=== PATIENT | female | born 1950 | race Caucasian/White ===

== ENCOUNTER 2020-12-11 17:40 | Observation (INO) ==
--- NOTE | 2020-12-11 20:48 | CT ---
HISTORYPT STATED THE LEFT SIDE OF HER FACE BECAME NUMB AROUND LUNCH TODAY THEN A FEW HOURS AFTER HER LEGS GAVE OUT UNDERNEATH HER AND HER LEFT HAND WAS NUMB AND RIGHT HAND TINGLING.STUDYBRAIN W/O CONCOMPARISONNone available.TECHNIQUEAxial non-contrast images of the head were obtained with coronal and sagittal reformats provided.Radiation dose: 1329.50 mGy-cm total DLPFINDINGSTiny round focus of decreased attenuation in the right basal ganglia may represent an age-indeterminate lacunar infarct or perivascular space.No abnormal areas of acute attenuation in the brain parenchyma.Shah-white differentiation remains intact.No intracranial, extra-axial, fluid collection.No hemorrhage.Periventricular chronic microvascular disease.No mass, mass effect or midline shift.Age related brain parenchymal global atrophy.No ventriculomegaly.No acute fracture.Sinuses are well aerated.Mastoid air cells are well aerated.Globes and intra-orbital contents are unremarkable.IMPRESSIONNo acute intracranial abnormality identified.Electronically signed by: Vladimir Padilla (Dec 11, 2020 20:46:32)
[2020-12-11 20:54] LABS: BILIRUBIN,URINE NEGATIVE (NEGATIVE); BLOOD/HEMOGLOBIN,URINE 1+ (NEGATIVE); GLUCOSE, URINE 4+ (NEGATIVE); KETONES,URINE NEGATIVE (NEGATIVE); LEUKOCYTE ESTERASE ,URINE 2+ (NEGATIVE); NITRITES,URINE NEGATIVE (NEGATIVE); PROTEIN,URINE NEGATIVE (NEGATIVE); UROBILINOGEN,URINE NORMAL (NORMAL)
[2020-12-11 21:03] LABS: APPEARANCE,URINE HAZY (CLEAR); COLOR,URINE YELLOW (YELLOW)
[2020-12-11 21:04] LABS: BACTERIA,URINE TRACE /HPF (NEGATIVE); SQUAMOUS EPITHELIAL CELL,UR MODERATE /HPF (NEGATIVE); YEAST,URINE FEW /HPF (NEGATIVE)
--- NOTE | 2020-12-11 21:08 | DR.GENAD ---
HPI Time Seen Time Seen by Provider: 12/11/20 19:06 PCP Primary Care Physician: MARISSA HPI Comment HPI Comment: Patient states taht she had sudden onset of numbness and weakness of the left arm and numbness of the left face. no prior history of CAD or CVA, but does have h/o HTN, DM and high cholesterol. Complaint/Symptoms Chief Complaint:: PT STATED THE LEFT SIDE OF HER FACE BECAME NUMB AROUND LUNCH TODAY THEN A FEW HOURS AFTER HER LEGS GAVE OUT UNDERNEATH HER AND HER LEFT HAND WAS NUMB AND RIGHT HAND TINGLING. Source History Provided: Patient Mode of Arrival Mode of Arrival: Wheelchair Timing Onset of Chief Complaint: 12/11/20 PMH PMH Past Medical History: Yes Past Medical History: Asthma, Diabetes and Hypertension Past Surgical History: Yes Surgical History: Appendectomy, Hysterectomy and Thyroidectomy Past Surgical History Comment: LOBITO BREAST REMOVAL WITH LYMPH NODES REMOVED--BREAST CA Family History History of Family Medical Conditions: Yes Family Medical History: Diabetes Mellitus, Cancer, [place] and Hypertension Social History Does patient currently use any type of tobacco product: No Have you used tobacco products in the last 12 months: No Type of Tobacco Use: None Does any household member use tobacco: No Alcohol Use: None Do you use any recreational Drugs:: No Lives With: Alone Lives Where: Home Infectious screening In the last 2 months have you had wt loss of >10#?: NO Have you had fever, night sweats or hemotysis?: No Have you traveled outside the country in the last 6 months?: No Isolation: Standard ROS Review of Systems Constitutional: See HPI Neurological: See HPI All Other Systems: Reviewed and Negative PE Vital Signs Vitals: Pulse Rate 104 Respiratory Rate 24 Blood Pressure [Left Arm] 124/75 Blood Pressure 98/59 O2 Sat by Pulse Oximetry 96 General Limitations: No Limitations Head Head Exam: Normal Inspection, Atraumatic and Normocephalic Eyes Eye exam: Normal Appearance and EOMI ENT ENT Exam: Normal Exam Neck Neck Exam: Normal Inspection and Trachea Midline Chest Chest Inspection: Normal Inspection and Symmetric Chest Wall Rise Respiratory Respiratory Exam: Normal Lung Sounds Bilat Respiratory Exam: Bilateral: Clear to Auscultation Cardiovascular Cardiovascular Exam: Regular Rate, Normal Rhythm and Normal Heart Sounds Abdominal Exam Abdominal Exam: Normal Inspection Extremities Extremities Exam: Normal Inspection Neurologic Neurological Exam: Motor Sensory Deficit (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 +drift) Psychiatric Psychiatric Exam: Normal Affect and Normal Mood Skin Skin Exam: Warm, Dry and Intact COURSE Reevaluation 1st: Unchanged Consultation Consultation Comments: Spoke with Dr. Jean Baptiste who accepts patient for admission ROR Labs Reviewed Result Diagrams: 12/11/20 21:15 12/11/20 21:15 Laboratory: WBC 7.4 X10^3/uL (3.6-10.0) 12/11/20 21:15 RBC 5.51 X10^6/uL (3.5-5.4) H 12/11/20 21:15 Hgb 15.4 g/dL (12.0-16.0) 12/11/20 21:15 Hct 46.0 % (36.0-47.0) 12/11/20 21:15 MCV 83.4 fL (80.0-100.0) 12/11/20 21:15 MCH 28.0 pg (27.0-34.0) 12/11/20 21:15 MCHC 33.6 g/dL (33.0-35.0) 12/11/20 21:15 RDW 15.1 % (11.6-16.5) 12/11/20 21:15 Plt Count 165 X10^3/uL (150.0-450.0) 12/11/20 21:15 MPV 8.5 fL (7.4-11.0) 12/11/20 21:15 Neut % (Auto) 66.3 % (42.0-75.0) 12/11/20 21:15 Lymph % (Auto) 23.2 % (21.0-51.0) 12/11/20 21:15 [place] % (Auto) 7.5 % (0.0-13.0) 12/11/20 21:15 Eos % (Auto) 1.5 % (0.9-2.9) 12/11/20 21:15 Baso % (Auto) 1.5 % (0.2-1.0) H 12/11/20 21:15 Neut # (Auto) 4.9 x10^3/uL (2.2-4.8) H 12/11/20 21:15 Lymph # (Auto) 1.7 X10^3/uL (1.3-2.9) 12/11/20 21:15 [place] # (Auto) 0.6 x10^3/uL (0.3-0.8) 12/11/20 21:15 Eos # (Auto) 0.1 x10^3/uL (0.0-0.2) 12/11/20 21:15 Baso # (Auto) 0.1 X10^3/uL (0.0-0.1) 12/11/20 21:15 Absolute Nucleated RBC 0.1 /100WBC 12/11/20 21:15 PT 13.0 SECONDS (11.8-14.3) 12/11/20 21:15 INR Target Range - 12/11/20 21:15 INR 1.03 (0.8-1.3) 12/11/20 21:15 APTT 26.1 SECONDS (22.9-36.5) 12/11/20 21:15 PTT Comment - 12/11/20 21:15 Sodium 138 mmol/L (136-145) 12/11/20 21:15 Corrected Sodium 146 mmol/L (136-145) H 12/11/20 21:15 Potassium 3.5 mmol/L (3.5-5.1) 12/11/20 21:15 Chloride 97 mmol/L (98-107) L 12/11/20 21:15 Carbon Dioxide 30.3 mmol/L (21-32) 12/11/20 21:15 BUN 8 mg/dL (7-18) 12/11/20 21:15 Creatinine 1.06 mg/dL (0.55-1.02) H 12/11/20 21:15 Est GFR (MDRD) Af Amer > 60 (>60) 12/11/20 21:15 Est GFR (MDRD) Non-Af 54 (>60) L 12/11/20 21:15 Glucose 417 mg/dL (65-99) H 12/11/20 21:15 Calcium 9.0 mg/dL (8.5-10.1) 12/11/20 21:15 Corrected Calcium TNP 12/11/20 21:15 Magnesium 1.3 mg/dL (1.7-2.9) L 12/11/20 21:15 Total Bilirubin 0.70 mg/dL (0.2-1.0) 12/11/20 21:15 AST 19 Units/L (15-37) 12/11/20 21:15 ALT 29 Units/L (12-78) 12/11/20 21:15 Alkaline Phosphatase 100 Units/L (46-116) 12/11/20 21:15 Creatine Kinase 100 Units/L (26-192) 12/11/20 21:15 CK-MB (CK-2) 2.3 ng/mL (0-4.0) 12/11/20 21:15 CK/CKMB % Calc 2.3 % (<4) 12/11/20 21:15 Troponin I < 0.02 ng/mL (0-1.5) 12/11/20 21:15 Total Protein 7.9 g/dL (6.4-8.2) 12/11/20 21:15 Albumin 3.4 g/dL (3.4-5.0) 12/11/20 21:15 Globulin 4.5 g/dL (2.5-4.5) 12/11/20 21:15 Albumin/Globulin Ratio 0.8 Ratio (1.1-2.1) L 12/11/20 21:15 Specimen Type Clean catch urine 12/11/20 20:46 Urine Color Yellow (YELLOW) 12/11/20 20:46 Urine Appearance Hazy (CLEAR) 12/11/20 20:46 Urine pH 6.0 (5.0 - 8.0) 12/11/20 20:46 Ur Specific [place] 1.015 (1.000-1.030) 12/11/20 20:46 Urine Protein Negative (NEGATIVE) 12/11/20 20:46 Urine Glucose (UA) 4+ (NEGATIVE) 12/11/20 20:46 Urine Ketones Negative (NEGATIVE) 12/11/20 20:46 Urine Occult Blood 1+ (NEGATIVE) 12/11/20 20:46 Urine Nitrite Negative (NEGATIVE) 12/11/20 20:46 Urine Bilirubin Negative (NEGATIVE) 12/11/20 20:46 Urine Urobilinogen Normal (NORMAL) 12/11/20 20:46 Ur Leukocyte Esterase 2+ (NEGATIVE) 12/11/20 20:46 Urine RBC 3-5 /HPF (0-3) A 12/11/20 20:46 Urine WBC 5-10 /HPF (0-5) A 12/11/20 20:46 Ur Squamous Epith Cells Moderate /HPF (NEGATIVE) 12/11/20 20:46 Urine Bacteria Trace /HPF (NEGATIVE) 12/11/20 20:46 Urine Yeast Few /HPF (NEGATIVE) 12/11/20 20:46 Ur Culture Indicated? No/not indicated 12/11/20 20:46 XRAY X-ray Results: HISTORY PT STATED THE LEFT SIDE OF HER FACE BECAME NUMB AROUND LUNCH TODAY THEN A FEW HOURS AFTER HER LEGS GAVE OUT UNDERNEATH HER AND HER LEFT HAND WAS NUMB AND RI GHT HAND TINGLING. STUDY BRAIN W/O CON COMPARISON None available. TECHNIQUE Axial non-contrast images of the head were obtained with coronal and sagittal reformats provided. Radiation dose: 1329.50 mGy-cm total DLP FINDINGS Tiny round focus of decreased attenuation in the right basal ganglia may represent an age-indeterminate lacunar infarct or perivascular space. No abnormal areas of acute attenuation in the brain parenchyma. Shah-white differentiation remains intact. No intracranial, extra-axial, fluid collection. No hemorrhage. Periventricular chronic microvascular disease. No mass, mass effect or midline shift. Age related brain parenchymal global atrophy. No ventriculomegaly. No acute fracture. Sinuses are well aerated. Mastoid air cells are well aerated. Globes and intra-orbital contents are unremarkable. IMPRESSION No acute intracranial abnormality identified. Electronically signed by: Vladimir Padilla (Dec 11, 2020 20:46:32) Opioid Opioid Risk Tool Age (Vinicius box if 16-45): No History of Preadolescent Sexual Abuse: No Total: 0 Total Score Risk Category: Low Risk Copyright: Senthil OBRIEN predicting aberrant behaviors Diagnosis Discharge Problem: Brain TIA
[2020-12-11 21:32] LABS: BASOPHILS # (AUTO) 0.1 X10^3/uL (0.0-0.1); BASOPHILS % (AUTO) 1.5 % (0.2-1.0); EOSINOPHILS # (AUTO) 0.1 x10^3/uL (0.0-0.2); EOSINOPHILS % (AUTO) 1.5 % (0.9-2.9); HEMOGLOBIN 15.4 g/dL (12.0-16.0); LYMPHOCYTES # (AUTO) 1.7 X10^3/uL (1.3-2.9); LYMPHOCYTES % (AUTO) 23.2 % (21.0-51.0); MEAN CORPUSCULAR HGB CONC 33.6 g/dL (33.0-35.0); MEAN CORPUSCULAR VOLUME 83.4 fL (80.0-100.0); MEAN PLATELET VOLUME 8.5 fL (7.4-11.0); MONOCYTES # (AUTO) 0.6 x10^3/uL (0.3-0.8); MONOCYTES % (AUTO) 7.5 % (0.0-13.0); NEUTROPHILS # (AUTO) 4.9 x10^3/uL (2.2-4.8); NEUTROPHILS % (AUTO) 66.3 % (42.0-75.0); PLATELET COUNT 165 X10^3/uL (150.0-450.0); RED BLOOD COUNT 5.51 X10^6/uL (3.5-5.4); RED CELL DISTRIBUTION WIDTH 15.1 % (11.6-16.5); WHITE BLOOD COUNT 7.4 X10^3/uL (3.6-10.0)
[2020-12-11 22:03] LABS: BLOOD UREA NITROGEN 8 mg/dL (7-18); CARBON DIOXIDE 30.3 mmol/L (21-32); CHLORIDE 97 mmol/L (98-107); COR NA(FOR HYPERGLY) 146 mmol/L (136-145); CREATININE 1.06 mg/dL (0.55-1.02); SODIUM 138 mmol/L (136-145); TROPONIN I < 0.02 ng/mL (0-1.5); eGFR NON BLACK RACES 54 (>60)
[2020-12-11 22:07] LABS: ALANINE AMINOTRANSFERASE 29 Units/L (12-78); ALBUMIN 3.4 g/dL (3.4-5.0); ALKALINE PHOSPHATASE 100 Units/L (46-116); ASPARTATE AMINO TRANSFERASE 19 Units/L (15-37); CKMB % 2.3 % (<4); CREATINE KINASE 100 Units/L (26-192); CREATINE KINASE MB 2.3 ng/mL (0-4.0); MAGNESIUM 1.3 mg/dL (1.7-2.9); TOTAL PROTEIN 7.9 g/dL (6.4-8.2)
--- NOTE | 2020-12-11 22:53 | RAD ---
HISTORYPT STATED THE LEFT SIDE OF HER FACE BECAME NUMB AROUND LUNCH TODAY THEN A FEW HOURS AFTER HER LEGS GAVE OUT UNDERNEATH HER AND HER LEFT HAND WAS NUMB AND RIGHT HAND TINGLING.STUDYCHEST, 1 [id number]/28/2020FINDINGSThe trachea is midline. The cardiac silhouette is enlarged.. The lungs are clear without focal infiltrate or effusion. Pulmonary vasculature within normal limits. No pneumothorax. The bony thorax is unremarkable.IMPRESSIONCardiomegaly.No active cardiopulmonary diseaseElectronically signed by: Ritesh Byers (Dec 11, 2020 22:51:24)
[2020-12-12] MEDS ORDERED: KLOR-CON PO PRN (00:46)
[2020-12-12] MEDS ORDERED: K-RIDER 10 MEQ/NS 100 ML 10 MEQ/100 ML BAG IV PRN (00:46)
[2020-12-12] MEDS ORDERED: POTASSIUM CHLORIDE LIQ 20 MEQ UDC PO PRN (00:46)
[2020-12-12] MEDS ORDERED: POTASSIUM CHL 40 MEQ/NS 0.45% 500 ML IV PRN (00:46)
[2020-12-12] MEDS ORDERED: POTASSIUM CHL 60 MEQ/NS 0.45% 500 ML IV PRN (00:46)
[2020-12-12] MEDS ORDERED: K-DUR TAB 20 MEQ PO PRN (00:46)
[2020-12-12] MEDS ORDERED: MICRO K EXTEN CAP 10 MEQ PO PRN (00:46)
[2020-12-12] MEDS ORDERED: NS 100 ML IV 100 ML IV ONE ×2 (01:11→13:45)
[2020-12-12] MEDS: MAGNESIUM SULFATE 1 GRAM/100 mL PREMIX 1 GM/100 ML BAG IV PRN ×3 (01:28→03:39)
[2020-12-12 05:07] LABS: BASOPHILS # (AUTO) 0.1 X10^3/uL (0.0-0.1); BASOPHILS % (AUTO) 0.8 % (0.2-1.0); EOSINOPHILS # (AUTO) 0.1 x10^3/uL (0.0-0.2); EOSINOPHILS % (AUTO) 1.6 % (0.9-2.9); HEMOGLOBIN 14.8 g/dL (12.0-16.0); LYMPHOCYTES # (AUTO) 2.1 X10^3/uL (1.3-2.9); LYMPHOCYTES % (AUTO) 30.1 % (21.0-51.0); MEAN CORPUSCULAR HEMOGLOBIN 27.8 pg (27.0-34.0); MEAN CORPUSCULAR VOLUME 84.1 fL (80.0-100.0); MEAN PLATELET VOLUME 8.7 fL (7.4-11.0); MONOCYTES # (AUTO) 0.6 x10^3/uL (0.3-0.8); MONOCYTES % (AUTO) 8.2 % (0.0-13.0); NEUTROPHILS # (AUTO) 4.1 x10^3/uL (2.2-4.8); NEUTROPHILS % (AUTO) 59.3 % (42.0-75.0); PLATELET COUNT 155 X10^3/uL (150.0-450.0); RED BLOOD COUNT 5.35 X10^6/uL (3.5-5.4); RED CELL DISTRIBUTION WIDTH 15.1 % (11.6-16.5); WHITE BLOOD COUNT 6.9 X10^3/uL (3.6-10.0)
[2020-12-12 05:21] LABS: ALANINE AMINOTRANSFERASE 23 Units/L (12-78); ALBUMIN 3.1 g/dL (3.4-5.0); ALKALINE PHOSPHATASE 93 Units/L (46-116); ASPARTATE AMINO TRANSFERASE 16 Units/L (15-37); BLOOD UREA NITROGEN 8 mg/dL (7-18); CALCIUM 8.8 mg/dL (8.5-10.1); CARBON DIOXIDE 28.5 mmol/L (21-32); CHLORIDE 99 mmol/L (98-107); CHOL/HDL RATIO 6.5 (0.0-5.0); CHOLESTEROL 311 mg/dL (0-200); COR CA(FOR HYPOALB) 9.5 mg/dL (8.5-10.1); COR NA(FOR HYPERGLY) 143 mmol/L (136-145); CREATININE 0.99 mg/dL (0.55-1.02); HDL CHOLESTEROL 48 mg/dL (40-60); SODIUM 137 mmol/L (136-145); TOTAL PROTEIN 7.5 g/dL (6.4-8.2); TRIGLYCERIDES 234 mg/dL (0-150); eGFR NON BLACK RACES 59 (>60)
[2020-12-12] MEDS: HumuLIN R SC PRN ×4 (06:47→21:18)
[2020-12-12] MEDS: LIPITOR TAB 80 MG PO SCH (09:14)
[2020-12-12] MEDS: GLUCOTROL PO SCH (09:14)
--- NOTE | 2020-12-12 09:37 | DR.H&P ---
H&P History & Physical for Day of: H&P Date: 12/12/20 Chief Complaint Chief Complaint: Left sided weakness and numbness Allergies Allergies Allergy/AdvReac Type Severity Reaction Status Date / Time No Known Drug Allergies Allergy Verified 06/30/20 09:38 History of Present Illness History of Present Illness: Pt is a 70 year old female past medical history of Hypertension, DMT2, Hypothyroidism, History of breast cancer, presenting after having left sided facial, upper extremity, and lower extremity weakness and numbness. She reports that symptoms started around 4PM yesterday. She felt her left leg "give out" when she was walking to the bathroom. She took a nap afterward to see if the numbness in her face would improve and when it did not she went to ED. Labs/imaging: Wbc 6.9, Hgb 14.8, Plt 155, Na 137, K 3.4, Creatinine 0.99, Glucose 343, CXR: Cardiomegaly. No active cardiopulmonary disease. CT brain: No acute intracranial abnormality identified. On exam patient still having some Left upper extremity weakness. Will get MRI/MRA to further evaluate. Order Echo, Carotid U/S, and PT/OT. Optimize medications. Restart home medications. Will continue to monitor and follow up labs/imaging. Past Medical History Past Medical History: Asthma, Diabetes and Hypertension Past Surgical History Surgical History: Appendectomy, Hysterectomy, Mastectomy and Thyroidectomy Family History Family Medical History: Diabetes Mellitus, Cancer, [place] and Hypertension Social History Does patient currently use any type of tobacco product: No Have you used tobacco products in the last 12 months: No Type of Tobacco Use: None Does any household member use tobacco: No Alcohol Use: Rarely Drug Use: Marijuana Medications Home Medications: No Known Drug Allergies Allergy (Verified 06/30/20 09:38) CONTINUE taking the following medications albuterol sulfate 1 puff INHALATION 6XD 12/12/20 [History] meloxicam 15 mg PO ONCE 12/12/20 [History] Labs Result Diagrams: 12/12/20 04:10 12/12/20 05:58 Labs: Laboratory WBC 6.9 X10^3/uL (3.6-10.0) 12/12/20 04:10 RBC 5.35 X10^6/uL (3.5-5.4) 12/12/20 04:10 Hgb 14.8 g/dL (12.0-16.0) 12/12/20 04:10 Hct 45.0 % (36.0-47.0) 12/12/20 04:10 MCV 84.1 fL (80.0-100.0) 12/12/20 04:10 MCH 27.8 pg (27.0-34.0) 12/12/20 04:10 MCHC 33.0 g/dL (33.0-35.0) 12/12/20 04:10 RDW 15.1 % (11.6-16.5) 12/12/20 04:10 Plt Count 155 X10^3/uL (150.0-450.0) 12/12/20 04:10 MPV 8.7 fL (7.4-11.0) 12/12/20 04:10 Neut % (Auto) 59.3 % (42.0-75.0) 12/12/20 04:10 Lymph % (Auto) 30.1 % (21.0-51.0) 12/12/20 04:10 [place] % (Auto) 8.2 % (0.0-13.0) 12/12/20 04:10 Eos % (Auto) 1.6 % (0.9-2.9) 12/12/20 04:10 Baso % (Auto) 0.8 % (0.2-1.0) 12/12/20 04:10 Neut # (Auto) 4.1 x10^3/uL (2.2-4.8) 12/12/20 04:10 Lymph # (Auto) 2.1 X10^3/uL (1.3-2.9) 12/12/20 04:10 [place] # (Auto) 0.6 x10^3/uL (0.3-0.8) 12/12/20 04:10 Eos # (Auto) 0.1 x10^3/uL (0.0-0.2) 12/12/20 04:10 Baso # (Auto) 0.1 X10^3/uL (0.0-0.1) 12/12/20 04:10 Absolute Nucleated RBC 0.1 /100WBC 12/12/20 04:10 PT 13.1 SECONDS (11.8-14.3) 12/12/20 04:10 INR Target Range - 12/12/20 04:10 INR 1.04 (0.8-1.3) 12/12/20 04:10 APTT 27.0 SECONDS (22.9-36.5) 12/12/20 04:10 PTT Comment - 12/12/20 04:10 Fibrinogen 298 mg/dL (239-489) 12/12/20 04:10 Sodium 137 mmol/L (136-145) 12/12/20 04:10 Corrected Sodium 143 mmol/L (136-145) 12/12/20 04:10 Potassium 3.4 mmol/L (3.5-5.1) L 12/12/20 04:10 Chloride 99 mmol/L (98-107) 12/12/20 04:10 Carbon Dioxide 28.5 mmol/L (21-32) 12/12/20 04:10 BUN 8 mg/dL (7-18) 12/12/20 04:10 Creatinine 0.99 mg/dL (0.55-1.02) 12/12/20 04:10 Est GFR (MDRD) Af Amer > 60 (>60) 12/12/20 04:10 Est GFR (MDRD) Non-Af 59 (>60) 12/12/20 04:10 Glucose 459 mg/dL (65-99) H 12/12/20 05:58 POC Glucose (mg/dL) 402 mg/dL (65-99) H 12/12/20 05:24 Calcium 8.8 mg/dL (8.5-10.1) 12/12/20 04:10 Corrected Calcium 9.5 mg/dL (8.5-10.1) 12/12/20 04:10 Magnesium 2.0 mg/dL (1.7-2.9) 12/12/20 04:10 Magnesium Cancelled 12/12/20 04:10 Total Bilirubin 0.80 mg/dL (0.2-1.0) 12/12/20 04:10 AST 16 Units/L (15-37) 12/12/20 04:10 ALT 23 Units/L (12-78) 12/12/20 04:10 Alkaline Phosphatase 93 Units/L (46-116) 12/12/20 04:10 Creatine Kinase 100 Units/L (26-192) 12/11/20 21:15 CK-MB (CK-2) 2.3 ng/mL (0-4.0) 12/11/20 21:15 CK/CKMB % Calc 2.3 % (<4) 12/11/20 21:15 Troponin I < 0.02 ng/mL (0-1.5) 12/11/20 21:15 Total Protein 7.5 g/dL (6.4-8.2) 12/12/20 04:10 Albumin 3.1 g/dL (3.4-5.0) L 12/12/20 04:10 Globulin 4.4 g/dL (2.5-4.5) 12/12/20 04:10 Albumin/Globulin Ratio 0.7 Ratio (1.1-2.1) L 12/12/20 04:10 Triglycerides 234 mg/dL (0-150) H 12/12/20 04:10 Cholesterol 311 mg/dL (0-200) H 12/12/20 04:10 LDL Cholesterol, Calc 216 mg/dL (0-100) H 12/12/20 04:10 HDL Cholesterol 48 mg/dL (40-60) 12/12/20 04:10 Cholesterol/HDL Ratio 6.5 (0.0-5.0) H 12/12/20 04:10 Specimen Type Clean catch urine 12/11/20 20:46 Urine Color Yellow (YELLOW) 12/11/20 20:46 Urine Appearance Hazy (CLEAR) 12/11/20 20:46 Urine pH 6.0 (5.0 - 8.0) 12/11/20 20:46 Ur Specific [place] 1.015 (1.000-1.030) 12/11/20 20:46 Urine Protein Negative (NEGATIVE) 12/11/20 20:46 Urine Glucose (UA) 4+ (NEGATIVE) 12/11/20 20:46 Urine Ketones Negative (NEGATIVE) 12/11/20 20:46 Urine Occult Blood 1+ (NEGATIVE) 12/11/20 20:46 Urine Nitrite Negative (NEGATIVE) 12/11/20 20:46 Urine Bilirubin Negative (NEGATIVE) 12/11/20 20:46 Urine Urobilinogen Normal (NORMAL) 12/11/20 20:46 Ur Leukocyte Esterase 2+ (NEGATIVE) 12/11/20 20:46 Urine RBC 3-5 /HPF (0-3) A 12/11/20 20:46 Urine WBC 5-10 /HPF (0-5) A 12/11/20 20:46 Ur Squamous Epith Cells Moderate /HPF (NEGATIVE) 12/11/20 20:46 Urine Bacteria Trace /HPF (NEGATIVE) 12/11/20 20:46 Urine Yeast Few /HPF (NEGATIVE) 12/11/20 20:46 Ur Culture Indicated? No/not indicated 12/11/20 20:46 SARS CoV-2 RNA Rapid YAIMA Negative (NEGATIVE) 12/11/20 23:53 Review of Systems Constitutional: Weakness; denies Fever and Chills Eyes: No Symptoms Reported ENT: No Symptoms Reported Respiratory: No Symptoms Reported Cardiovascular: No Symptoms Reported Gastrointestinal: No Symptoms Reported Genitourinary: No Symptoms Reported Musculoskeletal: Back Pain and Other (Bilateral knee pain) Skin: No Symptoms Reported Neurological: Weakness (Left UE) and Numbness (left facial); denies Change in Speech Physical Exam Vital Signs: Temperature 99.1 F Pulse Rate [Left Radial] 98 Pulse Rate 90 Respiratory Rate 16 Blood Pressure [Left Arm] 187/98 Blood Pressure 170/82 O2 Sat by Pulse Oximetry 96 Oriented: Normal Eyes: Normal Ear: Normal Nose: Normal Throat: Normal Respiratory: Clear Throughout Cardiovascular: Normal : Normal Auscultation: Bowel Sounds: Normal Palpation: Normal Tenderness: Normal Skin: Normal Musculoskeletal: Normal Psychiatric: Normal Mood Description: Calm and Appropriate Affect: Normal Speech Pattern: Clear and Appropriate Assessment/Plan (1) Brain TIA: Status: Acute Plan: MRI/MRA, Echo, Carotid U/S, PT/OT evaluation Review H&P Reviewed: Yes Patient was examined?: Yes
[2020-12-12] MEDS ORDERED: GLUCOPHAGE ONE ×2 (10:34→21:07)
[2020-12-12] MEDS: ZESTRIL TAB 40 MG PO SCH (10:38)
[2020-12-12] MEDS: GLUCOPHAGE PO SCH ×2 (10:38→21:18)
[2020-12-12] MEDS: SYNTHROID 150 mcg TAB PO SCH (10:38)
[2020-12-12] MEDS: LOPRESSOR TAB 50 MG PO SCH ×2 (10:39→21:18)
--- NOTE | 2020-12-12 11:51 | MRI ---
HISTORYTIASTUDYMRA HEAD W/O [id number] through the havasupai of [place] was performed without contrastFINDINGSThere is a dominant right vertebral artery, the basilar artery is normal in size, there is bilateral normal flow attenuation of the posterior cerebral arteries. There is normal flow attenuation of the petrous, cavernous and supraclinoid ICA. There is normal flow attenuation of the anterior cerebral arteries and the right MCA. There is lack of flow attenuation in the distal left M1 segment in the [id number] images as well as in the source images, however there is motion artifact. No dominant saccular aneurysmsIMPRESSIONLack of flow attenuation in the distal left M1 segment it could be due to motion; however high-grade stenosis or thrombus are not excluded follow-up with CTA head with contrast is recommended.Electronically signed by: Juani Wells (Dec 12, 2020 11:49:04)
--- NOTE | 2020-12-12 13:14 | VAS ---
HISTORYTIASTUDYDuplex CAROTID USCOMPARISONNoneTECHNIQUEMultiple em scale and color flow Doppler images of the right and left carotid arterial system were obtained with waveform analysis using NASCET criteria. The vertebral arterial system was evaluated as well.FINDINGSTwo dimensional ultrasound reveals no significant plaque. The right and left vertebral arteries demonstrate antegrade flow.Right ICA peak systolic velocity is 56 cm/sec. Right systolic ratio is 1.2.Left ICA peak systolic velocity is 48 cm/sec. Left systolic ratio is 0.8.IMPRESSIONNo hemodynamically significant stenosis.Electronically signed by: Nilson Hooper (Dec 12, 2020 13:12:39)
[2020-12-12] MEDS: NEURONTIN CAP 300 MG PO SCH ×2 (13:50→21:18)
[2020-12-12 20:24] VITALS: BMI 41.2
[2020-12-12] MEDS: SNACK - Diabetic Appropriate PO SCH (21:17)
[2020-12-12] MEDS: SINEMET CR 50/200 MG PO SCH (21:18)
[2020-12-13 05:25] LABS: BASOPHILS # (AUTO) 0.1 X10^3/uL (0.0-0.1); BASOPHILS % (AUTO) 1.2 % (0.2-1.0); EOSINOPHILS # (AUTO) 0.1 x10^3/uL (0.0-0.2); EOSINOPHILS % (AUTO) 1.5 % (0.9-2.9); HEMATOCRIT 43.8 % (36.0-47.0); HEMOGLOBIN 14.5 g/dL (12.0-16.0); LYMPHOCYTES # (AUTO) 1.9 X10^3/uL (1.3-2.9); LYMPHOCYTES % (AUTO) 24.5 % (21.0-51.0); MEAN CORPUSCULAR HEMOGLOBIN 27.9 pg (27.0-34.0); MEAN CORPUSCULAR HGB CONC 33.1 g/dL (33.0-35.0); MEAN CORPUSCULAR VOLUME 84.3 fL (80.0-100.0); MEAN PLATELET VOLUME 8.4 fL (7.4-11.0); MONOCYTES # (AUTO) 0.8 x10^3/uL (0.3-0.8); MONOCYTES % (AUTO) 9.7 % (0.0-13.0); NEUTROPHILS # (AUTO) 4.9 x10^3/uL (2.2-4.8); NEUTROPHILS % (AUTO) 63.1 % (42.0-75.0); PLATELET COUNT 151 X10^3/uL (150.0-450.0); RED BLOOD COUNT 5.19 X10^6/uL (3.5-5.4); RED CELL DISTRIBUTION WIDTH 15.1 % (11.6-16.5); WHITE BLOOD COUNT 7.8 X10^3/uL (3.6-10.0)
[2020-12-13 05:36] LABS: ALANINE AMINOTRANSFERASE 9 Units/L (12-78); ALBUMIN 2.7 g/dL (3.4-5.0); ALKALINE PHOSPHATASE 86 Units/L (46-116); ASPARTATE AMINO TRANSFERASE 19 Units/L (15-37); BLOOD UREA NITROGEN 13 mg/dL (7-18); CALCIUM 8.3 mg/dL (8.5-10.1); CARBON DIOXIDE 28.7 mmol/L (21-32); CHLORIDE 104 mmol/L (98-107); COR CA(FOR HYPOALB) 9.3 mg/dL (8.5-10.1); COR NA(FOR HYPERGLY) 143 mmol/L (136-145); CREATININE 0.88 mg/dL (0.55-1.02); SODIUM 140 mmol/L (136-145); TOTAL PROTEIN 6.7 g/dL (6.4-8.2); eGFR NON BLACK RACES > 60 (>60)
[2020-12-13] MEDS: NEURONTIN CAP 300 MG PO SCH ×3 (05:38→21:32)
[2020-12-13] MEDS: HumuLIN R SC PRN ×3 (05:50→21:32)
[2020-12-13] MEDS ORDERED: GLUCOPHAGE ONE ×2 (07:56→20:20)
[2020-12-13] MEDS: LIPITOR TAB 80 MG PO SCH (09:49)
[2020-12-13] MEDS: GLUCOTROL PO SCH (09:49)
[2020-12-13] MEDS: ZESTRIL TAB 40 MG PO SCH (09:49)
[2020-12-13] MEDS: LOPRESSOR TAB 50 MG PO SCH ×2 (09:50→21:32)
[2020-12-13] MEDS: SYNTHROID 150 mcg TAB PO SCH (09:50)
[2020-12-13] MEDS: SINEMET CR 50/200 MG PO SCH ×2 (09:50→21:32)
[2020-12-13] MEDS: GLUCOPHAGE PO SCH ×2 (09:50→21:32)
[2020-12-13] MEDS: LOVENOX INJ 40 MG SYR SC SCH (10:00)
--- NOTE | 2020-12-13 12:45 | PCM.PROG ---
Progress Note Progress Note for Day of Date of Exam: 12/13/20 Subjective Subjective: Pt is a 70 year old female past medical history of Hypertension, DMT2, Hypothyroidism, History of breast cancer, admitted for TIA, left upper extremity weakness. This morning patient reports no acute concerns, still has some weakness in her left arm. Labs/imaging: Wbc 7.8, Hgb 14.5, Plt 151, Na 140, K 4.0, Creatinine 0.88, Glucose 224, Echo: EF 58%, Carotid U/S: No hemodynamically significant stenosis. MRI/MRA: Lack of flow attenuation in the distal left M1 segment it could be due to motion; however high-grade stenosis or thrombus are not excluded follow-up with CTA head with contrast is recommended. Pt declining CTA head because she has "bad feeling" about dye contrast. Explained risk of not having imaging performed. Pt verbalized understanding and still declined. Pt is agreeable to rehab for physical therapy. Case management working on placement. Continue PT, medications, monitor and follow up labs/imaging. Past Medical Family Social History Past Med/Fam/Surg Hx: No changes since H&P Allergies: Allergies No Known Drug Allergies Allergy (Verified 06/30/20 09:38) Review of Systems ROS: No change since H&P Vital Signs and I&O's Vital Signs: Temperature 97.8 F Pulse Rate [Left Radial] 72 Pulse Rate 90 Respiratory Rate 20 Blood Pressure [Left Arm] 112/59 Blood Pressure 170/82 O2 Sat by Pulse Oximetry 96 Intake and Output: Intake & Output 12/10/20 12/11/20 12/12/20 12/13/20 23:59 23:59 23:59 23:59 Intake Total 1272 / 1272 400 / 400 Balance 1272 / 1272 400 / 400 Physical Exam Oriented: Normal Eyes: Normal Ear: Normal Nose: Normal Throat: Normal Respiratory: Normal Cardiovascular: Normal : Normal Auscultation: Bowel Sounds: Normal Tenderness: Normal Skin: Normal Musculoskeletal: Normal Psychiatric: Normal Mood Description: Calm and Appropriate Affect: Normal Speech Pattern: Clear and Appropriate Laboratory and Diagnostics Result Diagrams: 12/13/20 05:12 12/13/20 05:12 Labs: Laboratory WBC 7.8 X10^3/uL (3.6-10.0) 12/13/20 05:12 RBC 5.19 X10^6/uL (3.5-5.4) 12/13/20 05:12 Hgb 14.5 g/dL (12.0-16.0) 12/13/20 05:12 Hct 43.8 % (36.0-47.0) 12/13/20 05:12 MCV 84.3 fL (80.0-100.0) 12/13/20 05:12 MCH 27.9 pg (27.0-34.0) 12/13/20 05:12 MCHC 33.1 g/dL (33.0-35.0) 12/13/20 05:12 RDW 15.1 % (11.6-16.5) 12/13/20 05:12 Plt Count 151 X10^3/uL (150.0-450.0) 12/13/20 05:12 MPV 8.4 fL (7.4-11.0) 12/13/20 05:12 Neut % (Auto) 63.1 % (42.0-75.0) 12/13/20 05:12 Lymph % (Auto) 24.5 % (21.0-51.0) 12/13/20 05:12 [place] % (Auto) 9.7 % (0.0-13.0) 12/13/20 05:12 Eos % (Auto) 1.5 % (0.9-2.9) 12/13/20 05:12 Baso % (Auto) 1.2 % (0.2-1.0) H 12/13/20 05:12 Neut # (Auto) 4.9 x10^3/uL (2.2-4.8) H 12/13/20 05:12 Lymph # (Auto) 1.9 X10^3/uL (1.3-2.9) 12/13/20 05:12 [place] # (Auto) 0.8 x10^3/uL (0.3-0.8) 12/13/20 05:12 Eos # (Auto) 0.1 x10^3/uL (0.0-0.2) 12/13/20 05:12 Baso # (Auto) 0.1 X10^3/uL (0.0-0.1) 12/13/20 05:12 Absolute Nucleated RBC 0.0 /100WBC 12/13/20 05:12 PT 13.1 SECONDS (11.8-14.3) 12/12/20 04:10 INR Target Range - 12/12/20 04:10 INR 1.04 (0.8-1.3) 12/12/20 04:10 APTT 27.0 SECONDS (22.9-36.5) 12/12/20 04:10 PTT Comment - 12/12/20 04:10 Fibrinogen 298 mg/dL (239-489) 12/12/20 04:10 Sodium 140 mmol/L (136-145) 12/13/20 05:12 Corrected Sodium 143 mmol/L (136-145) 12/13/20 05:12 Potassium 4.0 mmol/L (3.5-5.1) 12/13/20 05:12 Chloride 104 mmol/L (98-107) 12/13/20 05:12 Carbon Dioxide 28.7 mmol/L (21-32) 12/13/20 05:12 BUN 13 mg/dL (7-18) 12/13/20 05:12 Creatinine 0.88 mg/dL (0.55-1.02) 12/13/20 05:12 Est GFR (MDRD) Af Amer > 60 (>60) 12/13/20 05:12 Est GFR (MDRD) Non-Af > 60 (>60) 12/13/20 05:12 Glucose 224 mg/dL (65-99) H 12/13/20 05:12 POC Glucose (mg/dL) 232 mg/dL (65-99) H 12/13/20 11:40 Calcium 8.3 mg/dL (8.5-10.1) L 12/13/20 05:12 Corrected Calcium 9.3 mg/dL (8.5-10.1) 12/13/20 05:12 Magnesium 2.0 mg/dL (1.7-2.9) 12/12/20 04:10 Magnesium Cancelled 12/12/20 04:10 Total Bilirubin 0.60 mg/dL (0.2-1.0) 12/13/20 05:12 AST 19 Units/L (15-37) 12/13/20 05:12 ALT 9 Units/L (12-78) L 12/13/20 05:12 Alkaline Phosphatase 86 Units/L (46-116) 12/13/20 05:12 Creatine Kinase 100 Units/L (26-192) 12/11/20 21:15 CK-MB (CK-2) 2.3 ng/mL (0-4.0) 12/11/20 21:15 CK/CKMB % Calc 2.3 % (<4) 12/11/20 21:15 Troponin I < 0.02 ng/mL (0-1.5) 12/11/20 21:15 Total Protein 6.7 g/dL (6.4-8.2) 12/13/20 05:12 Albumin 2.7 g/dL (3.4-5.0) L 12/13/20 05:12 Globulin 4.0 g/dL (2.5-4.5) 12/13/20 05:12 Albumin/Globulin Ratio 0.7 Ratio (1.1-2.1) L 12/13/20 05:12 Triglycerides 234 mg/dL (0-150) H 12/12/20 04:10 Cholesterol 311 mg/dL (0-200) H 12/12/20 04:10 LDL Cholesterol, Calc 216 mg/dL (0-100) H 12/12/20 04:10 HDL Cholesterol 48 mg/dL (40-60) 12/12/20 04:10 Cholesterol/HDL Ratio 6.5 (0.0-5.0) H 12/12/20 04:10 Specimen Type Clean catch urine 12/11/20 20:46 Urine Color Yellow (YELLOW) 12/11/20 20:46 Urine Appearance Hazy (CLEAR) 12/11/20 20:46 Urine pH 6.0 (5.0 - 8.0) 12/11/20 20:46 Ur Specific [place] 1.015 (1.000-1.030) 12/11/20 20:46 Urine Protein Negative (NEGATIVE) 12/11/20 20:46 Urine Glucose (UA) 4+ (NEGATIVE) 12/11/20 20:46 Urine Ketones Negative (NEGATIVE) 12/11/20 20:46 Urine Occult Blood 1+ (NEGATIVE) 12/11/20 20:46 Urine Nitrite Negative (NEGATIVE) 12/11/20 20:46 Urine Bilirubin Negative (NEGATIVE) 12/11/20 20:46 Urine Urobilinogen Normal (NORMAL) 12/11/20 20:46 Ur Leukocyte Esterase 2+ (NEGATIVE) 12/11/20 20:46 Urine RBC 3-5 /HPF (0-3) A 12/11/20 20:46 Urine WBC 5-10 /HPF (0-5) A 12/11/20 20:46 Ur Squamous Epith Cells Moderate /HPF (NEGATIVE) 12/11/20 20:46 Urine Bacteria Trace /HPF (NEGATIVE) 12/11/20 20:46 Urine Yeast Few /HPF (NEGATIVE) 12/11/20 20:46 Ur Culture Indicated? No/not indicated 12/11/20 20:46 SARS CoV-2 RNA Rapid YAIMA Negative (NEGATIVE) 12/11/20 23:53 Plan (1) Brain TIA: Status: Acute Plan: Continue physical therapy
[2020-12-13] MEDS ORDERED: ATIVAN TAB 0.5 MG PO PRN (18:41)
[2020-12-13] MEDS: SNACK - Diabetic Appropriate PO SCH (21:31)
[2020-12-14 05:01] LABS: BASOPHILS # (AUTO) 0.1 X10^3/uL (0.0-0.1); BASOPHILS % (AUTO) 0.8 % (0.2-1.0); EOSINOPHILS # (AUTO) 0.1 x10^3/uL (0.0-0.2); EOSINOPHILS % (AUTO) 1.4 % (0.9-2.9); HEMOGLOBIN 14.5 g/dL (12.0-16.0); LYMPHOCYTES # (AUTO) 1.7 X10^3/uL (1.3-2.9); LYMPHOCYTES % (AUTO) 23.1 % (21.0-51.0); MEAN CORPUSCULAR HEMOGLOBIN 27.8 pg (27.0-34.0); MEAN CORPUSCULAR VOLUME 84.2 fL (80.0-100.0); MEAN PLATELET VOLUME 8.5 fL (7.4-11.0); MONOCYTES # (AUTO) 0.6 x10^3/uL (0.3-0.8); MONOCYTES % (AUTO) 8.7 % (0.0-13.0); NEUTROPHILS # (AUTO) 4.9 x10^3/uL (2.2-4.8); PLATELET COUNT 146 X10^3/uL (150.0-450.0); RED BLOOD COUNT 5.23 X10^6/uL (3.5-5.4); RED CELL DISTRIBUTION WIDTH 15.1 % (11.6-16.5); WHITE BLOOD COUNT 7.5 X10^3/uL (3.6-10.0)
[2020-12-14 05:25] LABS: ALANINE AMINOTRANSFERASE 9 Units/L (12-78); ALBUMIN 2.7 g/dL (3.4-5.0); ALKALINE PHOSPHATASE 89 Units/L (46-116); ASPARTATE AMINO TRANSFERASE 19 Units/L (15-37); BLOOD UREA NITROGEN 15 mg/dL (7-18); CALCIUM 8.7 mg/dL (8.5-10.1); CARBON DIOXIDE 27.2 mmol/L (21-32); CHLORIDE 104 mmol/L (98-107); COR CA(FOR HYPOALB) 9.7 mg/dL (8.5-10.1); COR NA(FOR HYPERGLY) 143 mmol/L (136-145); CREATININE 0.84 mg/dL (0.55-1.02); SODIUM 141 mmol/L (136-145); TOTAL PROTEIN 6.7 g/dL (6.4-8.2); eGFR NON BLACK RACES > 60 (>60)
[2020-12-14] MEDS: NEURONTIN CAP 300 MG PO SCH ×3 (05:46→21:07)
[2020-12-14] MEDS ORDERED: GLUCOPHAGE ONE (08:03)
[2020-12-14] MEDS ORDERED: VENTOLIN or PROAIR HFA ONE (08:20)
[2020-12-14] MEDS: VENTOLIN or PROAIR HFA IN PRN (08:45)
[2020-12-14] MEDS: SYNTHROID 150 mcg TAB PO SCH (08:54)
[2020-12-14] MEDS: ZESTRIL TAB 40 MG PO SCH (08:54)
[2020-12-14] MEDS: SINEMET CR 50/200 MG PO SCH ×2 (08:54→21:07)
[2020-12-14] MEDS: LIPITOR TAB 80 MG PO SCH (08:54)
[2020-12-14] MEDS: LOPRESSOR TAB 50 MG PO SCH ×2 (08:55→21:07)
[2020-12-14] MEDS: GLUCOTROL PO SCH (08:55)
[2020-12-14] MEDS: GLUCOPHAGE PO SCH ×2 (08:55→08:59)
[2020-12-14] MEDS: LOVENOX INJ 40 MG SYR SC SCH (08:55)
--- NOTE | 2020-12-14 12:26 | CT ---
HISTORYABNORMAL MRA, attenuation of left M1 segmentSTUDYBRAIN CTA without and with IV contrastCOMPARISONMRA 12/12/[address] brain 12/11/2020TECHNIQUECTA of the intracranial circulation was performed with 3D MIP reconstructions.Studies performed prior to and following administration of 75 cc Omnipaque 350 IV contrast.FINDINGSUnenhanced images reveal paranasal sinuses and mastoid air cells to be clear of fluid. Calcifications are seen in the distal vertebral arteries and distal ICAs. There is a right thalamic lacunar infarct that is more prominent than prior study. This likely represents a subacute lacunar infarct. Other mild chronic small vessel ischemic changes are suspected in the periventricular white matter. No acute intracranial hemorrhage is seen.Contrast enhanced images suggest the calcified plaque in the distal vertebral arteries causes greater than 50 percent stenosis bilaterally, left greater than right. Stenosis on the left may be as great as 80 percent. Stenosis on the right is likely in the 50-60 percent range.Calcified plaque in the cavernous and supraclinoid ICAs causes less than 50 percent stenosis on the right. There is probably 50 percent stenosis in the supraclinoid left ICA. Anterior communicating artery is seen but no posterior communicating arteries are seen. Normal variant asymmetric branching patterns are seen in the MCAs without evidence of MCA stenosis or occlusion. No aneurysm is seen. Normal enhancement is seen of the dural venous sinuses.IMPRESSIONNo significant left M1 stenosis or occlusion is seen.Likely 50 percent stenosis in the supraclinoid left ICA with less than 50 percent stenosis in the distal right ICA.Likely 50-60 percent stenosis in the distal right vertebral artery with approximately 80 percent stenosis in the distal left vertebral artery.Evolving subacute lacunar infarct is seen in the right thalamus.Electronically signed by: Nilson Hooper (Dec 14, 2020 12:24:40)
--- NOTE | 2020-12-14 13:30 | PCM.PROG ---
Progress Note Progress Note for Day of Date of Exam: 12/14/20 Subjective Subjective: Pt is a 70 year old female past medical history of Hypertension, DMT2, Hypothyroidism, History of breast cancer, admitted for TIA, left facial numbness and left upper extremity weakness. This morning patient reports some improvement in her left arm strength, still having some numbness on left side of her face. No other acute concerns. Labs/imaging: Wbc 7.5, Hgb 14.5, Plt 146, Na 141, K 4.0, Creatinine 0.84, Glucose 172, Echo: EF 58%, Carotid U/S: No hemodynamically significant stenosis. MRI/MRA: unable to exclude high-grade stenosis or thrombus recommended CTA head with contrast which patient was reluctant and declined initially. Pt states after talking to her daughter she would like to proceed with CTA, will order. Pt is agreeable to rehab for physical therapy. Case management will set up. Continue PT, medications, monitor and follow up labs/imaging. Past Medical Family Social History Past Med/Fam/Surg Hx: No changes since H&P Allergies: Allergies No Known Drug Allergies Allergy (Verified 06/30/20 09:38) Review of Systems ROS: No change since H&P Vital Signs and I&O's Vital Signs: Temperature 97.0 F Pulse Rate [Left Radial] 84 Pulse Rate 84 Respiratory Rate 20 Blood Pressure [Left Arm] 142/67 Blood Pressure 170/82 O2 Sat by Pulse Oximetry 98 Intake and Output: Intake & Output 12/11/20 12/12/20 12/13/20 12/14/20 23:59 23:59 23:59 23:59 Intake Total 1272 / 1272 1830 / 1830 120 / 120 Balance 1272 / 1272 1830 / 1830 120 / 120 Physical Exam Oriented: Normal Eyes: Normal Ear: Normal Nose: Normal Throat: Normal Respiratory: Normal Cardiovascular: Normal : Normal Auscultation: Bowel Sounds: Normal Tenderness: Normal Skin: Normal Musculoskeletal: Normal Psychiatric: Normal Mood Description: Calm and Appropriate Affect: Normal Speech Pattern: Clear and Appropriate Laboratory and Diagnostics Result Diagrams: 12/14/20 04:46 12/14/20 04:46 Labs: Laboratory WBC 7.5 X10^3/uL (3.6-10.0) 12/14/20 04:46 RBC 5.23 X10^6/uL (3.5-5.4) 12/14/20 04:46 Hgb 14.5 g/dL (12.0-16.0) 12/14/20 04:46 Hct 44.0 % (36.0-47.0) 12/14/20 04:46 MCV 84.2 fL (80.0-100.0) 12/14/20 04:46 MCH 27.8 pg (27.0-34.0) 12/14/20 04:46 MCHC 33.0 g/dL (33.0-35.0) 12/14/20 04:46 RDW 15.1 % (11.6-16.5) 12/14/20 04:46 Plt Count 146 X10^3/uL (150.0-450.0) L 12/14/20 04:46 MPV 8.5 fL (7.4-11.0) 12/14/20 04:46 Neut % (Auto) 66.0 % (42.0-75.0) 12/14/20 04:46 Lymph % (Auto) 23.1 % (21.0-51.0) 12/14/20 04:46 [place] % (Auto) 8.7 % (0.0-13.0) 12/14/20 04:46 Eos % (Auto) 1.4 % (0.9-2.9) 12/14/20 04:46 Baso % (Auto) 0.8 % (0.2-1.0) 12/14/20 04:46 Neut # (Auto) 4.9 x10^3/uL (2.2-4.8) H 12/14/20 04:46 Lymph # (Auto) 1.7 X10^3/uL (1.3-2.9) 12/14/20 04:46 [place] # (Auto) 0.6 x10^3/uL (0.3-0.8) 12/14/20 04:46 Eos # (Auto) 0.1 x10^3/uL (0.0-0.2) 12/14/20 04:46 Baso # (Auto) 0.1 X10^3/uL (0.0-0.1) 12/14/20 04:46 Absolute Nucleated RBC 0.0 /100WBC 12/14/20 04:46 PT 13.1 SECONDS (11.8-14.3) 12/12/20 04:10 INR Target Range - 12/12/20 04:10 INR 1.04 (0.8-1.3) 12/12/20 04:10 APTT 27.0 SECONDS (22.9-36.5) 12/12/20 04:10 PTT Comment - 12/12/20 04:10 Fibrinogen 298 mg/dL (239-489) 12/12/20 04:10 Sodium 141 mmol/L (136-145) 12/14/20 04:46 Corrected Sodium 143 mmol/L (136-145) 12/14/20 04:46 Potassium 4.0 mmol/L (3.5-5.1) 12/14/20 04:46 Chloride 104 mmol/L (98-107) 12/14/20 04:46 Carbon Dioxide 27.2 mmol/L (21-32) 12/14/20 04:46 BUN 15 mg/dL (7-18) 12/14/20 04:46 Creatinine 0.84 mg/dL (0.55-1.02) 12/14/20 04:46 Est GFR (MDRD) Af Amer > 60 (>60) 12/14/20 04:46 Est GFR (MDRD) Non-Af > 60 (>60) 12/14/20 04:46 Glucose 172 mg/dL (65-99) H 12/14/20 04:46 POC Glucose (mg/dL) 170 mg/dL (65-99) H 12/14/20 05:49 Calcium 8.7 mg/dL (8.5-10.1) 12/14/20 04:46 Corrected Calcium 9.7 mg/dL (8.5-10.1) 12/14/20 04:46 Magnesium 2.0 mg/dL (1.7-2.9) 12/12/20 04:10 Magnesium Cancelled 12/12/20 04:10 Total Bilirubin 0.60 mg/dL (0.2-1.0) 12/14/20 04:46 AST 19 Units/L (15-37) 12/14/20 04:46 ALT 9 Units/L (12-78) L 12/14/20 04:46 Alkaline Phosphatase 89 Units/L (46-116) 12/14/20 04:46 Creatine Kinase 100 Units/L (26-192) 12/11/20 21:15 CK-MB (CK-2) 2.3 ng/mL (0-4.0) 12/11/20 21:15 CK/CKMB % Calc 2.3 % (<4) 12/11/20 21:15 Troponin I < 0.02 ng/mL (0-1.5) 12/11/20 21:15 Total Protein 6.7 g/dL (6.4-8.2) 12/14/20 04:46 Albumin 2.7 g/dL (3.4-5.0) L 12/14/20 04:46 Globulin 4.0 g/dL (2.5-4.5) 12/14/20 04:46 Albumin/Globulin Ratio 0.7 Ratio (1.1-2.1) L 12/14/20 04:46 Triglycerides 234 mg/dL (0-150) H 12/12/20 04:10 Cholesterol 311 mg/dL (0-200) H 12/12/20 04:10 LDL Cholesterol, Calc 216 mg/dL (0-100) H 12/12/20 04:10 HDL Cholesterol 48 mg/dL (40-60) 12/12/20 04:10 Cholesterol/HDL Ratio 6.5 (0.0-5.0) H 12/12/20 04:10 Specimen Type Clean catch urine 12/11/20 20:46 Urine Color Yellow (YELLOW) 12/11/20 20:46 Urine Appearance Hazy (CLEAR) 12/11/20 20:46 Urine pH 6.0 (5.0 - 8.0) 12/11/20 20:46 Ur Specific [place] 1.015 (1.000-1.030) 12/11/20 20:46 Urine Protein Negative (NEGATIVE) 12/11/20 20:46 Urine Glucose (UA) 4+ (NEGATIVE) 12/11/20 20:46 Urine Ketones Negative (NEGATIVE) 12/11/20 20:46 Urine Occult Blood 1+ (NEGATIVE) 12/11/20 20:46 Urine Nitrite Negative (NEGATIVE) 12/11/20 20:46 Urine Bilirubin Negative (NEGATIVE) 12/11/20 20:46 Urine Urobilinogen Normal (NORMAL) 12/11/20 20:46 Ur Leukocyte Esterase 2+ (NEGATIVE) 12/11/20 20:46 Urine RBC 3-5 /HPF (0-3) A 12/11/20 20:46 Urine WBC 5-10 /HPF (0-5) A 12/11/20 20:46 Ur Squamous Epith Cells Moderate /HPF (NEGATIVE) 12/11/20 20:46 Urine Bacteria Trace /HPF (NEGATIVE) 12/11/20 20:46 Urine Yeast Few /HPF (NEGATIVE) 12/11/20 20:46 Ur Culture Indicated? No/not indicated 12/11/20 20:46 SARS CoV-2 RNA Rapid YAIMA Negative (NEGATIVE) 12/11/20 23:53 Plan (1) Brain TIA: Status: Acute Plan: Continue physical therapy Order CTA head
[2020-12-14] MEDS: HumuLIN R SC PRN ×2 (17:45→21:07)
[2020-12-14] MEDS: SNACK - Diabetic Appropriate PO SCH (20:37)
[2020-12-15 05:23] LABS: BASOPHILS # (AUTO) 0.1 X10^3/uL (0.0-0.1); BASOPHILS % (AUTO) 0.8 % (0.2-1.0); EOSINOPHILS # (AUTO) 0.1 x10^3/uL (0.0-0.2); EOSINOPHILS % (AUTO) 1.4 % (0.9-2.9); HEMATOCRIT 45.8 % (36.0-47.0); HEMOGLOBIN 15.1 g/dL (12.0-16.0); LYMPHOCYTES % (AUTO) 27.2 % (21.0-51.0); MEAN CORPUSCULAR HEMOGLOBIN 27.8 pg (27.0-34.0); MEAN CORPUSCULAR HGB CONC 32.9 g/dL (33.0-35.0); MEAN CORPUSCULAR VOLUME 84.6 fL (80.0-100.0); MEAN PLATELET VOLUME 8.8 fL (7.4-11.0); MONOCYTES # (AUTO) 0.8 x10^3/uL (0.3-0.8); MONOCYTES % (AUTO) 10.5 % (0.0-13.0); NEUTROPHILS # (AUTO) 4.4 x10^3/uL (2.2-4.8); NEUTROPHILS % (AUTO) 60.1 % (42.0-75.0); PLATELET COUNT 159 X10^3/uL (150.0-450.0); RED BLOOD COUNT 5.42 X10^6/uL (3.5-5.4); RED CELL DISTRIBUTION WIDTH 15.2 % (11.6-16.5); WHITE BLOOD COUNT 7.4 X10^3/uL (3.6-10.0)
[2020-12-15 05:30] LABS: ALANINE AMINOTRANSFERASE 8 Units/L (12-78); ALKALINE PHOSPHATASE 95 Units/L (46-116); ASPARTATE AMINO TRANSFERASE 23 Units/L (15-37); BLOOD UREA NITROGEN 14 mg/dL (7-18); CALCIUM 9.1 mg/dL (8.5-10.1); CARBON DIOXIDE 31.6 mmol/L (21-32); CHLORIDE 104 mmol/L (98-107); COR CA(FOR HYPOALB) 9.9 mg/dL (8.5-10.1); COR NA(FOR HYPERGLY) 144 mmol/L (136-145); SODIUM 142 mmol/L (136-145); TOTAL PROTEIN 7.4 g/dL (6.4-8.2); eGFR NON BLACK RACES > 60 (>60)
[2020-12-15] MEDS: NEURONTIN CAP 300 MG PO SCH ×3 (05:52→21:30)
[2020-12-15] MEDS: LIPITOR TAB 80 MG PO SCH (09:15)
[2020-12-15] MEDS: GLUCOTROL PO SCH (09:15)
[2020-12-15] MEDS: LOPRESSOR TAB 50 MG PO SCH ×2 (09:15→20:18)
[2020-12-15] MEDS: SINEMET CR 50/200 MG PO SCH ×2 (09:16→20:18)
[2020-12-15] MEDS: SYNTHROID 150 mcg TAB PO SCH (09:16)
[2020-12-15] MEDS: LOVENOX INJ 40 MG SYR SC SCH (09:16)
[2020-12-15] MEDS: ZESTRIL TAB 40 MG PO SCH (09:16)
[2020-12-15] MEDS: PLAVIX PO SCH (09:38)
[2020-12-15] MEDS: ECOTRIN TAB 325 MG PO SCH (09:38)
--- NOTE | 2020-12-15 10:56 | PCM.PROG ---
Progress Note - Progress Note for Day of Date of Exam: 12/15/20 - Subjective Subjective: IS A 70 YEAR OLD PATIENT OF WHO WAS ADMITTED FOR TREATMENT OF TIA. PATIENT INITIALLY REPORTED WITH COMPLAINTS OF LEFT FACIAL NUMBNESS AND LEFT UPPER EXTREMITY WEAKNESS. BRAIN MRI/MRA THAT WAS OBTAINED ON 12/12/20 REVEALED: Lack of flow attenuation in the distal left M1 segment it could be due to motion; however high-grade stenosis or thrombus are not excluded follow-up with CTA head with contrast is recommended. PATIENT INTIALLY REFUSED HEAD CTA, BUT FINALLY AGREED YESTERDAY. IT WAS OBTAINED AND REVEALED: No significant left M1 stenosis or occlusion is seen. Likely 50 percent stenosis in the supraclinoid left ICA with less than 50 percent stenosis in the distal right ICA. Likely 50-60 percent stenosis in the distal right vertebral artery with approximately 80 percent stenosis in the distal left vertebral artery. Evolving subacute lacunar infarct is seen in the right thalamus. ECHO REVEALED AN EJECTION FRACTION OF 58%. CAROTID ULTRASOUND REVEALED NO HEMODYNAMICALLY SIGNIFICANT STENOSIS. SHE REPORTS THAT SHE HAS MORE MOVEMENT AND STRENTH TO THE LEFT ARM TODAY AND LESS NUMBNESS TO THE FACE COMPARED TO YESTERDAY. HER VITALS THIS MORNING ARE: 97.6-73-20-95%-127/81. LABS WERE OBTAINED. ABNORMAL LAB VALUES INCLUDE THE FOLLOWING: RBC 5.42, GLUCOSE 198, ALT 8, ALBUMIN 3.0. SHE IS CURRENTLY RECEIVING LOVENOX 40MG SC DAILY, LIPITOR 80MG PO DAILY, HUMULIN R SLI DING SCALE, ZESTRIL 40MG PO DAILY, NEURONTIN 300MG PO TID, SINEMET 50/200MG PO BID, GLUCOTROL 5MG PO DAILY, ATIVAN 0.5MG PO BID PRN, LOPRESSOR 50MG PO BID, AND THE POTASSIUM AND MAGNESIUM PROTOCOLS. TODAY, WE WILL DISCONTINUE THE LOVENOX AND START ECOTRIN 325MG PO BID AND PLAVIX 75MG PO DAILY. PATIENT HAS AGREED TO GO TO [facility] FOR [facility] THERAPY AND REHABILITATION. OTHERWISE, WE PLAN TO FOLLOW UP WITH AM LABS AND CONTINUE TO MONITOR OVER THE WEEKEND. - Past Medical Family Social History Past Med/Fam/Surg Hx: No changes since H&P Allergies: Allergies No Known Drug Allergies Allergy (Verified 06/30/20 09:38) - Review of Systems ROS: No change since H&P - Vital Signs and I&O's Vital Signs: Temperature 97.6 F Pulse Rate [Left Radial] 73 Pulse Rate 84 Respiratory Rate 20 Blood Pressure [Left Arm] 127/81 Blood Pressure 170/82 O2 Sat by Pulse Oximetry 95 Intake and Output: Intake & Output 12/12/20 12/13/20 12/14/20 12/15/20 11:59 11:59 11:59 11:59 Intake Total 652 / 652 1020 / 1020 1550 / 1550 720 / 720 Balance 652 / 652 1020 / 1020 1550 / 1550 720 / 720 - Physical Exam Oriented: Normal Eyes: Normal Ear: Normal Nose: Normal Throat: Normal Respiratory: Normal Cardiovascular: Normal : Normal Auscultation: Bowel Sounds: Normal Palpation: Normal Tenderness: Normal Skin: Normal Musculoskeletal: Normal Psychiatric: Normal Mood Description: Calm, Appropriate Affect: Normal Speech Pattern: Clear, Appropriate - Laboratory and Diagnostics Result Diagrams: 12/15/20 04:15 12/15/20 04:15 Labs: Laboratory WBC 7.4 X10^3/uL (3.6-10.0) 12/15/20 04:15 RBC 5.42 X10^6/uL (3.5-5.4) H 12/15/20 04:15 Hgb 15.1 g/dL (12.0-16.0) 12/15/20 04:15 Hct 45.8 % (36.0-47.0) 12/15/20 04:15 MCV 84.6 fL (80.0-100.0) 12/15/20 04:15 MCH 27.8 pg (27.0-34.0) 12/15/20 04:15 MCHC 32.9 g/dL (33.0-35.0) L 12/15/20 04:15 RDW 15.2 % (11.6-16.5) 12/15/20 04:15 Plt Count 159 X10^3/uL (150.0-450.0) 12/15/20 04:15 MPV 8.8 fL (7.4-11.0) 12/15/20 04:15 Neut % (Auto) 60.1 % (42.0-75.0) 12/15/20 04:15 Lymph % (Auto) 27.2 % (21.0-51.0) 12/15/20 04:15 [place] % (Auto) 10.5 % (0.0-13.0) 12/15/20 04:15 Eos % (Auto) 1.4 % (0.9-2.9) 12/15/20 04:15 Baso % (Auto) 0.8 % (0.2-1.0) 12/15/20 04:15 Neut # (Auto) 4.4 x10^3/uL (2.2-4.8) 12/15/20 04:15 Lymph # (Auto) 2.0 X10^3/uL (1.3-2.9) 12/15/20 04:15 [place] # (Auto) 0.8 x10^3/uL (0.3-0.8) 12/15/20 04:15 Eos # (Auto) 0.1 x10^3/uL (0.0-0.2) 12/15/20 04:15 Baso # (Auto) 0.1 X10^3/uL (0.0-0.1) 12/15/20 04:15 Absolute Nucleated RBC 0.1 /100WBC 12/15/20 04:15 PT 13.1 SECONDS (11.8-14.3) 12/12/20 04:10 INR Target Range - 12/12/20 04:10 INR 1.04 (0.8-1.3) 12/12/20 04:10 APTT 27.0 SECONDS (22.9-36.5) 12/12/20 04:10 PTT Comment - 12/12/20 04:10 Fibrinogen 298 mg/dL (239-489) 12/12/20 04:10 Sodium 142 mmol/L (136-145) 12/15/20 04:15 Corrected Sodium 144 mmol/L (136-145) 12/15/20 04:15 Potassium 4.0 mmol/L (3.5-5.1) 12/15/20 04:15 Chloride 104 mmol/L (98-107) 12/15/20 04:15 Carbon Dioxide 31.6 mmol/L (21-32) 12/15/20 04:15 BUN 14 mg/dL (7-18) 12/15/20 04:15 Creatinine 0.80 mg/dL (0.55-1.02) 12/15/20 04:15 Est GFR (MDRD) Af Amer > 60 (>60) 12/15/20 04:15 Est GFR (MDRD) Non-Af > 60 (>60) 12/15/20 04:15 Glucose 198 mg/dL (65-99) H 12/15/20 04:15 POC Glucose (mg/dL) 204 mg/dL (65-99) H 12/15/20 05:16 Calcium 9.1 mg/dL (8.5-10.1) 12/15/20 04:15 Corrected Calcium 9.9 mg/dL (8.5-10.1) 12/15/20 04:15 Magnesium 2.0 mg/dL (1.7-2.9) 12/12/20 04:10 Magnesium Cancelled 12/12/20 04:10 Total Bilirubin 0.70 mg/dL (0.2-1.0) 12/15/20 04:15 AST 23 Units/L (15-37) 12/15/20 04:15 ALT 8 Units/L (12-78) L 12/15/20 04:15 Alkaline Phosphatase 95 Units/L (46-116) 12/15/20 04:15 Creatine Kinase 100 Units/L (26-192) 12/11/20 21:15 CK-MB (CK-2) 2.3 ng/mL (0-4.0) 12/11/20 21:15 CK/CKMB % Calc 2.3 % (<4) 12/11/20 21:15 Troponin I < 0.02 ng/mL (0-1.5) 12/11/20 21:15 Total Protein 7.4 g/dL (6.4-8.2) 12/15/20 04:15 Albumin 3.0 g/dL (3.4-5.0) L 12/15/20 04:15 Globulin 4.4 g/dL (2.5-4.5) 12/15/20 04:15 Albumin/Globulin Ratio 0.7 Ratio (1.1-2.1) L 12/15/20 04:15 Triglycerides 234 mg/dL (0-150) H 12/12/20 04:10 Cholesterol 311 mg/dL (0-200) H 12/12/20 04:10 LDL Cholesterol, Calc 216 mg/dL (0-100) H 12/12/20 04:10 HDL Cholesterol 48 mg/dL (40-60) 12/12/20 04:10 Cholesterol/HDL Ratio 6.5 (0.0-5.0) H 12/12/20 04:10 Specimen Type Clean catch urine 12/11/20 20:46 Urine Color Yellow (YELLOW) 12/11/20 20:46 Urine Appearance Hazy (CLEAR) 12/11/20 20:46 Urine pH 6.0 (5.0 - 8.0) 12/11/20 20:46 Ur Specific [place] 1.015 (1.000-1.030) 12/11/20 20:46 Urine Protein Negative (NEGATIVE) 12/11/20 20:46 Urine Glucose (UA) 4+ (NEGATIVE) 12/11/20 20:46 Urine Ketones Negative (NEGATIVE) 12/11/20 20:46 Urine Occult Blood 1+ (NEGATIVE) 12/11/20 20:46 Urine Nitrite Negative (NEGATIVE) 12/11/20 20:46 Urine Bilirubin Negative (NEGATIVE) 12/11/20 20:46 Urine Urobilinogen Normal (NORMAL) 12/11/20 20:46 Ur Leukocyte Esterase 2+ (NEGATIVE) 12/11/20 20:46 Urine RBC 3-5 /HPF (0-3) A 12/11/20 20:46 Urine WBC 5-10 /HPF (0-5) A 12/11/20 20:46 Ur Squamous Epith Cells Moderate /HPF (NEGATIVE) 12/11/20 20:46 Urine Bacteria Trace /HPF (NEGATIVE) 12/11/20 20:46 Urine Yeast Few /HPF (NEGATIVE) 12/11/20 20:46 Ur Culture Indicated? No/not indicated 12/11/20 20:46 SARS CoV-2 RNA Rapid YAIMA Negative (NEGATIVE) 12/11/20 23:53 - Plan (1) Acute CVA (cerebrovascular accident) Status: Acute Plan: ASPIRIN 325MG PO DAILY, LIPITOR 80MG PO DAILY, PLAVIX 75MG PO DAILY, PHYSICAL THERAPY
[2020-12-15] MEDS: HumuLIN R SC PRN ×3 (13:44→20:22)
[2020-12-15] MEDS: SNACK - Diabetic Appropriate PO SCH (20:30)
[2020-12-16 05:04] LABS: BASOPHILS # (AUTO) 0.1 X10^3/uL (0.0-0.1); BASOPHILS % (AUTO) 0.9 % (0.2-1.0); EOSINOPHILS # (AUTO) 0.1 x10^3/uL (0.0-0.2); EOSINOPHILS % (AUTO) 1.6 % (0.9-2.9); HEMATOCRIT 43.7 % (36.0-47.0); HEMOGLOBIN 14.5 g/dL (12.0-16.0); LYMPHOCYTES # (AUTO) 1.2 X10^3/uL (1.3-2.9); LYMPHOCYTES % (AUTO) 21.9 % (21.0-51.0); MEAN CORPUSCULAR HGB CONC 33.1 g/dL (33.0-35.0); MEAN CORPUSCULAR VOLUME 84.5 fL (80.0-100.0); MEAN PLATELET VOLUME 8.6 fL (7.4-11.0); MONOCYTES # (AUTO) 0.6 x10^3/uL (0.3-0.8); MONOCYTES % (AUTO) 11.1 % (0.0-13.0); NEUTROPHILS # (AUTO) 3.6 x10^3/uL (2.2-4.8); NEUTROPHILS % (AUTO) 64.5 % (42.0-75.0); PLATELET COUNT 135 X10^3/uL (150.0-450.0); RED BLOOD COUNT 5.17 X10^6/uL (3.5-5.4); RED CELL DISTRIBUTION WIDTH 15.2 % (11.6-16.5); WHITE BLOOD COUNT 5.7 X10^3/uL (3.6-10.0)
[2020-12-16 05:14] LABS: ALANINE AMINOTRANSFERASE 9 Units/L (12-78); ALBUMIN 2.7 g/dL (3.4-5.0); ALKALINE PHOSPHATASE 98 Units/L (46-116); ASPARTATE AMINO TRANSFERASE 30 Units/L (15-37); BLOOD UREA NITROGEN 16 mg/dL (7-18); CALCIUM 8.9 mg/dL (8.5-10.1); CARBON DIOXIDE 28.2 mmol/L (21-32); CHLORIDE 105 mmol/L (98-107); COR CA(FOR HYPOALB) 9.9 mg/dL (8.5-10.1); COR NA(FOR HYPERGLY) 146 mmol/L (136-145); CREATININE 0.84 mg/dL (0.55-1.02); SODIUM 142 mmol/L (136-145); TOTAL PROTEIN 6.7 g/dL (6.4-8.2); eGFR NON BLACK RACES > 60 (>60)
[2020-12-16] MEDS: NEURONTIN CAP 300 MG PO SCH ×3 (05:41→21:01)
[2020-12-16] MEDS: HumuLIN R SC PRN ×4 (05:45→20:17)
[2020-12-16] MEDS: VENTOLIN or PROAIR HFA IN PRN (08:41)
[2020-12-16] MEDS: ECOTRIN TAB 325 MG PO SCH (10:01)
[2020-12-16] MEDS: ZESTRIL TAB 40 MG PO SCH (10:01)
[2020-12-16] MEDS: SINEMET CR 50/200 MG PO SCH ×2 (10:02→20:17)
[2020-12-16] MEDS: LIPITOR TAB 80 MG PO SCH (10:02)
[2020-12-16] MEDS: SYNTHROID 150 mcg TAB PO SCH (10:02)
[2020-12-16] MEDS: LOPRESSOR TAB 50 MG PO SCH ×2 (10:02→20:16)
[2020-12-16] MEDS: GLUCOTROL PO SCH (10:02)
[2020-12-16] MEDS: PLAVIX PO SCH (10:03)
[2020-12-16] MEDS: GLUCOPHAGE PO SCH ×2 (12:13→20:16)
[2020-12-16] MEDS ORDERED: GLUCOPHAGE ONE (19:25)
[2020-12-16] MEDS: SNACK - Diabetic Appropriate PO SCH (20:16)
--- NOTE | 2020-12-16 20:55 | PCM.PROG ---
Progress Note - Progress Note for Day of Date of Exam: 12/16/20 - Subjective Subjective: IS A 70 YEAR OLD PATIENT OF WHO WAS ADMITTED FOR TREATMENT OF TIA. PATIENT INITIALLY REPORTED WITH COMPLAINTS OF LEFT FACIAL NUMBNESS AND LEFT UPPER EXTREMITY WEAKNESS. BRAIN MRI/MRA THAT WAS OBTAINED ON 12/12/20 REVEALED: Lack of flow attenuation in the distal left M1 segment it could be due to motion; however high-grade stenosis or thrombus are not excluded follow-up with CTA head with contrast is recommended. PATIENT INTIALLY REFUSED HEAD CTA, BUT FINALLY AGREED YESTERDAY. IT WAS OBTAINED AND REVEALED: No significant left M1 stenosis or occlusion is seen. Likely 50 percent stenosis in the supraclinoid left ICA with less than 50 percent stenosis in the distal right ICA. Likely 50-60 percent stenosis in the distal right vertebral artery with approximately 80 percent stenosis in the distal left vertebral artery. Evolving subacute lacunar infarct is seen in the right thalamus. ECHO REVEALED AN EJECTION FRACTION OF 58%. CAROTID ULTRASOUND REVEALED NO HEMODYNAMICALLY SIGNIFICANT STENOSIS. SHE CONTINUES TO HAVE MORE MOVEMENT AND STRENTH TO THE LEFT ARM TODAY AND LESS NUMBNESS TO THE FACE COMPARED TO YESTERDAY. HER VITALS THIS MORNING ARE: 97.9-71-20-93%-120/76. LABS WERE OBTAINED. ABNORMAL LAB VALUES INCLUDE THE FOLLOWING: PLT COUNT 135, GLUCOSE 274, ALT 9, ALBUMIN 2.7. SHE IS CURRENTLY RECEIVING PLAVIX 75MG PO DAILY, ECOTRIN 325MG PO DAILY, LIPITOR 80MG PO DAILY, HUMULIN R SLIDING SCALE, ZESTRIL 40MG PO DAILY, NEURONTIN 300MG PO TID, SINEMET 50/200MG PO BID, GLUCOTROL 5MG PO DAILY, ATIVAN 0.5MG PO BID PRN, LOPRESSOR 50MG PO BID, AND THE POTASSIUM AND MAGNESIUM PROTOCOLS. PATIENT HAS AGREED TO GO [facility] FOR [facility]ICAL THERAPY AND REHABILITATION. OTHERWISE, WE PLAN TO FOLLOW UP WITH AM LABS AND CONTINUE TO MONITOR OVER THE WEEKEND. - Past Medical Family Social History Past Med/Fam/Surg Hx: No changes since H&P Allergies: Allergies No Known Drug Allergies Allergy (Verified 06/30/20 09:38) - Review of Systems ROS: No change since H&P - Vital Signs and I&O's Vital Signs: Temperature 97.9 F Pulse Rate [Left Radial] 79 Pulse Rate 72 Respiratory Rate 20 Blood Pressure [Left Arm] 150/66 Blood Pressure 170/82 O2 Sat by Pulse Oximetry 97 Intake and Output: Intake & Output 12/14/20 12/15/20 12/16/20 12/17/20 11:59 11:59 11:59 11:59 Intake Total 1550 / 1550 720 / 720 1949 / 1950 240 / 240 Balance 1550 / 1550 720 / 720 1949 / 1949 240 / 240 - Physical Exam Oriented: Normal Eyes: Normal Ear: Normal Nose: Normal Throat: Normal Respiratory: Normal Cardiovascular: Normal : Normal Auscultation: Bowel Sounds: Normal Tenderness: Normal Skin: Normal Musculoskeletal: Normal Psychiatric: Normal Mood Description: Calm Affect: Normal Speech Pattern: Clear, Appropriate - Laboratory and Diagnostics Result Diagrams: 12/16/20 04:40 12/16/20 04:40 Labs: Laboratory WBC 5.7 X10^3/uL (3.6-10.0) 12/16/20 04:40 RBC 5.17 X10^6/uL (3.5-5.4) 12/16/20 04:40 Hgb 14.5 g/dL (12.0-16.0) 12/16/20 04:40 Hct 43.7 % (36.0-47.0) 12/16/20 04:40 MCV 84.5 fL (80.0-100.0) 12/16/20 04:40 MCH 28.0 pg (27.0-34.0) 12/16/20 04:40 MCHC 33.1 g/dL (33.0-35.0) 12/16/20 04:40 RDW 15.2 % (11.6-16.5) 12/16/20 04:40 Plt Count 135 X10^3/uL (150.0-450.0) L 12/16/20 04:40 MPV 8.6 fL (7.4-11.0) 12/16/20 04:40 Neut % (Auto) 64.5 % (42.0-75.0) 12/16/20 04:40 Lymph % (Auto) 21.9 % (21.0-51.0) 12/16/20 04:40 [place] % (Auto) 11.1 % (0.0-13.0) 12/16/20 04:40 Eos % (Auto) 1.6 % (0.9-2.9) 12/16/20 04:40 Baso % (Auto) 0.9 % (0.2-1.0) 12/16/20 04:40 Neut # (Auto) 3.6 x10^3/uL (2.2-4.8) 12/16/20 04:40 Lymph # (Auto) 1.2 X10^3/uL (1.3-2.9) L 12/16/20 04:40 [place] # (Auto) 0.6 x10^3/uL (0.3-0.8) 12/16/20 04:40 Eos # (Auto) 0.1 x10^3/uL (0.0-0.2) 12/16/20 04:40 Baso # (Auto) 0.1 X10^3/uL (0.0-0.1) 12/16/20 04:40 Absolute Nucleated RBC 0.1 /100WBC 12/16/20 04:40 PT 13.1 SECONDS (11.8-14.3) 12/12/20 04:10 INR Target Range - 12/12/20 04:10 INR 1.04 (0.8-1.3) 12/12/20 04:10 APTT 27.0 SECONDS (22.9-36.5) 12/12/20 04:10 PTT Comment - 12/12/20 04:10 Fibrinogen 298 mg/dL (239-489) 12/12/20 04:10 Sodium 142 mmol/L (136-145) 12/16/20 04:40 Corrected Sodium 146 mmol/L (136-145) H 12/16/20 04:40 Potassium 4.0 mmol/L (3.5-5.1) 12/16/20 04:40 Chloride 105 mmol/L (98-107) 12/16/20 04:40 Carbon Dioxide 28.2 mmol/L (21-32) 12/16/20 04:40 BUN 16 mg/dL (7-18) 12/16/20 04:40 Creatinine 0.84 mg/dL (0.55-1.02) 12/16/20 04:40 Est GFR (MDRD) Af Amer > 60 (>60) 12/16/20 04:40 Est GFR (MDRD) Non-Af > 60 (>60) 12/16/20 04:40 Glucose 274 mg/dL (65-99) H 12/16/20 04:40 POC Glucose (mg/dL) 295 mg/dL (65-99) H 12/16/20 19:08 Calcium 8.9 mg/dL (8.5-10.1) 12/16/20 04:40 Corrected Calcium 9.9 mg/dL (8.5-10.1) 12/16/20 04:40 Magnesium 2.0 mg/dL (1.7-2.9) 12/12/20 04:10 Magnesium Cancelled 12/12/20 04:10 Total Bilirubin 0.50 mg/dL (0.2-1.0) 12/16/20 04:40 AST 30 Units/L (15-37) 12/16/20 04:40 ALT 9 Units/L (12-78) L 12/16/20 04:40 Alkaline Phosphatase 98 Units/L (46-116) 12/16/20 04:40 Creatine Kinase 100 Units/L (26-192) 12/11/20 21:15 CK-MB (CK-2) 2.3 ng/mL (0-4.0) 12/11/20 21:15 CK/CKMB % Calc 2.3 % (<4) 12/11/20 21:15 Troponin I < 0.02 ng/mL (0-1.5) 12/11/20 21:15 Total Protein 6.7 g/dL (6.4-8.2) 12/16/20 04:40 Albumin 2.7 g/dL (3.4-5.0) L 12/16/20 04:40 Globulin 4.0 g/dL (2.5-4.5) 12/16/20 04:40 Albumin/Globulin Ratio 0.7 Ratio (1.1-2.1) L 12/16/20 04:40 Triglycerides 234 mg/dL (0-150) H 12/12/20 04:10 Cholesterol 311 mg/dL (0-200) H 12/12/20 04:10 LDL Cholesterol, Calc 216 mg/dL (0-100) H 12/12/20 04:10 HDL Cholesterol 48 mg/dL (40-60) 12/12/20 04:10 Cholesterol/HDL Ratio 6.5 (0.0-5.0) H 12/12/20 04:10 Specimen Type Clean catch urine 12/11/20 20:46 Urine Color Yellow (YELLOW) 12/11/20 20:46 Urine Appearance Hazy (CLEAR) 12/11/20 20:46 Urine pH 6.0 (5.0 - 8.0) 12/11/20 20:46 Ur Specific [place] 1.015 (1.000-1.030) 12/11/20 20:46 Urine Protein Negative (NEGATIVE) 12/11/20 20:46 Urine Glucose (UA) 4+ (NEGATIVE) 12/11/20 20:46 Urine Ketones Negative (NEGATIVE) 12/11/20 20:46 Urine Occult Blood 1+ (NEGATIVE) 12/11/20 20:46 Urine Nitrite Negative (NEGATIVE) 12/11/20 20:46 Urine Bilirubin Negative (NEGATIVE) 12/11/20 20:46 Urine Urobilinogen Normal (NORMAL) 12/11/20 20:46 Ur Leukocyte Esterase 2+ (NEGATIVE) 12/11/20 20:46 Urine RBC 3-5 /HPF (0-3) A 12/11/20 20:46 Urine WBC 5-10 /HPF (0-5) A 12/11/20 20:46 Ur Squamous Epith Cells Moderate /HPF (NEGATIVE) 12/11/20 20:46 Urine Bacteria Trace /HPF (NEGATIVE) 12/11/20 20:46 Urine Yeast Few /HPF (NEGATIVE) 12/11/20 20:46 Ur Culture Indicated? No/not indicated 12/11/20 20:46 SARS CoV-2 RNA Rapid YAIMA Negative (NEGATIVE) 12/11/20 23:53 - Plan (1) Acute CVA (cerebrovascular accident) Status: Acute Plan: ASPIRIN 325MG PO DAILY, LIPITOR 80MG PO DAILY, PLAVIX 75MG PO DAILY, PHYSICAL THERAPY
[2020-12-17] MEDS ORDERED: TYLENOL 325 MG TAB PO PRN (01:00)
[2020-12-17] MEDS ORDERED: TYLENOL 325 MG TAB PO ONE (01:05)
[2020-12-17 04:51] LABS: BASOPHILS # (AUTO) 0.1 X10^3/uL (0.0-0.1); BASOPHILS % (AUTO) 1.3 % (0.2-1.0); EOSINOPHILS # (AUTO) 0.1 x10^3/uL (0.0-0.2); EOSINOPHILS % (AUTO) 1.8 % (0.9-2.9); HEMATOCRIT 41.8 % (36.0-47.0); HEMOGLOBIN 13.9 g/dL (12.0-16.0); LYMPHOCYTES # (AUTO) 2.2 X10^3/uL (1.3-2.9); LYMPHOCYTES % (AUTO) 31.4 % (21.0-51.0); MEAN CORPUSCULAR HGB CONC 33.2 g/dL (33.0-35.0); MEAN CORPUSCULAR VOLUME 84.1 fL (80.0-100.0); MEAN PLATELET VOLUME 8.7 fL (7.4-11.0); MONOCYTES # (AUTO) 0.9 x10^3/uL (0.3-0.8); MONOCYTES % (AUTO) 12.7 % (0.0-13.0); NEUTROPHILS # (AUTO) 3.7 x10^3/uL (2.2-4.8); NEUTROPHILS % (AUTO) 52.8 % (42.0-75.0); PLATELET COUNT 148 X10^3/uL (150.0-450.0); RED BLOOD COUNT 4.97 X10^6/uL (3.5-5.4); RED CELL DISTRIBUTION WIDTH 15.5 % (11.6-16.5)
[2020-12-17 04:59] LABS: ALANINE AMINOTRANSFERASE 11 Units/L (12-78); ALBUMIN 2.7 g/dL (3.4-5.0); ALKALINE PHOSPHATASE 95 Units/L (46-116); ASPARTATE AMINO TRANSFERASE 28 Units/L (15-37); BLOOD UREA NITROGEN 17 mg/dL (7-18); CALCIUM 8.6 mg/dL (8.5-10.1); CARBON DIOXIDE 30.5 mmol/L (21-32); CHLORIDE 103 mmol/L (98-107); COR CA(FOR HYPOALB) 9.6 mg/dL (8.5-10.1); COR NA(FOR HYPERGLY) 144 mmol/L (136-145); CREATININE 0.86 mg/dL (0.55-1.02); SODIUM 140 mmol/L (136-145); TOTAL PROTEIN 6.7 g/dL (6.4-8.2); eGFR NON BLACK RACES > 60 (>60)
[2020-12-17] MEDS: NEURONTIN CAP 300 MG PO SCH (05:05)
[2020-12-17] MEDS: HumuLIN R SC PRN (05:31)
[2020-12-17] MEDS ORDERED: GLUCOPHAGE ONE (08:19)
[2020-12-17] MEDS: ECOTRIN TAB 325 MG PO SCH (08:30)
[2020-12-17] MEDS: LOPRESSOR TAB 50 MG PO SCH (08:31)
[2020-12-17] MEDS: SINEMET CR 50/200 MG PO SCH (08:31)
[2020-12-17] MEDS: SYNTHROID 150 mcg TAB PO SCH (08:31)
[2020-12-17] MEDS: LIPITOR TAB 80 MG PO SCH (08:31)
[2020-12-17] MEDS: GLUCOPHAGE PO SCH (08:31)
[2020-12-17] MEDS: ZESTRIL TAB 40 MG PO SCH (08:32)
[2020-12-17] MEDS: GLUCOTROL PO SCH (08:32)
[2020-12-17 08:39] VITALS: BP 132/77
--- NOTE | 2020-12-17 09:45 | W.DIS.FURT ---
Summary of Discharge Discharge Summary of Date Date of Exam: 12/17/20 Admission Date Date of Admission: 12/12/20 Admission Diagnosis Patient Problems (Updated 12/15/20 @ 10:56 by Wallace Suarez) Acute CVA (cerebrovascular accident) (Acute) I63.9 Brain TIA (Acute) G45.9 Hospital Course: Pt is 70 year old female admitted for TIA and discovered to have had CVA. She initially presented with complaints of left facial numbness and left upper extremity weakness. BRAIN MRI/MRA: Lack of flow attenuation in the distal left M1 segment it could be due to motion; however high-grade stenosis or thrombus are not excluded follow-up with CTA head with contrast is recommended. CTA revealed: No significant left M1 stenosis or occlusion is seen. Likely 50 percent stenosis in the supraclinoid left ICA with less than 50 percent stenosis in the distal right ICA. Likely 50-60 percent stenosis in the distal right vertebral artery with approximately 80 percent stenosis in the distal left vertebral artery. Evolving subacute lacunar infarct is seen in the right thalamus. ECHO:EF of 58%. Carotid U/S: No hemodynamically significant stenosis. Pt was placed on neurological protocols, medications were optimized. PT/OT working with patient. Pt's symptoms gradually improved with resolution of numbness however she continued to have residual weakness of left upper extremity. Pt agreed to rehabilitation and continue PT/OT. She was discharged in stable condition to nursing facility. Pt will need referral to neurology outpatient. Vital Signs: Vital Signs (72 hours) 12/14/20 10:00 12/14/20 12:00 12/14/20 16:00 Temperature 97.0 F L 97.8 F Pulse Rate Pulse Rate [Left Radial] 84 70 Respiratory Rate 20 20 Blood Pressure [Left Arm] 142/67 142/67 90/53 Blood Pressure [Left Calf] O2 Sat by Pulse Oximetry 98 98 12/14/20 20:00 12/15/20 00:00 12/15/20 04:00 Temperature 98.3 F 98.1 F 97.7 F Pulse Rate Pulse Rate [Left Radial] 73 71 72 Respiratory Rate 20 20 18 Blood Pressure [Left Arm] 145/70 149/80 166/77 Blood Pressure [Left Calf] O2 Sat by Pulse Oximetry 98 95 96 12/15/20 08:00 12/15/20 09:00 12/15/20 12:00 Temperature 97.6 F 98.9 F Pulse Rate 68 Pulse Rate [Left Radial] 73 63 Respiratory Rate 20 20 Blood Pressure [Left Arm] 127/81 111/62 Blood Pressure [Left Calf] O2 Sat by Pulse Oximetry 95 95 97 12/15/20 16:00 12/15/20 20:00 12/15/20 20:35 Temperature 98 F 98.2 F Pulse Rate 74 Pulse Rate [Left Radial] 78 80 Respiratory Rate 20 Blood Pressure [Left Arm] 138/63 160/73 Blood Pressure [Left Calf] O2 Sat by Pulse Oximetry 97 94 L 99 12/16/20 00:00 12/16/20 04:00 12/16/20 08:00 Temperature 98.6 F 98.1 F 97.9 F Pulse Rate Pulse Rate [Left Radial] 67 71 Respiratory Rate 20 20 20 Blood Pressure [Left Arm] 157/71 179/79 120/76 Blood Pressure [Left Calf] O2 Sat by Pulse Oximetry 94 L 96 93 L 12/16/20 08:41 12/16/20 12:00 12/16/20 16:00 Temperature 98.0 F 98.5 F Pulse Rate 72 Pulse Rate [Left Radial] 70 79 Respiratory Rate 18 20 Blood Pressure [Left Arm] 135/61 120/54 Blood Pressure [Left Calf] O2 Sat by Pulse Oximetry 94 L 93 L 97 12/16/20 19:57 12/16/20 21:10 12/17/20 01:11 Temperature 97.9 F Pulse Rate 74 Pulse Rate [Left Radial] 79 Respiratory Rate 20 18 Blood Pressure [Left Arm] 150/66 Blood Pressure [Left Calf] O2 Sat by Pulse Oximetry 97 96 12/17/20 02:11 12/17/20 03:43 12/17/20 08:00 Temperature 99.1 F 97.9 F Pulse Rate Pulse Rate [Left Radial] 60 75 Respiratory Rate 18 22 22 Blood Pressure [Left Arm] Blood Pressure [Left Calf] 133/62 191/89 O2 Sat by Pulse Oximetry 96 95 12/17/20 08:39 Temperature Pulse Rate Pulse Rate [Left Radial] Respiratory Rate Blood Pressure [Left Arm] Blood Pressure [Left Calf] 132/77 O2 Sat by Pulse Oximetry Labs: Laboratory Last Values WBC 7.0 X10^3/uL (3.6-10.0) 12/17/20 04:30 RBC 4.97 X10^6/uL (3.5-5.4) 12/17/20 04:30 Hgb 13.9 g/dL (12.0-16.0) 12/17/20 04:30 Hct 41.8 % (36.0-47.0) 12/17/20 04:30 MCV 84.1 fL (80.0-100.0) 12/17/20 04:30 MCH 28.0 pg (27.0-34.0) 12/17/20 04:30 MCHC 33.2 g/dL (33.0-35.0) 12/17/20 04:30 RDW 15.5 % (11.6-16.5) 12/17/20 04:30 Plt Count 148 X10^3/uL (150.0-450.0) L 12/17/20 04:30 MPV 8.7 fL (7.4-11.0) 12/17/20 04:30 Neut % (Auto) 52.8 % (42.0-75.0) 12/17/20 04:30 Lymph % (Auto) 31.4 % (21.0-51.0) 12/17/20 04:30 [place] % (Auto) 12.7 % (0.0-13.0) 12/17/20 04:30 Eos % (Auto) 1.8 % (0.9-2.9) 12/17/20 04:30 Baso % (Auto) 1.3 % (0.2-1.0) H 12/17/20 04:30 Neut # (Auto) 3.7 x10^3/uL (2.2-4.8) 12/17/20 04:30 Lymph # (Auto) 2.2 X10^3/uL (1.3-2.9) 12/17/20 04:30 [place] # (Auto) 0.9 x10^3/uL (0.3-0.8) H 12/17/20 04:30 Eos # (Auto) 0.1 x10^3/uL (0.0-0.2) 12/17/20 04:30 Baso # (Auto) 0.1 X10^3/uL (0.0-0.1) 12/17/20 04:30 Absolute Nucleated RBC 0.1 /100WBC 12/17/20 04:30 PT 13.1 SECONDS (11.8-14.3) 12/12/20 04:10 INR Target Range - 12/12/20 04:10 INR 1.04 (0.8-1.3) 12/12/20 04:10 APTT 27.0 SECONDS (22.9-36.5) 12/12/20 04:10 PTT Comment - 12/12/20 04:10 Fibrinogen 298 mg/dL (239-489) 12/12/20 04:10 Sodium 140 mmol/L (136-145) 12/17/20 04:30 Corrected Sodium 144 mmol/L (136-145) 12/17/20 04:30 Potassium 3.8 mmol/L (3.5-5.1) 12/17/20 04:30 Chloride 103 mmol/L (98-107) 12/17/20 04:30 Carbon Dioxide 30.5 mmol/L (21-32) 12/17/20 04:30 BUN 17 mg/dL (7-18) 12/17/20 04:30 Creatinine 0.86 mg/dL (0.55-1.02) 12/17/20 04:30 Est GFR (MDRD) Af Amer > 60 (>60) 12/17/20 04:30 Est GFR (MDRD) Non-Af > 60 (>60) 12/17/20 04:30 Glucose 253 mg/dL (65-99) H 12/17/20 04:30 POC Glucose (mg/dL) 241 mg/dL (65-99) H 12/17/20 05:06 Calcium 8.6 mg/dL (8.5-10.1) 12/17/20 04:30 Corrected Calcium 9.6 mg/dL (8.5-10.1) 12/17/20 04:30 Magnesium 2.0 mg/dL (1.7-2.9) 12/12/20 04:10 Magnesium Cancelled 12/12/20 04:10 Total Bilirubin 0.40 mg/dL (0.2-1.0) 12/17/20 04:30 AST 28 Units/L (15-37) 12/17/20 04:30 ALT 11 Units/L (12-78) L 12/17/20 04:30 Alkaline Phosphatase 95 Units/L (46-116) 12/17/20 04:30 Creatine Kinase 100 Units/L (26-192) 12/11/20 21:15 CK-MB (CK-2) 2.3 ng/mL (0-4.0) 12/11/20 21:15 CK/CKMB % Calc 2.3 % (<4) 12/11/20 21:15 Troponin I < 0.02 ng/mL (0-1.5) 12/11/20 21:15 Total Protein 6.7 g/dL (6.4-8.2) 12/17/20 04:30 Albumin 2.7 g/dL (3.4-5.0) L 12/17/20 04:30 Globulin 4.0 g/dL (2.5-4.5) 12/17/20 04:30 Albumin/Globulin Ratio 0.7 Ratio (1.1-2.1) L 12/17/20 04:30 Triglycerides 234 mg/dL (0-150) H 12/12/20 04:10 Cholesterol 311 mg/dL (0-200) H 12/12/20 04:10 LDL Cholesterol, Calc 216 mg/dL (0-100) H 12/12/20 04:10 HDL Cholesterol 48 mg/dL (40-60) 12/12/20 04:10 Cholesterol/HDL Ratio 6.5 (0.0-5.0) H 12/12/20 04:10 Specimen Type Clean catch urine 12/11/20 20:46 Urine Color Yellow (YELLOW) 12/11/20 20:46 Urine Appearance Hazy (CLEAR) 12/11/20 20:46 Urine pH 6.0 (5.0 - 8.0) 12/11/20 20:46 Ur Specific [place] 1.015 (1.000-1.030) 12/11/20 20:46 Urine Protein Negative (NEGATIVE) 12/11/20 20:46 Urine Glucose (UA) 4+ (NEGATIVE) 12/11/20 20:46 Urine Ketones Negative (NEGATIVE) 12/11/20 20:46 Urine Occult Blood 1+ (NEGATIVE) 12/11/20 20:46 Urine Nitrite Negative (NEGATIVE) 12/11/20 20:46 Urine Bilirubin Negative (NEGATIVE) 12/11/20 20:46 Urine Urobilinogen Normal (NORMAL) 12/11/20 20:46 Ur Leukocyte Esterase 2+ (NEGATIVE) 12/11/20 20:46 Urine RBC 3-5 /HPF (0-3) A 12/11/20 20:46 Urine WBC 5-10 /HPF (0-5) A 12/11/20 20:46 Ur Squamous Epith Cells Moderate /HPF (NEGATIVE) 12/11/20 20:46 Urine Bacteria Trace /HPF (NEGATIVE) 12/11/20 20:46 Urine Yeast Few /HPF (NEGATIVE) 12/11/20 20:46 Ur Culture Indicated? No/not indicated 12/11/20 20:46 SARS CoV-2 RNA Rapid YAIMA Negative (NEGATIVE) 12/11/20 23:53 Reason For Visit: TIA Discharge Date Discharge Date: 12/17/20 Discharge Diagnosis All Active Problems (Updated 12/15/20 @ 10:56 by Wallace Suarez) Acute CVA (cerebrovascular accident) (Acute) Dizziness (Acute) Leg pain, left (Acute) Right knee buckling (Acute) Acute dyspnea (Acute) Pulmonary vascular congestion (Acute) Hypothyroidism (Acute) Hyperglycemia due to type 2 diabetes mellitus (Acute) Sinus tachycardia (Acute) Cystitis (Acute) Back strain (Acute) Brain TIA (Acute) Plan of Treatment: Continue with present treatment and follow up plan. Pt is to keep follow up appointment as instructed and take medications as ordered. Discharge Medications Discharge Medications: No Known Drug Allergies Allergy (Verified 06/30/20 09:38) CONTINUE taking the following medications albuterol sulfate 1 puff INHALATION 6XD 12/12/20 [History] meloxicam 15 mg PO ONCE 12/12/20 [History] New Prescriptions albuterol sulfate [Ventolin HFA] 2 puff INHALATION Q4H PRN #8.5 g 12/14/20 [Rx] lorazepam 0.5 mg PO BID PRN 30 Days #60 tab MDD 2 tabs 12/14/20 [Rx] Discharge Disposition Discharge Disposition: Rehab at [facility] Discharge Condition: Stable Discharge Plan Discharge Plan Hospital Course: Pt is 70 year old female admitted for TIA and discovered to have had CVA. She initially presented with complaints of left facial numbness and left upper extremity weakness. BRAIN MRI/MRA: Lack of flow attenuation in the distal left M1 segment it could be due to motion; however high-grade stenosis or thrombus are not excluded follow-up with CTA head with contrast is recommended. CTA revealed: No significant left M1 stenosis or occlusion is seen. Likely 50 percent stenosis in the supraclinoid left ICA with less than 50 percent stenosis in the distal right ICA. Likely 50-60 percent stenosis in the distal right vertebral artery with approximately 80 percent stenosis in the distal left vertebral artery. Evolving subacute lacunar infarct is seen in the right thalamus. ECHO:EF of 58%. Carotid U/S: No hemodynamically significant stenosis. Pt was placed on neurological protocols, medications were optimized. PT/OT working with patient. Pt's symptoms gradually improved with resolution of numbness however she continued to have residual weakness of left upper extremity. Pt agreed to rehabilitation and continue PT/OT. She was discharged in stable condition to nursing facility. Pt will need referral to neurology outpatient. Patient Disposition: 01 HOME, SELF-CARE Condition: Stable Health Concerns: Post Hospitalization: new medications and changes needed to prevent readmission or further decline. Pt educated and given instructions on all concerns. Plan of Treatment: Continue with present treatment and follow up plan. Pt is to keep follow up appointment as instructed and take medications as ordered. Prescriptions: New lorazepam 0.5 mg Tablet 0.5 mg PO BID MDD 2 tabs PRN30 Days Qty: 60 RF: 0 albuterol sulfate [Ventolin HFA] 90 mcg/actuation Hfa Aerosol Inhaler 2 puff inhalation Q4H PRNQty: 8.5 RF: 0 aspirin [Lite Coat Aspirin] 325 mg Tablet 325 mg PO DAILY 30 Days RF: 0 clopidogrel [Plavix] 75 mg Tablet 75 mg PO ONCE 30 Days Qty: 30 RF: 0 Continued atorvastatin 80 mg tablet 80 mg PO HS RF: 0 carbidopa-levodopa 50-200 mg tablet extended release 1 tab PO BID RF: 0 metformin 1,000 mg tablet 1,000 mg PO BID RF: 0 levothyroxine 150 mcg tablet 150 mcg PO DAILY RF: 0 metoprolol tartrate 50 mg tablet 50 mg PO BID RF: 0 gabapentin 300 mg capsule 300 mg PO TID RF: 0 lisinopril 40 mg tablet 40 mg PO DAILY RF: 0 glipizide 5 mg tablet 5 mg PO BID RF: 0 Trulicity 0.75 mg/0.5 mL pen injector 0.75 mg SUBCUT WEEKLY RF: 0 albuterol sulfate 90 mcg/actuation Hfa Aerosol Inhaler 1 puff INHALATION 6XD RF: 0 meloxicam 15 mg Tablet 15 mg PO ONCE RF: 0 Orders to Discharge Patient Discharge Orders: Discharge (Routine); Ordered 12/17/20 Ordered By: Checo Patton Follow ups/Referrals Follow ups/Referrals: Checo Patton [Primary Care Provider] - 3 days Instructions Stand Alone Forms: Excuse From Work or School, Precautions for COVID19, Patient Portal, Social Distancing
[2020-12-17] MEDS ORDERED: LOVENOX INJ 40 MG SYR SC SCH (10:00)
== END 2020-12-17 11:15 | disposition home or self-care (01) ==
LOC: MED/SURG 17:46 → ER 17:46 → MED/SURG 12-12 00:54
PROVIDERS: ADMIT Internal Medicine; ATTEND Family Medicine
DX: R94.31 Abnormal electrocardiogram [ECG] [EKG]; Z20.822 Contact with and (suspected) exposure to COVID-19; I10 Essential (primary) hypertension; I63.9 Cerebral infarction, unspecified; R26.89 Other abnormalities of gait and mobility; E11.65 Type 2 diabetes mellitus with hyperglycemia; E78.2 Mixed hyperlipidemia; E03.8 Other specified hypothyroidism

== ENCOUNTER 2021-05-24 11:37 | Inpatient (IN) ==
--- NOTE | 2021-05-24 11:57 | DR.GENAD ---
HPI Time Seen Time Seen by Provider: 05/24/21 11:43 HPI Comment HPI Comment: PATIENT IS 71YR OLD FEMALE IN ER WITH GENERALIZED WEAKNESS, ATAXIA, DIARRHEA AND FATIGUE TIMES ONE WEEK. Complaint/Symptoms Chief Complaint Doctors Comments: WEAK, UNSTEADY, UNABLE TO STAND AND HAVING DIARRHEA TIMES ONE WEEK. COVID-19 Coronavirus risk:travel/contact w/high risk person: No Has patient experienced Coronavirus symptoms: Yes Nurses notes reviewed Nurses Notes Review: Yes Source History Provided: Patient Mode of Arrival Mode of Arrival: EMS Timing Came on: Suddenly Duration Duration: Constant Duration: Days Severity Severity: Moderate PMH PMH Past Medical History: Asthma, Diabetes and Hypertension Past Surgical History: Yes Surgical History: Appendectomy, Hysterectomy, Mastectomy and Thyroidectomy Family History Family Medical History: Diabetes Mellitus, Cancer, [place] and Hypertension Social History Do you use any recreational Drugs:: No ROS Review of Systems Constitutional: No Symptoms Reported and See HPI Eyes: No Symptoms Reported and See HPI ENTM: No Symptoms Reported and See HPI Respiratoy: No Symptoms Reported and See HPI Cardiovascular: No Symptoms Reported and See HPI Gastrointestinal/Abdominal: No Symptoms Reported and See HPI Genitourinary: No Symptoms Reported and See HPI Neurological: No Symptoms Reported and See HPI Musculoskeletal: No Symptoms Reported and See HPI Integumentary: No Symptoms Reported and See HPI Hematologic/Lymphatic: No Symptoms Reported Endocrine: No Symptoms Reported Psychiatric: No Symptoms Reported All Other Systems: Reviewed and Negative PE Vital Signs Vitals: Temperature 98.4 F Pulse Rate 95 Respiratory Rate 16 Blood Pressure [Left Calf] 132/77 Blood Pressure [Left Arm] 150/66 Blood Pressure 115/76 O2 Sat by Pulse Oximetry 97 General Limitations: No Limitations General Appearance: Alert and In No Apparent Distress Head Head Exam: Normal Inspection Eyes Eye exam: Normal Appearance ENT ENT Exam: Normal Exam External Ear Exam: Normal External Inspection TM/Canal Exam: Bilateral: Normal Nose Exam: Normal Nose Exam Mouth Exam: Normal Inspection Throat Exam: Normal Inspection Neck Neck Exam: Normal Inspection Chest Chest Inspection: Normal Inspection Respiratory Respiratory Exam: Normal Lung Sounds Bilat Respiratory Exam: Bilateral: Clear to Auscultation Cardiovascular Cardiovascular Exam: Regular Rate and Normal Rhythm Abdominal Exam Abdominal Exam: Normal Inspection, Normal Bowel Sounds and Soft Extremities Extremities Exam: Normal Inspection Back Back Exam: Normal Inspection Neurologic Neurological Exam: Alert and Oriented X3 Psychiatric Psychiatric Exam: Normal Affect and Normal Mood Skin Skin Exam: Warm, Dry, Intact and Normal Color ROR Labs Reviewed Result Diagrams: 05/26/21 04:10 05/26/21 04:10 Laboratory: WBC 7.7 X10^3/uL (3.6-10.0) 05/24/21 12:10 RBC 5.83 X10^6/uL (3.5-5.4) H 05/24/21 12:10 Hgb 16.7 g/dL (12.0-16.0) H 05/24/21 12:10 Hct 48.4 % (36.0-47.0) H 05/24/21 12:10 MCV 83.1 fL (80.0-100.0) 05/24/21 12:10 MCH 28.7 pg (27.0-34.0) 05/24/21 12:10 MCHC 34.6 g/dL (33.0-35.0) 05/24/21 12:10 RDW 14.8 % (11.6-16.5) 05/24/21 12:10 Plt Count 92 X10^3/uL (150.0-450.0) L 05/24/21 12:10 Plt Count Comment Decreased (ADEQUATE) A 05/24/21 12:10 MPV 9.5 fL (7.4-11.0) 05/24/21 12:10 Neut % (Auto) 69.0 % (42.0-75.0) 05/24/21 12:10 Lymph % (Auto) 15.9 % (21.0-51.0) L 05/24/21 12:10 [place] % (Auto) 14.2 % (0.0-13.0) H 05/24/21 12:10 Eos % (Auto) 0.1 % (0.9-2.9) L 05/24/21 12:10 Baso % (Auto) 0.8 % (0.2-1.0) 05/24/21 12:10 Neut # (Auto) 5.3 x10^3/uL (2.2-4.8) H 05/24/21 12:10 Lymph # (Auto) 1.2 X10^3/uL (1.3-2.9) L 05/24/21 12:10 [place] # (Auto) 1.1 x10^3/uL (0.3-0.8) H 05/24/21 12:10 Eos # (Auto) 0.0 x10^3/uL (0.0-0.2) 05/24/21 12:10 Baso # (Auto) 0.1 X10^3/uL (0.0-0.1) 05/24/21 12:10 Absolute Nucleated RBC 0.5 /100WBC 05/24/21 12:10 Plt Clumps, EDTA Few 05/24/21 12:10 Plt Morphology Comment Normal (NORMAL) 05/24/21 12:10 RBC Morphology Normal (NORMAL) 05/24/21 12:10 Sodium 132 mmol/L (136-145) L 05/24/21 12:10 Corrected Sodium 136 mmol/L (136-145) 05/24/21 12:10 Potassium 3.9 mmol/L (3.5-5.1) 05/24/21 12:10 Chloride 97 mmol/L (98-107) L 05/24/21 12:10 Carbon Dioxide 26.7 mmol/L (21-32) 05/24/21 12:10 BUN 17 mg/dL (7-18) 05/24/21 12:10 Creatinine 1.35 mg/dL (0.55-1.02) H 05/24/21 12:10 Est GFR (MDRD) Af Amer 50 (>60) L 05/24/21 12:10 Est GFR (MDRD) Non-Af 41 (>60) L 05/24/21 12:10 Glucose 257 mg/dL (65-99) H 05/24/21 12:10 Calcium 8.3 mg/dL (8.5-10.1) L 05/24/21 12:10 Corrected Calcium 9.2 mg/dL (8.5-10.1) 05/24/21 12:10 Total Bilirubin 0.70 mg/dL (0.2-1.0) 05/24/21 12:10 AST 50 Units/L (15-37) H 05/24/21 12:10 ALT 19 Units/L (12-78) 05/24/21 12:10 Alkaline Phosphatase 75 Units/L (46-116) 05/24/21 12:10 Total Protein 7.4 g/dL (6.4-8.2) 05/24/21 12:10 Albumin 2.9 g/dL (3.4-5.0) L 05/24/21 12:10 Globulin 4.5 g/dL (2.5-4.5) 05/24/21 12:10 Albumin/Globulin Ratio 0.6 Ratio (1.1-2.1) L 05/24/21 12:10 Amylase 21 Units/L (25-115) L 05/24/21 12:10 Lipase 110 Units/L (73-393) 05/24/21 12:10 SARS CoV-2 RNA Rapid YAIMA Positive (NEGATIVE) A 05/24/21 14:12 Opioid Opioid Risk Tool Age (Vinicius box if 16-45): No History of Preadolescent Sexual Abuse: No Total: 0 Total Score Risk Category: Low Risk Copyright: Senthil OBRIEN predicting aberrant behaviors
[2021-05-24] MEDS: NS 1000 ML 1,000 ML IV SCH ×3 (12:05→21:32)
[2021-05-24 12:38] LABS: ALBUMIN 2.9 g/dL (3.4-5.0); CALCIUM 8.3 mg/dL (8.5-10.1); CARBON DIOXIDE 26.7 mmol/L (21-32); COR CA(FOR HYPOALB) 9.2 mg/dL (8.5-10.1); CREATININE 1.35 mg/dL (0.55-1.02); TOTAL PROTEIN 7.4 g/dL (6.4-8.2)
[2021-05-24 12:39] LABS: BASOPHILS # (AUTO) 0.1 X10^3/uL (0.0-0.1); BASOPHILS % (AUTO) 0.8 % (0.2-1.0); EOSINOPHILS % (AUTO) 0.1 % (0.9-2.9); HEMATOCRIT 48.4 % (36.0-47.0); HEMOGLOBIN 16.7 g/dL (12.0-16.0); LYMPHOCYTES # (AUTO) 1.2 X10^3/uL (1.3-2.9); LYMPHOCYTES % (AUTO) 15.9 % (21.0-51.0); MEAN CORPUSCULAR HEMOGLOBIN 28.7 pg (27.0-34.0); MEAN CORPUSCULAR HGB CONC 34.6 g/dL (33.0-35.0); MEAN CORPUSCULAR VOLUME 83.1 fL (80.0-100.0); MEAN PLATELET VOLUME 9.5 fL (7.4-11.0); MONOCYTES # (AUTO) 1.1 x10^3/uL (0.3-0.8); MONOCYTES % (AUTO) 14.2 % (0.0-13.0); NEUTROPHILS # (AUTO) 5.3 x10^3/uL (2.2-4.8); PLATELET COUNT 92 X10^3/uL (150.0-450.0); RED BLOOD COUNT 5.83 X10^6/uL (3.5-5.4); RED CELL DISTRIBUTION WIDTH 14.8 % (11.6-16.5)
[2021-05-24 12:59] LABS: WHITE BLOOD COUNT 7.7 X10^3/uL (3.6-10.0)
[2021-05-24 13:00] LABS: PLATELET MORPHOLOGY COMMENT NORMAL (NORMAL)
--- NOTE | 2021-05-24 15:44 | CT ---
HISTORYATAXIA, INCREASING LEFT SIDED WEAKNESSSTUDYBRAIN W/O [id number] images through the head was performed without intravenous contrast. CT scan was performed following ALARA (As low as Reasonably Achievable).Coronal and Sagittal reformatted images were performed..FINDINGSThe ventricles are normal in size and symmetric. There is no evidence of acute hemorrhage. There is a focal hypoattenuation in the right basal ganglia and the anterior limb of the right internal capsule that could correspond with an early subacute in evolution infarct extending into the right caudate head nucleus. No hyperdense vessel. There is an old lacunar infarct in the right thalamus. There is no evidence of intra or extra-axial fluid collections.No evidence of sellar masses. The cervicocranial junction is unremarkable. No nasopharyngeal masses. The mastoid cells and included paranasal sinuses are clear. No acute fractures. No orbital masses.IMPRESSIONacute /early subacute less than 3 days infarct involving the right basal ganglia region and the anterior limb of the right internal capsule and the caudate head nucleus. No acute hemorrhage.Electronically signed by: Juani Wells (May 24, 2021 15:42:11)
--- NOTE | 2021-05-24 15:58 | CT ---
HISTORYDIARRHEA, PAIN history of asthma, diabetes, and hypertension.STUDYABDOMEN/PELVIS W/O CONCOMPARISONNoneTECHNIQUEMultiple CT axial images of the abdomen and pelvis were obtained without IV contrast. Coronal and sagittal images were reconstructed. Dose reduction techniques included Automated Exposure Control (AEC) and adjustment of mA and kV.FINDINGSThe bowel is not dilated. There is no wall thickening in the bowel or edema around the bowel. There are a few isolated diverticula in the colon. But there is no wall thickening or pericolonic edema to suggest acute diverticulitis.The kidneys have normal size and shape. No abnormal calcification is present. There is no hydronephrosis or significant perirenal edema. The ureters are not dilated. The bladder is normally distended. It has no wall thickening or perivesical edema.Cardiomegaly is present. Atherosclerotic calcifications are present in the coronary arteries. The lung bases have no significant abnormality. Liver, gallbladder, spleen, adrenal glands, and pancreas are unremarkable. Tiny upper abdominal midline hernia contains side wall of the colon. No inflammation at the site. Degenerative changes are present in the spine.IMPRESSION1. No acute finding2. Few colonic diverticula3. Cardiomegaly with CADElectronically signed by: Aniceto Gomes (May 24, 2021 15:56:15)
[2021-05-24] MEDS ORDERED: NS 1000 ML 1,000 ML ONE (18:16)
[2021-05-24 19:33] VITALS: BMI 38.7
[2021-05-24] MEDS: PULMICORT NEB TX 0.5 MG NEB SCH (21:20)
[2021-05-24] MEDS: BROVANA IN SCH (21:20)
[2021-05-24] MEDS: SINEMET CR 50/200 MG PO SCH (21:32)
[2021-05-25 00:14] LABS: CKMB % 0.8 % (<4); TROPONIN I 0.02 ng/mL (0-1.5)
[2021-05-25 06:06] LABS: BASOPHILS % (AUTO) 0.3 % (0.2-1.0); EOSINOPHILS % (AUTO) 0.2 % (0.9-2.9); HEMATOCRIT 44.5 % (36.0-47.0); HEMOGLOBIN 15.4 g/dL (12.0-16.0); LYMPHOCYTES # (AUTO) 0.9 X10^3/uL (1.3-2.9); LYMPHOCYTES % (AUTO) 19.3 % (21.0-51.0); MEAN CORPUSCULAR HEMOGLOBIN 28.3 pg (27.0-34.0); MEAN CORPUSCULAR HGB CONC 34.5 g/dL (33.0-35.0); MEAN CORPUSCULAR VOLUME 82.1 fL (80.0-100.0); MEAN PLATELET VOLUME 9.2 fL (7.4-11.0); MONOCYTES # (AUTO) 0.5 x10^3/uL (0.3-0.8); MONOCYTES % (AUTO) 10.4 % (0.0-13.0); NEUTROPHILS # (AUTO) 3.2 x10^3/uL (2.2-4.8); NEUTROPHILS % (AUTO) 69.8 % (42.0-75.0); PLATELET COUNT 106 X10^3/uL (150.0-450.0); RED BLOOD COUNT 5.42 X10^6/uL (3.5-5.4); RED CELL DISTRIBUTION WIDTH 14.5 % (11.6-16.5); WHITE BLOOD COUNT 4.5 X10^3/uL (3.6-10.0)
[2021-05-25 06:52] LABS: ALANINE AMINOTRANSFERASE 6 Units/L (12-78); ALBUMIN 2.8 g/dL (3.4-5.0); ALKALINE PHOSPHATASE 68 Units/L (46-116); ASPARTATE AMINO TRANSFERASE 47 Units/L (15-37); BLOOD UREA NITROGEN 12 mg/dL (7-18); CHLORIDE 98 mmol/L (98-107); CHOL/HDL RATIO 7.6 (0.0-5.0); CHOLESTEROL 259 mg/dL (0-200); CKMB % 0.6 % (<4); COR NA(FOR HYPERGLY) 135 mmol/L (136-145); CREATINE KINASE 806 Units/L (26-192); CREATININE 0.94 mg/dL (0.55-1.02); HDL CHOLESTEROL 34 mg/dL (40-60); MAGNESIUM 1.4 mg/dL (1.7-2.9); SODIUM 133 mmol/L (136-145); TOTAL PROTEIN 6.9 g/dL (6.4-8.2); TRIGLYCERIDES 149 mg/dL (0-150); TROPONIN I 0.02 ng/mL (0-1.5); eGFR NON BLACK RACES > 60 (>60)
[2021-05-25 06:54] LABS: CREATINE KINASE MB 5.1 ng/mL (0-4.0)
[2021-05-25] MEDS: PULMICORT NEB TX 0.5 MG NEB SCH ×2 (08:30→20:51)
[2021-05-25] MEDS: BROVANA IN SCH (08:30)
[2021-05-25] MEDS: ECOTRIN TAB 325 MG PO SCH (10:08)
[2021-05-25] MEDS: REMDESIVIR 200 MG in NS 100 ML IV 140 ML IV ONE (10:08)
[2021-05-25] MEDS: PLAVIX PO SCH (10:09)
[2021-05-25] MEDS: SOLU-Medrol 40 MG VIAL IVP SCH ×3 (10:09→21:00)
[2021-05-25] MEDS: SINEMET CR 50/200 MG PO SCH ×2 (10:13→20:15)
--- NOTE | 2021-05-25 10:19 | DR.H&P ---
H&P - History & Physical for Day of: H&P Date: 05/24/21 - Chief Complaint Chief Complaint: WEAKNESS, UNSTEADY GAIT, LOWER EXTREMITY WEAKNESS, NAUSEA, DIARRHEA, FATIGUE, SHORTNESS OF BREATH - History of Present Illness History of Present Illness: IS A 71 YEAR OLD PATIENT OF . SHE PRESENTED TO THE ER ON 05/24 WITH REPORTS OF GENERALIZED WEAKNESS, UNSTEADY GAIT, SEVERE LOWER EXTREMITY WEAKNESS, SHORTNESS OF BREATH, NAUSEA, DIARRHEA, AND FATIGUE X 1 WEEK. SHE ADMITS TO FALLING WHEN SHE TRIED TO GET OUT OF BED TO GO TO THE BATHROOM PRIOR TO ARRIVAL. PATIENT REPORTS HAVING A CVA ABOUT TWO WEEKS AGO. SHE COMPLAINS OF DULL LOWER BACK PAIN. SHE REPORTED PAIN TO BE AN 8/10. PRIOR TO THIS PAST WEEK, PATIENT REPORTS BEING INDEPENDENT AND REQUIRING MINIMAL ASSISTANCE. SINCE SYMPTOMS STARTED THIS WEEK, PATIENT REPORTS THAT SHE REQUIRES MAXIMUM ASSISTANCE WITH AMBULATION AND MODERATE ASSISTANCE WITH OTHER ADLs. HER PMH INCLUDES HTN, ASTHMA, ARTHRITIS, CHRONIC BACK PAIN, DIABETES MELLITUS TYPE II, HYPOTHYROIDISM, ANEMIA, PAST BREAST CANCER, APPENDECTOMY, HYSTERECTOMY, MASTECTOMY, AND THYROIDECTOMY. ON ARRIVAL, HER VITALS WERE 98.4-95-16-97%-115/76. LABS WERE OBTAINED. ABNORMAL LAB VALUES INCLUDE THE FOLLOWING: RBC 5.83, HGB 16.7, HCT 48.4, PLT COUNT 92, D-DIMER 1.01, SODIUM 132, CHLORIDE 97, CREATININE 1.35, GLUCOSE 257, CALCIUM 8.3, AST 50, ALBUMIN 2.9, AMYLASE 21. HER CREATINE KINASE WAS 744. COVID-19 POSITIVE. EKG REVEALED: SINUS RHYTHM WITH HR 84. AN ABDOMEN/PELVIS CT WAS OBTAINED DUE TO NAUSEA/VOMITING. IT REVEALED: 1. No acute finding 2. Few colonic diverticula 3. Cardiomegaly with CAD. A BRAIN CT WITHOUT CONTRAST WAS OBTAINED AND REVEALED: acute /early subacute less than 3 days infarct involving the right basal ganglia region and the anterior limb of the right internal capsule and the caudate head nucleus. No acute hemorrhage. PATIENT IS UNSURE OF THE MEDICATIONS THAT SHE IS TAKING AND DOES NOT KNOW IF SHE WAS STARTED ON ANY BLOOD THINNERS OR STATINS. THE ER PHYSICIAN ATTEMPTED TO TRANSFER PATIENT OT OUTSIDE FACILITY FOR TREATMENT OF NEW CVA. PATIENT REFUSED TRANSFER AND REQUESTED TO BE KEPT HER FOR PHYSICAL THERAPY AND REHAB. 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 SHE WAS STARTED ON NORMAL SALINE AT 75 ML/HR, ACCUNEBS TID, PULMICORT NEBS BID, ECOTRIN 325MG PO DAILY, PLAVIX 75MG PO DAILY, ROSUVASTATIN 20MG PO HS, HUMULIN R SLIDING SCALE, SOLU-MEDROL 80MG IV Q8H, AND REMDESIVIR 100MG IV DAILY. WE WILL REVIEW HER HOME MEDICATIONS AND RESUME APPROPRIATE. WE WILL OBTAIN AN ECHO AND CAROTID DOPPLER. OTHERWISE, WE PLAN TO FOLLOW UP WITH AM LABS AND CONTINUE TO MONITOR. TIME SPENT ON CLINICAL ASSESSMENT, REVIEWING LABS AND IMAGING, DECISION MAKING, AND DOCUMENTATION GREATER THAN 75 MINUTES. - Past Medical History Past Medical History: Anemia, Arthritis, Asthma, Diabetes, Hypertension, Hypothyroidism Additional Medical History: HX BREAST CANCER - Past Surgical History Surgical History: Appendectomy, Hysterectomy, Mastectomy, Thyroidectomy - Family History Family Medical History: Diabetes Mellitus, Cancer, [place], Hypertension - Social History Does patient currently use any type of tobacco product: No Type of Tobacco Use: None Does any household member use tobacco: Yes Alcohol Use: None Drug Use: None - Medications Home Medications: No Known Drug Allergies Allergy (Verified 12/27/20 14:34) CONTINUE taking the following medications gabapentin 300 mg PO TID 05/25/21 [History] - Review of Systems Constitutional: Weakness, Malaise Eyes: No Symptoms Reported ENT: No Symptoms Reported Respiratory: Shortness of Breath Cardiovascular: No Symptoms Reported Gastrointestinal: See HPI, Nausea, Vomiting, Diarrhea Genitourinary: No Symptoms Reported Musculoskeletal: Back Pain Skin: No Symptoms Reported Neurological: See HPI, Weakness - Physical Exam Vital Signs: Temperature 98.5 F Pulse Rate [Left Radial] 84 Pulse Rate 85 Respiratory Rate 22 Blood Pressure [Left Calf] 132/77 Blood Pressure [Left Arm] 121/64 Blood Pressure 115/79 O2 Sat by Pulse Oximetry 97 Oriented: Normal Eyes: Normal Ear: Normal Nose: Normal Throat: Normal Respiratory: Diminished Throughout Cardiovascular: Normal : Normal Auscultation: Bowel Sounds: Normal Palpation: Normal Tenderness: Diffuse, Mild Skin: Decreased Turgur Musculoskeletal: Motor Deficit, Instability Psychiatric: Normal Mood Description: Calm Affect: Normal Speech Pattern: Clear - Assessment/Plan (1) Acute CVA (cerebrovascular accident) Status: Acute Plan: ADMIT, NORMAL SALINE AT 75 ML/HR, ACCUNEBS TID, PULMICORT NEBS BID, ECOTRIN 325MG PO DAILY, PLAVIX 75MG PO DAILY, ROSUVASTATIN 20MG PO HS, HUMULIN R SLIDING SCALE, SOLU-MEDROL 80MG IV Q8H, AND REMDESIVIR 100MG IV DAILY. 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
[2021-05-25] MEDS: NS 1000 ML 1,000 ML IV SCH ×2 (10:31→15:00)
[2021-05-25] MEDS: HumuLIN R SC PRN ×3 (11:55→21:08)
[2021-05-25] MEDS: ACCUNEB 1.25 MG NEBULE NEB SCH ×4 (11:56→20:51)
[2021-05-25 15:03] LABS: APPEARANCE,URINE CLEAR (CLEAR); BILIRUBIN,URINE NEGATIVE (NEGATIVE); BLOOD/HEMOGLOBIN,URINE NEGATIVE (NEGATIVE); COLOR,URINE YELLOW (YELLOW); GLUCOSE, URINE 4+ (NEGATIVE); KETONES,URINE 3+ (NEGATIVE); LEUKOCYTE ESTERASE ,URINE NEGATIVE (NEGATIVE); NITRITES,URINE NEGATIVE (NEGATIVE); PROTEIN,URINE 1+ (NEGATIVE); UROBILINOGEN,URINE NORMAL (NORMAL)
[2021-05-25 15:11] LABS: BACTERIA,URINE TRACE /HPF (NEGATIVE); RBC,URINE 0-2 /HPF (0-3); SQUAMOUS EPITHELIAL CELL,UR RARE /HPF (NEGATIVE)
[2021-05-25] MEDS ORDERED: CRESTOR TAB 10 MG PO ONE (19:20)
[2021-05-25] MEDS: CRESTOR TAB 10 MG PO SCH (20:14)
[2021-05-26] MEDS: NS 1000 ML 1,000 ML IV SCH ×4 (00:23→17:37)
[2021-05-26 05:18] LABS: BASOPHILS % (AUTO) 0.1 % (0.2-1.0); HEMATOCRIT 44.1 % (36.0-47.0); HEMOGLOBIN 15.3 g/dL (12.0-16.0); LYMPHOCYTES # (AUTO) 0.4 X10^3/uL (1.3-2.9); LYMPHOCYTES % (AUTO) 8.8 % (21.0-51.0); MEAN CORPUSCULAR HEMOGLOBIN 28.3 pg (27.0-34.0); MEAN CORPUSCULAR HGB CONC 34.6 g/dL (33.0-35.0); MEAN CORPUSCULAR VOLUME 81.7 fL (80.0-100.0); MEAN PLATELET VOLUME 9.6 fL (7.4-11.0); MONOCYTES # (AUTO) 0.2 x10^3/uL (0.3-0.8); MONOCYTES % (AUTO) 3.7 % (0.0-13.0); NEUTROPHILS # (AUTO) 4.3 x10^3/uL (2.2-4.8); NEUTROPHILS % (AUTO) 87.4 % (42.0-75.0); PLATELET COUNT 120 X10^3/uL (150.0-450.0); RED CELL DISTRIBUTION WIDTH 14.4 % (11.6-16.5); WHITE BLOOD COUNT 4.9 X10^3/uL (3.6-10.0)
[2021-05-26 05:30] LABS: ALANINE AMINOTRANSFERASE 6 Units/L (12-78); ALBUMIN 2.6 g/dL (3.4-5.0); ALKALINE PHOSPHATASE 72 Units/L (46-116); ASPARTATE AMINO TRANSFERASE 45 Units/L (15-37); BLOOD UREA NITROGEN 14 mg/dL (7-18); CALCIUM 8.2 mg/dL (8.5-10.1); CARBON DIOXIDE 23.2 mmol/L (21-32); CHLORIDE 100 mmol/L (98-107); COR CA(FOR HYPOALB) 9.3 mg/dL (8.5-10.1); COR NA(FOR HYPERGLY) 139 mmol/L (136-145); CREATININE 0.98 mg/dL (0.55-1.02); SODIUM 135 mmol/L (136-145); TOTAL PROTEIN 7.1 g/dL (6.4-8.2); eGFR NON BLACK RACES 59 (>60)
[2021-05-26] MEDS: SOLU-Medrol 40 MG VIAL IVP SCH ×3 (05:30→21:20)
[2021-05-26] MEDS: HumuLIN R SC PRN ×4 (05:53→21:36)
--- NOTE | 2021-05-26 06:09 | RAD ---
HISTORYshortness of breathSTUDYCHEST, 1 [id number]/2021FINDINGSThere is abnormal opacity in the left mid chest. This could be a dilated pulmonary artery accentuated due to the patient rotation. It appears masslike. It measures about [address] for further evaluation.Otherwise lungs are clear. No pleural effusion or pneumothorax.Cardiomegaly is present, unchanged. Vascular calcifications are present compatible with atherosclerosis.Bones are unremarkable.Surgical clips are present in the right axilla.EKG leads are noted.IMPRESSION1. Possible left lung mass versus dilated pulmonary artery; recommend chest CT2. Stable cardiomegalyElectronically signed by: Aniceto Gomes (May 26, 2021 06:07:21)
--- NOTE | 2021-05-26 06:20 | RAD ---
HISTORYSOBSTUDYCHEST, 1 [id number]/2021FINDINGSPossible mass in the left chest again noted measuring roughly [address] for additional evaluation.No other focal abnormality in the lungs. No pleural effusion or pneumothorax.Cardiomegaly is unchanged.Bones are unremarkable.EKG leads are noted.IMPRESSION1. No short interval change2. Possible left lung mass; recommend chest CTElectronically signed by: Aniceto Gomes (May 26, 2021 06:17:32)
[2021-05-26] MEDS ORDERED: POTASSIUM CHL 60 MEQ/NS 0.45% 500 ML IV PRN (06:38)
[2021-05-26] MEDS ORDERED: KLOR-CON PO PRN (06:38)
[2021-05-26] MEDS ORDERED: POTASSIUM CHLORIDE LIQ 20 MEQ UDC PO PRN (06:38)
[2021-05-26] MEDS ORDERED: K-RIDER 10 MEQ/NS 100 ML 10 MEQ/100 ML BAG IV PRN (06:38)
[2021-05-26] MEDS ORDERED: POTASSIUM CHL 40 MEQ/NS 0.45% 500 ML IV PRN (06:38)
[2021-05-26] MEDS ORDERED: MICRO K EXTEN CAP 10 MEQ PO PRN (06:38)
[2021-05-26] MEDS ORDERED: K-DUR TAB 20 MEQ PO PRN (06:38)
[2021-05-26] MEDS: MAGNESIUM SULFATE 1 GRAM/100 mL PREMIX 1 GM/100 ML BAG IV PRN ×2 (06:55→08:43)
[2021-05-26] MEDS: ACCUNEB 1.25 MG NEBULE NEB SCH ×4 (07:06→20:20)
[2021-05-26] MEDS ORDERED: REMDESIVIR 100 MG in NS 100 ML IV + SPIKE MINIBAG* 120 ML IV SCH (09:00)
[2021-05-26] MEDS: PULMICORT NEB TX 0.5 MG NEB SCH ×2 (09:10→20:20)
[2021-05-26] MEDS ORDERED: NS 100 ML IV 100 ML ONE (10:06)
[2021-05-26] MEDS: PLAVIX PO SCH (10:12)
[2021-05-26] MEDS: ECOTRIN TAB 325 MG PO SCH (10:12)
[2021-05-26] MEDS: LOVENOX INJ 40 MG SYR SC SCH ×2 (10:13→21:22)
[2021-05-26] MEDS: REMDESIVIR 200 MG in NS 100 ML IV 140 ML IV ONE (10:15)
[2021-05-26] MEDS: SINEMET CR 50/200 MG PO SCH ×2 (10:15→21:20)
--- NOTE | 2021-05-26 19:14 | PCM.PROG ---
Progress Note - Progress Note for Day of Date of Exam: 05/26/21 - Subjective Subjective: WAS ADMITTED FOR TREATMENT OF ACUTE CVA AND COVID-19. SHE HAS A PMH OF HTN, HYPOTHYROIDISM, TYPE 2 DM. TODAY, SHE IS ALERT AND ORIENTED, LYING IN BED ON MORNING ROUNDS. SHE CONTINUES WITH COMPLAINTS OF GENERALIZED WEAKNESS AND SHORTNESS OF BREATH. SHE DOES REPORT SLIGHT IMPROVEMENT IN SYMPTOMS TODAY. ON EXAMINATION, HEART IS REGULAR IN RATE AND RHYTHM. BILATERAL LUNGS ARE NOTED TO HAVE DIMINISHED LUNG SOUNDS THROUGHOUT. ABDOMEN IS OBESE, SOFT, AND NON-TENDER WITH NORMAL BOWEL SOUNDS NOTED IN ALL QUADRANTS. JAMES CATHETER NOTED TO BEDSIDE DRAINAGE. TRACE EDEMA NOTED TO LOWER EXTREMITIES. SHE HAS 3/5 POWER TO LOWER EXTREMITIES TODAY. HER VITALS THIS MORNING ARE: 97.7-84-20-94%-161/74. LABS WERE OBTAINED. ABNORMAL LAB VALUES INCLUDE THE FOLLOWING: PLT COUNT 120, D- DIMER 1.35, SODIUM 135, GLUCOSE 287, CALCIUM 8.2, MAGNESIUM 1.5, AST 45, ALT 6, CRP 50.60, BNP 282, ALBUMIN 2.6. CHEST XRAY WAS OBTAINED THIS MORNING AND REVEALED: 1. No short interval change 2. Possible left lung mass; recommend chest. SHE IS CURRENTLY RECEIVING: NORMAL SALINE AT 75 ML/HR, ACCUNEBS TID, PULM ICORT NEBS BID, ECOTRIN 325MG PO DAILY, PLAVIX 75MG PO DAILY, ROSUVASTATIN 20MG PO HS, HUMULIN R SLIDING SCALE, SOLU-MEDROL 80MG IV Q8H, AND REMDESIVIR 100MG IV DAILY. TODAY WE WILL ADD LOVENOX 40MG SC Q12H. WE WILL ORDER A CHEST CT WITH CONTRAST DUE TO POSSIBLE LUNG MASS. OTHERWISE, WE PLAN TO FOLLOW UP WITH AM LABS AND CONTINUE TO MONITOR. TIME SPENT ON CLINICAL ASSESSMENT, REVIEWING LABS AND IMAGING, DECISION MAKING, AND DOCUMENTATION GREATER THAN 45 MINUTES. - Past Medical Family Social History Past Med/Fam/Surg Hx: No changes since H&P Allergies: Allergies No Known Drug Allergies Allergy (Verified 12/27/20 14:34) - Review of Systems ROS: No change since H&P - Vital Signs and I&O's Vital Signs: Temperature 97.7 F Pulse Rate [Left Radial] 89 Pulse Rate 90 Respiratory Rate 18 Blood Pressure [Left Calf] 132/77 Blood Pressure [Left Arm] 157/74 Blood Pressure 115/79 O2 Sat by Pulse Oximetry 98 Intake and Output: Intake & Output 05/24/21 05/25/21 05/26/21 05/27/21 11:59 11:59 11:59 11:59 Intake Total 1650 / 1650 2889 / 2889 1965 / 1965 Output Total 500 / 500 1700 / 1700 700 / 700 Balance 1150 / 1150 1189 / 1189 1266 / 1266 - Physical Exam Oriented: Normal Eyes: Normal Ear: Normal Nose: Normal Throat: Normal Respiratory: Generalized, Diminished Cardiovascular: Normal : Normal Auscultation: Bowel Sounds: Normal Palpation: Normal Tenderness: Diffuse, Mild Skin: Decreased Turgur Musculoskeletal: Motor Deficit, Instability Psychiatric: Normal Mood Description: Calm Affect: Normal Speech Pattern: Clear, Appropriate - Laboratory and Diagnostics Result Diagrams: 05/26/21 04:10 05/26/21 04:10 Labs: Laboratory WBC 4.9 X10^3/uL (3.6-10.0) 05/26/21 04:10 RBC 5.40 X10^6/uL (3.5-5.4) 05/26/21 04:10 Hgb 15.3 g/dL (12.0-16.0) 05/26/21 04:10 Hct 44.1 % (36.0-47.0) 05/26/21 04:10 MCV 81.7 fL (80.0-100.0) 05/26/21 04:10 MCH 28.3 pg (27.0-34.0) 05/26/21 04:10 MCHC 34.6 g/dL (33.0-35.0) 05/26/21 04:10 RDW 14.4 % (11.6-16.5) 05/26/21 04:10 Plt Count 120 X10^3/uL (150.0-450.0) L 05/26/21 04:10 Plt Count Comment Decreased (ADEQUATE) A 05/24/21 12:10 MPV 9.6 fL (7.4-11.0) 05/26/21 04:10 Neut % (Auto) 87.4 % (42.0-75.0) H 05/26/21 04:10 Lymph % (Auto) 8.8 % (21.0-51.0) L 05/26/21 04:10 Carbon % (Auto) 3.7 % (0.0-13.0) 05/26/21 04:10 Eos % (Auto) 0.0 % (0.9-2.9) L 05/26/21 04:10 Baso % (Auto) 0.1 % (0.2-1.0) L 05/26/21 04:10 Neut # (Auto) 4.3 x10^3/uL (2.2-4.8) 05/26/21 04:10 Lymph # (Auto) 0.4 X10^3/uL (1.3-2.9) L 05/26/21 04:10 Carbon # (Auto) 0.2 x10^3/uL (0.3-0.8) L 05/26/21 04:10 Eos # (Auto) 0.0 x10^3/uL (0.0-0.2) 05/26/21 04:10 Baso # (Auto) 0.0 X10^3/uL (0.0-0.1) 05/26/21 04:10 Absolute Nucleated RBC 0.1 /100WBC 05/26/21 04:10 Plt Clumps, EDTA Few 05/24/21 12:10 Plt Morphology Comment Normal (NORMAL) 05/24/21 12:10 RBC Morphology Normal (NORMAL) 05/24/21 12:10 PT 13.4 SECONDS (11.8-14.3) 05/25/21 04:40 INR Target Range - 05/25/21 04:40 INR 1.07 (0.8-1.3) 05/25/21 04:40 APTT 29.1 SECONDS (22.9-36.5) 05/25/21 04:40 PTT Comment - 05/25/21 04:40 D-Dimer 1.35 ug/ml (0.0-0.57) H* 05/26/21 04:10 Sodium 135 mmol/L (136-145) L 05/26/21 04:10 Corrected Sodium 139 mmol/L (136-145) 05/26/21 04:10 Potassium 3.6 mmol/L (3.5-5.1) 05/26/21 04:10 Chloride 100 mmol/L (98-107) 05/26/21 04:10 Carbon Dioxide 23.2 mmol/L (21-32) 05/26/21 04:10 BUN 14 mg/dL (7-18) 05/26/21 04:10 Creatinine 0.98 mg/dL (0.55-1.02) 05/26/21 04:10 Est GFR (MDRD) Af Amer > 60 (>60) 05/26/21 04:10 Est GFR (MDRD) Non-Af 59 (>60) 05/26/21 04:10 Glucose 287 mg/dL (65-99) H 05/26/21 04:10 POC Glucose (mg/dL) 302 mg/dL (65-99) H 05/26/21 17:00 Calcium 8.2 mg/dL (8.5-10.1) L 05/26/21 04:10 Corrected Calcium 9.3 mg/dL (8.5-10.1) 05/26/21 04:10 Magnesium 1.5 mg/dL (1.7-2.9) L 05/26/21 04:10 Total Bilirubin 0.50 mg/dL (0.2-1.0) 05/26/21 04:10 AST 45 Units/L (15-37) H 05/26/21 04:10 ALT 6 Units/L (12-78) L 05/26/21 04:10 Alkaline Phosphatase 72 Units/L (46-116) 05/26/21 04:10 Creatine Kinase 806 Units/L (26-192) H 05/25/21 04:40 CK-MB (CK-2) 5.1 ng/mL (0-4.0) H* 05/25/21 04:40 CK/CKMB % Calc 0.6 % (<4) 05/25/21 04:40 Troponin I 0.02 ng/mL (0-1.5) 05/25/21 04:40 C-Reactive Protein 50.60 mg/L (0-3.0) H 05/26/21 04:10 B-Natriuretic Peptide 282 pg/mL (0-79) H 05/26/21 04:10 Total Protein 7.1 g/dL (6.4-8.2) 05/26/21 04:10 Albumin 2.6 g/dL (3.4-5.0) L 05/26/21 04:10 Globulin 4.5 g/dL (2.5-4.5) 05/26/21 04:10 Albumin/Globulin Ratio 0.6 Ratio (1.1-2.1) L 05/26/21 04:10 Triglycerides 149 mg/dL (0-150) 05/25/21 04:40 Cholesterol 259 mg/dL (0-200) H 05/25/21 04:40 LDL Cholesterol, Calc 195 mg/dL (0-100) H 05/25/21 04:40 HDL Cholesterol 34 mg/dL (40-60) L 05/25/21 04:40 Cholesterol/HDL Ratio 7.6 (0.0-5.0) H 05/25/21 04:40 Amylase 21 Units/L (25-115) L 05/24/21 12:10 Lipase 110 Units/L (73-393) 05/24/21 12:10 Specimen Type Catherized urine 05/25/21 14:50 Urine Color Yellow (YELLOW) 05/25/21 14:50 Urine Appearance Clear (CLEAR) 05/25/21 14:50 Urine pH 5.0 (5.0 - 8.0) 05/25/21 14:50 Ur Specific [place] 1.020 (1.000-1.030) 05/25/21 14:50 Urine Protein 1+ (NEGATIVE) 05/25/21 14:50 Urine Glucose (UA) 4+ (NEGATIVE) 05/25/21 14:50 Urine Ketones 3+ (NEGATIVE) 05/25/21 14:50 Urine Occult Blood Negative (NEGATIVE) 05/25/21 14:50 Urine Nitrite Negative (NEGATIVE) 05/25/21 14:50 Urine Bilirubin Negative (NEGATIVE) 05/25/21 14:50 Urine Urobilinogen Normal (NORMAL) 05/25/21 14:50 Ur Leukocyte Esterase Negative (NEGATIVE) 05/25/21 14:50 Urine RBC 0-2 /HPF (0-3) 05/25/21 14:50 Urine WBC None seen /HPF (0-5) 05/25/21 14:50 Ur Squamous Epith Cells Rare /HPF (NEGATIVE) 05/25/21 14:50 Urine Bacteria Trace /HPF (NEGATIVE) 05/25/21 14:50 Ur Culture Indicated? No/not indicated 05/25/21 14:50 SARS CoV-2 RNA Rapid YAIMA Positive (NEGATIVE) A 05/24/21 14:12 - Plan (1) Acute CVA (cerebrovascular accident) Status: Acute Plan: NORMAL SALINE AT 75 ML/HR, ACCUNEBS TID, PULMICORT NEBS BID, ECOTRIN 325MG PO DAILY, PLAVIX 75MG PO DAILY, LOVENOX 40MG SC Q12H, ROSUVASTATIN 20MG PO HS, HUMULIN R SLIDING SCALE, SOLU-MEDROL 80MG IV Q8H, AND REMDESIVIR 100MG IV DAILY. 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
[2021-05-26] MEDS: CRESTOR TAB 10 MG PO SCH (21:20)
[2021-05-26] MEDS: NYSTATIN POWDER TOP SCH (21:21)
[2021-05-26] MEDS: NEURONTIN CAP 300 MG PO SCH (21:22)
[2021-05-26] MEDS: RESTORIL CAP 15 MG PO PRN ×2 (21:25→22:35)
[2021-05-27] MEDS: ACCUNEB 1.25 MG NEBULE NEB SCH ×3 (05:10→20:20)
[2021-05-27 05:18] LABS: BASOPHILS % (AUTO) 0.1 % (0.2-1.0); HEMATOCRIT 41.2 % (36.0-47.0); HEMOGLOBIN 14.2 g/dL (12.0-16.0); LYMPHOCYTES # (AUTO) 0.6 X10^3/uL (1.3-2.9); LYMPHOCYTES % (AUTO) 6.6 % (21.0-51.0); MEAN CORPUSCULAR HEMOGLOBIN 28.2 pg (27.0-34.0); MEAN CORPUSCULAR HGB CONC 34.5 g/dL (33.0-35.0); MEAN CORPUSCULAR VOLUME 81.7 fL (80.0-100.0); MEAN PLATELET VOLUME 9.5 fL (7.4-11.0); MONOCYTES # (AUTO) 0.4 x10^3/uL (0.3-0.8); MONOCYTES % (AUTO) 4.2 % (0.0-13.0); NEUTROPHILS # (AUTO) 8.3 x10^3/uL (2.2-4.8); NEUTROPHILS % (AUTO) 89.1 % (42.0-75.0); PLATELET COUNT 128 X10^3/uL (150.0-450.0); RED BLOOD COUNT 5.03 X10^6/uL (3.5-5.4); RED CELL DISTRIBUTION WIDTH 14.5 % (11.6-16.5); WHITE BLOOD COUNT 9.3 X10^3/uL (3.6-10.0)
[2021-05-27 05:25] LABS: ALANINE AMINOTRANSFERASE < 6 Units/L (12-78); ALBUMIN 2.4 g/dL (3.4-5.0); ALKALINE PHOSPHATASE 65 Units/L (46-116); ASPARTATE AMINO TRANSFERASE 30 Units/L (15-37); BLOOD UREA NITROGEN 18 mg/dL (7-18); CALCIUM 7.9 mg/dL (8.5-10.1); CARBON DIOXIDE 23.2 mmol/L (21-32); CHLORIDE 103 mmol/L (98-107); COR CA(FOR HYPOALB) 9.2 mg/dL (8.5-10.1); COR NA(FOR HYPERGLY) 142 mmol/L (136-145); CREATININE 0.87 mg/dL (0.55-1.02); SODIUM 137 mmol/L (136-145); TOTAL PROTEIN 6.5 g/dL (6.4-8.2); eGFR NON BLACK RACES > 60 (>60)
[2021-05-27] MEDS: SOLU-Medrol 40 MG VIAL IVP SCH ×2 (06:22→20:12)
[2021-05-27] MEDS: NS 1000 ML 1,000 ML IV SCH ×3 (06:22→21:20)
--- NOTE | 2021-05-27 07:23 | RAD ---
HISTORYSOBSTUDYCHEST, 1 [id number]/2021.TECHNIQUEAP view of the chestFINDINGSThe cardiac silhouette is stably enlarged. Mediastinal contours appear stable. Unchanged questionable perihilar mass in the left measuring up to 5.8 cm craniocaudal on this exam. Left costophrenic angle is excluded but no discernible pleural effusion or pneumothorax is identified.IMPRESSIONNo significant change. CT chest is again recommended.Electronically signed by: Kenn Queen (May 27, 2021 07:21:01)
[2021-05-27] MEDS: LOVENOX INJ 40 MG SYR SC SCH ×2 (08:51→20:11)
[2021-05-27] MEDS: PULMICORT NEB TX 0.5 MG NEB SCH ×2 (09:25→20:20)
--- NOTE | 2021-05-27 09:35 | PCM.PROG ---
Progress Note Progress Note for Day of Date of Exam: 05/27/21 Subjective Subjective: WAS ADMITTED FOR TREATMENT OF ACUTE CVA AND COVID-19. SHE HAS A PMH OF HTN, HYPOTHYROIDISM, TYPE 2 DM. THIS MORNING SHE IS ALERT AND IN BED. SHE REPORTS GENERALIZED WEAKNESS BUT SOME IMPROVEMENT IN HER BREATHING. SHE IS CURRENTLY UTILIZING 2L NASAL CANNULA SUPPLEMENTAL O2. LABS/IMAGING: WBC 9.3, HGB 14.2, PLT 128, NA 137, K 3.7, CREATININE 0.87, GLUCOSE 308, CRP 19.2, CHEST XRAY WAS OBTAINED THIS MORNING AND REVEALED: 1. No short interval change 2. Possible left lung mass; recommend CT chest. SHE IS CURRENTLY RECEIVING: IVF NORMAL SALINE AT 75 ML/HR, ACCUNEBS TID, PULMICORT NEBS BID, ECOTRIN 325MG PO DAILY(HOLDING), PLAVIX 75MG PO DAILY, ROSUVASTATIN 20MG PO HS, HUMULIN R SLIDING SCALE, SOLU-MEDROL 80MG IV Q8H, AND REMDESIVIR 100MG IV DAILY, LOVENOX 40MG SC Q12H. ORDERED CHEST CT WITH CONTRAST DUE TO POSSIBLE LUNG MASS. ECHO AND CAROTID U/S PENDING. DECREASE SOLUMEDROL TO 40MG Q12H. WILL CONTINUE TO MONITOR AND FOLLOW UP LABS AND IMAGING. TIME SPENT ON CLINICAL ASSESSMENT, REVIEWING LABS AND IMAGING, DECISION MAKING, AND DOCUMENTATION GREATER THAN 45 MINUTES. Past Medical Family Social History Past Med/Fam/Surg Hx: No changes since H&P Allergies: Allergies No Known Drug Allergies Allergy (Verified 12/27/20 14:34) Review of Systems ROS: No change since H&P Vital Signs and I&O's Vital Signs: Temperature 97.6 F Pulse Rate [Left Radial] 73 Pulse Rate 87 Respiratory Rate 13 Blood Pressure [Left Calf] 132/77 Blood Pressure [Left Arm] 110/62 Blood Pressure 115/79 O2 Sat by Pulse Oximetry 93 Intake and Output: Intake & Output 05/24/21 05/25/21 05/26/21 05/27/21 23:59 23:59 23:59 23:59 Intake Total 1150 / 1150 2783 / 2783 3652 / 3652 500 / 500 Output Total 1900 / 1900 1700 / 1700 400 / 400 Balance 1150 / 1150 883 / 883 1952 / 195 100 / 100 Physical Exam Oriented: Normal Eyes: Normal Ear: Normal Nose: Normal Throat: Normal Respiratory: Generalized and Diminished Cardiovascular: Normal : Normal Auscultation: Bowel Sounds: Normal Tenderness: Diffuse and Mild Skin: Decreased Turgur Musculoskeletal: Motor Deficit and Instability Psychiatric: Normal Mood Description: Calm Affect: Normal Speech Pattern: Clear and Appropriate Laboratory and Diagnostics Result Diagrams: 05/27/21 04:24 05/27/21 04:24 Labs: Laboratory WBC 9.3 X10^3/uL (3.6-10.0) 05/27/21 04:24 RBC 5.03 X10^6/uL (3.5-5.4) 05/27/21 04:24 Hgb 14.2 g/dL (12.0-16.0) 05/27/21 04:24 Hct 41.2 % (36.0-47.0) 05/27/21 04:24 MCV 81.7 fL (80.0-100.0) 05/27/21 04:24 MCH 28.2 pg (27.0-34.0) 05/27/21 04:24 MCHC 34.5 g/dL (33.0-35.0) 05/27/21 04:24 RDW 14.5 % (11.6-16.5) 05/27/21 04:24 Plt Count 128 X10^3/uL (150.0-450.0) L 05/27/21 04:24 Plt Count Comment Decreased (ADEQUATE) A 05/24/21 12:10 MPV 9.5 fL (7.4-11.0) 05/27/21 04:24 Neut % (Auto) 89.1 % (42.0-75.0) H 05/27/21 04:24 Lymph % (Auto) 6.6 % (21.0-51.0) L 05/27/21 04:24 [place] % (Auto) 4.2 % (0.0-13.0) 05/27/21 04:24 Eos % (Auto) 0.0 % (0.9-2.9) L 05/27/21 04:24 Baso % (Auto) 0.1 % (0.2-1.0) L 05/27/21 04:24 Neut # (Auto) 8.3 x10^3/uL (2.2-4.8) H 05/27/21 04:24 Lymph # (Auto) 0.6 X10^3/uL (1.3-2.9) L 05/27/21 04:24 [place] # (Auto) 0.4 x10^3/uL (0.3-0.8) 05/27/21 04:24 Eos # (Auto) 0.0 x10^3/uL (0.0-0.2) 05/27/21 04:24 Baso # (Auto) 0.0 X10^3/uL (0.0-0.1) 05/27/21 04:24 Absolute Nucleated RBC 0.1 /100WBC 05/27/21 04:24 Plt Clumps, EDTA Few 05/24/21 12:10 Plt Morphology Comment Normal (NORMAL) 05/24/21 12:10 RBC Morphology Normal (NORMAL) 05/24/21 12:10 PT 13.4 SECONDS (11.8-14.3) 05/25/21 04:40 INR Target Range - 05/25/21 04:40 INR 1.07 (0.8-1.3) 05/25/21 04:40 APTT 29.1 SECONDS (22.9-36.5) 05/25/21 04:40 PTT Comment - 05/25/21 04:40 D-Dimer 0.83 ug/ml (0.0-0.57) H* 05/27/21 04:24 Sodium 137 mmol/L (136-145) 05/27/21 04:24 Corrected Sodium 142 mmol/L (136-145) 05/27/21 04:24 Potassium 3.7 mmol/L (3.5-5.1) 05/27/21 04:24 Chloride 103 mmol/L (98-107) 05/27/21 04:24 Carbon Dioxide 23.2 mmol/L (21-32) 05/27/21 04:24 BUN 18 mg/dL (7-18) 05/27/21 04:24 Creatinine 0.87 mg/dL (0.55-1.02) 05/27/21 04:24 Est GFR (MDRD) Af Amer > 60 (>60) 05/27/21 04:24 Est GFR (MDRD) Non-Af > 60 (>60) 05/27/21 04:24 Glucose 308 mg/dL (65-99) H 05/27/21 04:24 POC Glucose (mg/dL) 298 mg/dL (65-99) H 05/27/21 06:14 Calcium 7.9 mg/dL (8.5-10.1) L 05/27/21 04:24 Corrected Calcium 9.2 mg/dL (8.5-10.1) 05/27/21 04:24 Magnesium 2.0 mg/dL (1.7-2.9) 05/27/21 04:24 Total Bilirubin 0.40 mg/dL (0.2-1.0) 05/27/21 04:24 AST 30 Units/L (15-37) 05/27/21 04:24 ALT < 6 Units/L (12-78) L 05/27/21 04:24 Alkaline Phosphatase 65 Units/L (46-116) 05/27/21 04:24 Creatine Kinase 806 Units/L (26-192) H 05/25/21 04:40 CK-MB (CK-2) 5.1 ng/mL (0-4.0) H* 05/25/21 04:40 CK/CKMB % Calc 0.6 % (<4) 05/25/21 04:40 Troponin I 0.02 ng/mL (0-1.5) 05/25/21 04:40 C-Reactive Protein 19.20 mg/L (0-3.0) H 05/27/21 04:24 B-Natriuretic Peptide 191 pg/mL (0-79) H 05/27/21 04:24 Total Protein 6.5 g/dL (6.4-8.2) 05/27/21 04:24 Albumin 2.4 g/dL (3.4-5.0) L 05/27/21 04:24 Globulin 4.1 g/dL (2.5-4.5) 05/27/21 04:24 Albumin/Globulin Ratio 0.6 Ratio (1.1-2.1) L 05/27/21 04:24 Triglycerides 149 mg/dL (0-150) 05/25/21 04:40 Cholesterol 259 mg/dL (0-200) H 05/25/21 04:40 LDL Cholesterol, Calc 195 mg/dL (0-100) H 05/25/21 04:40 HDL Cholesterol 34 mg/dL (40-60) L 05/25/21 04:40 Cholesterol/HDL Ratio 7.6 (0.0-5.0) H 05/25/21 04:40 Amylase 21 Units/L (25-115) L 05/24/21 12:10 Lipase 110 Units/L (73-393) 05/24/21 12:10 Specimen Type Catherized urine 05/25/21 14:50 Urine Color Yellow (YELLOW) 05/25/21 14:50 Urine Appearance Clear (CLEAR) 05/25/21 14:50 Urine pH 5.0 (5.0 - 8.0) 05/25/21 14:50 Ur Specific [place] 1.020 (1.000-1.030) 05/25/21 14:50 Urine Protein 1+ (NEGATIVE) 05/25/21 14:50 Urine Glucose (UA) 4+ (NEGATIVE) 05/25/21 14:50 Urine Ketones 3+ (NEGATIVE) 05/25/21 14:50 Urine Occult Blood Negative (NEGATIVE) 05/25/21 14:50 Urine Nitrite Negative (NEGATIVE) 05/25/21 14:50 Urine Bilirubin Negative (NEGATIVE) 05/25/21 14:50 Urine Urobilinogen Normal (NORMAL) 05/25/21 14:50 Ur Leukocyte Esterase Negative (NEGATIVE) 05/25/21 14:50 Urine RBC 0-2 /HPF (0-3) 05/25/21 14:50 Urine WBC None seen /HPF (0-5) 05/25/21 14:50 Ur Squamous Epith Cells Rare /HPF (NEGATIVE) 05/25/21 14:50 Urine Bacteria Trace /HPF (NEGATIVE) 05/25/21 14:50 Ur Culture Indicated? No/not indicated 05/25/21 14:50 SARS CoV-2 RNA Rapid YAIMA Positive (NEGATIVE) A 05/24/21 14:12 Plan (1) Acute CVA (cerebrovascular accident): Status: Acute Plan: NORMAL SALINE AT 75 ML/HR, ACCUNEBS TID, PULMICORT NEBS BID, ECOTRIN 325MG PO DAILY, PLAVIX 75MG PO DAILY, LOVENOX 40MG SC Q12H, ROSUVASTATIN 20MG PO HS, HUMULIN R SLIDING SCALE, SOLU-MEDROL 80MG IV Q8H, AND REMDESIVIR 100MG IV DAILY OBTAIN ECHO/CAROTID DOPPLER (2) COVID-19: Status: Acute (3) Hypertension: Status: Chronic Qualifiers: Hypertension type: primary hypertension Qualified Code(s): I10 - Essential (primary) hypertension (4) Hypothyroidism: Status: Chronic Qualifiers: Hypothyroidism type: acquired Qualified Code(s): E03.9 - Hypothyroidism, unspecified (5) Type 2 diabetes mellitus: Status: Chronic Qualifiers: Diabetes mellitus complication status: with hyperglycemia Diabetes mellitus rodent exterminator insulin use: with rodent exterminator use Qualified Code(s): E11.65 - Type 2 diabetes mellitus with hyperglycemia; Z79.4 - intermediate frame tender (current) use of insulin
[2021-05-27] MEDS: SINEMET CR 50/200 MG PO SCH ×2 (09:44→20:11)
[2021-05-27] MEDS: NYSTATIN POWDER TOP SCH ×2 (09:44→20:11)
[2021-05-27] MEDS: REMDESIVIR 100 MG in NS 100 ML IV 120 ML IV SCH (09:44)
[2021-05-27] MEDS: PLAVIX PO SCH (09:45)
--- NOTE | 2021-05-27 09:48 | VAS ---
HISTORYCVA, AMSSTUDYCAROTID [id number] em scale and color flow Doppler images of the right and left carotid arterial system were obtained. The vertebral arterial system was evaluated as well.FINDINGSNormal color flow Doppler is seen throughout the right and left carotid arterial system. Peak systolic velocity in the right ICA is 57 cm/second. Peak systolic velocity in the left ICA is 40 cm/second. No hemodynamically significant stenosis is seen based on velocity criteria. The right and left vertebral arteries demonstrate antegrade flow.IMPRESSIONNo hemodynamically significant stenosis. Bilateral ICA velocities indicate less than 50 percent stenosis.Electronically signed by: JOVANNI JUNIOR (May 27, 2021 09:47:28)
--- NOTE | 2021-05-27 09:56 | CT ---
HISTORYCOVID, SUSPECTED LUNG MASS, SOBSTUDYCHEST WITH CONCOMPARISONNoneTECHNIQUEMultiple axial images of the chest were obtained from the thoracic inlet to the upper abdomen after the administration of IV contrast. 3D reconstructions utilizing axial MIPS imaging was performed and reviewed. Dose reduction techniques including Automated Exposure Control (AEC) and adjustment of mA and kV were utilized.FINDINGSNo pneumothorax or effusion. Dependent atelectasis in the bilateral lungs. Scattered ground-glass opacities and left upper lobe/perihilar consolidation.The heart is normal in size. No evidence of pericardial disease. Coronary and aortic calcifications. No mediastinal adenopathy.No acute osseous abnormality. Multilevel degenerative changes throughout the visualized spine. Post mastectomy changes bilaterally. Surgical clips in the right axilla.Limited visualized portions of the upper abdomen demonstrate no acute process.IMPRESSIONScattered ground-glass opacities and consolidation in the bilateral lungs consistent with history of COVID-19. The radiographic findings concerning for left perihilar mass are most consistent with consolidation from acute infectious process. Recommend follow-up to resolution.Electronically signed by: JOVANNI JUNIOR (May 27, 2021 09:55:41)
[2021-05-27] MEDS: HumuLIN R SC PRN ×3 (12:29→20:12)
--- NOTE | 2021-05-27 13:04 | PCM.PROG ---
Progress Note - Progress Note for Day of Date of Exam: 05/25/21 - Subjective Subjective: WAS ADMITTED FOR TREATMENT OF ACUTE CVA AND COVID-19. SHE HAS A PMH OF HTN, HYPOTHYROIDISM, TYPE 2 DM. TODAY, SHE IS ALERT AND ORIENTED, LYING IN BED ON MORNING ROUNDS. SHE CONTINUES WITH COMPLAINTS OF GENERALIZED WEAKNESS AND SHORTNESS OF BREATH. SHE IS CURRENTLY UTILIZING OXYGEN VIA NASAL CANNULA AT 2 LITERS/MINUTE. ON EXAMINATION, HEART IS REGULAR IN RATE AND RHYTHM. BILATERAL LUNGS ARE NOTED TO HAVE DIMINISHED LUNG SOUNDS THROUGHOUT. ABDOMEN IS OBESE, SOFT, AND NON-TENDER WITH NORMAL BOWEL SOUNDS NOTED IN ALL QUADRANTS. JAMES CATHETER NOTED TO BEDSIDE DRAINAGE. TRACE EDEMA NOTED TO LOWER EXTREMITIES. SHE HAS 3/5 POWER TO LOWER EXTREMITIES TODAY. HER VITALS THIS MORNING ARE: 98.6-91-19-96%-122/69. LABS WERE OBTAINED. ABNORMAL LAB VALUES INCLUDE THE FOLLOWING: RBC 5.42, PLT COUNT 106, D-DIMER 1.01, SODIUM 133, GLUCOSE 175, CALCIUM 8.0, MAGNESIUM 1.4, AST 47, ALT 6, CREATINE KINASE 806, CRP 43.10, ALBUMIN 2.8, CHOLESTEROL 259, LDL 195, HDL 34. CHEST XRAY WAS OBTAINED THIS MORNING AND REVEALED: 1. Possible left lung mass versus dilated pulmonary artery; recommend chest CT 2. Stable cardiomegaly. SHE IS CURRENTLY RECEIVING: NORMAL SALINE AT 75 ML/HR, ACCUNEBS TID, PULMICORT NEBS BID, ECOTRIN 325MG PO DAILY, PLAVIX 75MG PO DAILY, ROSUVASTATIN 20MG PO HS, HUMULIN R SLIDING SCALE, SOLU-MEDROL 80MG IV Q8H, AND REMDESIVIR 100MG IV DAILY. OTHERWISE, WE PLAN TO FOLLOW UP WITH AM LABS AND CONTINUE TO MONITOR. TIME SPENT ON CLINICAL ASSESSMENT, REVIEWING LABS AND IMAGING, DECISION MAKING, AND DOCUMENTATION GREATER THAN 45 MINUTES. - Past Medical Family Social History Past Med/Fam/Surg Hx: No changes since H&P Allergies: Allergies No Known Drug Allergies Allergy (Verified 12/27/20 14:34) - Review of Systems ROS: No change since H&P - Vital Signs and I&O's Vital Signs: Temperature 98.0 F Pulse Rate [Left Radial] 74 Pulse Rate 87 Respiratory Rate 18 Blood Pressure [Left Calf] 132/77 Blood Pressure [Left Arm] 118/71 Blood Pressure 115/79 O2 Sat by Pulse Oximetry 96 Intake and Output: Intake & Output 05/25/21 05/26/21 05/27/21 05/28/21 11:59 11:59 11:59 11:59 Intake Total 1650 / 1650 2889 / 2889 3546 / 3546 Output Total 500 / 500 1700 / 1700 1800 / 1800 Balance 1150 / 1150 1189 / 1189 1746 / 1746 - Physical Exam Oriented: Normal Eyes: Normal Ear: Normal Nose: Normal Throat: Normal Respiratory: Generalized, Diminished Cardiovascular: Normal : Normal Auscultation: Bowel Sounds: Normal Tenderness: Diffuse, Mild Skin: Decreased [place] Musculoskeletal: Motor Deficit, Instability Psychiatric: Normal Mood Description: Calm Affect: Normal Speech Pattern: Clear, Appropriate - Laboratory and Diagnostics Result Diagrams: 05/27/21 04:24 05/27/21 04:24 Labs: Laboratory WBC 9.3 X10^3/uL (3.6-10.0) 05/27/21 04:24 RBC 5.03 X10^6/uL (3.5-5.4) 05/27/21 04:24 Hgb 14.2 g/dL (12.0-16.0) 05/27/21 04:24 Hct 41.2 % (36.0-47.0) 05/27/21 04:24 MCV 81.7 fL (80.0-100.0) 05/27/21 04:24 MCH 28.2 pg (27.0-34.0) 05/27/21 04:24 MCHC 34.5 g/dL (33.0-35.0) 05/27/21 04:24 RDW 14.5 % (11.6-16.5) 05/27/21 04:24 Plt Count 128 X10^3/uL (150.0-450.0) L 05/27/21 04:24 Plt Count Comment Decreased (ADEQUATE) A 05/24/21 12:10 MPV 9.5 fL (7.4-11.0) 05/27/21 04:24 Neut % (Auto) 89.1 % (42.0-75.0) H 05/27/21 04:24 Lymph % (Auto) 6.6 % (21.0-51.0) L 05/27/21 04:24 [place] % (Auto) 4.2 % (0.0-13.0) 05/27/21 04:24 Eos % (Auto) 0.0 % (0.9-2.9) L 05/27/21 04:24 Baso % (Auto) 0.1 % (0.2-1.0) L 05/27/21 04:24 Neut # (Auto) 8.3 x10^3/uL (2.2-4.8) H 05/27/21 04:24 Lymph # (Auto) 0.6 X10^3/uL (1.3-2.9) L 05/27/21 04:24 [place] # (Auto) 0.4 x10^3/uL (0.3-0.8) 05/27/21 04:24 Eos # (Auto) 0.0 x10^3/uL (0.0-0.2) 05/27/21 04:24 Baso # (Auto) 0.0 X10^3/uL (0.0-0.1) 05/27/21 04:24 Absolute Nucleated RBC 0.1 /100WBC 05/27/21 04:24 Plt Clumps, EDTA Few 05/24/21 12:10 Plt Morphology Comment Normal (NORMAL) 05/24/21 12:10 RBC Morphology Normal (NORMAL) 05/24/21 12:10 PT 13.4 SECONDS (11.8-14.3) 05/25/21 04:40 INR Target Range - 05/25/21 04:40 INR 1.07 (0.8-1.3) 05/25/21 04:40 APTT 29.1 SECONDS (22.9-36.5) 05/25/21 04:40 PTT Comment - 05/25/21 04:40 D-Dimer 0.83 ug/ml (0.0-0.57) H* 05/27/21 04:24 Sodium 137 mmol/L (136-145) 05/27/21 04:24 Corrected Sodium 142 mmol/L (136-145) 05/27/21 04:24 Potassium 3.7 mmol/L (3.5-5.1) 05/27/21 04:24 Chloride 103 mmol/L (98-107) 05/27/21 04:24 Carbon Dioxide 23.2 mmol/L (21-32) 05/27/21 04:24 BUN 18 mg/dL (7-18) 05/27/21 04:24 Creatinine 0.87 mg/dL (0.55-1.02) 05/27/21 04:24 Est GFR (MDRD) Af Amer > 60 (>60) 05/27/21 04:24 Est GFR (MDRD) Non-Af > 60 (>60) 05/27/21 04:24 Glucose 308 mg/dL (65-99) H 05/27/21 04:24 POC Glucose (mg/dL) 263 mg/dL (65-99) H 05/27/21 12:15 Calcium 7.9 mg/dL (8.5-10.1) L 05/27/21 04:24 Corrected Calcium 9.2 mg/dL (8.5-10.1) 05/27/21 04:24 Magnesium 2.0 mg/dL (1.7-2.9) 05/27/21 04:24 Total Bilirubin 0.40 mg/dL (0.2-1.0) 05/27/21 04:24 AST 30 Units/L (15-37) 05/27/21 04:24 ALT < 6 Units/L (12-78) L 05/27/21 04:24 Alkaline Phosphatase 65 Units/L (46-116) 05/27/21 04:24 Creatine Kinase 806 Units/L (26-192) H 05/25/21 04:40 CK-MB (CK-2) 5.1 ng/mL (0-4.0) H* 05/25/21 04:40 CK/CKMB % Calc 0.6 % (<4) 05/25/21 04:40 Troponin I 0.02 ng/mL (0-1.5) 05/25/21 04:40 C-Reactive Protein 19.20 mg/L (0-3.0) H 05/27/21 04:24 B-Natriuretic Peptide 191 pg/mL (0-79) H 05/27/21 04:24 Total Protein 6.5 g/dL (6.4-8.2) 05/27/21 04:24 Albumin 2.4 g/dL (3.4-5.0) L 05/27/21 04:24 Globulin 4.1 g/dL (2.5-4.5) 05/27/21 04:24 Albumin/Globulin Ratio 0.6 Ratio (1.1-2.1) L 05/27/21 04:24 Triglycerides 149 mg/dL (0-150) 05/25/21 04:40 Cholesterol 259 mg/dL (0-200) H 05/25/21 04:40 LDL Cholesterol, Calc 195 mg/dL (0-100) H 05/25/21 04:40 HDL Cholesterol 34 mg/dL (40-60) L 05/25/21 04:40 Cholesterol/HDL Ratio 7.6 (0.0-5.0) H 05/25/21 04:40 Amylase 21 Units/L (25-115) L 05/24/21 12:10 Lipase 110 Units/L (73-393) 05/24/21 12:10 Specimen Type Catherized urine 05/25/21 14:50 Urine Color Yellow (YELLOW) 05/25/21 14:50 Urine Appearance Clear (CLEAR) 05/25/21 14:50 Urine pH 5.0 (5.0 - 8.0) 05/25/21 14:50 Ur Specific [place] 1.020 (1.000-1.030) 05/25/21 14:50 Urine Protein 1+ (NEGATIVE) 05/25/21 14:50 Urine Glucose (UA) 4+ (NEGATIVE) 05/25/21 14:50 Urine Ketones 3+ (NEGATIVE) 05/25/21 14:50 Urine Occult Blood Negative (NEGATIVE) 05/25/21 14:50 Urine Nitrite Negative (NEGATIVE) 05/25/21 14:50 Urine Bilirubin Negative (NEGATIVE) 05/25/21 14:50 Urine Urobilinogen Normal (NORMAL) 05/25/21 14:50 Ur Leukocyte Esterase Negative (NEGATIVE) 05/25/21 14:50 Urine RBC 0-2 /HPF (0-3) 05/25/21 14:50 Urine WBC None seen /HPF (0-5) 05/25/21 14:50 Ur Squamous Epith Cells Rare /HPF (NEGATIVE) 05/25/21 14:50 Urine Bacteria Trace /HPF (NEGATIVE) 05/25/21 14:50 Ur Culture Indicated? No/not indicated 05/25/21 14:50 SARS CoV-2 RNA Rapid YAIMA Positive (NEGATIVE) A 05/24/21 14:12 - Plan (1) Acute CVA (cerebrovascular accident) Status: Acute Plan: NORMAL SALINE AT 75 ML/HR, ACCUNEBS TID, PULMICORT NEBS BID, ECOTRIN 325MG PO DAILY, PLAVIX 75MG PO DAILY, ROSUVASTATIN 20MG PO HS, HUMULIN R SLIDING SCALE, SOLU-MEDROL 80MG IV Q8H, AND REMDESIVIR 100MG IV DAILY. OBTAIN ECHO/CAROTID DOPPLER (2) COVID-19 Status: Acute (3) Hypertension Status: Chronic Qualifiers: Hypertension type: primary hypertension Qualified Code(s): I10 - Essential (primary) hypertension (4) Hypothyroidism Status: Chronic Qualifiers: Hypothyroidism type: acquired Qualified Code(s): E03.9 - Hypothyroidism, unspecified (5) Type 2 diabetes mellitus Status: Chronic Qualifiers: Diabetes mellitus snf insulin use: with termination clerk use Diabetes mellitus complication status: with hyperglycemia Qualified Code(s): E11.65 - Type 2 diabetes mellitus with hyperglycemia; Z79.4 - FPC (current) use of insulin
[2021-05-27] MEDS: NEURONTIN CAP 300 MG PO SCH (20:11)
[2021-05-27] MEDS: RESTORIL CAP 15 MG PO PRN (20:11)
[2021-05-27] MEDS: CRESTOR TAB 10 MG PO SCH (20:11)
[2021-05-28] MEDS: ACCUNEB 1.25 MG NEBULE NEB SCH ×2 (05:02→14:50)
[2021-05-28] MEDS: NS 1000 ML 1,000 ML IV SCH (05:31)
[2021-05-28 05:43] LABS: ALANINE AMINOTRANSFERASE < 6 Units/L (12-78); ALBUMIN 2.4 g/dL (3.4-5.0); ALKALINE PHOSPHATASE 64 Units/L (46-116); ASPARTATE AMINO TRANSFERASE 25 Units/L (15-37); BLOOD UREA NITROGEN 15 mg/dL (7-18); CALCIUM 7.8 mg/dL (8.5-10.1); CARBON DIOXIDE 25.5 mmol/L (21-32); CHLORIDE 104 mmol/L (98-107); COR CA(FOR HYPOALB) 9.1 mg/dL (8.5-10.1); COR NA(FOR HYPERGLY) 142 mmol/L (136-145); CREATININE 0.82 mg/dL (0.55-1.02); SODIUM 138 mmol/L (136-145); TOTAL PROTEIN 6.2 g/dL (6.4-8.2); eGFR NON BLACK RACES > 60 (>60)
[2021-05-28 05:45] LABS: BASOPHILS % (AUTO) 0.1 % (0.2-1.0); HEMATOCRIT 40.5 % (36.0-47.0); LYMPHOCYTES # (AUTO) 0.4 X10^3/uL (1.3-2.9); LYMPHOCYTES % (AUTO) 4.4 % (21.0-51.0); MEAN CORPUSCULAR HEMOGLOBIN 28.1 pg (27.0-34.0); MEAN CORPUSCULAR HGB CONC 34.5 g/dL (33.0-35.0); MEAN CORPUSCULAR VOLUME 81.4 fL (80.0-100.0); MEAN PLATELET VOLUME 9.2 fL (7.4-11.0); MONOCYTES # (AUTO) 0.6 x10^3/uL (0.3-0.8); MONOCYTES % (AUTO) 6.3 % (0.0-13.0); NEUTROPHILS # (AUTO) 8.2 x10^3/uL (2.2-4.8); NEUTROPHILS % (AUTO) 89.2 % (42.0-75.0); PLATELET COUNT 135 X10^3/uL (150.0-450.0); RED BLOOD COUNT 4.98 X10^6/uL (3.5-5.4); RED CELL DISTRIBUTION WIDTH 14.9 % (11.6-16.5); WHITE BLOOD COUNT 9.2 X10^3/uL (3.6-10.0)
[2021-05-28] MEDS: HumuLIN R SC PRN ×2 (05:58→11:47)
--- NOTE | 2021-05-28 06:30 | RAD ---
HISTORYSOBSTUDYCHEST, 1 VIEWCOMPARISONOne day prior.TECHNIQUEAP view of the chestFINDINGSSimilar appearance of oval left perihilar opacity. Stable mild scattered interstitial opacities. Cardiac silhouette is stably enlarged. Mediastinal contours appear stable. No discernible pneumothorax. Cannot exclude a small left pleural effusion.IMPRESSIONNo significant change.Electronically signed by: Kenn Queen (May 28, 2021 06:29:09)
[2021-05-28] MEDS: NYSTATIN POWDER TOP SCH (08:38)
[2021-05-28] MEDS: LOVENOX INJ 40 MG SYR SC SCH (08:38)
[2021-05-28] MEDS: REMDESIVIR 100 MG in NS 100 ML IV 120 ML IV SCH (08:39)
[2021-05-28] MEDS: PLAVIX PO SCH (08:39)
[2021-05-28] MEDS: SINEMET CR 50/200 MG PO SCH (08:46)
[2021-05-28] MEDS: SOLU-Medrol 40 MG VIAL IVP SCH (08:47)
--- NOTE | 2021-05-28 09:33 | W.DIS.FURT ---
Summary of Discharge Discharge Summary of Date Date of Exam: 05/28/21 Admission Date Date of Admission: 05/24/21 Admission Diagnosis Patient Problems (Updated 05/25/21 @ 10:20 by Wallace Suarez) Acute CVA (cerebrovascular accident) (Acute) I63.9 COVID-19 (Acute) U07.1 Type 2 diabetes mellitus (Chronic) E11.9 Hypertension (Chronic) I10 Hypothyroidism (Chronic) E03.9 Hospital Course: PT IS A 71 YEAR OLD FEMALE PAST MEDICAL HISTORY OF HTN, HYPOTHYROIDISM, T2DM, HX OF CVA, ADMITTED FOR ACUTE CVA AND COVID-19. HER INITIAL SYMPTOMS INCLUDED GENERALIZED WEAKNESS AND MILD SHORTNESS OF BREATH. CT HEAD REVEALED: acute /early subacute less than 3 days infarct involving the right basal ganglia region and the anterior limb of the right internal capsule and the caudate head nucleus. HER HOSPITAL/TREATMENT COURSE INCLUDED: IVF NORMAL SALINE AT 75 ML/HR, ACCUNEBS TID, PULMICORT NEBS BID, ECOTRIN 325MG PO DAILY(HOLDING), PLAVIX 75MG PO DAILY, ROSUVASTATIN 20MG PO HS, HUMULIN R SLIDING SCALE, SOLU-MEDROL, AND REMDESIVIR 100MG IV DAILY, LOVENOX 40MG SC Q12H. ECHO:EF OF 60%, AND CAROTID U/S REVEALED NO SIGNIFICANT HEMODYNAMIC STENOSIS. PT RESPONDED WELL TO TREATMENTS. HER STRENGTH RETURNED AND PHYSICAL THERAPY RECOMMENDED EITHER HOME HEALTH OR SNF. PT STAYS WITH DAUGHTER AND REQUEST HOME HEALTH WHICH WILL BE ARRANGED BY CASE MANAGEMENT. SHE DID NOT REQUIRE ANY SUPPLEMENTAL O2 ON DISCHARGE. REFERRAL PLACED TO NEUROLOGIST, DR BABS DENT IN [place]. PT DISCHARGED IN STABLE CONDITION. INSTRUCTED TO FOLLOW UP WITH PCP IN 3-5 DAYS. Vital Signs: Vital Signs (72 hours) 05/25/21 10:00 05/25/21 12:00 05/25/21 13:00 Temperature 98.2 F Pulse Rate Pulse Rate [Left Radial] 91 H 89 Respiratory Rate 20 13 Blood Pressure [Left Arm] 125/85 106/55 O2 Sat by Pulse Oximetry 94 L 93 L 05/25/21 14:00 05/25/21 15:00 05/25/21 16:00 Temperature 98.6 F Pulse Rate Pulse Rate [Left Radial] 89 85 86 Respiratory Rate 16 23 23 Blood Pressure [Left Arm] 125/60 111/64 118/56 O2 Sat by Pulse Oximetry 94 L 95 96 05/25/21 17:00 05/25/21 18:00 05/25/21 19:00 Temperature Pulse Rate Pulse Rate [Left Radial] 88 95 H 90 Respiratory Rate 22 24 20 Blood Pressure [Left Arm] 122/68 124/86 136/77 O2 Sat by Pulse Oximetry 96 93 L 93 L 05/25/21 20:00 05/25/21 20:51 05/25/21 21:00 Temperature 98.8 F Pulse Rate 90 Pulse Rate [Left Radial] 90 90 Respiratory Rate 21 21 Blood Pressure [Left Arm] 135/82 143/74 O2 Sat by Pulse Oximetry 93 L 94 L 94 L 05/25/21 22:00 05/25/21 23:00 05/26/21 00:00 Temperature 98.4 F Pulse Rate Pulse Rate [Left Radial] 94 H 97 H 91 H Respiratory Rate 20 22 25 H Blood Pressure [Left Arm] 147/70 133/61 141/88 O2 Sat by Pulse Oximetry 94 L 93 L 93 L 05/26/21 01:00 05/26/21 02:00 05/26/21 03:00 Temperature Pulse Rate Pulse Rate [Left Radial] 91 H 89 84 Respiratory Rate 24 20 19 Blood Pressure [Left Arm] 144/91 122/92 115/66 O2 Sat by Pulse Oximetry 94 L 94 L 94 L 05/26/21 04:00 05/26/21 05:00 05/26/21 06:00 Temperature 98.3 F Pulse Rate Pulse Rate [Left Radial] 86 83 88 Respiratory Rate 21 19 19 Blood Pressure [Left Arm] 126/82 128/70 127/67 O2 Sat by Pulse Oximetry 94 L 95 95 05/26/21 07:00 05/26/21 08:00 05/26/21 09:00 Temperature 97.7 F Pulse Rate Pulse Rate [Left Radial] 85 84 86 Respiratory Rate 17 20 13 Blood Pressure [Left Arm] 131/86 161/74 151/84 O2 Sat by Pulse Oximetry 90 L 94 L 94 L 05/26/21 10:00 05/26/21 11:00 05/26/21 12:00 Temperature 98.0 F Pulse Rate Pulse Rate [Left Radial] 89 89 84 Respiratory Rate 15 20 21 Blood Pressure [Left Arm] 146/68 148/91 141/82 O2 Sat by Pulse Oximetry 93 L 95 96 05/26/21 13:00 05/26/21 14:00 05/26/21 15:00 Temperature Pulse Rate Pulse Rate [Left Radial] 88 82 80 Respiratory Rate 24 18 18 Blood Pressure [Left Arm] 138/82 109/59 113/60 O2 Sat by Pulse Oximetry 96 96 96 05/26/21 16:00 05/26/21 17:00 05/26/21 18:00 Temperature 97.7 F Pulse Rate Pulse Rate [Left Radial] 83 85 89 Respiratory Rate 21 21 18 Blood Pressure [Left Arm] 145/88 156/87 157/74 O2 Sat by Pulse Oximetry 96 96 98 05/26/21 19:00 05/26/21 20:00 05/26/21 20:20 Temperature 98.2 F Pulse Rate 87 Pulse Rate [Left Radial] 92 H 92 H Respiratory Rate 18 24 Blood Pressure [Left Arm] 164/80 122/87 O2 Sat by Pulse Oximetry 93 L 96 97 05/26/21 21:00 05/26/21 22:00 05/26/21 23:00 Temperature Pulse Rate Pulse Rate [Left Radial] 95 H 90 87 Respiratory Rate 21 24 20 Blood Pressure [Left Arm] 122/83 135/69 137/53 O2 Sat by Pulse Oximetry 95 94 L 96 05/27/21 00:00 05/27/21 01:00 05/27/21 02:00 Temperature 97.8 F Pulse Rate Pulse Rate [Left Radial] 78 76 76 Respiratory Rate 17 12 13 Blood Pressure [Left Arm] 119/69 127/75 129/73 O2 Sat by Pulse Oximetry 94 L 96 96 05/27/21 03:00 05/27/21 04:00 05/27/21 05:00 Temperature 97.6 F Pulse Rate Pulse Rate [Left Radial] 75 70 74 Respiratory Rate 12 15 15 Blood Pressure [Left Arm] 127/72 118/68 124/74 O2 Sat by Pulse Oximetry 94 L 93 L 95 05/27/21 06:00 05/27/21 08:00 05/27/21 12:00 Temperature 98.0 F 97.8 F Pulse Rate Pulse Rate [Left Radial] 73 74 84 Respiratory Rate 13 18 17 Blood Pressure [Left Arm] 110/62 118/71 132/77 O2 Sat by Pulse Oximetry 93 L 96 95 05/27/21 16:00 05/27/21 20:00 05/27/21 20:20 Temperature 97.5 F L 97.8 F Pulse Rate 87 Pulse Rate [Left Radial] 85 81 Respiratory Rate 28 H 26 H Blood Pressure [Left Arm] 134/77 144/70 O2 Sat by Pulse Oximetry 97 96 92 L 05/28/21 00:00 05/28/21 04:00 Temperature 97.9 F 97.8 F Pulse Rate Pulse Rate [Left Radial] 73 75 Respiratory Rate 18 16 Blood Pressure [Left Arm] 111/67 126/81 O2 Sat by Pulse Oximetry 92 L 94 L Labs: Laboratory Last Values WBC 9.2 X10^3/uL (3.6-10.0) 05/28/21 04:33 RBC 4.98 X10^6/uL (3.5-5.4) 05/28/21 04:33 Hgb 14.0 g/dL (12.0-16.0) 05/28/21 04:33 Hct 40.5 % (36.0-47.0) 05/28/21 04:33 MCV 81.4 fL (80.0-100.0) 05/28/21 04:33 MCH 28.1 pg (27.0-34.0) 05/28/21 04:33 MCHC 34.5 g/dL (33.0-35.0) 05/28/21 04:33 RDW 14.9 % (11.6-16.5) 05/28/21 04:33 Plt Count 135 X10^3/uL (150.0-450.0) L 05/28/21 04:33 Plt Count Comment Decreased (ADEQUATE) A 05/24/21 12:10 MPV 9.2 fL (7.4-11.0) 05/28/21 04:33 Neut % (Auto) 89.2 % (42.0-75.0) H 05/28/21 04:33 Lymph % (Auto) 4.4 % (21.0-51.0) L 05/28/21 04:33 [place] % (Auto) 6.3 % (0.0-13.0) 05/28/21 04:33 Eos % (Auto) 0.0 % (0.9-2.9) L 05/28/21 04:33 Baso % (Auto) 0.1 % (0.2-1.0) L 05/28/21 04:33 Neut # (Auto) 8.2 x10^3/uL (2.2-4.8) H 05/28/21 04:33 Lymph # (Auto) 0.4 X10^3/uL (1.3-2.9) L 05/28/21 04:33 [place] # (Auto) 0.6 x10^3/uL (0.3-0.8) 05/28/21 04:33 Eos # (Auto) 0.0 x10^3/uL (0.0-0.2) 05/28/21 04:33 Baso # (Auto) 0.0 X10^3/uL (0.0-0.1) 05/28/21 04:33 Absolute Nucleated RBC 0.1 /100WBC 05/28/21 04:33 Plt Clumps, EDTA Few 05/24/21 12:10 Plt Morphology Comment Normal (NORMAL) 05/24/21 12:10 RBC Morphology Normal (NORMAL) 05/24/21 12:10 PT 13.4 SECONDS (11.8-14.3) 05/25/21 04:40 INR Target Range - 05/25/21 04:40 INR 1.07 (0.8-1.3) 05/25/21 04:40 APTT 29.1 SECONDS (22.9-36.5) 05/25/21 04:40 PTT Comment - 05/25/21 04:40 D-Dimer 0.45 ug/ml (0.0-0.57) 05/28/21 04:33 Sodium 138 mmol/L (136-145) 05/28/21 04:33 Corrected Sodium 142 mmol/L (136-145) 05/28/21 04:33 Potassium 3.6 mmol/L (3.5-5.1) 05/28/21 04:33 Chloride 104 mmol/L (98-107) 05/28/21 04:33 Carbon Dioxide 25.5 mmol/L (21-32) 05/28/21 04:33 BUN 15 mg/dL (7-18) 05/28/21 04:33 Creatinine 0.82 mg/dL (0.55-1.02) 05/28/21 04:33 Est GFR (MDRD) Af Amer > 60 (>60) 05/28/21 04:33 Est GFR (MDRD) Non-Af > 60 (>60) 05/28/21 04:33 Glucose 274 mg/dL (65-99) H 05/28/21 04:33 POC Glucose (mg/dL) 263 mg/dL (65-99) H 05/28/21 05:25 Calcium 7.8 mg/dL (8.5-10.1) L 05/28/21 04:33 Corrected Calcium 9.1 mg/dL (8.5-10.1) 05/28/21 04:33 Magnesium 2.0 mg/dL (1.7-2.9) 05/27/21 04:24 Total Bilirubin 0.30 mg/dL (0.2-1.0) 05/28/21 04:33 AST 25 Units/L (15-37) 05/28/21 04:33 ALT < 6 Units/L (12-78) L 05/28/21 04:33 Alkaline Phosphatase 64 Units/L (46-116) 05/28/21 04:33 Creatine Kinase 806 Units/L (26-192) H 05/25/21 04:40 CK-MB (CK-2) 5.1 ng/mL (0-4.0) H* 05/25/21 04:40 CK/CKMB % Calc 0.6 % (<4) 05/25/21 04:40 Troponin I 0.02 ng/mL (0-1.5) 05/25/21 04:40 C-Reactive Protein 10.40 mg/L (0-3.0) H 05/28/21 04:33 B-Natriuretic Peptide 252 pg/mL (0-79) H 05/28/21 04:33 Total Protein 6.2 g/dL (6.4-8.2) L 05/28/21 04:33 Albumin 2.4 g/dL (3.4-5.0) L 05/28/21 04:33 Globulin 3.8 g/dL (2.5-4.5) 05/28/21 04:33 Albumin/Globulin Ratio 0.6 Ratio (1.1-2.1) L 05/28/21 04:33 Triglycerides 149 mg/dL (0-150) 05/25/21 04:40 Cholesterol 259 mg/dL (0-200) H 05/25/21 04:40 LDL Cholesterol, Calc 195 mg/dL (0-100) H 05/25/21 04:40 HDL Cholesterol 34 mg/dL (40-60) L 05/25/21 04:40 Cholesterol/HDL Ratio 7.6 (0.0-5.0) H 05/25/21 04:40 Amylase 21 Units/L (25-115) L 05/24/21 12:10 Lipase 110 Units/L (73-393) 05/24/21 12:10 Specimen Type Catherized urine 05/25/21 14:50 Urine Color Yellow (YELLOW) 05/25/21 14:50 Urine Appearance Clear (CLEAR) 05/25/21 14:50 Urine pH 5.0 (5.0 - 8.0) 05/25/21 14:50 Ur Specific [place] 1.020 (1.000-1.030) 05/25/21 14:50 Urine Protein 1+ (NEGATIVE) 05/25/21 14:50 Urine Glucose (UA) 4+ (NEGATIVE) 05/25/21 14:50 Urine Ketones 3+ (NEGATIVE) 05/25/21 14:50 Urine Occult Blood Negative (NEGATIVE) 05/25/21 14:50 Urine Nitrite Negative (NEGATIVE) 05/25/21 14:50 Urine Bilirubin Negative (NEGATIVE) 05/25/21 14:50 Urine Urobilinogen Normal (NORMAL) 05/25/21 14:50 Ur Leukocyte Esterase Negative (NEGATIVE) 05/25/21 14:50 Urine RBC 0-2 /HPF (0-3) 05/25/21 14:50 Urine WBC None seen /HPF (0-5) 05/25/21 14:50 Ur Squamous Epith Cells Rare /HPF (NEGATIVE) 05/25/21 14:50 Urine Bacteria Trace /HPF (NEGATIVE) 05/25/21 14:50 Ur Culture Indicated? No/not indicated 05/25/21 14:50 SARS CoV-2 RNA Rapid YAIMA Positive (NEGATIVE) A 05/24/21 14:12 Reason For Visit: RIGHT GANGLION INFART, COVID, HYPOMAGNESEMIA Discharge Date Discharge Date: 05/28/21 Discharge Diagnosis All Active Problems (Updated 05/25/21 @ 10:20 by Wallace Suarez) Acute CVA (cerebrovascular accident) (Acute) Brain TIA (Acute) COVID-19 (Acute) Type 2 diabetes mellitus (Chronic) Hypertension (Chronic) Dizziness (Acute) Leg pain, left (Acute) Right knee buckling (Acute) Acute dyspnea (Acute) Pulmonary vascular congestion (Acute) Hypothyroidism (Chronic) Hyperglycemia due to type 2 diabetes mellitus (Acute) Sinus tachycardia (Acute) Cystitis (Acute) Back strain (Acute) Brain TIA (Acute) Plan of Treatment: Continue with present treatment and follow up plan. Pt is to keep follow up appointment as instructed and take medications as ordered. Discharge Medications Discharge Medications: No Known Drug Allergies Allergy (Verified 12/27/20 14:34) CONTINUE taking the following medications gabapentin 300 mg PO TID 05/25/21 [History] Discharge Disposition Discharge Disposition: HOME Discharge Condition: STABLE Discharge Plan Discharge Plan Hospital Course: PT IS A 71 YEAR OLD FEMALE PAST MEDICAL HISTORY OF HTN, HYPOTHYROIDISM, T2DM, HX OF CVA, ADMITTED FOR ACUTE CVA AND COVID-19. HER INITIAL SYMPTOMS INCLUDED GENERALIZED WEAKNESS AND MILD SHORTNESS OF BREATH. CT HEAD REVEALED: acute /early subacute less than 3 days infarct involving the right basal ganglia region and the anterior limb of the right internal capsule and the caudate head nucleus. HER HOSPITAL/TREATMENT COURSE INCLUDED: IVF NORMAL SALINE AT 75 ML/HR, ACCUNEBS TID, PULMICORT NEBS BID, ECOTRIN 325MG PO DAILY(HOLDING), PLAVIX 75MG PO DAILY, ROSUVASTATIN 20MG PO HS, HUMULIN R SLIDING SCALE, SOLU-MEDROL, AND REMDESIVIR 100MG IV DAILY, LOVENOX 40MG SC Q12H. ECHO:EF OF 60%, AND CAROTID U/S REVEALED NO SIGNIFICANT HEMODYNAMIC STENOSIS. PT RESPONDED WELL TO TREATMENTS. HER STRENGTH RETURNED AND PHYSICAL THERAPY RECOMMENDED EITHER HOME HEALTH OR SNF. PT STAYS WITH DAUGHTER AND REQUEST HOME HEALTH WHICH WILL BE ARRANGED BY CASE MANAGEMENT. SHE DID NOT REQUIRE ANY SUPPLEMENTAL O2 ON DISCHARGE. REFERRAL PLACED TO NEUROLOGIST, DR [facility]AB[facility] DENT IN [place]. PT DISCHARGED IN STABLE CONDITION. INSTRUCTED TO FOLLOW UP WITH PCP IN 3-5 DAYS. Patient Disposition: HOME HEALTH SERVICE Condition: Stable Health Concerns: Post Hospitalization: new medications and changes needed to prevent readmission or further decline. Pt educated and given instructions on all concerns. Care Plan Goals: Problem: Alteration in Mental Status Goal: Patient will stay oriented to their cognitive ability Instructions: Follow provided instructions. Follow up with primary physician as directed. Contact primary care physician or report to the closest Emergency Room if condition worsens. Plan of Treatment: Continue with present treatment and follow up plan. Pt is to keep follow up appointment as instructed and take medications as ordered. Prescriptions: Continued atorvastatin 80 mg tablet 80 mg PO HS RF: 0 carbidopa-levodopa 50-200 mg tablet extended release 1 tab PO BID RF: 0 metformin 1,000 mg tablet 1,000 mg PO BID RF: 0 levothyroxine 150 mcg tablet 150 mcg PO DAILY RF: 0 metoprolol tartrate 50 mg tablet 50 mg PO BID RF: 0 gabapentin 300 mg capsule 300 mg PO TID RF: 0 lisinopril 40 mg tablet 40 mg PO DAILY RF: 0 glipizide 5 mg tablet 5 mg PO BID RF: 0 clopidogrel [Plavix] 75 mg tablet 75 mg PO DAILY RF: 0 meloxicam 15 mg Tablet 15 mg PO DAILY RF: 0 albuterol sulfate [Ventolin HFA] 90 mcg/actuation Hfa Aerosol Inhaler 2 puff inhalation Q4H PRNQty: 8.5 RF: 0 gabapentin 300 mg capsule 300 mg PO TID RF: 0 Follow ups/Referrals Follow ups/Referrals: Checo Patton [Primary Care Provider] - 06/03/21 11:20 am [facility] [REFERRING] - 1 WEEK (Faxed records, Hanna at office to contact patient with appt.) Instructions Instructions: Viral Respiratory Infection, [id number], Hospital Discharge After a Stroke, Ischemic Stroke, Managing Your Hypertension, Diabetes Mellitus and Nutrition
[2021-05-28] MEDS: PULMICORT NEB TX 0.5 MG NEB SCH (13:04)
[2021-05-28 16:45] VITALS: BP 151/78
== END 2021-05-28 12:25 | disposition home health service (06) | DRG 177 ==
LOC: ER 11:37 → ICU 11:37
PROVIDERS: ADMIT Internal Medicine; ATTEND Family Medicine
DX: R06.02 Shortness of breath; U07.1 COVID-19; R94.31 Abnormal electrocardiogram [ECG] [EKG]; J12.82 Pneumonia due to coronavirus disease 2019; R79.82 Elevated C-reactive protein (CRP); Z91.81 History of falling; R26.0 Ataxic gait; E11.65 Type 2 diabetes mellitus with hyperglycemia; Z86.73 Personal history of transient ischemic attack (TIA), and cerebral infarction without residual deficits; Z66 Do not resuscitate; Z79.4 Long term (current) use of insulin; I11.9 Hypertensive heart disease without heart failure; I63.89 Other cerebral infarction; E03.8 Other specified hypothyroidism

== ENCOUNTER 2021-05-31 11:59 | Observation (INO) ==
--- NOTE | 2021-05-31 12:33 | DR.EXTPAIN ---
HPI Time seen Time Seen by Provider: 05/31/21 12:24 PCP Primary Care Physician: MARISSA Complaint/Symptoms Chief Complaint Doctor Comments: 71 y/ female slid off her bed this am, injured her left hip. Brought in via EMS, couldn't get off the floor. Has constant pain of left hip. Sharp , constant. +worse with ROM of left hip. Nothing makes it better. Denies head injury, neck pain or loss of consciousness. No previous h/o hip problems. Pt was d/c'd from hospital few days ago for covid. Chief Complaint:: FELL THIS AM, L HIP PAIN Self Treatment fo Chief Complaint: NONE COVID-19 Coronavirus risk:travel/contact w/high risk person: No Has patient experienced Coronavirus symptoms: No Nurses notes reviewed Nurses Notes Review: Yes Source History Provided: Patient Mode of arrival Mode of Arrival: Stretcher Timing Onset of Chief Complaint: 05/31/21 PMH PMH Past Medical History: Yes Past Medical History: Anemia, Arthritis, Asthma, Diabetes, Hypertension and Hypothyroidism Past Surgical History: Yes Surgical History: Appendectomy, Hysterectomy, Mastectomy and Thyroidectomy Family History History of Family Medical Conditions: Yes Family Medical History: Diabetes Mellitus, Cancer, [place] and Hypertension Social History Does patient currently use any type of tobacco product: No Have you used tobacco products in the last 12 months: No Type of Tobacco Use: None Do you use any recreational Drugs:: No Lives With: Family Lives Where: Home Travel Risk Coronavirus risk:travel/contact w/high risk person: No Has patient experienced Coronavirus symptoms: No Infectious screening In the last 2 months have you had wt loss of >10#?: NO Have you had fever, night sweats or hemotysis?: No Have you traveled outside the country in the last 6 months?: No Isolation: Standard ROS Review of Systems Constitutional: No Symptoms Reported Eyes: No Symptoms Reported ENTM: No Symptoms Reported Respiratoy: No Symptoms Reported Cardiovascular: No Symptoms Reported Gastrointestinal/Abdominal: No Symptoms Reported Genitourinary: No Symptoms Reported Neurological: No Symptoms Reported Musculoskeletal: Left and Hip Hematologic/Lymphatic: No Symptoms Reported Endocrine: No Symptoms Reported Psychiatric: No Symptoms Reported All Other Systems: Reviewed and Negative PE Vital Signs Vitals: Temperature 98.3 F Pulse Rate 95 Respiratory Rate 20 Blood Pressure [Left Calf] 132/77 Blood Pressure [Left Arm] 157/95 Blood Pressure 127/74 O2 Sat by Pulse Oximetry 93 General Limitations: No Limitations General Appearance: Alert and In No Apparent Distress Head Head Exam: Normal Inspection, Atraumatic and Normocephalic Eyes Eye exam: Normal Appearance Neck Neck Exam: Normal Inspection and Full ROM; negative Tenderness Chest Chest Inspection: Normal Inspection Respiratory Respiratory Exam: Normal Lung Sounds Bilat; negative Accessory Muscle Use and Respiratory Distress Respiratory Exam: Bilateral: Clear to Auscultation Cardiovascular Cardiovascular Exam: Regular Rate, Normal Rhythm and Normal Heart Sounds Abdominal Exam Abdominal Exam: Normal Inspection Extremities Extremities Exam: Tenderness (left hip to plapation, + hip pain with minimal internal/external rotation of LLE) Lower Extremities Ankle Exam: Normal Inspection Foot/Toe Exam: Normal Inspection and Other (+ distal NV intact) Neurological Neurological Exam: Alert and Oriented X3; negative Motor Sensory Deficit Psychiatric Psychiatric Exam: Normal Affect Skin Skin Exam: Warm and Dry MDM Differential Diagnosis Differential Diagnosis: Fracture and Sprain COURSE Treatment Treatment: 71 y/o female with left hip pain after sliding out of bed. Concerning for hip fracture. X-rays show no obvious fracture, but poor technique. Proceeded with a CT of the hip, no obvious fracture of hip or pelvis fracture. Will treat for probable hip strain. Pt to rest, use a walker, apply ice frequently x 24 hours, then warm compresses. Will recommend tylenol for mild pain, trial of tramadol for more severe pain. PT has been falling a lot, lives with daughter, who is concerned pt unable to care for self. May need rehab stay. Pt in agreement. Pt was hospitalized recently for CVA, found to have covid. Asymptomatic from covid. Will admit for inability to care for self. Discussed with Dr Dueñas, will admit for 3 days stay prior to admission to rehab facility. [facility] Labs Reviewed Laboratory: SARS-CoV-2 (PCR) Positive (NEGATIVE) A 05/31/21 15:19 Influenza Type A (PCR) Negative (NEGATIVE) 05/31/21 15:19 Influenza Type B (PCR) Negative (NEGATIVE) 05/31/21 15:19 RSV (PCR) Negative (NEGATIVE) 05/31/21 15:19 XRAY XRAY Interpreted by: Radiologist X-ray Results: Hip x-ray with questionable none displaced fracture. CT of hip - no obvious fracture. Opioid Opioid Risk Tool Age (Vinicius box if 16-45): No History of Preadolescent Sexual Abuse: No Total: 0 Total Score Risk Category: Low Risk Copyright: Senthil OBRIEN predicting aberrant behaviors Diagnosis Discharge Problem: Frequent falls, Strain of left hip, Unable to care for self
--- NOTE | 2021-05-31 14:01 | CT ---
HISTORYS/P FALL LEFT HIP PAINSTUDYLOWER EXT W/O CONCOMPARISONNoneTECHNIQUEAxial images through the left hip was performed without contrast. CT scan was performed following ALARA (As low as Reasonably Achievable).Coronal and Sagittal reformatted images were performed.FINDINGSThe sacroiliac joint demonstrate mild sclerosis. There is no evidence of acute fracture of the left hip. The inferior and superior pubic ramus are intact. There are small cystic changes in the superior aspect of the left femoral neck regionNo acute fractures.There is no evidence of a dominant hematoma. There is scattered vascular calcifications. No significant chondrocalcinosis.IMPRESSIONNo radiographic evidence of acute left hip fractures. Cyst formation in the superior femoral neck region. Joint space is preserved. No chondrocalcinosis.Electronically signed by: Juani Wells (May 31, 2021 13:59:54)
--- NOTE | 2021-05-31 14:38 | RAD ---
HISTORYS/P FALL, LT HIP PAIN ASTHMA, CVA, DIABETES, HTN, HYSTERECTOMY, MASTECTOMY, APPENDIX, THYROIDECTOMY, BREAST CA,STUDYHIP, LEFTCOMPARISONNone.FINDINGSStudy limited secondary to body habitus. Cortical irregularity is seen at the left femoral neck concerning for a minimally displaced subcapital fracture. Remaining osseous structures appear intact. The soft tissues are otherwise unremarkable.IMPRESSIONFindings concerning for left subcapital femoral neck fracture.Electronically signed by: CHINYERE CONTRERAS (May 31, 2021 14:37:11)
[2021-05-31] MEDS ORDERED: VENTOLIN or PROAIR HFA IN PRN (17:30)
[2021-05-31] MEDS: SNACK - Diabetic Appropriate PO SCH (20:54)
[2021-05-31] MEDS: PULMICORT NEB TX 0.5 MG NEB SCH (21:11)
[2021-05-31] MEDS: BROVANA IN SCH (21:11)
[2021-05-31] MEDS ORDERED: GLUCOPHAGE ONE (21:50)
[2021-05-31] MEDS: NEURONTIN CAP 300 MG PO SCH (21:51)
[2021-05-31] MEDS: LOPRESSOR TAB 50 MG PO SCH (21:51)
[2021-05-31] MEDS: LIPITOR TAB 80 MG PO SCH (21:52)
[2021-05-31] MEDS: GLUCOPHAGE PO SCH (21:52)
[2021-05-31] MEDS: GLUCOTROL PO SCH (21:52)
[2021-05-31] MEDS: SINEMET CR 50/200 MG PO SCH (21:56)
[2021-05-31] MEDS ORDERED: HumuLIN R SUBCUT PRN (22:25)
[2021-05-31] MEDS: VISTARIL PO PRN (22:55)
[2021-06-01 05:13] LABS: BASOPHILS % (AUTO) 0.3 % (0.2-1.0); EOSINOPHILS # (AUTO) 0.1 x10^3/uL (0.0-0.2); EOSINOPHILS % (AUTO) 0.7 % (0.9-2.9); HEMOGLOBIN 14.9 g/dL (12.0-16.0); LYMPHOCYTES # (AUTO) 1.1 X10^3/uL (1.3-2.9); LYMPHOCYTES % (AUTO) 9.1 % (21.0-51.0); MEAN CORPUSCULAR HEMOGLOBIN 28.2 pg (27.0-34.0); MEAN CORPUSCULAR HGB CONC 34.7 g/dL (33.0-35.0); MEAN CORPUSCULAR VOLUME 81.3 fL (80.0-100.0); MEAN PLATELET VOLUME 8.9 fL (7.4-11.0); MONOCYTES # (AUTO) 1.6 x10^3/uL (0.3-0.8); MONOCYTES % (AUTO) 12.9 % (0.0-13.0); NEUTROPHILS # (AUTO) 9.6 x10^3/uL (2.2-4.8); PLATELET COUNT 182 X10^3/uL (150.0-450.0); RED BLOOD COUNT 5.29 X10^6/uL (3.5-5.4); RED CELL DISTRIBUTION WIDTH 14.7 % (11.6-16.5); WHITE BLOOD COUNT 12.5 X10^3/uL (3.6-10.0)
[2021-06-01 05:23] LABS: ALANINE AMINOTRANSFERASE 8 Units/L (12-78); ALBUMIN 2.2 g/dL (3.4-5.0); ALKALINE PHOSPHATASE 80 Units/L (46-116); ASPARTATE AMINO TRANSFERASE 40 Units/L (15-37); BLOOD UREA NITROGEN 14 mg/dL (7-18); CALCIUM 8.2 mg/dL (8.5-10.1); CARBON DIOXIDE 34.7 mmol/L (21-32); CHLORIDE 98 mmol/L (98-107); COR CA(FOR HYPOALB) 9.6 mg/dL (8.5-10.1); COR NA(FOR HYPERGLY) 137 mmol/L (136-145); CREATININE 0.98 mg/dL (0.55-1.02); SODIUM 137 mmol/L (136-145); TOTAL PROTEIN 6.8 g/dL (6.4-8.2); eGFR NON BLACK RACES 59 (>60)
[2021-06-01 05:58] LABS: PLATELET MORPHOLOGY COMMENT NORMAL (NORMAL)
[2021-06-01] MEDS: NEURONTIN CAP 300 MG PO SCH ×3 (06:12→21:01)
[2021-06-01] MEDS ORDERED: MICRO K EXTEN CAP 10 MEQ PO PRN (06:46)
[2021-06-01] MEDS ORDERED: POTASSIUM CHL 40 MEQ/NS 0.45% 500 ML IV PRN (06:46)
[2021-06-01] MEDS ORDERED: K-RIDER 10 MEQ/NS 100 ML 10 MEQ/100 ML BAG IV PRN (06:46)
[2021-06-01] MEDS ORDERED: POTASSIUM CHL 60 MEQ/NS 0.45% 500 ML IV PRN (06:46)
[2021-06-01] MEDS ORDERED: POTASSIUM CHLORIDE LIQ 20 MEQ UDC PO PRN (06:46)
[2021-06-01] MEDS ORDERED: KLOR-CON PO PRN (06:46)
[2021-06-01] MEDS ORDERED: MOBIC TAB 15 MG PO ONE (08:01)
[2021-06-01] MEDS ORDERED: PLAVIX ONE (08:01)
[2021-06-01] MEDS ORDERED: ZESTRIL TAB 40 MG ONE (08:01)
[2021-06-01] MEDS ORDERED: GLUCOPHAGE ONE (08:01)
[2021-06-01] MEDS ORDERED: SYNTHROID 150 mcg TAB ONE (08:02)
[2021-06-01] MEDS ORDERED: SINEMET (PLAIN) 25/100 MG PO ONE (08:02)
[2021-06-01] MEDS: ZESTRIL TAB 40 MG PO SCH ×2 (08:17→09:56)
[2021-06-01] MEDS: GLUCOPHAGE PO SCH ×3 (08:17→22:46)
[2021-06-01] MEDS: SYNTHROID 150 mcg TAB PO SCH ×2 (08:17→09:56)
[2021-06-01] MEDS: PLAVIX PO SCH ×2 (08:18→09:55)
[2021-06-01] MEDS: LOPRESSOR TAB 50 MG PO SCH ×3 (08:18→20:49)
[2021-06-01] MEDS: MOBIC TAB 15 MG PO SCH ×2 (08:18→09:53)
[2021-06-01] MEDS: SINEMET CR 50/200 MG PO SCH ×3 (08:18→20:50)
[2021-06-01] MEDS: BROVANA IN SCH ×2 (09:10→20:01)
[2021-06-01] MEDS: PULMICORT NEB TX 0.5 MG NEB SCH ×2 (09:10→20:01)
[2021-06-01] MEDS: GLUCOTROL PO SCH ×2 (09:51→22:46)
[2021-06-01] MEDS: SNACK - Diabetic Appropriate PO SCH (20:07)
[2021-06-01] MEDS: K-DUR TAB 20 MEQ PO PRN (20:49)
[2021-06-01] MEDS: LIPITOR TAB 80 MG PO SCH (20:49)
[2021-06-01] MEDS: MAGNESIUM SULFATE 1 GRAM/100 mL PREMIX 1 GM/100 ML BAG IV PRN ×2 (20:50→22:47)
[2021-06-02 05:07] LABS: BASOPHILS % (AUTO) 0.1 % (0.2-1.0); EOSINOPHILS # (AUTO) 0.1 x10^3/uL (0.0-0.2); EOSINOPHILS % (AUTO) 1.3 % (0.9-2.9); HEMATOCRIT 43.5 % (36.0-47.0); LYMPHOCYTES % (AUTO) 13.8 % (21.0-51.0); MEAN CORPUSCULAR HEMOGLOBIN 28.1 pg (27.0-34.0); MEAN CORPUSCULAR HGB CONC 34.5 g/dL (33.0-35.0); MEAN CORPUSCULAR VOLUME 81.4 fL (80.0-100.0); MEAN PLATELET VOLUME 8.3 fL (7.4-11.0); MONOCYTES # (AUTO) 1.2 x10^3/uL (0.3-0.8); MONOCYTES % (AUTO) 16.1 % (0.0-13.0); NEUTROPHILS # (AUTO) 5.1 x10^3/uL (2.2-4.8); NEUTROPHILS % (AUTO) 68.7 % (42.0-75.0); PLATELET COUNT 172 X10^3/uL (150.0-450.0); RED BLOOD COUNT 5.35 X10^6/uL (3.5-5.4); RED CELL DISTRIBUTION WIDTH 14.6 % (11.6-16.5); WHITE BLOOD COUNT 7.4 X10^3/uL (3.6-10.0)
[2021-06-02 05:23] LABS: ALANINE AMINOTRANSFERASE 12 Units/L (12-78); ALBUMIN 2.1 g/dL (3.4-5.0); ALKALINE PHOSPHATASE 82 Units/L (46-116); ASPARTATE AMINO TRANSFERASE 47 Units/L (15-37); BLOOD UREA NITROGEN 14 mg/dL (7-18); CALCIUM 8.2 mg/dL (8.5-10.1); CARBON DIOXIDE 31.6 mmol/L (21-32); CHLORIDE 99 mmol/L (98-107); COR CA(FOR HYPOALB) 9.7 mg/dL (8.5-10.1); COR NA(FOR HYPERGLY) 138 mmol/L (136-145); CREATININE 0.89 mg/dL (0.55-1.02); SODIUM 137 mmol/L (136-145); TOTAL PROTEIN 6.6 g/dL (6.4-8.2); eGFR NON BLACK RACES > 60 (>60)
[2021-06-02] MEDS: NEURONTIN CAP 300 MG PO SCH ×3 (05:42→21:05)
--- NOTE | 2021-06-02 06:26 | RAD ---
HISTORYSOB, COVID +STUDYSingle-view [id number] trachea is midline. The cardiac silhouette is enlarged with a tortuous thoracic aorta . Scattered interstitial lung changes throughout the right and left chest are observed with worsening airspace opacity of the left hilar and hilar regions. The bony thorax is unremarkable.IMPRESSIONDiffuse interstitial lung changes with consolidation of the left hilar infrahilar regions.Electronically signed by: FRANCESCO RUELAS (Jun 02, 2021 06:24:41)
[2021-06-02] MEDS ORDERED: GLUCOPHAGE ONE ×2 (08:31→20:12)
[2021-06-02] MEDS: BROVANA IN SCH ×2 (09:10→21:25)
[2021-06-02] MEDS: PULMICORT NEB TX 0.5 MG NEB SCH ×2 (09:10→21:25)
[2021-06-02] MEDS: GLUCOPHAGE PO SCH ×2 (10:15→20:44)
[2021-06-02] MEDS: MOBIC TAB 15 MG PO SCH (10:15)
[2021-06-02] MEDS: LOPRESSOR TAB 50 MG PO SCH ×2 (10:15→20:44)
[2021-06-02] MEDS: ACTOS PO SCH ×2 (10:16→10:19)
[2021-06-02] MEDS: PLAVIX PO SCH (10:16)
[2021-06-02] MEDS: SYNTHROID 150 mcg TAB PO SCH (10:16)
[2021-06-02] MEDS: SINEMET CR 50/200 MG PO SCH ×2 (10:16→20:44)
[2021-06-02] MEDS: ZESTRIL TAB 40 MG PO SCH (10:16)
[2021-06-02] MEDS: INVOKANA PO SCH (10:19)
[2021-06-02] MEDS: K-DUR TAB 20 MEQ PO PRN (12:06)
[2021-06-02] MEDS: SNACK - Diabetic Appropriate PO SCH (20:30)
[2021-06-02] MEDS: LIPITOR TAB 80 MG PO SCH (20:44)
[2021-06-03 05:21] LABS: BASOPHILS % (AUTO) 0.2 % (0.2-1.0); EOSINOPHILS # (AUTO) 0.1 x10^3/uL (0.0-0.2); EOSINOPHILS % (AUTO) 1.1 % (0.9-2.9); HEMATOCRIT 40.9 % (36.0-47.0); HEMOGLOBIN 14.2 g/dL (12.0-16.0); LYMPHOCYTES % (AUTO) 11.9 % (21.0-51.0); MEAN CORPUSCULAR HEMOGLOBIN 28.4 pg (27.0-34.0); MEAN CORPUSCULAR HGB CONC 34.6 g/dL (33.0-35.0); MEAN PLATELET VOLUME 8.4 fL (7.4-11.0); MONOCYTES # (AUTO) 1.3 x10^3/uL (0.3-0.8); MONOCYTES % (AUTO) 15.8 % (0.0-13.0); NEUTROPHILS # (AUTO) 5.7 x10^3/uL (2.2-4.8); PLATELET COUNT 167 X10^3/uL (150.0-450.0); RED BLOOD COUNT 4.99 X10^6/uL (3.5-5.4); RED CELL DISTRIBUTION WIDTH 14.7 % (11.6-16.5)
[2021-06-03 05:51] LABS: ALANINE AMINOTRANSFERASE 7 Units/L (12-78); ALBUMIN 2.1 g/dL (3.4-5.0); ALKALINE PHOSPHATASE 76 Units/L (46-116); ASPARTATE AMINO TRANSFERASE 36 Units/L (15-37); BLOOD UREA NITROGEN 13 mg/dL (7-18); CALCIUM 8.5 mg/dL (8.5-10.1); CARBON DIOXIDE 29.6 mmol/L (21-32); CHLORIDE 102 mmol/L (98-107); COR NA(FOR HYPERGLY) 139 mmol/L (136-145); CREATININE 0.88 mg/dL (0.55-1.02); SODIUM 138 mmol/L (136-145); TOTAL PROTEIN 6.3 g/dL (6.4-8.2); eGFR NON BLACK RACES > 60 (>60)
[2021-06-03] MEDS: NEURONTIN CAP 300 MG PO SCH ×4 (06:59→21:13)
[2021-06-03] MEDS ORDERED: GLUCOPHAGE ONE ×2 (08:47→19:50)
[2021-06-03] MEDS: BROVANA IN SCH ×2 (09:25→20:10)
[2021-06-03] MEDS: ACTOS PO SCH (09:25)
[2021-06-03] MEDS: SYNTHROID 150 mcg TAB PO SCH (09:25)
[2021-06-03] MEDS: PULMICORT NEB TX 0.5 MG NEB SCH ×2 (09:25→20:10)
[2021-06-03] MEDS: GLUCOPHAGE PO SCH ×2 (09:28→21:12)
[2021-06-03] MEDS: SINEMET CR 50/200 MG PO SCH ×3 (09:28→21:13)
[2021-06-03] MEDS: MOBIC TAB 15 MG PO SCH (09:28)
[2021-06-03] MEDS: INVOKANA PO SCH (09:28)
[2021-06-03] MEDS: PLAVIX PO SCH (09:28)
[2021-06-03] MEDS: ZESTRIL TAB 40 MG PO SCH (09:29)
[2021-06-03] MEDS: LOPRESSOR TAB 50 MG PO SCH ×2 (09:29→20:35)
--- NOTE | 2021-06-03 10:45 | PCM.PROG ---
Progress Note Progress Note for Day of Date of Exam: 06/03/21 Subjective Subjective: Pt is a 71 year old female past medical history of Hypertension, Hypothyroidism, T2DM, Hx of CVA admitted for multiple falls and generalized weakness. Pt recently discharged post CVA and COVID-19 infection. It was recommended either SNF or home health at which patient wanted home health at t hat time. This morning patient does not have any acute concerns besides her weakness. Labs/imaging: Wbc 8.0, Hgb 14.2, Plt 167, Na 138, K 3.7, Creatinine 0.88, Glucose 140. She will continue her home medications. Physical therapy ordered for evaluation. Will discuss with case management for possible transition to SNF. Continue to monitor and follow up labs. Past Medical Family Social History Past Med/Fam/Surg Hx: No changes since H&P Allergies: Allergies No Known Drug Allergies Allergy (Verified 12/27/20 14:34) Review of Systems ROS: No change since H&P Vital Signs and I&O's Vital Signs: Temperature 98.0 F Pulse Rate [Radial] 100 Pulse Rate 71 Respiratory Rate 16 Blood Pressure [Left Calf] 147/73 Blood Pressure [Left Arm] 157/95 Blood Pressure 105/58 O2 Sat by Pulse Oximetry 95 Intake and Output: Intake & Output 05/31/21 06/01/21 06/02/21 06/03/21 23:59 23:59 23:59 23:59 Intake Total 260 / 260 1270 / 1270 1440 / 1440 230 / 230 Balance 260 / 260 1270 / 1270 1440 / 1440 230 / 230 Physical Exam Oriented: Normal Eyes: Normal Ear: Normal Nose: Normal Throat: Normal Respiratory: Normal Cardiovascular: Normal : Normal Auscultation: Bowel Sounds: Normal Palpation: Normal Tenderness: Normal Skin: Normal Musculoskeletal: Instability Psychiatric: Normal Mood Description: Calm Speech Pattern: Clear Laboratory and Diagnostics Result Diagrams: 06/03/21 04:25 06/03/21 04:25 Labs: Laboratory WBC 8.0 X10^3/uL (3.6-10.0) 06/03/21 04:25 RBC 4.99 X10^6/uL (3.5-5.4) 06/03/21 04:25 Hgb 14.2 g/dL (12.0-16.0) 06/03/21 04:25 Hct 40.9 % (36.0-47.0) 06/03/21 04:25 MCV 82.0 fL (80.0-100.0) 06/03/21 04:25 MCH 28.4 pg (27.0-34.0) 06/03/21 04:25 MCHC 34.6 g/dL (33.0-35.0) 06/03/21 04:25 RDW 14.7 % (11.6-16.5) 06/03/21 04:25 Plt Count 167 X10^3/uL (150.0-450.0) 06/03/21 04:25 Plt Count Comment Adequate (ADEQUATE) 06/01/21 04:10 MPV 8.4 fL (7.4-11.0) 06/03/21 04:25 Neut % (Auto) 71.0 % (42.0-75.0) 06/03/21 04:25 Lymph % (Auto) 11.9 % (21.0-51.0) L 06/03/21 04:25 [place] % (Auto) 15.8 % (0.0-13.0) H 06/03/21 04:25 Eos % (Auto) 1.1 % (0.9-2.9) 06/03/21 04:25 Baso % (Auto) 0.2 % (0.2-1.0) 06/03/21 04:25 Neut # (Auto) 5.7 x10^3/uL (2.2-4.8) H 06/03/21 04:25 Lymph # (Auto) 1.0 X10^3/uL (1.3-2.9) L 06/03/21 04:25 [place] # (Auto) 1.3 x10^3/uL (0.3-0.8) H 06/03/21 04:25 Eos # (Auto) 0.1 x10^3/uL (0.0-0.2) 06/03/21 04:25 Baso # (Auto) 0.0 X10^3/uL (0.0-0.1) 06/03/21 04:25 Absolute Nucleated RBC 0.1 /100WBC 06/03/21 04:25 Plt Clumps, EDTA Few 06/01/21 04:10 Plt Morphology Comment Normal (NORMAL) 06/01/21 04:10 RBC Morphology Normal (NORMAL) 06/01/21 04:10 Sodium 138 mmol/L (136-145) 06/03/21 04:25 Corrected Sodium 139 mmol/L (136-145) 06/03/21 04:25 Potassium 3.7 mmol/L (3.5-5.1) 06/03/21 04:25 Chloride 102 mmol/L (98-107) 06/03/21 04:25 Carbon Dioxide 29.6 mmol/L (21-32) 06/03/21 04:25 BUN 13 mg/dL (7-18) 06/03/21 04:25 Creatinine 0.88 mg/dL (0.55-1.02) 06/03/21 04:25 Est GFR (MDRD) Af Amer > 60 (>60) 06/03/21 04:25 Est GFR (MDRD) Non-Af > 60 (>60) 06/03/21 04:25 Glucose 140 mg/dL (65-99) H 06/03/21 04:25 POC Glucose (mg/dL) 96 mg/dL (65-99) 06/02/21 20:20 Calcium 8.5 mg/dL (8.5-10.1) 06/03/21 04:25 Corrected Calcium 10.0 mg/dL (8.5-10.1) 06/03/21 04:25 Magnesium 2.0 mg/dL (1.7-2.9) 06/02/21 04:14 Total Bilirubin 0.80 mg/dL (0.2-1.0) 06/03/21 04:25 AST 36 Units/L (15-37) 06/03/21 04:25 ALT 7 Units/L (12-78) L 06/03/21 04:25 Alkaline Phosphatase 76 Units/L (46-116) 06/03/21 04:25 Total Protein 6.3 g/dL (6.4-8.2) L 06/03/21 04:25 Albumin 2.1 g/dL (3.4-5.0) L 06/03/21 04:25 Globulin 4.2 g/dL (2.5-4.5) 06/03/21 04:25 Albumin/Globulin Ratio 0.5 Ratio (1.1-2.1) L 06/03/21 04:25 SARS-CoV-2 (PCR) Positive (NEGATIVE) A 05/31/21 15:19 Influenza Type A (PCR) Negative (NEGATIVE) 05/31/21 15:19 Influenza Type B (PCR) Negative (NEGATIVE) 05/31/21 15:19 RSV (PCR) Negative (NEGATIVE) 05/31/21 15:19 Plan (1) Frequent falls: Status: Acute (2) 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
[2021-06-03] MEDS: LOVENOX INJ 40 MG SYR SC SCH (15:47)
[2021-06-03] MEDS: SNACK - Diabetic Appropriate PO SCH (19:40)
[2021-06-03] MEDS: LIPITOR TAB 80 MG PO SCH (21:12)
[2021-06-04] MEDS: VISTARIL PO PRN (00:07)
[2021-06-04 05:14] LABS: BASOPHILS % (AUTO) 0.2 % (0.2-1.0); EOSINOPHILS # (AUTO) 0.1 x10^3/uL (0.0-0.2); EOSINOPHILS % (AUTO) 1.1 % (0.9-2.9); HEMATOCRIT 44.5 % (36.0-47.0); HEMOGLOBIN 15.2 g/dL (12.0-16.0); LYMPHOCYTES # (AUTO) 1.2 X10^3/uL (1.3-2.9); LYMPHOCYTES % (AUTO) 11.8 % (21.0-51.0); MEAN CORPUSCULAR HEMOGLOBIN 28.2 pg (27.0-34.0); MEAN CORPUSCULAR HGB CONC 34.1 g/dL (33.0-35.0); MEAN CORPUSCULAR VOLUME 82.6 fL (80.0-100.0); MEAN PLATELET VOLUME 8.3 fL (7.4-11.0); MONOCYTES # (AUTO) 1.2 x10^3/uL (0.3-0.8); MONOCYTES % (AUTO) 11.5 % (0.0-13.0); NEUTROPHILS # (AUTO) 7.8 x10^3/uL (2.2-4.8); NEUTROPHILS % (AUTO) 75.4 % (42.0-75.0); PLATELET COUNT 188 X10^3/uL (150.0-450.0); RED BLOOD COUNT 5.39 X10^6/uL (3.5-5.4); RED CELL DISTRIBUTION WIDTH 14.4 % (11.6-16.5); WHITE BLOOD COUNT 10.3 X10^3/uL (3.6-10.0)
[2021-06-04 05:29] LABS: BLOOD UREA NITROGEN 11 mg/dL (7-18); CALCIUM 9.3 mg/dL (8.5-10.1); CARBON DIOXIDE 32.1 mmol/L (21-32); CHLORIDE 102 mmol/L (98-107); COR NA(FOR HYPERGLY) 141 mmol/L (136-145); CREATININE 1.03 mg/dL (0.55-1.02); SODIUM 140 mmol/L (136-145); eGFR NON BLACK RACES 56 (>60)
[2021-06-04] MEDS ORDERED: GLUCOPHAGE ONE ×2 (08:15→20:01)
[2021-06-04] MEDS: ACTOS PO SCH (08:37)
[2021-06-04] MEDS: GLUCOPHAGE PO SCH ×2 (08:37→21:05)
[2021-06-04] MEDS: NEURONTIN CAP 300 MG PO SCH ×3 (08:37→21:05)
[2021-06-04] MEDS: SYNTHROID 150 mcg TAB PO SCH (08:38)
[2021-06-04] MEDS: INVOKANA PO SCH (08:38)
[2021-06-04] MEDS: LOVENOX INJ 40 MG SYR SC SCH (08:38)
[2021-06-04] MEDS: MOBIC TAB 15 MG PO SCH (08:38)
[2021-06-04] MEDS: PLAVIX PO SCH (08:39)
[2021-06-04] MEDS: LOPRESSOR TAB 50 MG PO SCH ×2 (08:40→22:10)
[2021-06-04] MEDS: ZESTRIL TAB 40 MG PO SCH (08:40)
[2021-06-04] MEDS: PULMICORT NEB TX 0.5 MG NEB SCH ×2 (08:40→20:34)
[2021-06-04] MEDS: BROVANA IN SCH ×2 (08:40→20:34)
[2021-06-04] MEDS: SINEMET CR 50/200 MG PO SCH ×2 (08:45→21:05)
--- NOTE | 2021-06-04 09:23 | PCM.PROG ---
Progress Note Progress Note for Day of Date of Exam: 06/04/21 Subjective Subjective: Pt is a 71 year old female past medical history of Hypertension, Hypothyroidism, T2DM, Hx of CVA admitted for multiple falls and generalized weakness. Pt recently discharged post CVA and COVID-19 infection. Physical therapy had evaluated recommended SNF. This morning patient resting comfortably in bed. No acute concerns overnight. Labs/imaging: Wbc 10.3, Hgb 15.2, Plt 188, Na 140, K 3.7, Creatinine 1.03, Glucose 121. Continue her home medications. Mild leukocytosis, pt afebrile, will get UA to evaluate. Case management working on possible transition to SNF facility. Continue to monitor and follow up labs. Past Medical Family Social History Past Med/Fam/Surg Hx: No changes since H&P Allergies: Allergies No Known Drug Allergies Allergy (Verified 12/27/20 14:34) Review of Systems ROS: No change since H&P Vital Signs and I&O's Vital Signs: Temperature 98.3 F Pulse Rate [Radial] 100 Pulse Rate 73 Respiratory Rate 16 Blood Pressure [Left Calf] 147/73 Blood Pressure [Left Arm] 157/95 Blood Pressure 130/70 O2 Sat by Pulse Oximetry 96 Intake and Output: Intake & Output 06/01/21 06/02/21 06/03/21 06/04/21 23:59 23:59 23:59 23:59 Intake Total 1270 / 1270 1440 / 1440 1570 / 1570 360 / 360 Balance 1270 / 1270 1440 / 1440 1570 / 1570 360 / 360 Physical Exam Oriented: Normal Eyes: Normal Ear: Normal Nose: Normal Throat: Normal Respiratory: Normal Cardiovascular: Normal : Normal Auscultation: Bowel Sounds: Normal Tenderness: Normal Skin: Normal Musculoskeletal: Instability Psychiatric: Normal Mood Description: Calm Speech Pattern: Clear Laboratory and Diagnostics Result Diagrams: 06/04/21 04:20 06/04/21 04:20 Labs: Laboratory WBC 10.3 X10^3/uL (3.6-10.0) H 06/04/21 04:20 RBC 5.39 X10^6/uL (3.5-5.4) 06/04/21 04:20 Hgb 15.2 g/dL (12.0-16.0) 06/04/21 04:20 Hct 44.5 % (36.0-47.0) 06/04/21 04:20 MCV 82.6 fL (80.0-100.0) 06/04/21 04:20 MCH 28.2 pg (27.0-34.0) 06/04/21 04:20 MCHC 34.1 g/dL (33.0-35.0) 06/04/21 04:20 RDW 14.4 % (11.6-16.5) 06/04/21 04:20 Plt Count 188 X10^3/uL (150.0-450.0) 06/04/21 04:20 Plt Count Comment Adequate (ADEQUATE) 06/01/21 04:10 MPV 8.3 fL (7.4-11.0) 06/04/21 04:20 Neut % (Auto) 75.4 % (42.0-75.0) H 06/04/21 04:20 Lymph % (Auto) 11.8 % (21.0-51.0) L 06/04/21 04:20 [place] % (Auto) 11.5 % (0.0-13.0) 06/04/21 04:20 Eos % (Auto) 1.1 % (0.9-2.9) 06/04/21 04:20 Baso % (Auto) 0.2 % (0.2-1.0) 06/04/21 04:20 Neut # (Auto) 7.8 x10^3/uL (2.2-4.8) H 06/04/21 04:20 Lymph # (Auto) 1.2 X10^3/uL (1.3-2.9) L 06/04/21 04:20 [place] # (Auto) 1.2 x10^3/uL (0.3-0.8) H 06/04/21 04:20 Eos # (Auto) 0.1 x10^3/uL (0.0-0.2) 06/04/21 04:20 Baso # (Auto) 0.0 X10^3/uL (0.0-0.1) 06/04/21 04:20 Absolute Nucleated RBC 0.1 /100WBC 06/04/21 04:20 Plt Clumps, EDTA Few 06/01/21 04:10 Plt Morphology Comment Normal (NORMAL) 06/01/21 04:10 RBC Morphology Normal (NORMAL) 06/01/21 04:10 Sodium 140 mmol/L (136-145) 06/04/21 04:20 Corrected Sodium 141 mmol/L (136-145) 06/04/21 04:20 Potassium 3.7 mmol/L (3.5-5.1) 06/04/21 04:20 Chloride 102 mmol/L (98-107) 06/04/21 04:20 Carbon Dioxide 32.1 mmol/L (21-32) H 06/04/21 04:20 BUN 11 mg/dL (7-18) 06/04/21 04:20 Creatinine 1.03 mg/dL (0.55-1.02) H 06/04/21 04:20 Est GFR (MDRD) Af Amer > 60 (>60) 06/04/21 04:20 Est GFR (MDRD) Non-Af 56 (>60) L 06/04/21 04:20 Glucose 121 mg/dL (65-99) H 06/04/21 04:20 POC Glucose (mg/dL) 178 mg/dL (65-99) H 06/03/21 20:08 Calcium 9.3 mg/dL (8.5-10.1) 06/04/21 04:20 Corrected Calcium 10.0 mg/dL (8.5-10.1) 06/03/21 04:25 Magnesium 2.0 mg/dL (1.7-2.9) 06/02/21 04:14 Total Bilirubin 0.80 mg/dL (0.2-1.0) 06/03/21 04:25 AST 36 Units/L (15-37) 06/03/21 04:25 ALT 7 Units/L (12-78) L 06/03/21 04:25 Alkaline Phosphatase 76 Units/L (46-116) 06/03/21 04:25 Total Protein 6.3 g/dL (6.4-8.2) L 06/03/21 04:25 Albumin 2.1 g/dL (3.4-5.0) L 06/03/21 04:25 Globulin 4.2 g/dL (2.5-4.5) 06/03/21 04:25 Albumin/Globulin Ratio 0.5 Ratio (1.1-2.1) L 06/03/21 04:25 SARS-CoV-2 (PCR) Positive (NEGATIVE) A 05/31/21 15:19 Influenza Type A (PCR) Negative (NEGATIVE) 05/31/21 15:19 Influenza Type B (PCR) Negative (NEGATIVE) 05/31/21 15:19 RSV (PCR) Negative (NEGATIVE) 05/31/21 15:19 Plan (1) Frequent falls: Status: Acute (2) 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
[2021-06-04 16:49] LABS: BILIRUBIN,URINE NEGATIVE (NEGATIVE); BLOOD/HEMOGLOBIN,URINE 5+ (NEGATIVE); GLUCOSE, URINE 4+ (NEGATIVE); KETONES,URINE 2+ (NEGATIVE); LEUKOCYTE ESTERASE ,URINE 3+ (NEGATIVE); NITRITES,URINE NEGATIVE (NEGATIVE); PROTEIN,URINE 2+ (NEGATIVE); UROBILINOGEN,URINE NORMAL (NORMAL)
[2021-06-04 16:53] LABS: APPEARANCE,URINE CLOUDY (CLEAR); COLOR,URINE YELLOW (YELLOW)
[2021-06-04 16:54] LABS: BACTERIA,URINE 2+ /HPF (NEGATIVE); SQUAMOUS EPITHELIAL CELL,UR FEW /HPF (NEGATIVE)
[2021-06-04] MEDS ORDERED: NS 100 ML IV 100 ML ONE (19:14)
[2021-06-04] MEDS: SNACK - Diabetic Appropriate PO SCH (19:18)
[2021-06-04] MEDS: ROCEPHIN 1 GRAM IV PREMIX 1 G/50 ML IV.SOLN. IV SCH (19:45)
[2021-06-04] MEDS: LIPITOR TAB 80 MG PO SCH (21:05)
[2021-06-05 05:12] LABS: BASOPHILS % (AUTO) 0.2 % (0.2-1.0); EOSINOPHILS # (AUTO) 0.1 x10^3/uL (0.0-0.2); EOSINOPHILS % (AUTO) 0.7 % (0.9-2.9); HEMATOCRIT 44.3 % (36.0-47.0); HEMOGLOBIN 15.1 g/dL (12.0-16.0); LYMPHOCYTES # (AUTO) 1.3 X10^3/uL (1.3-2.9); LYMPHOCYTES % (AUTO) 11.1 % (21.0-51.0); MEAN CORPUSCULAR HEMOGLOBIN 28.1 pg (27.0-34.0); MEAN CORPUSCULAR HGB CONC 34.1 g/dL (33.0-35.0); MEAN CORPUSCULAR VOLUME 82.4 fL (80.0-100.0); MEAN PLATELET VOLUME 8.5 fL (7.4-11.0); MONOCYTES # (AUTO) 1.1 x10^3/uL (0.3-0.8); MONOCYTES % (AUTO) 9.8 % (0.0-13.0); NEUTROPHILS # (AUTO) 8.9 x10^3/uL (2.2-4.8); NEUTROPHILS % (AUTO) 78.2 % (42.0-75.0); PLATELET COUNT 187 X10^3/uL (150.0-450.0); RED BLOOD COUNT 5.38 X10^6/uL (3.5-5.4); RED CELL DISTRIBUTION WIDTH 14.4 % (11.6-16.5); WHITE BLOOD COUNT 11.4 X10^3/uL (3.6-10.0)
[2021-06-05 05:20] LABS: BLOOD UREA NITROGEN 10 mg/dL (7-18); CALCIUM 8.9 mg/dL (8.5-10.1); CARBON DIOXIDE 30.4 mmol/L (21-32); CHLORIDE 100 mmol/L (98-107); CREATININE 1.04 mg/dL (0.55-1.02); SODIUM 137 mmol/L (136-145); eGFR NON BLACK RACES 56 (>60)
[2021-06-05] MEDS: NEURONTIN CAP 300 MG PO SCH ×3 (05:39→21:00)
[2021-06-05] MEDS: K-DUR TAB 20 MEQ PO PRN (06:15)
[2021-06-05] MEDS: BROVANA IN SCH ×2 (09:00→20:50)
[2021-06-05] MEDS: PULMICORT NEB TX 0.5 MG NEB SCH ×2 (09:00→20:50)
[2021-06-05] MEDS ORDERED: GLUCOPHAGE ONE ×2 (09:56→21:14)
[2021-06-05] MEDS: ROCEPHIN 1 GRAM IV PREMIX 1 G/50 ML IV.SOLN. IV SCH (10:00)
[2021-06-05] MEDS: MOBIC TAB 15 MG PO SCH (10:00)
[2021-06-05] MEDS: SINEMET CR 50/200 MG PO SCH ×2 (10:00→21:00)
[2021-06-05] MEDS: LOPRESSOR TAB 50 MG PO SCH ×2 (10:00→21:00)
[2021-06-05] MEDS: SYNTHROID 150 mcg TAB PO SCH (10:00)
[2021-06-05] MEDS: INVOKANA PO SCH (10:00)
[2021-06-05] MEDS: ACTOS PO SCH (10:00)
[2021-06-05] MEDS: PLAVIX PO SCH (10:00)
[2021-06-05] MEDS: GLUCOPHAGE PO SCH ×2 (10:00→21:00)
[2021-06-05] MEDS: LOVENOX INJ 40 MG SYR SC SCH (10:02)
[2021-06-05] MEDS: ZESTRIL TAB 40 MG PO SCH (10:05)
--- NOTE | 2021-06-05 10:57 | PCM.PROG ---
Progress Note Progress Note for Day of Date of Exam: 06/05/21 Subjective Subjective: Pt is a 71 year old female past medical history of Hypertension, Hypothyroidism, T2DM, Hx of CVA admitted for multiple falls and generalized weakness. Pt recently discharged post CVA and COVID-19 infection. Physical therapy had evaluated recommended SNF. This morning patient is in bed, reports some dysuria, denies fevers. Labs/imaging: Wbc 10.3>11.4, Hgb 15.1, Plt 187, Na 137, K 3.6, Creatinine 1.04, Glucose 108. Continue her home medications. UA consistent with infection, urine culture pending. Will start on ciprofloxacin. Case management working on possible transition to SNF facility. Continue to monitor and follow up labs. Past Medical Family Social History Past Med/Fam/Surg Hx: No changes since H&P Allergies: Allergies No Known Drug Allergies Allergy (Verified 12/27/20 14:34) Review of Systems ROS: No change since H&P Vital Signs and I&O's Vital Signs: Temperature 98.6 F Pulse Rate [Radial] 100 Pulse Rate 73 Respiratory Rate 17 Blood Pressure [Left Calf] 147/73 Blood Pressure [Left Arm] 157/95 Blood Pressure 130/62 O2 Sat by Pulse Oximetry 92 Intake and Output: Intake & Output 06/02/21 06/03/21 06/04/21 06/05/21 23:59 23:59 23:59 23:59 Intake Total 1440 / 1440 1570 / 1570 2310 / 2310 310 / 310 Balance 1440 / 1440 1570 / 1570 2310 / 2310 310 / 310 Physical Exam Oriented: Normal Eyes: Normal Ear: Normal Nose: Normal Throat: Normal Respiratory: Normal Cardiovascular: Normal : Normal Auscultation: Bowel Sounds: Normal Tenderness: Normal Skin: Normal Musculoskeletal: Instability Psychiatric: Normal Mood Description: Calm Speech Pattern: Clear Laboratory and Diagnostics Result Diagrams: 06/05/21 04:15 06/05/21 04:15 Labs: Laboratory WBC 11.4 X10^3/uL (3.6-10.0) H 06/05/21 04:15 RBC 5.38 X10^6/uL (3.5-5.4) 06/05/21 04:15 Hgb 15.1 g/dL (12.0-16.0) 06/05/21 04:15 Hct 44.3 % (36.0-47.0) 06/05/21 04:15 MCV 82.4 fL (80.0-100.0) 06/05/21 04:15 MCH 28.1 pg (27.0-34.0) 06/05/21 04:15 MCHC 34.1 g/dL (33.0-35.0) 06/05/21 04:15 RDW 14.4 % (11.6-16.5) 06/05/21 04:15 Plt Count 187 X10^3/uL (150.0-450.0) 06/05/21 04:15 Plt Count Comment Adequate (ADEQUATE) 06/01/21 04:10 MPV 8.5 fL (7.4-11.0) 06/05/21 04:15 Neut % (Auto) 78.2 % (42.0-75.0) H 06/05/21 04:15 Lymph % (Auto) 11.1 % (21.0-51.0) L 06/05/21 04:15 [place] % (Auto) 9.8 % (0.0-13.0) 06/05/21 04:15 Eos % (Auto) 0.7 % (0.9-2.9) L 06/05/21 04:15 Baso % (Auto) 0.2 % (0.2-1.0) 06/05/21 04:15 Neut # (Auto) 8.9 x10^3/uL (2.2-4.8) H 06/05/21 04:15 Lymph # (Auto) 1.3 X10^3/uL (1.3-2.9) 06/05/21 04:15 [place] # (Auto) 1.1 x10^3/uL (0.3-0.8) H 06/05/21 04:15 Eos # (Auto) 0.1 x10^3/uL (0.0-0.2) 06/05/21 04:15 Baso # (Auto) 0.0 X10^3/uL (0.0-0.1) 06/05/21 04:15 Absolute Nucleated RBC 0.0 /100WBC 06/05/21 04:15 Plt Clumps, EDTA Few 06/01/21 04:10 Plt Morphology Comment Normal (NORMAL) 06/01/21 04:10 RBC Morphology Normal (NORMAL) 06/01/21 04:10 Sodium 137 mmol/L (136-145) 06/05/21 04:15 Corrected Sodium TNP 06/05/21 04:15 Potassium 3.6 mmol/L (3.5-5.1) 06/05/21 04:15 Chloride 100 mmol/L (98-107) 06/05/21 04:15 Carbon Dioxide 30.4 mmol/L (21-32) 06/05/21 04:15 BUN 10 mg/dL (7-18) 06/05/21 04:15 Creatinine 1.04 mg/dL (0.55-1.02) H 06/05/21 04:15 Est GFR (MDRD) Af Amer > 60 (>60) 06/05/21 04:15 Est GFR (MDRD) Non-Af 56 (>60) L 06/05/21 04:15 Glucose 108 mg/dL (65-99) H 06/05/21 04:15 POC Glucose (mg/dL) 135 mg/dL (65-99) H 06/04/21 20:16 Calcium 8.9 mg/dL (8.5-10.1) 06/05/21 04:15 Corrected Calcium 10.0 mg/dL (8.5-10.1) 06/03/21 04:25 Magnesium 2.0 mg/dL (1.7-2.9) 06/02/21 04:14 Total Bilirubin 0.80 mg/dL (0.2-1.0) 06/03/21 04:25 AST 36 Units/L (15-37) 06/03/21 04:25 ALT 7 Units/L (12-78) L 06/03/21 04:25 Alkaline Phosphatase 76 Units/L (46-116) 06/03/21 04:25 Total Protein 6.3 g/dL (6.4-8.2) L 06/03/21 04:25 Albumin 2.1 g/dL (3.4-5.0) L 06/03/21 04:25 Globulin 4.2 g/dL (2.5-4.5) 06/03/21 04:25 Albumin/Globulin Ratio 0.5 Ratio (1.1-2.1) L 06/03/21 04:25 Specimen Type Clean catch urine 06/04/21 16:20 Urine Color Yellow (YELLOW) 06/04/21 16:20 Urine Appearance Cloudy (CLEAR) 06/04/21 16:20 Urine pH 5.0 (5.0 - 8.0) 06/04/21 16:20 Ur Specific [place] 1.015 (1.000-1.030) 06/04/21 16:20 Urine Protein 2+ (NEGATIVE) 06/04/21 16:20 Urine Glucose (UA) 4+ (NEGATIVE) 06/04/21 16:20 Urine Ketones 2+ (NEGATIVE) 06/04/21 16:20 Urine Occult Blood 5+ (NEGATIVE) 06/04/21 16:20 Urine Nitrite Negative (NEGATIVE) 06/04/21 16:20 Urine Bilirubin Negative (NEGATIVE) 06/04/21 16:20 Urine Urobilinogen Normal (NORMAL) 06/04/21 16:20 Ur Leukocyte Esterase 3+ (NEGATIVE) 06/04/21 16:20 Urine RBC 10-20 /HPF (0-3) A 06/04/21 16:20 Urine WBC Tntc /HPF (0-5) A 06/04/21 16:20 Ur Squamous Epith Cells Few /HPF (NEGATIVE) 06/04/21 16:20 Urine Bacteria 2+ /HPF (NEGATIVE) 06/04/21 16:20 Ur Culture Indicated? 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
[2021-06-05] MEDS: SNACK - Diabetic Appropriate PO SCH (20:00)
[2021-06-05] MEDS: LIPITOR TAB 80 MG PO SCH (21:00)
[2021-06-05] MEDS: CIPRO TAB 500 MG PO SCH (21:00)
[2021-06-06 05:14] LABS: BASOPHILS % (AUTO) 0.4 % (0.2-1.0); EOSINOPHILS % (AUTO) 0.5 % (0.9-2.9); HEMATOCRIT 41.9 % (36.0-47.0); HEMOGLOBIN 14.3 g/dL (12.0-16.0); LYMPHOCYTES # (AUTO) 1.2 X10^3/uL (1.3-2.9); LYMPHOCYTES % (AUTO) 16.1 % (21.0-51.0); MEAN CORPUSCULAR HEMOGLOBIN 28.1 pg (27.0-34.0); MEAN CORPUSCULAR HGB CONC 34.1 g/dL (33.0-35.0); MEAN CORPUSCULAR VOLUME 82.5 fL (80.0-100.0); MEAN PLATELET VOLUME 8.4 fL (7.4-11.0); MONOCYTES # (AUTO) 0.9 x10^3/uL (0.3-0.8); MONOCYTES % (AUTO) 12.6 % (0.0-13.0); NEUTROPHILS # (AUTO) 5.3 x10^3/uL (2.2-4.8); NEUTROPHILS % (AUTO) 70.4 % (42.0-75.0); PLATELET COUNT 160 X10^3/uL (150.0-450.0); RED BLOOD COUNT 5.08 X10^6/uL (3.5-5.4); RED CELL DISTRIBUTION WIDTH 14.7 % (11.6-16.5); WHITE BLOOD COUNT 7.5 X10^3/uL (3.6-10.0)
[2021-06-06 05:23] LABS: BLOOD UREA NITROGEN 9 mg/dL (7-18); CALCIUM 8.6 mg/dL (8.5-10.1); CARBON DIOXIDE 29.7 mmol/L (21-32); CHLORIDE 101 mmol/L (98-107); CREATININE 0.99 mg/dL (0.55-1.02); SODIUM 139 mmol/L (136-145); eGFR NON BLACK RACES 59 (>60)
[2021-06-06] MEDS ORDERED: GLUCOPHAGE ONE ×3 (08:22→20:59)
[2021-06-06] MEDS: BROVANA IN SCH ×2 (09:10→21:10)
[2021-06-06] MEDS: PULMICORT NEB TX 0.5 MG NEB SCH ×2 (09:10→21:10)
[2021-06-06] MEDS: CIPRO TAB 500 MG PO SCH ×2 (09:46→21:43)
[2021-06-06] MEDS: MOBIC TAB 15 MG PO SCH (09:46)
[2021-06-06] MEDS: SYNTHROID 150 mcg TAB PO SCH (09:46)
[2021-06-06] MEDS: LOPRESSOR TAB 50 MG PO SCH ×2 (09:47→21:44)
[2021-06-06] MEDS: PLAVIX PO SCH (09:47)
[2021-06-06] MEDS: ACTOS PO SCH (09:47)
[2021-06-06] MEDS: NEURONTIN CAP 300 MG PO SCH ×3 (09:47→21:45)
[2021-06-06] MEDS: LOVENOX INJ 40 MG SYR SC SCH (09:48)
[2021-06-06] MEDS: ZESTRIL TAB 40 MG PO SCH (09:49)
[2021-06-06] MEDS: INVOKANA PO SCH (10:01)
[2021-06-06] MEDS: GLUCOPHAGE PO SCH ×2 (10:02→21:43)
[2021-06-06] MEDS: SINEMET CR 50/200 MG PO SCH ×2 (10:09→21:44)
[2021-06-06] MEDS ORDERED: MAALOX or MYLANTA PO PRN (10:28)
[2021-06-06 15:38] VITALS: BMI 31.6
[2021-06-06] MEDS: SNACK - Diabetic Appropriate PO SCH (21:42)
[2021-06-06] MEDS: LIPITOR TAB 80 MG PO SCH (21:43)
[2021-06-07 05:19] LABS: BASOPHILS % (AUTO) 0.4 % (0.2-1.0); BLOOD UREA NITROGEN 10 mg/dL (7-18); CARBON DIOXIDE 30.4 mmol/L (21-32); CHLORIDE 100 mmol/L (98-107); EOSINOPHILS # (AUTO) 0.1 x10^3/uL (0.0-0.2); EOSINOPHILS % (AUTO) 0.8 % (0.9-2.9); HEMATOCRIT 40.8 % (36.0-47.0); HEMOGLOBIN 14.1 g/dL (12.0-16.0); LYMPHOCYTES # (AUTO) 1.4 X10^3/uL (1.3-2.9); LYMPHOCYTES % (AUTO) 17.5 % (21.0-51.0); MEAN CORPUSCULAR HEMOGLOBIN 28.6 pg (27.0-34.0); MEAN CORPUSCULAR HGB CONC 34.5 g/dL (33.0-35.0); MEAN PLATELET VOLUME 8.5 fL (7.4-11.0); MONOCYTES # (AUTO) 1.1 x10^3/uL (0.3-0.8); MONOCYTES % (AUTO) 13.6 % (0.0-13.0); NEUTROPHILS # (AUTO) 5.3 x10^3/uL (2.2-4.8); NEUTROPHILS % (AUTO) 67.7 % (42.0-75.0); PLATELET COUNT 164 X10^3/uL (150.0-450.0); RED BLOOD COUNT 4.91 X10^6/uL (3.5-5.4); RED CELL DISTRIBUTION WIDTH 14.6 % (11.6-16.5); SODIUM 138 mmol/L (136-145); WHITE BLOOD COUNT 7.8 X10^3/uL (3.6-10.0); eGFR NON BLACK RACES 58 (>60)
[2021-06-07] MEDS: NEURONTIN CAP 300 MG PO SCH ×2 (05:37→14:38)
[2021-06-07] MEDS ORDERED: GLUCOPHAGE ONE (07:13)
[2021-06-07] MEDS: ACTOS PO SCH (09:01)
[2021-06-07] MEDS: CIPRO TAB 500 MG PO SCH (09:01)
[2021-06-07] MEDS: LOPRESSOR TAB 50 MG PO SCH (09:02)
[2021-06-07] MEDS: LOVENOX INJ 40 MG SYR SC SCH (09:02)
[2021-06-07] MEDS: GLUCOPHAGE PO SCH (09:02)
[2021-06-07] MEDS: INVOKANA PO SCH (09:02)
[2021-06-07] MEDS: SINEMET CR 50/200 MG PO SCH (09:06)
[2021-06-07] MEDS: SYNTHROID 150 mcg TAB PO SCH (09:06)
[2021-06-07] MEDS: PLAVIX PO SCH (09:06)
[2021-06-07] MEDS: MOBIC TAB 15 MG PO SCH (09:06)
[2021-06-07] MEDS: ZESTRIL TAB 40 MG PO SCH (09:07)
[2021-06-07] MEDS: BROVANA IN SCH (09:15)
[2021-06-07] MEDS: PULMICORT NEB TX 0.5 MG NEB SCH (09:15)
--- NOTE | 2021-06-07 09:53 | PCM.PROG ---
Progress Note Progress Note for Day of Date of Exam: 06/06/21 Subjective Subjective: Pt is a 71 year old female past medical history of Hypertension, Hypothyroidism, T2DM, Hx of CVA admitted for multiple falls and generalized weakness after recently having acute CVA. Physical therapy had evaluated recommended rehab and retraining of ADLs. This morning patient is resting in bed comfortably. Reports improvement in dysuria. Labs/imaging: Wbc 7.5, Hgb 14.3, Plt 160, Na 139, K 3.7, Creatinine 0.99, Glucose 95. Continue home medications. Pt is on ciprofloxacin for urinary tract infection. Urine culture prelim gram negative rods, final pending. Case management working on possible transition to rehab facility. Otherwise continue current treatment plan. Continue to monitor and follow up labs. Past Medical Family Social History Past Med/Fam/Surg Hx: No changes since H&P Allergies: Allergies No Known Drug Allergies Allergy (Verified 12/27/20 14:34) Review of Systems ROS: No change since H&P Vital Signs and I&O's Vital Signs: Temperature 97.6 F Pulse Rate [Radial] 100 Pulse Rate 66 Respiratory Rate 15 Blood Pressure [Left Calf] 147/73 Blood Pressure [Left Arm] 157/95 Blood Pressure 136/71 O2 Sat by Pulse Oximetry 94 Intake and Output: Intake & Output 06/04/21 06/05/21 06/06/21 06/07/21 23:59 23:59 23:59 23:59 Intake Total 2310 / 2310 510 / 510 1120 / 1120 200 / 200 Output Total 2 / 2 553 / 553 Balance 2310 / 2310 508 / 508 567 / 567 200 / 200 Physical Exam Oriented: Normal Eyes: Normal Ear: Normal Nose: Normal Throat: Normal Respiratory: Normal Cardiovascular: Normal : Normal Auscultation: Bowel Sounds: Normal Tenderness: Normal Skin: Normal Musculoskeletal: Instability Psychiatric: Normal Mood Description: Calm Speech Pattern: Clear Laboratory and Diagnostics Result Diagrams: 06/07/21 04:24 06/07/21 04:24 Labs: 06/04/21 16:20 Urine,Clean Catch Urine Culture - Final Klebsiella Pneumoniae Laboratory WBC 7.8 X10^3/uL (3.6-10.0) 06/07/21 04:24 RBC 4.91 X10^6/uL (3.5-5.4) 06/07/21 04:24 Hgb 14.1 g/dL (12.0-16.0) 06/07/21 04:24 Hct 40.8 % (36.0-47.0) 06/07/21 04:24 MCV 83.0 fL (80.0-100.0) 06/07/21 04:24 MCH 28.6 pg (27.0-34.0) 06/07/21 04:24 MCHC 34.5 g/dL (33.0-35.0) 06/07/21 04:24 RDW 14.6 % (11.6-16.5) 06/07/21 04:24 Plt Count 164 X10^3/uL (150.0-450.0) 06/07/21 04:24 Plt Count Comment Adequate (ADEQUATE) 06/01/21 04:10 MPV 8.5 fL (7.4-11.0) 06/07/21 04:24 Neut % (Auto) 67.7 % (42.0-75.0) 06/07/21 04:24 Lymph % (Auto) 17.5 % (21.0-51.0) L 06/07/21 04:24 [place] % (Auto) 13.6 % (0.0-13.0) H 06/07/21 04:24 Eos % (Auto) 0.8 % (0.9-2.9) L 06/07/21 04:24 Baso % (Auto) 0.4 % (0.2-1.0) 06/07/21 04:24 Neut # (Auto) 5.3 x10^3/uL (2.2-4.8) H 06/07/21 04:24 Lymph # (Auto) 1.4 X10^3/uL (1.3-2.9) 06/07/21 04:24 [place] # (Auto) 1.1 x10^3/uL (0.3-0.8) H 06/07/21 04:24 Eos # (Auto) 0.1 x10^3/uL (0.0-0.2) 06/07/21 04:24 Baso # (Auto) 0.0 X10^3/uL (0.0-0.1) 06/07/21 04:24 Absolute Nucleated RBC 0.1 /100WBC 06/07/21 04:24 Plt Clumps, EDTA Few 06/01/21 04:10 Plt Morphology Comment Normal (NORMAL) 06/01/21 04:10 RBC Morphology Normal (NORMAL) 06/01/21 04:10 Sodium 138 mmol/L (136-145) 06/07/21 04:24 Corrected Sodium TNP 06/07/21 04:24 Potassium 3.9 mmol/L (3.5-5.1) 06/07/21 04:24 Chloride 100 mmol/L (98-107) 06/07/21 04:24 Carbon Dioxide 30.4 mmol/L (21-32) 06/07/21 04:24 BUN 10 mg/dL (7-18) 06/07/21 04:24 Creatinine 1.00 mg/dL (0.55-1.02) 06/07/21 04:24 Est GFR (MDRD) Af Amer > 60 (>60) 06/07/21 04:24 Est GFR (MDRD) Non-Af 58 (>60) L 06/07/21 04:24 Glucose 96 mg/dL (65-99) 06/07/21 04:24 POC Glucose (mg/dL) 120 mg/dL (65-99) H 06/06/21 21:27 Calcium 9.0 mg/dL (8.5-10.1) 06/07/21 04:24 Corrected Calcium 10.0 mg/dL (8.5-10.1) 06/03/21 04:25 Magnesium 2.0 mg/dL (1.7-2.9) 06/02/21 04:14 Total Bilirubin 0.80 mg/dL (0.2-1.0) 06/03/21 04:25 AST 36 Units/L (15-37) 06/03/21 04:25 ALT 7 Units/L (12-78) L 06/03/21 04:25 Alkaline Phosphatase 76 Units/L (46-116) 06/03/21 04:25 Total Protein 6.3 g/dL (6.4-8.2) L 06/03/21 04:25 Albumin 2.1 g/dL (3.4-5.0) L 06/03/21 04:25 Globulin 4.2 g/dL (2.5-4.5) 06/03/21 04:25 Albumin/Globulin Ratio 0.5 Ratio (1.1-2.1) L 06/03/21 04:25 Specimen Type Clean catch urine 06/04/21 16:20 Urine Color Yellow (YELLOW) 06/04/21 16:20 Urine Appearance Cloudy (CLEAR) 06/04/21 16:20 Urine pH 5.0 (5.0 - 8.0) 06/04/21 16:20 Ur Specific [place] 1.015 (1.000-1.030) 06/04/21 16:20 Urine Protein 2+ (NEGATIVE) 06/04/21 16:20 Urine Glucose (UA) 4+ (NEGATIVE) 06/04/21 16:20 Urine Ketones 2+ (NEGATIVE) 06/04/21 16:20 Urine Occult Blood 5+ (NEGATIVE) 06/04/21 16:20 Urine Nitrite Negative (NEGATIVE) 06/04/21 16:20 Urine Bilirubin Negative (NEGATIVE) 06/04/21 16:20 Urine Urobilinogen Normal (NORMAL) 06/04/21 16:20 Ur Leukocyte Esterase 3+ (NEGATIVE) 06/04/21 16:20 Urine RBC 10-20 /HPF (0-3) A 06/04/21 16:20 Urine WBC Tntc /HPF (0-5) A 06/04/21 16:20 Ur Squamous Epith Cells Few /HPF (NEGATIVE) 06/04/21 16:20 Urine Bacteria 2+ /HPF (NEGATIVE) 06/04/21 16:20 Ur Culture Indicated? 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
--- NOTE | 2021-06-07 10:13 | PCM.PROG ---
Progress Note Progress Note for Day of Date of Exam: 06/07/21 Subjective Subjective: Pt is a 71 year old female past medical history of Hypertension, Hypothyroidism, T2DM, Hx of CVA admitted for multiple falls and generalized weakness after recently having acute CVA. Physical therapy had evaluated recommended rehab and retraining of ADLs. This morning patient is sitting in r ecliner. States she worked with physical therapy yesterday. Labs/imaging: Wbc 7.8, Hgb 14.1, Plt 164, Na 138, K 3.9, Creatinine 1.0, Glucose 96. Continue home medications. Urine culture positive for Klebsiella pneu., sensitive to ciprofloxacin that she already on. Case management working on possible transition to rehab facility. Otherwise continue current treatment plan. Continue to monitor and follow up labs. Past Medical Family Social History Past Med/Fam/Surg Hx: No changes since H&P Allergies: Allergies No Known Drug Allergies Allergy (Verified 12/27/20 14:34) Review of Systems ROS: No change since H&P Vital Signs and I&O's Vital Signs: Temperature 97.6 F Pulse Rate [Radial] 100 Pulse Rate 66 Respiratory Rate 15 Blood Pressure [Left Calf] 147/73 Blood Pressure [Left Arm] 157/95 Blood Pressure 136/71 O2 Sat by Pulse Oximetry 94 Intake and Output: Intake & Output 06/04/21 06/05/21 06/06/21 06/07/21 23:59 23:59 23:59 23:59 Intake Total 2310 / 2310 510 / 510 1120 / 1120 200 / 200 Output Total 2 / 2 553 / 553 Balance 2310 / 2310 508 / 508 567 / 567 200 / 200 Physical Exam Oriented: Normal Eyes: Normal Ear: Normal Nose: Normal Throat: Normal Respiratory: Normal Cardiovascular: Normal : Normal Auscultation: Bowel Sounds: Normal Tenderness: Normal Skin: Normal Musculoskeletal: Instability Psychiatric: Normal Mood Description: Calm Speech Pattern: Clear Laboratory and Diagnostics Result Diagrams: 06/07/21 04:24 06/07/21 04:24 Labs: 06/04/21 16:20 Urine,Clean Catch Urine Culture - Final Klebsiella Pneumoniae Laboratory WBC 7.8 X10^3/uL (3.6-10.0) 06/07/21 04:24 RBC 4.91 X10^6/uL (3.5-5.4) 06/07/21 04:24 Hgb 14.1 g/dL (12.0-16.0) 06/07/21 04:24 Hct 40.8 % (36.0-47.0) 06/07/21 04:24 MCV 83.0 fL (80.0-100.0) 06/07/21 04:24 MCH 28.6 pg (27.0-34.0) 06/07/21 04:24 MCHC 34.5 g/dL (33.0-35.0) 06/07/21 04:24 RDW 14.6 % (11.6-16.5) 06/07/21 04:24 Plt Count 164 X10^3/uL (150.0-450.0) 06/07/21 04:24 Plt Count Comment Adequate (ADEQUATE) 06/01/21 04:10 MPV 8.5 fL (7.4-11.0) 06/07/21 04:24 Neut % (Auto) 67.7 % (42.0-75.0) 06/07/21 04:24 Lymph % (Auto) 17.5 % (21.0-51.0) L 06/07/21 04:24 [place] % (Auto) 13.6 % (0.0-13.0) H 06/07/21 04:24 Eos % (Auto) 0.8 % (0.9-2.9) L 06/07/21 04:24 Baso % (Auto) 0.4 % (0.2-1.0) 06/07/21 04:24 Neut # (Auto) 5.3 x10^3/uL (2.2-4.8) H 06/07/21 04:24 Lymph # (Auto) 1.4 X10^3/uL (1.3-2.9) 06/07/21 04:24 [place] # (Auto) 1.1 x10^3/uL (0.3-0.8) H 06/07/21 04:24 Eos # (Auto) 0.1 x10^3/uL (0.0-0.2) 06/07/21 04:24 Baso # (Auto) 0.0 X10^3/uL (0.0-0.1) 06/07/21 04:24 Absolute Nucleated RBC 0.1 /100WBC 06/07/21 04:24 Plt Clumps, EDTA Few 06/01/21 04:10 Plt Morphology Comment Normal (NORMAL) 06/01/21 04:10 RBC Morphology Normal (NORMAL) 06/01/21 04:10 Sodium 138 mmol/L (136-145) 06/07/21 04:24 Corrected Sodium TNP 06/07/21 04:24 Potassium 3.9 mmol/L (3.5-5.1) 06/07/21 04:24 Chloride 100 mmol/L (98-107) 06/07/21 04:24 Carbon Dioxide 30.4 mmol/L (21-32) 06/07/21 04:24 BUN 10 mg/dL (7-18) 06/07/21 04:24 Creatinine 1.00 mg/dL (0.55-1.02) 06/07/21 04:24 Est GFR (MDRD) Af Amer > 60 (>60) 06/07/21 04:24 Est GFR (MDRD) Non-Af 58 (>60) L 06/07/21 04:24 Glucose 96 mg/dL (65-99) 06/07/21 04:24 POC Glucose (mg/dL) 120 mg/dL (65-99) H 06/06/21 21:27 Calcium 9.0 mg/dL (8.5-10.1) 06/07/21 04:24 Corrected Calcium 10.0 mg/dL (8.5-10.1) 06/03/21 04:25 Magnesium 2.0 mg/dL (1.7-2.9) 06/02/21 04:14 Total Bilirubin 0.80 mg/dL (0.2-1.0) 06/03/21 04:25 AST 36 Units/L (15-37) 06/03/21 04:25 ALT 7 Units/L (12-78) L 06/03/21 04:25 Alkaline Phosphatase 76 Units/L (46-116) 06/03/21 04:25 Total Protein 6.3 g/dL (6.4-8.2) L 06/03/21 04:25 Albumin 2.1 g/dL (3.4-5.0) L 06/03/21 04:25 Globulin 4.2 g/dL (2.5-4.5) 06/03/21 04:25 Albumin/Globulin Ratio 0.5 Ratio (1.1-2.1) L 06/03/21 04:25 Specimen Type Clean catch urine 06/04/21 16:20 Urine Color Yellow (YELLOW) 06/04/21 16:20 Urine Appearance Cloudy (CLEAR) 06/04/21 16:20 Urine pH 5.0 (5.0 - 8.0) 06/04/21 16:20 Ur Specific [place] 1.015 (1.000-1.030) 06/04/21 16:20 Urine Protein 2+ (NEGATIVE) 06/04/21 16:20 Urine Glucose (UA) 4+ (NEGATIVE) 06/04/21 16:20 Urine Ketones 2+ (NEGATIVE) 06/04/21 16:20 Urine Occult Blood 5+ (NEGATIVE) 06/04/21 16:20 Urine Nitrite Negative (NEGATIVE) 06/04/21 16:20 Urine Bilirubin Negative (NEGATIVE) 06/04/21 16:20 Urine Urobilinogen Normal (NORMAL) 06/04/21 16:20 Ur Leukocyte Esterase 3+ (NEGATIVE) 06/04/21 16:20 Urine RBC 10-20 /HPF (0-3) A 06/04/21 16:20 Urine WBC Tntc /HPF (0-5) A 06/04/21 16:20 Ur Squamous Epith Cells Few /HPF (NEGATIVE) 06/04/21 16:20 Urine Bacteria 2+ /HPF (NEGATIVE) 06/04/21 16:20 Ur Culture Indicated? 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
[2021-06-07 16:30] VITALS: BP 120/76
== END 2021-06-07 16:30 ==
LOC: ER 11:59 → ICU 11:59
PROVIDERS: ADMIT Obstetrics & Gynecology Obstetrics; ATTEND Family Medicine
DX: R53.1 Weakness; R29.6 Repeated falls; U07.1 COVID-19; E03.8 Other specified hypothyroidism; S72.012A Unspecified intracapsular fracture of left femur, initial encounter for closed fracture; I10 Essential (primary) hypertension; R26.89 Other abnormalities of gait and mobility; B96.1 Klebsiella pneumoniae [K. pneumoniae] as the cause of diseases classified elsewhere; U09.9 Post COVID-19 condition, unspecified; W18.39XA Other fall on same level, initial encounter; I69.393 Ataxia following cerebral infarction; N39.0 Urinary tract infection, site not specified; E11.65 Type 2 diabetes mellitus with hyperglycemia

== ENCOUNTER 2021-07-18 21:47 | Observation (INO) ==
[2021-07-18] MEDS ORDERED: NS 1,000 ML IV 1,000 ML IV STA (22:14)
--- NOTE | 2021-07-18 22:14 | DR.WEAKNES ---
HPI Time Seen Time Seen by Provider: 07/18/21 22:07 Primary Care Physician Primary Care Physician: Abdi HPI Comment HPI Comment: PATIENT WITH A HISTORY OF CVA DECEMBER 2020, MULTIPLE TIA'S LAST MONTH, AWAKENED THIS MORNING WITH LEFT FACIAL NUMBNESS. DENIES HEADACHE, BLURRED VISION, DIFFICULTY SWALLOWING, SLURRED SPEECH, CONFUSION, FOCAL, NUMBNESS, WEAK NESS IN EXTREMITIES. HAS UNSTEADY GAIT FROM PREVIOUS STROKE. Complaints Chief Complaint Doctors Comments: LEFT FACIAL NUMBNESS Chief Complaint:: POSSIBLE STROKE Reviewed Nurses Notes Reviewed: Yes Source History Provided: Patient Mode of Arrival Mode of Arrival: Stretcher Timing Onset of Chief Complaint: 07/18/21 Since onset, symptoms are:: Unchanged Symptom Onset: Known (UPON AWAKENNG 8AM) Onset of Symptoms Start Date: 07/18/21 Onset of Symptoms Start Time: 22:45 Duration Duration: Constant Context Onset: Spontaneous Stroke Symptoms: Numbness of limbs (LEFT FACIAL NUMBNESS) Location Weakness Location: Facial Associated Signs and Symptoms Associated Signs and Symptoms: None Other History Other History: HISTORY OF CVA DECEMBER 2020, MULTIPLE TIA'S 05/2021 PMH PM Past Medical History: Yes Past Medical History: Asthma, Diabetes and Hypertension Past Surgical History: Yes Surgical History: Hysterectomy, Mastectomy and Thyroidectomy Family History History of Family Medical Conditions: Yes Family Medical History: Hypertension Social History Alcohol Use: None Do you use any recreational Drugs:: No Lives With: Family Lives Where: Home Travel Risk Has patient experienced Coronavirus symptoms: No Infectious screening Have you traveled outside the country in the last 6 months?: No Isolation: Standard ROS Review of Systems Constitutional: See HPI Eyes: No Symptoms Reported ENTM: No Symptoms Reported Respiratoy: No Symptoms Reported Cardiovascular: No Symptoms Reported Gastrointestinal/Abdominal: No Symptoms Reported Genitourinary: No Symptoms Reported Neurological: See HPI and Numbness (LEFT FACIAL NUMBNESS) Musculoskeletal: No Symptoms Reported Integumentary: No Symptoms Reported Hematologic/Lymphatic: No Symptoms Reported Endocrine: No Symptoms Reported Psychiatric: No Symptoms Reported All Other Systems: Reviewed and Negative PE Vital Signs Vitals: Temperature 98.0 F Pulse Rate 98 Respiratory Rate 21 Blood Pressure [Left Calf] 147/73 Blood Pressure [Left Arm] 89/52 Blood Pressure 189/92 O2 Sat by Pulse Oximetry 97 General Limitations: No Limitations General Appearance: Alert (NORMAL SPEECH) and In No Apparent Distress Head Head Exam: Normal Inspection and Atraumatic Eyes Eye exam: Normal Appearance, PERRL and EOMI Eyelids: Normal Inspection: Bilateral Pupils: Regular, Round: Bilateral ENT ENT Exam: Normal Exam and Normal Oropharynx Mouth Exam: Normal Inspection Throat Exam: Normal Inspection Neck Neck Exam: Normal Inspection and Full ROM Chest Chest Inspection: Normal Inspection Respiratory Respiratory Exam: Normal Lung Sounds Bilat Respiratory Exam: Bilateral: Clear to Auscultation Cardiovascular Cardiovascular Exam: Regular Rate and Normal Rhythm Abdominal Exam Abdominal Exam: Normal Inspection, Normal Bowel Sounds and Soft Back Back Exam: Normal Inspection and Full ROM Neurologic Neurological Exam: Alert, Oriented X3 and Other (GAIT NOT TESTED, THERE IS NO FACIAL PARESIS) Cranial Nerve Exam: Facial Sensation (V): Left Abnormal (HYPOESTHESIA LEFT CHEEK, NORMAL MUSCLE FUNCTION) Cerebellar Function: Finger to Nose: Normal Motor Strength - LUE: 4/5 Motor Strength - RUE: 4/5 Motor Strength - LLE: 4/5 Motor Strength - RLE: 4/5 Psychiatric Psychiatric Exam: Normal Affect and Normal Mood Skin Skin Exam: Warm and Dry Other Exam Other Exam: NIH STROKE SCALE 1 MDM Differential Diagnosis Differential Diagnosis: Flynn's [place], CVA and TIA COURSE Treatment Treatment: IV NORMAL SALINE 100ML/HR Consultation Call Returned: 23:48 Consultation Comments: DISCUSSED FINDINGS WITH DR DONIS FOR OBSERVATION ROR Labs Reviewed Laboratory Results Reviewed?: Yes Result Diagrams: 07/18/21 22:41 07/18/21 22:41 Laboratory: WBC 7.3 X10^3/uL (3.6-10.0) 07/18/21 22:41 RBC 5.09 X10^6/uL (3.5-5.4) 07/18/21 22:41 Hgb 14.4 g/dL (12.0-16.0) 07/18/21 22:41 Hct 42.5 % (36.0-47.0) 07/18/21 22:41 MCV 83.4 fL (80.0-100.0) 07/18/21 22:41 MCH 28.2 pg (27.0-34.0) 07/18/21 22:41 MCHC 33.9 g/dL (33.0-35.0) 07/18/21 22:41 RDW 16.5 % (11.6-16.5) 07/18/21 22:41 Plt Count 214 X10^3/uL (150.0-450.0) 07/18/21 22:41 MPV 8.5 fL (7.4-11.0) 07/18/21 22:41 Neut % (Auto) 67.4 % (42.0-75.0) 07/18/21 22:41 Lymph % (Auto) 23.3 % (21.0-51.0) 07/18/21 22:41 [place] % (Auto) 7.6 % (0.0-13.0) 07/18/21 22:41 Eos % (Auto) 0.8 % (0.9-2.9) L 07/18/21 22:41 Baso % (Auto) 0.9 % (0.2-1.0) 07/18/21 22:41 Neut # (Auto) 4.9 x10^3/uL (2.2-4.8) H 07/18/21 22:41 Lymph # (Auto) 1.7 X10^3/uL (1.3-2.9) 07/18/21 22:41 [place] # (Auto) 0.6 x10^3/uL (0.3-0.8) 07/18/21 22:41 Eos # (Auto) 0.1 x10^3/uL (0.0-0.2) 07/18/21 22:41 Baso # (Auto) 0.1 X10^3/uL (0.0-0.1) 07/18/21 22:41 Absolute Nucleated RBC 0.1 /100WBC 07/18/21 22:41 PT 13.1 SECONDS (11.8-14.3) 07/18/21 22:41 INR Target Range - 07/18/21 22:41 INR 1.04 (0.8-1.3) 07/18/21 22:41 Sodium 138 mmol/L (136-145) 07/18/21 22:41 Corrected Sodium 141 mmol/L (136-145) 07/18/21 22:41 Potassium 3.6 mmol/L (3.5-5.1) 07/18/21 22:41 Chloride 99 mmol/L (98-107) 07/18/21 22:41 Carbon Dioxide 32.1 mmol/L (21-32) H 07/18/21 22:41 BUN 12 mg/dL (7-18) 07/18/21 22:41 Creatinine 1.01 mg/dL (0.55-1.02) 07/18/21 22:41 Est GFR (MDRD) Af Amer > 60 (>60) 07/18/21 22:41 Est GFR (MDRD) Non-Af 57 (>60) L 07/18/21 22:41 Glucose 225 mg/dL (65-99) H 07/18/21 22:41 Calcium 9.4 mg/dL (8.5-10.1) 07/18/21 22:41 Corrected Calcium TNP 07/18/21 22:41 Magnesium 1.6 mg/dL (1.7-2.9) L 07/18/21 22:41 Total Bilirubin 0.60 mg/dL (0.2-1.0) 07/18/21 22:41 AST 20 Units/L (15-37) 07/18/21 22:41 ALT 11 Units/L (12-78) L 07/18/21 22:41 Alkaline Phosphatase 121 Units/L (46-116) H 07/18/21 22:41 Troponin I < 0.02 ng/mL (0-1.5) 07/18/21 22:41 Total Protein 7.8 g/dL (6.4-8.2) 07/18/21 22:41 Albumin 3.4 g/dL (3.4-5.0) 07/18/21 22:41 Globulin 4.4 g/dL (2.5-4.5) 07/18/21 22:41 Albumin/Globulin Ratio 0.8 Ratio (1.1-2.1) L 07/18/21 22:41 Specimen Type Clean catch urine 07/18/21 23:30 Urine Color Yellow (YELLOW) 07/18/21 23: Urine Appearance Cloudy (CLEAR) 07/18/21 23: Urine pH 5.0 (5.0 - 8.0) 07/18/21 23: Ur Specific [place] 1.025 (1.000-1.030) 07/18/21 23:30 Urine Protein 2+ (NEGATIVE) 07/18/21 23: Urine Glucose (UA) Negative (NEGATIVE) 07/18/21 23:30 Urine Ketones 1+ (NEGATIVE) 07/18/21 23:30 Urine Occult Blood 2+ (NEGATIVE) 07/18/21 23:30 Urine Nitrite Positive (NEGATIVE) 07/18/21 23:30 Urine Bilirubin Negative (NEGATIVE) 07/18/21 23:30 Urine Urobilinogen Normal (NORMAL) 07/18/21 23:30 Ur Leukocyte Esterase 3+ (NEGATIVE) 07/18/21 23:30 Urine RBC 5-10 /HPF (0-3) A 07/18/21 23:30 Urine WBC 20-30 /HPF (0-5) A 07/18/21 23:30 Ur Squamous Epith Cells Few /HPF (NEGATIVE) 07/18/21 23:30 Urine Bacteria 2+ /HPF (NEGATIVE) 07/18/21 23:30 Ur Culture Indicated? Yes/culture set up 07/18/21 23:30 XRAY X-ray Results: PORTABLE CHEST XRAY- NEGATIVE, HEAD CT SCAN WITHOUT INTRAVENOUS CONTRAST C/W CHRONIC STABLE 4.5MM RIGHT POSTERIOR BASAL GANGLIA/THALAMIC LACUNAR INFARCTION AND A STABLE CHRONIC 5.5MM LEFT LATERAL BASAL GANGLIA LACUNAR INFARCTION. THERE IS NO ACUTE INTRACRANIAL HEMORRHAGE , GROSS ACUTE INFARCTION, MASS LESION, MIDLINE SHIFT OR HYDROCEPHALUS SEEN EKG Rate: 98 [place]: Normal Rhythm: NSR and PACs ST: Nonsp Opioid Opioid Risk Tool Age (Vinicius box if 16-45): No History of Preadolescent Sexual Abuse: No Total: 0 Total Score Risk Category: Low Risk Copyright: Senthil OBRIEN predicting aberrant behaviors Diagnosis Discharge Problem: Transient ischemic attack (TIA)
[2021-07-18] MEDS ORDERED: NS 1,000 ML IV 1,000 ML ONE (22:31)
--- NOTE | 2021-07-18 22:47 | CT ---
EXAM: HEAD CT WITHOUT INTRAVENOUS CONTRASTHISTORY: Possible stroke.TECHNIQUE: Spiral axial CT images are obtained through the brain without the administration of intravenous contrast. Additional sagittal and coronal reformatted images are reconstructed.DOSIMETRY: Total DLP 1223.3 mGycm; CTDI 70.8 mGyCOMPARISON: Head CT dated May 24, 2021.FINDINGS:There is a chronic stable, approximately 4.5 mm, right posterior basal ganglia/thalamic lacunar infarction, and a stable chronic, approximately 5.5 mm left lateral basal ganglia (external capsule region) lacunar infarction. There are parenchymal lucencies within the white matter tracks of the centrum semiovale, consistent with chronic sequela of atherosclerotic microvascular ischemic disease. Severe atherosclerosis of the intracranial ICAs and vertebral arteries is seen.There is diffuse cerebral cortical atrophy. The centrum semiovale, basal ganglia, cerebellum, and brainstem are otherwise grossly unremarkable for a noncontrast CT scan. There is no acute intracranial hemorrhage, gross acute infarction, mass lesion, midline shift, or hydrocephalus seen. No extra-axial mass or abnormal fluid collection noted.The calvarium is intact. The partially imaged paranasal sinuses, middle ear cavities and mastoid air cells are clear.IMPRESSION:1. Stable appearance of chronic basal ganglia lacunar infarctions and extensive chronic microvascular ischemic disease, but no discernible acute infarction seen. Note that subtle or occult acute ischemic disease can be obscured in this radiologic setting. Clinical correlation is advised.2. Severe atherosclerosis of the intracranial ICAs and vertebral arteries is seen.3. No skull fracture, intracranial hemorrhage, mass lesion, midline shift, or hydrocephalus seen.4. Overall, no significant interval change seen.Electronically signed by: Suzan Jean (Jul 18, 2021 22:45:04)
[2021-07-18 22:58] LABS: BASOPHILS # (AUTO) 0.1 X10^3/uL (0.0-0.1); BASOPHILS % (AUTO) 0.9 % (0.2-1.0); EOSINOPHILS # (AUTO) 0.1 x10^3/uL (0.0-0.2); EOSINOPHILS % (AUTO) 0.8 % (0.9-2.9); HEMATOCRIT 42.5 % (36.0-47.0); HEMOGLOBIN 14.4 g/dL (12.0-16.0); LYMPHOCYTES # (AUTO) 1.7 X10^3/uL (1.3-2.9); LYMPHOCYTES % (AUTO) 23.3 % (21.0-51.0); MEAN CORPUSCULAR HEMOGLOBIN 28.2 pg (27.0-34.0); MEAN CORPUSCULAR HGB CONC 33.9 g/dL (33.0-35.0); MEAN CORPUSCULAR VOLUME 83.4 fL (80.0-100.0); MEAN PLATELET VOLUME 8.5 fL (7.4-11.0); MONOCYTES # (AUTO) 0.6 x10^3/uL (0.3-0.8); MONOCYTES % (AUTO) 7.6 % (0.0-13.0); NEUTROPHILS # (AUTO) 4.9 x10^3/uL (2.2-4.8); NEUTROPHILS % (AUTO) 67.4 % (42.0-75.0); PLATELET COUNT 214 X10^3/uL (150.0-450.0); RED BLOOD COUNT 5.09 X10^6/uL (3.5-5.4); RED CELL DISTRIBUTION WIDTH 16.5 % (11.6-16.5); WHITE BLOOD COUNT 7.3 X10^3/uL (3.6-10.0)
[2021-07-18] MEDS ORDERED: CATAPRES TAB 0.1 MG PO ONE (23:06)
[2021-07-18] MEDS ORDERED: CATAPRES TAB 0.1 MG ONE (23:06)
[2021-07-18 23:17] LABS: ALANINE AMINOTRANSFERASE 11 Units/L (12-78); ALBUMIN 3.4 g/dL (3.4-5.0); ALKALINE PHOSPHATASE 121 Units/L (46-116); ASPARTATE AMINO TRANSFERASE 20 Units/L (15-37); BLOOD UREA NITROGEN 12 mg/dL (7-18); CALCIUM 9.4 mg/dL (8.5-10.1); CARBON DIOXIDE 32.1 mmol/L (21-32); CHLORIDE 99 mmol/L (98-107); COR NA(FOR HYPERGLY) 141 mmol/L (136-145); CREATININE 1.01 mg/dL (0.55-1.02); MAGNESIUM 1.6 mg/dL (1.7-2.9); SODIUM 138 mmol/L (136-145); TOTAL PROTEIN 7.8 g/dL (6.4-8.2); TROPONIN I < 0.02 ng/mL (0-1.5); eGFR NON BLACK RACES 57 (>60)
--- NOTE | 2021-07-18 23:20 | RAD ---
EXAM: CHEST X-RAYHISTORY: Possible stroke. Shortness of breath.TECHNIQUE: AP CXR dated July 18, 2021 at 10:21 PM.COMPARISON: CXR dated June 02, 2021.FINDINGS:The heart size and mediastinum are within normal limits. The lung medrano and costophrenic angles are clear. There is no acute parenchymal infiltrate, pleural effusion, or pneumothorax seen. The visualized bony structures are within normal limits.IMPRESSION:1. No evidence for acute cardiopulmonary disease seen.Electronically signed by: Suzan Jean (Jul 18, 2021 23:19:12)
[2021-07-18 23:47] LABS: BILIRUBIN,URINE NEGATIVE (NEGATIVE); BLOOD/HEMOGLOBIN,URINE 2+ (NEGATIVE); GLUCOSE, URINE NEGATIVE (NEGATIVE); KETONES,URINE 1+ (NEGATIVE); LEUKOCYTE ESTERASE ,URINE 3+ (NEGATIVE); NITRITES,URINE POSITIVE (NEGATIVE); PROTEIN,URINE 2+ (NEGATIVE); UROBILINOGEN,URINE NORMAL (NORMAL)
[2021-07-18 23:54] LABS: COLOR,URINE YELLOW (YELLOW)
[2021-07-18 23:55] LABS: APPEARANCE,URINE CLOUDY (CLEAR); BACTERIA,URINE 2+ /HPF (NEGATIVE); SQUAMOUS EPITHELIAL CELL,UR FEW /HPF (NEGATIVE)
[2021-07-18] MEDS ORDERED: VENTOLIN or PROAIR HFA IN PRN (23:58)
[2021-07-18] MEDS ORDERED: NS 1,000 ML IV 1,000 ML IV SCH (23:58)
[2021-07-19] MEDS ORDERED: ROCEPHIN 1 GRAM IV PREMIX 1 G/50 ML IV.SOLN. IV ONE ×2 (00:16→00:18)
[2021-07-19] MEDS: ROCEPHIN 1 GRAM IV PREMIX 1 G/50 ML IV.SOLN. IV SCH ×3 (00:23→08:21)
[2021-07-19 02:09] VITALS: BMI 38.7
[2021-07-19] MEDS ORDERED: MICRO K EXTEN CAP 10 MEQ PO PRN (04:10)
[2021-07-19] MEDS ORDERED: K-RIDER 10 MEQ/NS 100 ML 10 MEQ/100 ML BAG IV PRN (04:10)
[2021-07-19] MEDS ORDERED: POTASSIUM CHLORIDE LIQ 20 MEQ UDC PO PRN (04:10)
[2021-07-19] MEDS ORDERED: K-DUR TAB 20 MEQ PO PRN (04:10)
[2021-07-19] MEDS ORDERED: KLOR-CON PO PRN (04:10)
[2021-07-19] MEDS ORDERED: NovoLIN R (or HumuLIN R) SUBCUT PRN (05:39)
[2021-07-19] MEDS ORDERED: NEURONTIN CAP 300 MG PO SCH (06:00)
[2021-07-19] MEDS ORDERED: SYNTHROID 150 mcg TAB PO SCH (06:00)
[2021-07-19 06:12] LABS: BASOPHILS % (AUTO) 0.5 % (0.2-1.0); EOSINOPHILS # (AUTO) 0.1 x10^3/uL (0.0-0.2); EOSINOPHILS % (AUTO) 0.8 % (0.9-2.9); HEMATOCRIT 40.7 % (36.0-47.0); HEMOGLOBIN 13.6 g/dL (12.0-16.0); LYMPHOCYTES # (AUTO) 2.1 X10^3/uL (1.3-2.9); LYMPHOCYTES % (AUTO) 28.1 % (21.0-51.0); MEAN CORPUSCULAR HEMOGLOBIN 27.9 pg (27.0-34.0); MEAN CORPUSCULAR HGB CONC 33.4 g/dL (33.0-35.0); MEAN CORPUSCULAR VOLUME 83.4 fL (80.0-100.0); MONOCYTES # (AUTO) 0.7 x10^3/uL (0.3-0.8); MONOCYTES % (AUTO) 9.2 % (0.0-13.0); NEUTROPHILS # (AUTO) 4.6 x10^3/uL (2.2-4.8); NEUTROPHILS % (AUTO) 61.4 % (42.0-75.0); PLATELET COUNT 202 X10^3/uL (150.0-450.0); RED BLOOD COUNT 4.88 X10^6/uL (3.5-5.4); RED CELL DISTRIBUTION WIDTH 16.7 % (11.6-16.5); WHITE BLOOD COUNT 7.6 X10^3/uL (3.6-10.0)
[2021-07-19] MEDS ORDERED: GLUCOPHAGE ONE (06:19)
[2021-07-19] MEDS ORDERED: GLUCOTROL PO SCH (06:30)
[2021-07-19 06:41] LABS: ALANINE AMINOTRANSFERASE 8 Units/L (12-78); ALBUMIN 3.2 g/dL (3.4-5.0); ALKALINE PHOSPHATASE 113 Units/L (46-116); ASPARTATE AMINO TRANSFERASE 10 Units/L (15-37); BLOOD UREA NITROGEN 18 mg/dL (7-18); CALCIUM 9.1 mg/dL (8.5-10.1); CARBON DIOXIDE 31.1 mmol/L (21-32); CHLORIDE 100 mmol/L (98-107); COR CA(FOR HYPOALB) 9.7 mg/dL (8.5-10.1); COR NA(FOR HYPERGLY) 139 mmol/L (136-145); CREATININE 0.78 mg/dL (0.55-1.02); SODIUM 137 mmol/L (136-145); TOTAL PROTEIN 7.4 g/dL (6.4-8.2); eGFR NON BLACK RACES > 60 (>60)
[2021-07-19] MEDS ORDERED: GLUCOPHAGE PO SCH (07:00)
--- NOTE | 2021-07-19 08:19 | DR.SSS ---
SHORT STAY SUMMARY Admission Date Date of Admission: 07/18/21 Discharge Date Discharge Date: 07/19/21 Admission Diagnoses Admission Diagnoses: TIA UTI Discharge Diagnoses Discharge Diagnoses: TIA UTI Chief Complaint Chief Complaint: Left facial numbness History of Present Illness History of Present Illness: Pt is a 71 year old female past medical history of CVA, HTN, DMT2, presenting after having some left facial numbness yesterday afternoon. She denies any other neurological deficits. Past Medical History Past Medical History: Asthma, Diabetes and Hypertension Additional Medical History: HX BREAST CANCER Past Surgical History Surgical History: Appendectomy, Hysterectomy, Mastectomy and Thyroidectomy Allergies Allergies Allergy/AdvReac Type Severity Reaction Status Date / Time No Known Drug Allergies Allergy Verified 12/27/20 14:34 Medications Home Medications: No Known Drug Allergies Allergy (Verified 12/27/20 14:34) CONTINUE taking the following medications aspirin [Aspir-81] 81 mg PO DAILY 07/18/21 [History] Family History Family Medical History: Cancer and Hypertension Social History Does patient currently use any type of tobacco product: No Have you used tobacco products in the last 12 months: No Type of Tobacco Use: None Alcohol Use: None Drug Use: None Review of Systems Constitutional: No Symptoms Reported Eyes: No Symptoms Reported ENT: No Symptoms Reported Respiratory: No Symptoms Reported Cardiovascular: No Symptoms Reported Gastrointestinal: No Symptoms Reported Genitourinary: No Symptoms Reported Musculoskeletal: No Symptoms Reported Skin: No Symptoms Reported Neurological: Weakness (gait instability that is chronic ) and Numbness (left facial); denies Incoordination, Change in Speech, Confusion and Seizures Physical Exam Vital Signs: Last Vital Signs Temp 97.9 F 07/19/21 04:00 Pulse 96 H 07/19/21 04:00 Resp 18 07/19/21 04:00 BP 142/85 07/19/21 04:00 Pulse Ox 97 07/19/21 04:00 Oriented: Normal Eyes: Normal Ear: Normal Nose: Normal Respiratory: Clear Throughout Cardiovascular: Normal : Normal Auscultation: Bowel Sounds: Normal Palpation: Normal Tenderness: Normal Skin: Normal Musculoskeletal: Normal Psychiatric: Normal Mood Description: Calm Speech Pattern: Clear Labs Labs: Laboratory Last Values WBC 7.6 X10^3/uL (3.6-10.0) 07/19/21 05:16 RBC 4.88 X10^6/uL (3.5-5.4) 07/19/21 05:16 Hgb 13.6 g/dL (12.0-16.0) 07/19/21 05:16 Hct 40.7 % (36.0-47.0) 07/19/21 05:16 MCV 83.4 fL (80.0-100.0) 07/19/21 05:16 MCH 27.9 pg (27.0-34.0) 07/19/21 05:16 MCHC 33.4 g/dL (33.0-35.0) 07/19/21 05:16 RDW 16.7 % (11.6-16.5) H 07/19/21 05:16 Plt Count 202 X10^3/uL (150.0-450.0) 07/19/21 05:16 MPV 9.0 fL (7.4-11.0) 07/19/21 05:16 Neut % (Auto) 61.4 % (42.0-75.0) 07/19/21 05:16 Lymph % (Auto) 28.1 % (21.0-51.0) 07/19/21 05:16 [place] % (Auto) 9.2 % (0.0-13.0) 07/19/21 05:16 Eos % (Auto) 0.8 % (0.9-2.9) L 07/19/21 05:16 Baso % (Auto) 0.5 % (0.2-1.0) 07/19/21 05:16 Neut # (Auto) 4.6 x10^3/uL (2.2-4.8) 07/19/21 05:16 Lymph # (Auto) 2.1 X10^3/uL (1.3-2.9) 07/19/21 05:16 [place] # (Auto) 0.7 x10^3/uL (0.3-0.8) 07/19/21 05:16 Eos # (Auto) 0.1 x10^3/uL (0.0-0.2) 07/19/21 05:16 Baso # (Auto) 0.0 X10^3/uL (0.0-0.1) 07/19/21 05:16 Absolute Nucleated RBC 0.1 /100WBC 07/19/21 05:16 PT 13.1 SECONDS (11.8-14.3) 07/18/21 22:41 INR Target Range - 07/18/21 22:41 INR 1.04 (0.8-1.3) 07/18/21 22:41 Sodium 137 mmol/L (136-145) 07/19/21 05:16 Corrected Sodium 139 mmol/L (136-145) 07/19/21 05:16 Potassium 3.6 mmol/L (3.5-5.1) 07/19/21 05:16 Chloride 100 mmol/L (98-107) 07/19/21 05:16 Carbon Dioxide 31.1 mmol/L (21-32) 07/19/21 05:16 BUN 18 mg/dL (7-18) 07/19/21 05:16 Creatinine 0.78 mg/dL (0.55-1.02) 07/19/21 05:16 Est GFR (MDRD) Af Amer > 60 (>60) 07/19/21 05:16 Est GFR (MDRD) Non-Af > 60 (>60) 07/19/21 05:16 Glucose 196 mg/dL (65-99) H 07/19/21 05:16 POC Glucose (mg/dL) 224 mg/dL (65-99) H 07/19/21 05:33 Calcium 9.1 mg/dL (8.5-10.1) 07/19/21 05:16 Corrected Calcium 9.7 mg/dL (8.5-10.1) 07/19/21 05:16 Magnesium 1.7 mg/dL (1.7-2.9) 07/19/21 05:16 Total Bilirubin 0.50 mg/dL (0.2-1.0) 07/19/21 05:16 AST 10 Units/L (15-37) L 07/19/21 05:16 ALT 8 Units/L (12-78) L 07/19/21 05:16 Alkaline Phosphatase 113 Units/L (46-116) 07/19/21 05:16 Troponin I < 0.02 ng/mL (0-1.5) 07/18/21 22:41 Total Protein 7.4 g/dL (6.4-8.2) 07/19/21 05:16 Albumin 3.2 g/dL (3.4-5.0) L 07/19/21 05:16 Globulin 4.2 g/dL (2.5-4.5) 07/19/21 05:16 Albumin/Globulin Ratio 0.8 Ratio (1.1-2.1) L 07/19/21 05:16 Specimen Type Clean catch urine 07/18/21 23:30 Urine Color Yellow (YELLOW) 07/18/21 23: Urine Appearance Cloudy (CLEAR) 07/18/21 23: Urine pH 5.0 (5.0 - 8.0) 07/18/21 23:30 Ur Specific [place] 1.025 (1.000-1.030) 07/18/21 23: Urine Protein 2+ (NEGATIVE) 07/18/21 23: Urine Glucose (UA) Negative (NEGATIVE) 07/18/21 23: Urine Ketones 1+ (NEGATIVE) 07/18/21 23: Urine Occult Blood 2+ (NEGATIVE) 07/18/21 23: Urine Nitrite Positive (NEGATIVE) 07/18/21 23: Urine Bilirubin Negative (NEGATIVE) 07/18/21 23: Urine Urobilinogen Normal (NORMAL) 07/18/21 23:30 Ur Leukocyte Esterase 3+ (NEGATIVE) 07/18/21 23: Urine RBC 5-10 /HPF (0-3) A 07/18/21 23:30 Urine WBC 20-30 /HPF (0-5) A 07/18/21 23:30 Ur Squamous Epith Cells Few /HPF (NEGATIVE) 07/18/21 23: Urine Bacteria 2+ /HPF (NEGATIVE) 07/18/21 23: Ur Culture Indicated? Yes/culture set up 07/18/21 23: SARS-CoV-2 (PCR) Negative (NEGATIVE) 07/18/21 23:43 Influenza Type A (PCR) Negative (NEGATIVE) 07/18/21 23:43 Influenza Type B (PCR) Negative (NEGATIVE) 07/18/21 23:43 RSV (PCR) Negative (NEGATIVE) 07/18/21 23:43 Assessment/Plan (1) Transient ischemic attack (TIA): (2) Acute cystitis: Hospital Course Hospital Course: Pt was admitted for observation for TIA. Labs/imaging: Wbc 7.6, Hgb 13.6, Plt 202, Na 137, K 3.6, Creatinine 0.78, Glucose 196, UA:+nitrite, Urine culture pending, CT brain: 1.Stable appearance of chronic basal ganglia lacunar infarctions and extensive chronic microvascular ischemic disease, but no discernible acute infarction seen. Note that subtle or occult acute ischemic disease can be obscured in this radiologic setting.Clinical correlation is advised. 2.Severe atherosclerosis of the intracranial ICAs and vertebral arteries is seen. 3.No skull fracture, intracranial hemorrhage, mass lesion, midline shift, or hydrocephalus seen. 4.Overall, no significant interval change seen. On exam symptoms have resolved. No acute findings on CT head. Pt was treated with Rocephin for UTI, Rx ciprofloxacin x 10 days sent to pharmacy. Follow up urine culture with pcp. Pt was instructed to continue home medications including statin, plavix, and asa. Neurological precautions discussed. Discharged in stable condition, instructed to follow up with pcp in 3-5 days. Discharge Medications Discharge Medications: Home Medication List aspirin [Aspir-81] 81 mg PO DAILY 07/18/21 [History] Prescriptions: Discharge Disposition Discharge Disposition: Home
[2021-07-19 08:34] VITALS: BP 96/51
[2021-07-19] MEDS ORDERED: LOPRESSOR TAB 50 MG PO SCH (09:00)
[2021-07-19] MEDS ORDERED: SINEMET CR 50/200 MG PO SCH (09:00)
[2021-07-19] MEDS ORDERED: ZESTRIL TAB 40 MG PO SCH (09:00)
[2021-07-19] MEDS ORDERED: ASPIRIN EC 81 MG PO SCH (09:00)
[2021-07-19] MEDS ORDERED: MOBIC TAB 15 MG PO SCH (09:00)
[2021-07-19] MEDS ORDERED: PLAVIX PO SCH (09:00)
[2021-07-19] MEDS: PROVENTIL NEB TX 0.083% 2.5MG/ 3ML NEB SCH (13:35)
[2021-07-19] MEDS ORDERED: SNACK - Diabetic Appropriate PO SCH (20:00)
[2021-07-19] MEDS ORDERED: LIPITOR TAB 80 MG PO SCH (21:00)
== END 2021-07-19 12:55 | disposition home or self-care (01) ==
LOC: MED/SURG 21:47 → ER 21:47 → MED/SURG 07-19 01:20
PROVIDERS: ADMIT Internal Medicine; ATTEND Family Medicine
DX: B96.1 Klebsiella pneumoniae [K. pneumoniae] as the cause of diseases classified elsewhere; I11.9 Hypertensive heart disease without heart failure; R26.81 Unsteadiness on feet; G45.8 Other transient cerebral ischemic attacks and related syndromes; E11.65 Type 2 diabetes mellitus with hyperglycemia; R06.02 Shortness of breath; N30.00 Acute cystitis without hematuria

== ENCOUNTER 2021-09-04 12:17 | Inpatient (IN) ==
[2021-09-04 12:27] VITALS: BMI 38.1
[2021-09-04 12:43] LABS: BASOPHILS # (AUTO) 0.1 X10^3/uL (0.0-0.1); BASOPHILS % (AUTO) 0.7 % (0.2-1.0); EOSINOPHILS # (AUTO) 0.3 x10^3/uL (0.0-0.2); EOSINOPHILS % (AUTO) 3.4 % (0.9-2.9); HEMOGLOBIN 13.8 g/dL (12.0-16.0); LYMPHOCYTES # (AUTO) 1.2 X10^3/uL (1.3-2.9); LYMPHOCYTES % (AUTO) 11.9 % (21.0-51.0); MEAN CORPUSCULAR HGB CONC 32.8 g/dL (33.0-35.0); MEAN CORPUSCULAR VOLUME 85.2 fL (80.0-100.0); MONOCYTES # (AUTO) 0.8 x10^3/uL (0.3-0.8); MONOCYTES % (AUTO) 7.9 % (0.0-13.0); NEUTROPHILS # (AUTO) 7.9 x10^3/uL (2.2-4.8); NEUTROPHILS % (AUTO) 76.1 % (42.0-75.0); PLATELET COUNT 242 X10^3/uL (150.0-450.0); RED BLOOD COUNT 4.93 X10^6/uL (3.5-5.4); RED CELL DISTRIBUTION WIDTH 16.7 % (11.6-16.5); WHITE BLOOD COUNT 10.4 X10^3/uL (3.6-10.0)
--- NOTE | 2021-09-04 12:50 | DR.GENAD ---
HPI Time Seen Time Seen by Provider: 09/04/21 12:23 PCP Primary Care Physician: MARISSA HPI Comment HPI Comment: A71 y/o female presenting via EMS with information of being called to the residence about pt. being lethargic and disoriented. Pt. states that she was asleep and they interrupted a good sleep. She arrived here, awake, and alert. She denies associated SOB, c/p or palpitations. Complaint/Symptoms Chief Complaint:: EMS STATES UPON THEIR ARRIVAL, PT. WAS VERY LETHARGIC AND DISORIENTED. WHEN PT. ARRIVED TO THE ER, PT. IS AWAKE AND ALERT, ORIENTED X 4. PT. 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 PT. DENIES PAIN. COVID-19 Coronavirus risk:travel/contact w/high risk person: No Has patient experienced Coronavirus symptoms: No Nurses notes reviewed Nurses Notes Review: Yes Source History Provided: Patient and EMS Mode of Arrival Mode of Arrival: EMS Timing Onset of Chief Complaint: 09/04/21 Came on: Gradually PMH PMH Past Medical History: Yes Past Medical History: Asthma, Diabetes and Hypertension Past Medical History Comment: BREAST CANCER Past Surgical History: Yes Surgical History: Appendectomy, Hysterectomy, Mastectomy and Thyroidectomy Past Surgical History Comment: BILATERAL MASTECTOMY Family History History of Family Medical Conditions: Yes Family Medical History: Cancer and Hypertension Social History Does patient currently use any type of tobacco product: No Have you used tobacco products in the last 12 months: No Type of Tobacco Use: None Does any household member use tobacco: No Alcohol Use: None Do you use any recreational Drugs:: No Lives With: Family Lives Where: Home Travel Risk Coronavirus risk:travel/contact w/high risk person: No Has patient experienced Coronavirus symptoms: No Infectious screening In the last 2 months have you had wt loss of >10#?: NO Have you had fever, night sweats or hemotysis?: No Have you traveled outside the country in the last 6 months?: No Isolation: Standard ROS Review of Systems Constitutional: No Symptoms Reported Eyes: No Symptoms Reported ENTM: No Symptoms Reported Respiratoy: No Symptoms Reported Cardiovascular: No Symptoms Reported Gastrointestinal/Abdominal: No Symptoms Reported Genitourinary: No Symptoms Reported Neurological: Other (Disoriented) Musculoskeletal: No Symptoms Reported Integumentary: No Symptoms Reported Hematologic/Lymphatic: No Symptoms Reported Endocrine: No Symptoms Reported Psychiatric: Other (lethargy) PE Vital Signs Vitals: Temperature 98.8 F Pulse Rate 112 Respiratory Rate 10 Blood Pressure [Left Calf] 129/73 Blood Pressure 110/88 O2 Sat by Pulse Oximetry 96 General Limitations: No Limitations and Other (Chemo/Rx. related alopecia) General Appearance: Alert and In No Apparent Distress Head Head Exam: Normal Inspection Eyes Eye exam: Normal Appearance and EOMI ENT ENT Exam: Normal Exam, Normal External Ear Exam, Mucous Membranes Moist and TM's Normal Bilaterally Neck Neck Exam: Normal Inspection, Full ROM and Trachea Midline Chest Chest Inspection: Normal Inspection and Symmetric Chest Wall Rise Respiratory Respiratory Exam: Normal Lung Sounds Bilat Cardiovascular Cardiovascular Exam: Regular Rate, Normal Rhythm, Normal Heart Sounds, +S1 and +S2 Abdominal Exam Abdominal Exam: Normal Inspection, Normal Bowel Sounds and Soft Extremities Extremities Exam: Normal Inspection and Full ROM Back Back Exam: Normal Inspection and Full ROM Neurologic Neurological Exam: Alert and Oriented X3 Psychiatric Psychiatric Exam: Normal Affect and Normal Mood Skin Skin Exam: Intact COURSE Reevaluation 1st: Improved Education/Counseling Education/Counseling: Patient, Education and Counseling Educated On: Treatment, Diagnosis, Prognosis and Needs for Follow Up ROR Labs Reviewed Result Diagrams: 09/04/21 12:34 09/04/21 12:34 Laboratory: WBC 10.4 X10^3/uL (3.6-10.0) H 09/04/21 12:34 RBC 4.93 X10^6/uL (3.5-5.4) 09/04/21 12:34 Hgb 13.8 g/dL (12.0-16.0) 09/04/21 12:34 Hct 42.0 % (36.0-47.0) 09/04/21 12:34 MCV 85.2 fL (80.0-100.0) 09/04/21 12:34 MCH 28.0 pg (27.0-34.0) 09/04/21 12:34 MCHC 32.8 g/dL (33.0-35.0) L 09/04/21 12:34 RDW 16.7 % (11.6-16.5) H 09/04/21 12:34 Plt Count 242 X10^3/uL (150.0-450.0) 09/04/21 12:34 MPV 9.0 fL (7.4-11.0) 09/04/21 12:34 Neut % (Auto) 76.1 % (42.0-75.0) H 09/04/21 12:34 Lymph % (Auto) 11.9 % (21.0-51.0) L 09/04/21 12:34 [place] % (Auto) 7.9 % (0.0-13.0) 09/04/21 12:34 Eos % (Auto) 3.4 % (0.9-2.9) H 09/04/21 12:34 Baso % (Auto) 0.7 % (0.2-1.0) 09/04/21 12:34 Neut # (Auto) 7.9 x10^3/uL (2.2-4.8) H 09/04/21 12:34 Lymph # (Auto) 1.2 X10^3/uL (1.3-2.9) L 09/04/21 12:34 [place] # (Auto) 0.8 x10^3/uL (0.3-0.8) 09/04/21 12:34 Eos # (Auto) 0.3 x10^3/uL (0.0-0.2) H 09/04/21 12:34 Baso # (Auto) 0.1 X10^3/uL (0.0-0.1) 09/04/21 12:34 Absolute Nucleated RBC 0.0 /100WBC 09/04/21 12:34 Sodium 136 mmol/L (136-145) 09/04/21 12:34 Corrected Sodium 140 mmol/L (136-145) 09/04/21 12:34 Potassium 4.2 mmol/L (3.5-5.1) 09/04/21 12:34 Chloride 101 mmol/L (98-107) 09/04/21 12:34 Carbon Dioxide 27.0 mmol/L (21-32) 09/04/21 12:34 BUN 35 mg/dL (7-18) H 09/04/21 12:34 Creatinine 2.19 mg/dL (0.55-1.02) H 09/04/21 12:34 Est GFR (MDRD) Af Amer 28 (>60) L 09/04/21 12:34 Est GFR (MDRD) Non-Af 24 (>60) L 09/04/21 12:34 Glucose 249 mg/dL (65-99) H 09/04/21 12:34 Calcium 8.7 mg/dL (8.5-10.1) 09/04/21 12:34 Corrected Calcium 9.7 mg/dL (8.5-10.1) 09/04/21 12:34 Total Bilirubin 0.40 mg/dL (0.2-1.0) 09/04/21 12:34 AST 19 Units/L (15-37) 09/04/21 12:34 ALT 18 Units/L (12-78) 09/04/21 12:34 Alkaline Phosphatase 94 Units/L (46-116) 09/04/21 12:34 Creatine Kinase 105 Units/L (26-192) 09/04/21 12:34 CK-MB (CK-2) 5.6 ng/mL (0-4.0) H* 09/04/21 12:34 CK/CKMB % Calc 5.3 % (<4) 09/04/21 12:34 Troponin I < 0.02 ng/mL (0-1.5) 09/04/21 12:34 Total Protein 7.0 g/dL (6.4-8.2) 09/04/21 12:34 Albumin 2.8 g/dL (3.4-5.0) L 09/04/21 12:34 Globulin 4.2 g/dL (2.5-4.5) 09/04/21 12:34 Albumin/Globulin Ratio 0.7 Ratio (1.1-2.1) L 09/04/21 12:34 SARS CoV-2 RNA Rapid YAIMA Negative (NEGATIVE) 09/04/21 13:52 Opioid Opioid Risk Tool Age (Vinicius box if 16-45): No History of Preadolescent Sexual Abuse: No Total: 0 Total Score Risk Category: Low Risk Copyright: Senthil OBRIEN predicting aberrant behaviors Diagnosis Discharge Problem: Dehydration Hypotension Qualifiers: Hypotension type: unspecified hypotension type Qualified Code(s): I95.9 - Hypotension, unspecified Pulmonary edema Qualifiers: Chronicity: acute Qualified Code(s): J81.0 - Acute pulmonary edema Instructions Forms: Precautions for COVID19 [facility] Patient [facility] Social Distancing
[2021-09-04 13:25] LABS: ALANINE AMINOTRANSFERASE 18 Units/L (12-78); ALBUMIN 2.8 g/dL (3.4-5.0); ALKALINE PHOSPHATASE 94 Units/L (46-116); ASPARTATE AMINO TRANSFERASE 19 Units/L (15-37); BLOOD UREA NITROGEN 35 mg/dL (7-18); CALCIUM 8.7 mg/dL (8.5-10.1); CHLORIDE 101 mmol/L (98-107); CKMB % 5.3 % (<4); COR CA(FOR HYPOALB) 9.7 mg/dL (8.5-10.1); COR NA(FOR HYPERGLY) 140 mmol/L (136-145); CREATINE KINASE 105 Units/L (26-192); CREATININE 2.19 mg/dL (0.55-1.02); SODIUM 136 mmol/L (136-145); eGFR NON BLACK RACES 24 (>60)
[2021-09-04 13:26] LABS: CREATINE KINASE MB 5.6 ng/mL (0-4.0)
[2021-09-04] MEDS ORDERED: NS 1,000 ML IV 1,000 ML IV ONE (14:04)
[2021-09-04] MEDS ORDERED: NS 1,000 ML IV 1,000 ML ONE (14:04)
--- NOTE | 2021-09-04 15:53 | RAD ---
HISTORYWEAKNESS ASTHMA, CVA, DIABETES, HTN, HYSTERECTOMY, MASTECTOMY, APPENDIX, THYROIDECTOMY, BREAST CA,STUDYCHEST, 1 VIEWCOMPARISONChest x-ray dated August 07, 2021.FINDINGSStudy is limited secondary to technique and body habitus. The trachea is midline. The cardiac silhouette is enlarged with prominent perihilar vasculature, cephalization of vessels, and diffuse alveolar/interstitial markings. Large left pleural effusion with likely associated compressive atelectasis versus infiltrate. The right lung appears clear. No obvious pneumothorax. The bony thorax is unremarkable. Surgical clips overlying the right axilla.IMPRESSIONConstellation of findings which may represent pulmonary edema secondary to congestive heart failure. Underlying infiltrate not entirely excluded. Recommend clinical/laboratory correlation..Electronically signed by: CHINYERE CONTRERAS (Sep 04, 2021 15:51:50)
[2021-09-04] MEDS ORDERED: DOPAMINE IV PREMIX 400 MG/250 ML 400 MG/250 ML BAG IV ONE (16:57)
[2021-09-04] MEDS: DOPAMINE IV PREMIX 400 MG/250 ML 400 MG/250 ML BAG IV PRN (17:03)
[2021-09-04] MEDS: LIPITOR TAB 80 MG PO SCH (21:35)
[2021-09-04 22:12] LABS: BILIRUBIN,URINE 1+ (NEGATIVE); BLOOD/HEMOGLOBIN,URINE 2+ (NEGATIVE); GLUCOSE, URINE NEGATIVE (NEGATIVE); KETONES,URINE 1+ (NEGATIVE); LEUKOCYTE ESTERASE ,URINE 3+ (NEGATIVE); NITRITES,URINE NEGATIVE (NEGATIVE); PROTEIN,URINE 2+ (NEGATIVE); UROBILINOGEN,URINE 1+ (NORMAL)
[2021-09-04 22:31] LABS: APPEARANCE,URINE CLOUDY (CLEAR); BACTERIA,URINE 3+ /HPF (NEGATIVE); COLOR,URINE YELLOW (YELLOW); SQUAMOUS EPITHELIAL CELL,UR NUMEROUS /HPF (NEGATIVE)
[2021-09-04] MEDS ORDERED: ULTRAM PO PRN (23:03)
[2021-09-04] MEDS ORDERED: ZOFRAN INJ 4 MG VIAL IVP PRN (23:06)
[2021-09-04] MEDS ORDERED: NS 1/2 1,000 ML IV 1,000 ML IV ONE (23:43)
[2021-09-04] MEDS ORDERED: NS 1/2 1,000 ML IV 1,000 ML IV SCH (23:45)
[2021-09-05 05:44] LABS: BASOPHILS # (AUTO) 0.1 X10^3/uL (0.0-0.1); BASOPHILS % (AUTO) 0.7 % (0.2-1.0); EOSINOPHILS # (AUTO) 0.4 x10^3/uL (0.0-0.2); EOSINOPHILS % (AUTO) 4.2 % (0.9-2.9); HEMOGLOBIN 13.9 g/dL (12.0-16.0); LYMPHOCYTES # (AUTO) 1.5 X10^3/uL (1.3-2.9); LYMPHOCYTES % (AUTO) 18.3 % (21.0-51.0); MEAN CORPUSCULAR HEMOGLOBIN 28.5 pg (27.0-34.0); MEAN CORPUSCULAR HGB CONC 33.9 g/dL (33.0-35.0); MONOCYTES # (AUTO) 0.6 x10^3/uL (0.3-0.8); MONOCYTES % (AUTO) 7.6 % (0.0-13.0); NEUTROPHILS # (AUTO) 5.8 x10^3/uL (2.2-4.8); NEUTROPHILS % (AUTO) 69.2 % (42.0-75.0); PLATELET COUNT 217 X10^3/uL (150.0-450.0); RED BLOOD COUNT 4.88 X10^6/uL (3.5-5.4); RED CELL DISTRIBUTION WIDTH 16.3 % (11.6-16.5); WHITE BLOOD COUNT 8.5 X10^3/uL (3.6-10.0)
[2021-09-05 06:52] LABS: ALBUMIN 3.1 g/dL (3.4-5.0); CALCIUM 8.7 mg/dL (8.5-10.1); CARBON DIOXIDE 26.1 mmol/L (21-32); COR CA(FOR HYPOALB) 9.4 mg/dL (8.5-10.1); CREATININE 1.44 mg/dL (0.55-1.02); TOTAL PROTEIN 7.6 g/dL (6.4-8.2)
[2021-09-05] MEDS ORDERED: PULMICORT NEB TX 0.5 MG NEB ONE (07:28)
[2021-09-05] MEDS ORDERED: BROVANA ONE (07:28)
[2021-09-05] MEDS: ASPIRIN EC 81 MG PO SCH (08:31)
[2021-09-05] MEDS: PLAVIX PO SCH (08:31)
[2021-09-05] MEDS: NS 1,000 ML IV 1,000 ML IV SCH ×3 (08:31→21:00)
[2021-09-05] MEDS: BROVANA IN SCH ×2 (08:50→20:46)
[2021-09-05] MEDS: PULMICORT NEB TX 0.5 MG NEB SCH ×2 (08:50→20:46)
[2021-09-05] MEDS ORDERED: GLUCOPHAGE ONE ×2 (09:30→19:50)
[2021-09-05] MEDS: GLUCOTROL XL 24-HR PO SCH ×2 (09:46→20:03)
[2021-09-05] MEDS: SYNTHROID 150 mcg TAB PO SCH (09:46)
[2021-09-05] MEDS: GLUCOPHAGE PO SCH ×2 (09:46→20:04)
[2021-09-05] MEDS: LOPRESSOR TAB 50 MG PO SCH (10:00)
[2021-09-05] MEDS ORDERED: NS 500 ML IV 500 ML IV ONE (11:17)
[2021-09-05] MEDS: LOVENOX INJ 40 MG SYR SC SCH (11:33)
--- NOTE | 2021-09-05 12:27 | RAD ---
HISTORYHYPOTENSIONSTUDYCHEST x-ray, 1 VIEWCOMPARISONX-ray 09/04/2021FINDINGSBorderline cardiomegaly without pulmonary venous congestion or pulmonary edema. No pneumothorax or pleural effusion is seen. No evidence of pneumonia. Stable calcified granuloma is seen in the left upper lobe of the lungs.IMPRESSIONBorderline cardiomegaly.Electronically signed by: Nilson Hooper (Sep 05, 2021 12:26:16)
[2021-09-05 12:49] LABS: CKMB % 4.1 % (<4); CREATINE KINASE 233 Units/L (26-192)
[2021-09-05 12:53] LABS: CREATINE KINASE MB 9.6 ng/mL (0-4.0)
[2021-09-05] MEDS: ROCEPHIN 1 GRAM IV PREMIX 1 G/50 ML IV.SOLN. IV SCH (14:29)
--- NOTE | 2021-09-05 14:55 | DR.H&P ---
H&P History & Physical for Day of: H&P Date: 09/05/21 Chief Complaint Chief Complaint: Symptomatic hypotension Dizziness Allergies Allergies Allergy/AdvReac Type Severity Reaction Status Date / Time No Known Drug Allergies Allergy Verified 09/04/21 12:27 History of Present Illness History of Present Illness: Pt is a 71 year old female past medical history of CVA, HTN, DMT2 presenting via EMS after family at home noticed patient being lethargic and disoriented. On arrival pt was alert and oriented x4 and noted to be hypotensive and not responded to IVF. She was started on a dopamine gtt. Labs/imaging: Wbc 10.4, Hgb 13.8, Plt 242, Na 136, K 3.7, Creatinine 1.44, Glucose 151, D-dimer 0.52, Troponin negative, UA c/w infection, Urine culture pending, COVID-19 negative, CXR was obtained that revealed: no acute cardiopulmonary findings. Will hold BP medications at this time except for her metoprolol tartrate. Continue dopamine gtt and start on IVF NS@75ml/h. Pt did receive IVF bolus in the ED. Will start on antibiotics Rocephin for urinary tract infection, awaiting culture results, including blood cultures. Will continue to closely monitor and follow up labs/imaging. Time spent on clinical assessment, reviewing labs and imaging, decision making, and documentation greater than 45 minutes. Past Medical History Past Medical History: Asthma, Diabetes and Hypertension Additional Medical History: HX BREAST CANCER Past Surgical History Surgical History: Thyroidectomy Family History Family Medical History: Diabetes Mellitus and Hypertension Social History Does patient currently use any type of tobacco product: No Have you used tobacco products in the last 12 months: No Type of Tobacco Use: None Does any household member use tobacco: No Alcohol Use: None Medications Home Medications: No Known Drug Allergies Allergy (Verified 09/04/21 12:27) CONTINUE taking the following medications glipizide 10 mg PO BID 09/04/21 [History] guaifenesin 400 mg PO DAILY 09/04/21 [History] levothyroxine [Euthyrox] 150 mcg PO DAILY 09/04/21 [History] tramadol 50 mg PO DAILY PRN 09/04/21 [History] Labs Result Diagrams: 09/06/21 06:38 09/06/21 06:38 Labs: Laboratory WBC 8.5 X10^3/uL (3.6-10.0) 09/05/21 05:07 RBC 4.88 X10^6/uL (3.5-5.4) 09/05/21 05:07 Hgb 13.9 g/dL (12.0-16.0) 09/05/21 05:07 Hct 41.0 % (36.0-47.0) 09/05/21 05:07 MCV 84.0 fL (80.0-100.0) 09/05/21 05:07 MCH 28.5 pg (27.0-34.0) 09/05/21 05:07 MCHC 33.9 g/dL (33.0-35.0) 09/05/21 05:07 RDW 16.3 % (11.6-16.5) 09/05/21 05:07 Plt Count 217 X10^3/uL (150.0-450.0) 09/05/21 05:07 MPV 9.0 fL (7.4-11.0) 09/05/21 05:07 Neut % (Auto) 69.2 % (42.0-75.0) 09/05/21 05:07 Lymph % (Auto) 18.3 % (21.0-51.0) L 09/05/21 05:07 [place] % (Auto) 7.6 % (0.0-13.0) 09/05/21 05:07 Eos % (Auto) 4.2 % (0.9-2.9) H 09/05/21 05:07 Baso % (Auto) 0.7 % (0.2-1.0) 09/05/21 05:07 Neut # (Auto) 5.8 x10^3/uL (2.2-4.8) H 09/05/21 05:07 Lymph # (Auto) 1.5 X10^3/uL (1.3-2.9) 09/05/21 05:07 [place] # (Auto) 0.6 x10^3/uL (0.3-0.8) 09/05/21 05:07 Eos # (Auto) 0.4 x10^3/uL (0.0-0.2) H 09/05/21 05:07 Baso # (Auto) 0.1 X10^3/uL (0.0-0.1) 09/05/21 05:07 Absolute Nucleated RBC 0.1 /100WBC 09/05/21 05:07 D-Dimer 0.52 ug/ml (0.0-0.57) 09/05/21 13:00 Sodium 135 mmol/L (136-145) L 09/05/21 06:19 Corrected Sodium 136 mmol/L (136-145) 09/05/21 06:19 Potassium 3.7 mmol/L (3.5-5.1) 09/05/21 06:19 Chloride 101 mmol/L (98-107) 09/05/21 06:19 Carbon Dioxide 26.1 mmol/L (21-32) 09/05/21 06:19 BUN 35 mg/dL (7-18) H 09/05/21 06:19 Creatinine 1.44 mg/dL (0.55-1.02) H 09/05/21 06:19 Est GFR (MDRD) Af Amer 46 (>60) L 09/05/21 06:19 Est GFR (MDRD) Non-Af 38 (>60) L 09/05/21 06:19 Glucose 151 mg/dL (65-99) H 09/05/21 06:19 POC Glucose (mg/dL) 189 mg/dL (65-99) H 09/04/21 22:46 Calcium 8.7 mg/dL (8.5-10.1) 09/05/21 06:19 Corrected Calcium 9.4 mg/dL (8.5-10.1) 09/05/21 06:19 Total Bilirubin 0.40 mg/dL (0.2-1.0) 09/05/21 06:19 AST 21 Units/L (15-37) 09/05/21 06:19 ALT 9 Units/L (12-78) L 09/05/21 06:19 Alkaline Phosphatase 99 Units/L (46-116) 09/05/21 06:19 Creatine Kinase 233 Units/L (26-192) H 09/05/21 11:55 CK-MB (CK-2) 9.6 ng/mL (0-4.0) H* 09/05/21 11:55 CK/CKMB % Calc 4.1 % (<4) 09/05/21 11:55 Troponin I < 0.02 ng/mL (0-1.5) 09/05/21 11:55 Total Protein 7.6 g/dL (6.4-8.2) 09/05/21 06:19 Albumin 3.1 g/dL (3.4-5.0) L 09/05/21 06:19 Globulin 4.5 g/dL (2.5-4.5) 09/05/21 06:19 Albumin/Globulin Ratio 0.7 Ratio (1.1-2.1) L 09/05/21 06:19 Specimen Type Random urine 09/04/21 21:45 Urine Color Yellow (YELLOW) 09/04/21 21:45 Urine Appearance Cloudy (CLEAR) 09/04/21 21:45 Urine pH 5.0 (5.0 - 8.0) 09/04/21 21:45 Ur Specific [place] 1.030 (1.000-1.030) 09/04/21 21:45 Urine Protein 2+ (NEGATIVE) 09/04/21 21:45 Urine Glucose (UA) Negative (NEGATIVE) 09/04/21 21:45 Urine Ketones 1+ (NEGATIVE) 09/04/21 21:45 Urine Occult Blood 2+ (NEGATIVE) 09/04/21 21:45 Urine Nitrite Negative (NEGATIVE) 09/04/21 21:45 Urine Bilirubin 1+ (NEGATIVE) 09/04/21 21:45 Urine Urobilinogen 1+ (NORMAL) 09/04/21 21:45 Ur Leukocyte Esterase 3+ (NEGATIVE) 09/04/21 21:45 Urine RBC 3-5 /HPF (0-3) A 09/04/21 21:45 Urine WBC Tntc /HPF (0-5) A 09/04/21 21:45 Ur Squamous Epith Cells Numerous /HPF (NEGATIVE) 09/04/21 21:45 Urine Bacteria 3+ /HPF (NEGATIVE) 09/04/21 21:45 Ur Culture Indicated? No/not indicated 09/04/21 21:45 SARS CoV-2 RNA Rapid YAIMA Negative (NEGATIVE) 09/04/21 13:52 Review of Systems Constitutional: Weakness; denies Fever and Chills Eyes: No Symptoms Reported ENT: No Symptoms Reported Respiratory: No Symptoms Reported Cardiovascular: No Symptoms Reported Gastrointestinal: No Symptoms Reported Genitourinary: Dysuria Musculoskeletal: No Symptoms Reported Skin: No Symptoms Reported Neurological: No Symptoms Reported Physical Exam Vital Signs: Temperature 97.7 F Pulse Rate 109 Respiratory Rate 14 Blood Pressure [Left Calf] 129/73 Blood Pressure 118/70 O2 Sat by Pulse Oximetry 95 Oriented: Normal Eyes: Normal Ear: Normal Nose: Normal Throat: Normal Respiratory: Clear Throughout Cardiovascular: Normal : Normal Auscultation: Bowel Sounds: Normal Palpation: Normal Tenderness: Normal Skin: Normal Musculoskeletal: Normal Psychiatric: Normal Mood Description: Calm and Appropriate Affect: Normal Speech Pattern: Clear and Appropriate Assessment/Plan (1) Acute cystitis: Status: Acute Plan: IV Rocephin Urine culture pending (2) Acute hypotension: Status: Acute Plan: Dopamine gtt IVF (3) Dehydration: Status: Acute Review H&P Reviewed: Yes Patient was examined?: Yes
[2021-09-05] MEDS: DOPAMINE IV PREMIX 400 MG/250 ML 400 MG/250 ML BAG IV PRN (19:17)
[2021-09-05] MEDS: LIPITOR TAB 80 MG PO SCH (20:02)
[2021-09-05] MEDS: RESTORIL CAP 15 MG PO SCH (21:50)
[2021-09-06] MEDS: LOPRESSOR TAB 50 MG PO SCH (01:26)
[2021-09-06 07:01] LABS: BASOPHILS # (AUTO) 0.1 X10^3/uL (0.0-0.1); BASOPHILS % (AUTO) 0.7 % (0.2-1.0); EOSINOPHILS # (AUTO) 0.2 x10^3/uL (0.0-0.2); EOSINOPHILS % (AUTO) 2.3 % (0.9-2.9); HEMOGLOBIN 13.8 g/dL (12.0-16.0); LYMPHOCYTES # (AUTO) 1.1 X10^3/uL (1.3-2.9); LYMPHOCYTES % (AUTO) 13.4 % (21.0-51.0); MEAN CORPUSCULAR HEMOGLOBIN 28.2 pg (27.0-34.0); MEAN CORPUSCULAR HGB CONC 33.7 g/dL (33.0-35.0); MEAN CORPUSCULAR VOLUME 83.6 fL (80.0-100.0); MONOCYTES # (AUTO) 0.8 x10^3/uL (0.3-0.8); MONOCYTES % (AUTO) 10.1 % (0.0-13.0); NEUTROPHILS # (AUTO) 5.8 x10^3/uL (2.2-4.8); NEUTROPHILS % (AUTO) 73.5 % (42.0-75.0); PLATELET COUNT 192 X10^3/uL (150.0-450.0); RED CELL DISTRIBUTION WIDTH 16.6 % (11.6-16.5); WHITE BLOOD COUNT 7.9 X10^3/uL (3.6-10.0)
[2021-09-06 07:15] LABS: ALANINE AMINOTRANSFERASE 35 Units/L (12-78); ALKALINE PHOSPHATASE 155 Units/L (46-116); ASPARTATE AMINO TRANSFERASE 49 Units/L (15-37); BLOOD UREA NITROGEN 22 mg/dL (7-18); CALCIUM 8.9 mg/dL (8.5-10.1); CARBON DIOXIDE 25.2 mmol/L (21-32); CHLORIDE 104 mmol/L (98-107); COR CA(FOR HYPOALB) 9.7 mg/dL (8.5-10.1); COR NA(FOR HYPERGLY) 138 mmol/L (136-145); SODIUM 137 mmol/L (136-145); TOTAL PROTEIN 7.7 g/dL (6.4-8.2); eGFR NON BLACK RACES > 60 (>60)
[2021-09-06] MEDS ORDERED: GLUCOPHAGE ONE ×2 (07:40→20:04)
[2021-09-06] MEDS: GLUCOPHAGE PO SCH ×2 (08:11→20:13)
[2021-09-06] MEDS: ASPIRIN EC 81 MG PO SCH (08:11)
[2021-09-06] MEDS: GLUCOTROL XL 24-HR PO SCH ×2 (08:12→20:09)
[2021-09-06] MEDS: LOVENOX INJ 40 MG SYR SC SCH (08:16)
[2021-09-06] MEDS: PLAVIX PO SCH (08:19)
[2021-09-06] MEDS: ROCEPHIN 1 GRAM IV PREMIX 1 G/50 ML IV.SOLN. IV SCH (08:19)
[2021-09-06] MEDS: SYNTHROID 150 mcg TAB PO SCH (08:19)
[2021-09-06] MEDS: NS 1,000 ML IV 1,000 ML IV SCH ×4 (08:44→20:57)
[2021-09-06] MEDS: PULMICORT NEB TX 0.5 MG NEB SCH ×2 (08:55→20:33)
[2021-09-06] MEDS: BROVANA IN SCH ×2 (08:55→20:33)
[2021-09-06] MEDS: MOBIC TAB 15 MG PO SCH (10:15)
[2021-09-06] MEDS: NEURONTIN CAP 300 MG PO SCH ×3 (10:15→22:30)
--- NOTE | 2021-09-06 10:16 | PCM.PROG ---
Progress Note Progress Note for Day of Date of Exam: 09/06/21 Subjective Subjective: Pt is a 71 year old female past medical history of CVA, HTN, DMT2 admitted for Acute UTI and hypotension. Pt continues to be hypotensive, still requiring a dopamine gtt at current rate of 5mcg/kg/min. Labs/imaging: Wbc 7.9, Hgb 13.8, Plt 192, Na 137, K 4.2, Creatinine 0.90, Glucose 161, Urine/Blood culture pending. Will continue to hold BP medications at this time including metoprolol tartrate. Continue dopamine gtt and increase IVF NS to 125ml/h. Continue antibiotics: Rocephin for urinary tract infection, awaiting culture results, including blood cultures. Restart other home medications. Will consult surgery for central line placement for vasopressor support and poor venous access. Otherwise, continue with current treatment plan. Closely monitor and follow up labs/imaging. Time spent on clinical assessment, reviewing labs and imaging, decision making, and documentation greater than 45 minutes. Past Medical Family Social History Past Med/Fam/Surg Hx: No changes since H&P Allergies: Allergies No Known Drug Allergies Allergy (Verified 09/04/21 12:27) Review of Systems ROS: No change since H&P Vital Signs and I&O's Vital Signs: Temperature 98.3 F Pulse Rate 120 Respiratory Rate 22 Blood Pressure [Left Calf] 129/73 Blood Pressure 97/54 O2 Sat by Pulse Oximetry 98 Intake and Output: Intake & Output 09/03/21 09/04/21 09/05/21 09/06/21 23:59 23:59 23:59 23:59 Intake Total 472 / 472 5618 / 5618 650 / 650 Output Total 400 / 400 450 / 450 Balance 72 / 72 5168 / 5168 650 / 650 Physical Exam Oriented: Normal Eyes: Normal Ear: Normal Nose: Normal Throat: Normal Respiratory: Normal Cardiovascular: Normal : Normal Auscultation: Bowel Sounds: Normal Tenderness: Normal Skin: Normal Musculoskeletal: Normal Psychiatric: Normal Mood Description: Calm and Appropriate Affect: Normal Speech Pattern: Clear and Appropriate Laboratory and Diagnostics Result Diagrams: 09/06/21 06:38 09/06/21 06:38 Labs: Laboratory WBC 7.9 X10^3/uL (3.6-10.0) 09/06/21 06:38 RBC 4.90 X10^6/uL (3.5-5.4) 09/06/21 06:38 Hgb 13.8 g/dL (12.0-16.0) 09/06/21 06:38 Hct 41.0 % (36.0-47.0) 09/06/21 06:38 MCV 83.6 fL (80.0-100.0) 09/06/21 06:38 MCH 28.2 pg (27.0-34.0) 09/06/21 06:38 MCHC 33.7 g/dL (33.0-35.0) 09/06/21 06:38 RDW 16.6 % (11.6-16.5) H 09/06/21 06:38 Plt Count 192 X10^3/uL (150.0-450.0) 09/06/21 06:38 MPV 9.0 fL (7.4-11.0) 09/06/21 06:38 Neut % (Auto) 73.5 % (42.0-75.0) 09/06/21 06:38 Lymph % (Auto) 13.4 % (21.0-51.0) L 09/06/21 06:38 [place] % (Auto) 10.1 % (0.0-13.0) 09/06/21 06:38 Eos % (Auto) 2.3 % (0.9-2.9) 09/06/21 06:38 Baso % (Auto) 0.7 % (0.2-1.0) 09/06/21 06:38 Neut # (Auto) 5.8 x10^3/uL (2.2-4.8) H 09/06/21 06:38 Lymph # (Auto) 1.1 X10^3/uL (1.3-2.9) L 09/06/21 06:38 [place] # (Auto) 0.8 x10^3/uL (0.3-0.8) 09/06/21 06:38 Eos # (Auto) 0.2 x10^3/uL (0.0-0.2) 09/06/21 06:38 Baso # (Auto) 0.1 X10^3/uL (0.0-0.1) 09/06/21 06:38 Absolute Nucleated RBC 0.1 /100WBC 09/06/21 06:38 D-Dimer 0.52 ug/ml (0.0-0.57) 09/05/21 13:00 Sodium 137 mmol/L (136-145) 09/06/21 06:38 Corrected Sodium 138 mmol/L (136-145) 09/06/21 06:38 Potassium 4.2 mmol/L (3.5-5.1) 09/06/21 06:38 Chloride 104 mmol/L (98-107) 09/06/21 06:38 Carbon Dioxide 25.2 mmol/L (21-32) 09/06/21 06:38 BUN 22 mg/dL (7-18) H 09/06/21 06:38 Creatinine 0.90 mg/dL (0.55-1.02) 09/06/21 06:38 Est GFR (MDRD) Af Amer > 60 (>60) 09/06/21 06:38 Est GFR (MDRD) Non-Af > 60 (>60) 09/06/21 06:38 Glucose 161 mg/dL (65-99) H 09/06/21 06:38 POC Glucose (mg/dL) 164 mg/dL (65-99) H 09/06/21 06:21 Calcium 8.9 mg/dL (8.5-10.1) 09/06/21 06:38 Corrected Calcium 9.7 mg/dL (8.5-10.1) 09/06/21 06:38 Total Bilirubin 0.50 mg/dL (0.2-1.0) 09/06/21 06:38 AST 49 Units/L (15-37) H 09/06/21 06:38 ALT 35 Units/L (12-78) 09/06/21 06:38 Alkaline Phosphatase 155 Units/L (46-116) H 09/06/21 06:38 Creatine Kinase 233 Units/L (26-192) H 09/05/21 11:55 CK-MB (CK-2) 9.6 ng/mL (0-4.0) H* 09/05/21 11:55 CK/CKMB % Calc 4.1 % (<4) 09/05/21 11:55 Troponin I < 0.02 ng/mL (0-1.5) 09/05/21 11:55 Total Protein 7.7 g/dL (6.4-8.2) 09/06/21 06:38 Albumin 3.0 g/dL (3.4-5.0) L 09/06/21 06:38 Globulin 4.7 g/dL (2.5-4.5) H 09/06/21 06:38 Albumin/Globulin Ratio 0.6 Ratio (1.1-2.1) L 09/06/21 06:38 Specimen Type Random urine 09/04/21 21:45 Urine Color Yellow (YELLOW) 09/04/21 21:45 Urine Appearance Cloudy (CLEAR) 09/04/21 21:45 Urine pH 5.0 (5.0 - 8.0) 09/04/21 21:45 Ur Specific [place] 1.030 (1.000-1.030) 09/04/21 21:45 Urine Protein 2+ (NEGATIVE) 09/04/21 21:45 Urine Glucose (UA) Negative (NEGATIVE) 09/04/21 21:45 Urine Ketones 1+ (NEGATIVE) 09/04/21 21:45 Urine Occult Blood 2+ (NEGATIVE) 09/04/21 21:45 Urine Nitrite Negative (NEGATIVE) 09/04/21 21:45 Urine Bilirubin 1+ (NEGATIVE) 09/04/21 21:45 Urine Urobilinogen 1+ (NORMAL) 09/04/21 21:45 Ur Leukocyte Esterase 3+ (NEGATIVE) 09/04/21 21:45 Urine RBC 3-5 /HPF (0-3) A 09/04/21 21:45 Urine WBC Tntc /HPF (0-5) A 09/04/21 21:45 Ur Squamous Epith Cells Numerous /HPF (NEGATIVE) 09/04/21 21:45 Urine Bacteria 3+ /HPF (NEGATIVE) 09/04/21 21:45 Ur Culture Indicated? No/not indicated 09/04/21 21:45 SARS CoV-2 RNA Rapid YAIMA Negative (NEGATIVE) 09/04/21 13:52 Plan (1) Acute cystitis: Status: Acute Plan: IV Rocephin Urine culture pending (2) Acute hypotension: Status: Acute Plan: Dopamine gtt IVF (3) Dehydration: Status: Acute
[2021-09-06] MEDS: DOPAMINE IV PREMIX 400 MG/250 ML 400 MG/250 ML BAG IV PRN (14:48)
[2021-09-06] MEDS: LIPITOR TAB 80 MG PO SCH (20:10)
[2021-09-06] MEDS: RESTORIL CAP 15 MG PO SCH (20:14)
[2021-09-07] MEDS: NS 1,000 ML IV 1,000 ML IV SCH ×3 (01:34→20:03)
[2021-09-07] MEDS: NYSTATIN POWDER TOP SCH ×3 (02:05→20:04)
[2021-09-07 05:26] LABS: BASOPHILS % (AUTO) 0.6 % (0.2-1.0); EOSINOPHILS # (AUTO) 0.2 x10^3/uL (0.0-0.2); EOSINOPHILS % (AUTO) 2.5 % (0.9-2.9); HEMATOCRIT 37.2 % (36.0-47.0); HEMOGLOBIN 12.4 g/dL (12.0-16.0); LYMPHOCYTES # (AUTO) 1.8 X10^3/uL (1.3-2.9); LYMPHOCYTES % (AUTO) 28.3 % (21.0-51.0); MEAN CORPUSCULAR HGB CONC 33.3 g/dL (33.0-35.0); MEAN CORPUSCULAR VOLUME 84.1 fL (80.0-100.0); MONOCYTES # (AUTO) 0.7 x10^3/uL (0.3-0.8); MONOCYTES % (AUTO) 11.3 % (0.0-13.0); NEUTROPHILS # (AUTO) 3.6 x10^3/uL (2.2-4.8); NEUTROPHILS % (AUTO) 57.3 % (42.0-75.0); PLATELET COUNT 178 X10^3/uL (150.0-450.0); RED BLOOD COUNT 4.42 X10^6/uL (3.5-5.4); RED CELL DISTRIBUTION WIDTH 16.2 % (11.6-16.5); WHITE BLOOD COUNT 6.3 X10^3/uL (3.6-10.0)
[2021-09-07] MEDS: NEURONTIN CAP 300 MG PO SCH ×3 (05:26→21:28)
[2021-09-07 05:46] LABS: ALANINE AMINOTRANSFERASE 34 Units/L (12-78); ALBUMIN 2.6 g/dL (3.4-5.0); ALKALINE PHOSPHATASE 137 Units/L (46-116); ASPARTATE AMINO TRANSFERASE 44 Units/L (15-37); BLOOD UREA NITROGEN 12 mg/dL (7-18); CALCIUM 8.5 mg/dL (8.5-10.1); CARBON DIOXIDE 24.5 mmol/L (21-32); CHLORIDE 107 mmol/L (98-107); COR CA(FOR HYPOALB) 9.6 mg/dL (8.5-10.1); CREATININE 0.67 mg/dL (0.55-1.02); SODIUM 140 mmol/L (136-145); TOTAL PROTEIN 6.6 g/dL (6.4-8.2); eGFR NON BLACK RACES > 60 (>60)
[2021-09-07] MEDS ORDERED: GLUCOPHAGE ONE ×2 (08:19→19:35)
[2021-09-07] MEDS: PULMICORT NEB TX 0.5 MG NEB SCH ×2 (09:00→20:43)
[2021-09-07] MEDS: BROVANA IN SCH ×2 (09:00→20:43)
[2021-09-07] MEDS: GLUCOPHAGE PO SCH ×2 (09:45→20:04)
[2021-09-07] MEDS: PLAVIX PO SCH (09:45)
[2021-09-07] MEDS: ASPIRIN EC 81 MG PO SCH (09:45)
[2021-09-07] MEDS: LOVENOX INJ 40 MG SYR SC SCH (09:45)
[2021-09-07] MEDS: SYNTHROID 150 mcg TAB PO SCH (09:45)
[2021-09-07] MEDS: COREG TAB 3.125 MG PO SCH ×2 (09:45→20:04)
[2021-09-07] MEDS: MOBIC TAB 15 MG PO SCH (09:45)
[2021-09-07] MEDS: GLUCOTROL XL 24-HR PO SCH (09:45)
[2021-09-07] MEDS: ROCEPHIN 1 GRAM IV PREMIX 1 G/50 ML IV.SOLN. IV SCH (09:45)
--- NOTE | 2021-09-07 10:36 | PCM.PROG ---
Progress Note Progress Note for Day of Date of Exam: 09/07/21 Subjective Subjective: Pt is a 71 year old female past medical history of CVA, HTN, DMT2 admitted for Acute UTI and hypotension. Overnight patient was able to be weaned off dopamine gtt. She had refused central line placement. This morning she reports feeling much better and doing well. Labs/imaging: Wbc 6.3, Hgb 12.4, Plt 178, Na 140, K 3.9, Creatinine 0.67, Glucose 59, Urine culture positive for Klebsiella pneu, blood culture pending. Currently holding BP medications at this time, due to tachycardia will start on coreg. Continue IVF NS at 125ml/h. Continue antibiotics: Rocephin for urinary tract infection. Pt was hypoglycemic this morning of 59. Will change glipizide ER BID to Daily dosing. Otherwise, co ntinue with current treatment plan. Closely monitor and follow up labs/imaging. Time spent on clinical assessment, reviewing labs and imaging, decision making, and documentation greater than 45 minutes. Past Medical Family Social History Past Med/Fam/Surg Hx: No changes since H&P Allergies: Allergies No Known Drug Allergies Allergy (Verified 09/04/21 12:27) Review of Systems ROS: No change since H&P Vital Signs and I&O's Vital Signs: Temperature 97.8 F Pulse Rate 128 Respiratory Rate 14 Blood Pressure [Left Calf] 129/73 Blood Pressure 102/55 O2 Sat by Pulse Oximetry 91 Intake and Output: Intake & Output 09/04/21 09/05/21 09/06/21 09/07/21 23:59 23:59 23:59 23:59 Intake Total 472 / 472 5618 / 5618 1920 / 1920 1000 / 1000 Output Total 400 / 400 450 / 450 750 / 750 450 / 450 Balance 72 / 72 5168 / 5168 1170 / 1170 550 / 550 Physical Exam Oriented: Normal Eyes: Normal Ear: Normal Nose: Normal Throat: Normal Respiratory: Normal Cardiovascular: Normal : Normal Auscultation: Bowel Sounds: Normal Tenderness: Normal Skin: Normal Musculoskeletal: Normal Psychiatric: Normal Mood Description: Calm and Appropriate Affect: Normal Speech Pattern: Clear and Appropriate Laboratory and Diagnostics Result Diagrams: 09/07/21 04:40 09/07/21 04:40 Labs: 09/05/21 14:05 Urine,Clean Catch Urine Culture - Final Klebsiella Pneumoniae Laboratory WBC 6.3 X10^3/uL (3.6-10.0) 09/07/21 04:40 RBC 4.42 X10^6/uL (3.5-5.4) 09/07/21 04:40 Hgb 12.4 g/dL (12.0-16.0) 09/07/21 04:40 Hct 37.2 % (36.0-47.0) 09/07/21 04:40 MCV 84.1 fL (80.0-100.0) 09/07/21 04:40 MCH 28.0 pg (27.0-34.0) 09/07/21 04:40 MCHC 33.3 g/dL (33.0-35.0) 09/07/21 04:40 RDW 16.2 % (11.6-16.5) 09/07/21 04:40 Plt Count 178 X10^3/uL (150.0-450.0) 09/07/21 04:40 MPV 9.0 fL (7.4-11.0) 09/07/21 04:40 Neut % (Auto) 57.3 % (42.0-75.0) 09/07/21 04:40 Lymph % (Auto) 28.3 % (21.0-51.0) 09/07/21 04:40 [place] % (Auto) 11.3 % (0.0-13.0) 09/07/21 04:40 Eos % (Auto) 2.5 % (0.9-2.9) 09/07/21 04:40 Baso % (Auto) 0.6 % (0.2-1.0) 09/07/21 04:40 Neut # (Auto) 3.6 x10^3/uL (2.2-4.8) 09/07/21 04:40 Lymph # (Auto) 1.8 X10^3/uL (1.3-2.9) 09/07/21 04:40 [place] # (Auto) 0.7 x10^3/uL (0.3-0.8) 09/07/21 04:40 Eos # (Auto) 0.2 x10^3/uL (0.0-0.2) 09/07/21 04:40 Baso # (Auto) 0.0 X10^3/uL (0.0-0.1) 09/07/21 04:40 Absolute Nucleated RBC 0.0 /100WBC 09/07/21 04:40 D-Dimer 0.52 ug/ml (0.0-0.57) 09/05/21 13:00 Sodium 140 mmol/L (136-145) 09/07/21 04:40 Corrected Sodium TNP 09/07/21 04:40 Potassium 3.9 mmol/L (3.5-5.1) 09/07/21 04:40 Chloride 107 mmol/L (98-107) 09/07/21 04:40 Carbon Dioxide 24.5 mmol/L (21-32) 09/07/21 04:40 BUN 12 mg/dL (7-18) 09/07/21 04:40 Creatinine 0.67 mg/dL (0.55-1.02) 09/07/21 04:40 Est GFR (MDRD) Af Amer > 60 (>60) 09/07/21 04:40 Est GFR (MDRD) Non-Af > 60 (>60) 09/07/21 04:40 Glucose 59 mg/dL (65-99) L 09/07/21 04:40 POC Glucose (mg/dL) 123 mg/dL (65-99) H 09/06/21 20:04 Calcium 8.5 mg/dL (8.5-10.1) 09/07/21 04:40 Corrected Calcium 9.6 mg/dL (8.5-10.1) 09/07/21 04:40 Total Bilirubin 0.40 mg/dL (0.2-1.0) 09/07/21 04:40 AST 44 Units/L (15-37) H 09/07/21 04:40 ALT 34 Units/L (12-78) 09/07/21 04:40 Alkaline Phosphatase 137 Units/L (46-116) H 09/07/21 04:40 Creatine Kinase 233 Units/L (26-192) H 09/05/21 11:55 CK-MB (CK-2) 9.6 ng/mL (0-4.0) H* 09/05/21 11:55 CK/CKMB % Calc 4.1 % (<4) 09/05/21 11:55 Troponin I < 0.02 ng/mL (0-1.5) 09/05/21 11:55 Total Protein 6.6 g/dL (6.4-8.2) 09/07/21 04:40 Albumin 2.6 g/dL (3.4-5.0) L 09/07/21 04:40 Globulin 4.0 g/dL (2.5-4.5) 09/07/21 04:40 Albumin/Globulin Ratio 0.7 Ratio (1.1-2.1) L 09/07/21 04:40 Specimen Type Random urine 09/04/21 21:45 Urine Color Yellow (YELLOW) 09/04/21 21:45 Urine Appearance Cloudy (CLEAR) 09/04/21 21:45 Urine pH 5.0 (5.0 - 8.0) 09/04/21 21:45 Ur Specific [place] 1.030 (1.000-1.030) 09/04/21 21:45 Urine Protein 2+ (NEGATIVE) 09/04/21 21:45 Urine Glucose (UA) Negative (NEGATIVE) 09/04/21 21:45 Urine Ketones 1+ (NEGATIVE) 09/04/21 21:45 Urine Occult Blood 2+ (NEGATIVE) 09/04/21 21:45 Urine Nitrite Negative (NEGATIVE) 09/04/21 21:45 Urine Bilirubin 1+ (NEGATIVE) 09/04/21 21:45 Urine Urobilinogen 1+ (NORMAL) 09/04/21 21:45 Ur Leukocyte Esterase 3+ (NEGATIVE) 09/04/21 21:45 Urine RBC 3-5 /HPF (0-3) A 09/04/21 21:45 Urine WBC Tntc /HPF (0-5) A 09/04/21 21:45 Ur Squamous Epith Cells Numerous /HPF (NEGATIVE) 09/04/21 21:45 Urine Bacteria 3+ /HPF (NEGATIVE) 09/04/21 21:45 Ur Culture Indicated? No/not indicated 09/04/21 21:45 SARS CoV-2 RNA Rapid YAIMA Negative (NEGATIVE) 09/04/21 13:52 Plan (1) Acute cystitis: Status: Acute Plan: IV Rocephin (2) Acute hypotension: Status: Acute Plan: IVF (3) Dehydration: Status: Acute
[2021-09-07] MEDS: RESTORIL CAP 15 MG PO SCH (20:04)
[2021-09-07] MEDS: LIPITOR TAB 80 MG PO SCH (20:04)
[2021-09-07] MEDS ORDERED: IMODIUM CAP 2 MG PO PRN (22:30)
[2021-09-08] MEDS: NS 1,000 ML IV 1,000 ML IV SCH ×2 (01:54→09:19)
[2021-09-08] MEDS ORDERED: ZOFRAN TAB 4 MG ONE (02:02)
[2021-09-08] MEDS: ZOFRAN TAB 4 MG SL PRN ×2 (02:04→08:30)
[2021-09-08] MEDS: NEURONTIN CAP 300 MG PO SCH (05:07)
[2021-09-08 05:18] LABS: BASOPHILS # (AUTO) 0.1 X10^3/uL (0.0-0.1); BASOPHILS % (AUTO) 0.7 % (0.2-1.0); EOSINOPHILS # (AUTO) 0.1 x10^3/uL (0.0-0.2); EOSINOPHILS % (AUTO) 1.8 % (0.9-2.9); HEMATOCRIT 39.8 % (36.0-47.0); HEMOGLOBIN 13.4 g/dL (12.0-16.0); LYMPHOCYTES # (AUTO) 1.4 X10^3/uL (1.3-2.9); LYMPHOCYTES % (AUTO) 17.5 % (21.0-51.0); MEAN CORPUSCULAR HEMOGLOBIN 28.4 pg (27.0-34.0); MEAN CORPUSCULAR HGB CONC 33.5 g/dL (33.0-35.0); MEAN CORPUSCULAR VOLUME 84.8 fL (80.0-100.0); MEAN PLATELET VOLUME 9.1 fL (7.4-11.0); MONOCYTES # (AUTO) 0.6 x10^3/uL (0.3-0.8); MONOCYTES % (AUTO) 7.5 % (0.0-13.0); NEUTROPHILS # (AUTO) 5.7 x10^3/uL (2.2-4.8); NEUTROPHILS % (AUTO) 72.5 % (42.0-75.0); PLATELET COUNT 198 X10^3/uL (150.0-450.0); WHITE BLOOD COUNT 7.9 X10^3/uL (3.6-10.0)
[2021-09-08 05:28] LABS: ALANINE AMINOTRANSFERASE 34 Units/L (12-78); ALKALINE PHOSPHATASE 139 Units/L (46-116); ASPARTATE AMINO TRANSFERASE 37 Units/L (15-37); BLOOD UREA NITROGEN 11 mg/dL (7-18); CALCIUM 8.9 mg/dL (8.5-10.1); CARBON DIOXIDE 24.5 mmol/L (21-32); CHLORIDE 106 mmol/L (98-107); COR CA(FOR HYPOALB) 9.7 mg/dL (8.5-10.1); COR NA(FOR HYPERGLY) 139 mmol/L (136-145); CREATININE 0.75 mg/dL (0.55-1.02); SODIUM 139 mmol/L (136-145); TOTAL PROTEIN 7.4 g/dL (6.4-8.2); eGFR NON BLACK RACES > 60 (>60)
[2021-09-08] MEDS: RESTORIL CAP 15 MG PO SCH (05:36)
[2021-09-08] MEDS ORDERED: GLUCOPHAGE ONE (08:14)
[2021-09-08] MEDS: ROCEPHIN 1 GRAM IV PREMIX 1 G/50 ML IV.SOLN. IV SCH (08:34)
[2021-09-08] MEDS: GLUCOPHAGE PO SCH (08:34)
[2021-09-08] MEDS: SYNTHROID 150 mcg TAB PO SCH (08:35)
[2021-09-08] MEDS: NYSTATIN POWDER TOP SCH (08:35)
[2021-09-08] MEDS: PLAVIX PO SCH (08:35)
[2021-09-08] MEDS: LOVENOX INJ 40 MG SYR SC SCH (08:35)
[2021-09-08] MEDS: ASPIRIN EC 81 MG PO SCH (08:35)
[2021-09-08 08:36] VITALS: BP 137/65
[2021-09-08] MEDS: MOBIC TAB 15 MG PO SCH (08:36)
[2021-09-08] MEDS ORDERED: GLUCOTROL XL 24-HR PO SCH (09:00)
[2021-09-08] MEDS ORDERED: COREG TAB 25 MG PO SCH (09:00)
[2021-09-08] MEDS: PULMICORT NEB TX 0.5 MG NEB SCH (09:47)
[2021-09-08] MEDS: BROVANA IN SCH (09:47)
--- NOTE | 2021-09-08 10:12 | W.DIS.FURT ---
Summary of Discharge Discharge Summary of Date Date of Exam: 09/08/21 Admission Date Date of Admission: 09/04/21 Admission Diagnosis Patient Problems (Updated 09/06/21 @ 07:25 by Checo Patton) Hypotension (Acute) I95.9 Pulmonary edema (Acute) J81.1 Dehydration (Acute) E86.0 Hospital Course: Pt is a 71 year old female past medical history of CVA, HTN, DMT2 admitted for Acute UTI and hypotension. Her hospital/treatment course included IVF and needing dopamine gtt. Pt was able to be successfully weaned off dopamine gtt and BP stabilized. BP medications were held and patient was instructed to continue metoprolol and stop taking losartan. Urine culture positive for Klebsiella pneu, blood culture NGTD. Pt received Rocephin for urinary tract infection and rx cefdinir was sent. 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 Pt responded well to treatments. She was discharged in stable condition, instructed to follow up with pcp in 3-5 days. Vital Signs: Vital Signs (72 hours) 09/05/21 10:15 09/05/21 10:30 09/05/21 10:45 Temperature Pulse Rate 122 H 121 H 119 H Respiratory Rate 13 12 10 L Blood Pressure 112/60 113/57 O2 Sat by Pulse Oximetry 100 100 100 09/05/21 10:46 09/05/21 10:47 09/05/21 10:48 Temperature Pulse Rate 119 H 120 H Respiratory Rate 10 L 12 Blood Pressure 61/36 59/34 59/37 O2 Sat by Pulse Oximetry 100 100 09/05/21 10:50 09/05/21 10:56 09/05/21 10:58 Temperature Pulse Rate 120 H 118 H Respiratory Rate 13 13 Blood Pressure 59/38 58/32 O2 Sat by Pulse Oximetry 100 100 09/05/21 11:00 09/05/21 11:11 09/05/21 11:15 Temperature Pulse Rate 119 H 119 H 119 H Respiratory Rate 9 L 10 L 11 L Blood Pressure 66/48 86/40 O2 Sat by Pulse Oximetry 100 100 100 09/05/21 11:20 09/05/21 11:28 09/05/21 11:30 Temperature Pulse Rate 119 H 119 H 118 H Respiratory Rate 9 L 11 L 19 Blood Pressure 82/38 101/69 116/59 O2 Sat by Pulse Oximetry 100 100 98 09/05/21 11:40 09/05/21 11:45 09/05/21 12:00 Temperature Pulse Rate 118 H 118 H 119 H Respiratory Rate 9 L 21 31 H Blood Pressure 93/59 O2 Sat by Pulse Oximetry 100 100 100 09/05/21 12:05 09/05/21 12:10 09/05/21 12:15 Temperature Pulse Rate 122 H 122 H 122 H Respiratory Rate 22 14 24 Blood Pressure 108/55 111/50 O2 Sat by Pulse Oximetry 99 98 93 L 09/05/21 12:29 09/05/21 12:30 09/05/21 12:31 Temperature Pulse Rate 119 H 119 H 119 H Respiratory Rate 15 18 19 Blood Pressure 85/47 83/54 O2 Sat by Pulse Oximetry 96 96 96 09/05/21 12:41 09/05/21 12:45 09/05/21 12:50 Temperature Pulse Rate 119 H 119 H 118 H Respiratory Rate 12 10 L 13 Blood Pressure 118/72 100/72 O2 Sat by Pulse Oximetry 97 98 96 09/05/21 13:00 09/05/21 13:11 09/05/21 13:15 Temperature Pulse Rate 116 H 112 H 106 H Respiratory Rate 13 10 L 9 L Blood Pressure 86/67 102/63 O2 Sat by Pulse Oximetry 96 94 L 94 L 09/05/21 13:20 09/05/21 13:23 09/05/21 13:30 Temperature Pulse Rate 97 H 109 H 90 Respiratory Rate 11 L 14 11 L Blood Pressure 115/6 118/70 113/65 O2 Sat by Pulse Oximetry 95 95 99 09/05/21 13:40 09/05/21 14:00 09/05/21 14:08 Temperature Pulse Rate 96 H 80 82 Respiratory Rate 21 19 12 Blood Pressure 118/62 60/45 O2 Sat by Pulse Oximetry 84 L 80 L 98 09/05/21 14:15 09/05/21 14:21 09/05/21 14:30 Temperature Pulse Rate 78 71 77 Respiratory Rate 12 12 11 L Blood Pressure 60/44 61/39 56/36 O2 Sat by Pulse Oximetry 97 97 96 09/05/21 14:35 09/05/21 14:45 09/05/21 15:00 Temperature Pulse Rate 77 85 99 H Respiratory Rate 12 10 L 11 L Blood Pressure 55/31 92/50 107/56 O2 Sat by Pulse Oximetry 97 94 L 95 09/05/21 15:15 09/05/21 15:30 09/05/21 15:45 Temperature Pulse Rate 112 H 112 H 82 Respiratory Rate 14 14 11 L Blood Pressure 106/64 102/58 93/55 O2 Sat by Pulse Oximetry 93 L 96 97 09/05/21 16:00 09/05/21 16:30 09/05/21 16:45 Temperature 98.4 F Pulse Rate 109 H 123 H 120 H Respiratory Rate 10 L 19 14 Blood Pressure 121/78 O2 Sat by Pulse Oximetry 98 94 L 09/05/21 17:00 09/05/21 17:15 09/05/21 17:30 Temperature Pulse Rate 118 H 121 H 118 H Respiratory Rate 14 16 27 H Blood Pressure O2 Sat by Pulse Oximetry 94 L 92 L 91 L 09/05/21 17:45 09/05/21 18:00 09/05/21 18:15 Temperature Pulse Rate 120 H 120 H 122 H Respiratory Rate 30 H 13 13 Blood Pressure O2 Sat by Pulse Oximetry 76 L 93 L 91 L 09/05/21 18:30 09/05/21 18:45 09/05/21 19:07 Temperature Pulse Rate 123 H 126 H 125 H Respiratory Rate 22 19 22 Blood Pressure O2 Sat by Pulse Oximetry 96 95 94 L 09/05/21 19:15 09/05/21 19:30 09/05/21 19:43 Temperature Pulse Rate 124 H 124 H 123 H Respiratory Rate 14 26 H 16 Blood Pressure 100/55 O2 Sat by Pulse Oximetry 94 L 94 L 94 L 09/05/21 19:45 09/05/21 20:00 09/05/21 20:15 Temperature 99.1 F Pulse Rate 121 H 89 113 H Respiratory Rate 15 16 16 Blood Pressure 95/54 82/52 86/55 O2 Sat by Pulse Oximetry 95 88 L 94 L 09/05/21 20:30 09/05/21 20:33 09/05/21 20:45 Temperature Pulse Rate 121 H 121 H 123 H Respiratory Rate 16 18 26 H Blood Pressure 103/61 109/67 O2 Sat by Pulse Oximetry 94 L 96 94 L 09/05/21 20:47 09/05/21 21:00 09/05/21 21:15 Temperature Pulse Rate 120 H 124 H 124 H Respiratory Rate 20 15 Blood Pressure 99/53 O2 Sat by Pulse Oximetry 93 L 88 L 92 L 09/05/21 21:30 09/05/21 21:45 09/05/21 22:00 Temperature Pulse Rate 125 H 128 H 127 H Respiratory Rate 40 H 15 Blood Pressure O2 Sat by Pulse Oximetry 92 L 83 L 09/05/21 22:14 09/05/21 22:15 09/05/21 22:30 Temperature Pulse Rate 126 H 126 H 124 H Respiratory Rate 17 14 13 Blood Pressure 90/51 O2 Sat by Pulse Oximetry 96 97 95 09/05/21 22:45 09/05/21 23:00 09/05/21 23:15 Temperature Pulse Rate 123 H 123 H 124 H Respiratory Rate 13 13 12 Blood Pressure O2 Sat by Pulse Oximetry 96 95 97 09/05/21 23:30 09/05/21 23:42 09/05/21 23:45 Temperature Pulse Rate 126 H 126 H 128 H Respiratory Rate 27 H 25 H 43 H Blood Pressure 94/52 O2 Sat by Pulse Oximetry 92 L 95 95 09/06/21 00:00 09/06/21 00:15 09/06/21 00:30 Temperature 98.6 F Pulse Rate 125 H 125 H 124 H Respiratory Rate 15 13 20 Blood Pressure 139/62 110/62 O2 Sat by Pulse Oximetry 98 97 09/06/21 00:45 09/06/21 01:00 09/06/21 01:15 Temperature Pulse Rate 123 H 124 H 123 H Respiratory Rate 17 21 20 Blood Pressure 90/55 O2 Sat by Pulse Oximetry 94 L 99 09/06/21 01:30 09/06/21 01:45 09/06/21 02:00 Temperature Pulse Rate 123 H 123 H 125 H Respiratory Rate 21 21 Blood Pressure O2 Sat by Pulse Oximetry 100 09/06/21 02:01 09/06/21 02:15 09/06/21 02:30 Temperature Pulse Rate 124 H 124 H 125 H Respiratory Rate 17 20 14 Blood Pressure 95/65 O2 Sat by Pulse Oximetry 100 100 99 09/06/21 02:45 09/06/21 02:54 09/06/21 03:00 Temperature Pulse Rate 125 H 126 H 126 H Respiratory Rate 13 14 14 Blood Pressure 121/69 120/70 O2 Sat by Pulse Oximetry 98 97 98 09/06/21 03:15 09/06/21 03:30 09/06/21 03:45 Temperature Pulse Rate 126 H 126 H 126 H Respiratory Rate 15 15 14 Blood Pressure 116/67 113/62 105/57 O2 Sat by Pulse Oximetry 97 96 96 09/06/21 04:00 09/06/21 04:18 09/06/21 04:22 Temperature 99.0 F Pulse Rate 129 H 128 H 128 H Respiratory Rate 24 15 Blood Pressure 73/44 O2 Sat by Pulse Oximetry 95 80 L 100 09/06/21 04:30 09/06/21 04:38 09/06/21 04:45 Temperature Pulse Rate 126 H 126 H 125 H Respiratory Rate 14 20 18 Blood Pressure 73/52 97/54 O2 Sat by Pulse Oximetry 100 100 100 09/06/21 05:00 09/06/21 05:15 09/06/21 05:30 Temperature Pulse Rate 125 H 126 H 124 H Respiratory Rate 11 L 27 H 17 Blood Pressure O2 Sat by Pulse Oximetry 100 100 100 09/06/21 05:45 09/06/21 06:00 09/06/21 06:15 Temperature Pulse Rate 126 H 125 H 126 H Respiratory Rate 22 17 21 Blood Pressure O2 Sat by Pulse Oximetry 99 100 98 09/06/21 06:30 09/06/21 06:45 09/06/21 07:00 Temperature Pulse Rate 128 H 129 H 126 H Respiratory Rate 22 13 13 Blood Pressure O2 Sat by Pulse Oximetry 98 100 97 09/06/21 07:15 09/06/21 07:30 09/06/21 07:45 Temperature 98.3 F Pulse Rate 127 H 128 H 128 H Respiratory Rate 21 18 15 Blood Pressure O2 Sat by Pulse Oximetry 100 100 100 09/06/21 08:00 09/06/21 08:15 09/06/21 08:30 Temperature Pulse Rate 126 H 126 H 125 H Respiratory Rate 19 25 H 19 Blood Pressure O2 Sat by Pulse Oximetry 98 99 98 09/06/21 08:45 09/06/21 08:55 09/06/21 09:00 Temperature Pulse Rate 126 H 127 H Respiratory Rate 18 15 Blood Pressure O2 Sat by Pulse Oximetry 98 100 100 09/06/21 09:15 09/06/21 09:17 09/06/21 09:30 Temperature 98.3 F Pulse Rate 127 H 120 H 127 H Respiratory Rate 17 22 24 Blood Pressure O2 Sat by Pulse Oximetry 100 98 98 09/06/21 09:45 09/06/21 10:00 09/06/21 10:15 Temperature Pulse Rate 126 H 126 H 128 H Respiratory Rate 20 15 22 Blood Pressure O2 Sat by Pulse Oximetry 98 100 99 09/06/21 10:30 09/06/21 10:45 09/06/21 11:00 Temperature Pulse Rate 128 H 130 H 129 H Respiratory Rate 9 L 24 29 H Blood Pressure O2 Sat by Pulse Oximetry 99 100 99 09/06/21 11:15 09/06/21 11:30 09/06/21 11:45 Temperature Pulse Rate 125 H 125 H 126 H Respiratory Rate 14 14 15 Blood Pressure 130/69 140/62 141/64 O2 Sat by Pulse Oximetry 98 98 99 09/06/21 12:00 09/06/21 12:15 09/06/21 12:22 Temperature Pulse Rate 128 H 129 H 127 H Respiratory Rate 31 H 21 21 Blood Pressure 92/54 O2 Sat by Pulse Oximetry 96 84 L 81 L 09/06/21 12:30 09/06/21 12:45 09/06/21 12:46 Temperature Pulse Rate 126 H 125 H 126 H Respiratory Rate 10 L 14 19 Blood Pressure 90/51 99/64 O2 Sat by Pulse Oximetry 100 97 85 L 09/06/21 13:00 09/06/21 13:15 09/06/21 13:30 Temperature Pulse Rate 124 H 126 H 125 H Respiratory Rate 15 20 18 Blood Pressure 100/59 95/61 90/65 O2 Sat by Pulse Oximetry 100 100 100 09/06/21 13:45 09/06/21 14:00 09/06/21 14:15 Temperature Pulse Rate 126 H 124 H 125 H Respiratory Rate 19 13 19 Blood Pressure 95/50 76/50 111/56 O2 Sat by Pulse Oximetry 99 100 95 09/06/21 14:30 09/06/21 14:45 09/06/21 14:46 Temperature Pulse Rate 126 H 127 H 127 H Respiratory Rate 29 H 18 18 Blood Pressure 119/66 100/54 O2 Sat by Pulse Oximetry 100 98 97 09/06/21 15:00 09/06/21 15:15 09/06/21 15:30 Temperature Pulse Rate 125 H 125 H 126 H Respiratory Rate 22 19 22 Blood Pressure 112/63 97/59 108/55 O2 Sat by Pulse Oximetry 96 96 99 09/06/21 15:45 09/06/21 16:00 09/06/21 16:15 Temperature Pulse Rate 125 H 124 H 125 H Respiratory Rate 13 9 L 24 Blood Pressure 108/59 124/69 O2 Sat by Pulse Oximetry 100 100 100 09/06/21 16:16 09/06/21 16:30 09/06/21 16:31 Temperature Pulse Rate 126 H 121 H 127 H Respiratory Rate 28 H Blood Pressure 134/54 119/58 O2 Sat by Pulse Oximetry 99 92 L 93 L 09/06/21 16:45 09/06/21 17:00 09/06/21 17:15 Temperature Pulse Rate 128 H 127 H 127 H Respiratory Rate 23 18 12 Blood Pressure 117/58 112/56 131/78 O2 Sat by Pulse Oximetry 96 93 L 88 L 09/06/21 17:30 09/06/21 17:45 09/06/21 18:00 Temperature Pulse Rate 125 H 125 H 125 H Respiratory Rate 12 15 15 Blood Pressure 137/82 144/73 O2 Sat by Pulse Oximetry 96 98 99 09/06/21 18:15 09/06/21 18:19 09/06/21 18:30 Temperature Pulse Rate 127 H 126 H 126 H Respiratory Rate 27 H 18 19 Blood Pressure 97/52 O2 Sat by Pulse Oximetry 100 95 09/06/21 18:45 09/06/21 19:00 09/06/21 19:15 Temperature Pulse Rate 125 H 128 H 125 H Respiratory Rate 25 H 32 H 16 Blood Pressure O2 Sat by Pulse Oximetry 96 98 97 09/06/21 19:30 09/06/21 19:45 09/06/21 20:00 Temperature 98.1 F Pulse Rate 126 H 125 H 125 H Respiratory Rate 12 17 15 Blood Pressure O2 Sat by Pulse Oximetry 92 L 98 98 09/06/21 20:15 09/06/21 20:30 09/06/21 20:33 Temperature Pulse Rate 124 H 125 H 124 H Respiratory Rate 14 15 Blood Pressure O2 Sat by Pulse Oximetry 88 L 99 94 L 09/06/21 20:45 09/06/21 21:00 09/06/21 21:15 Temperature Pulse Rate 129 H 126 H 126 H Respiratory Rate 23 12 15 Blood Pressure O2 Sat by Pulse Oximetry 89 L 100 99 09/06/21 21:30 09/06/21 21:45 09/06/21 22:00 Temperature Pulse Rate 126 H 126 H 126 H Respiratory Rate 6 L 11 L 16 Blood Pressure O2 Sat by Pulse Oximetry 100 96 94 L 09/06/21 22:15 09/06/21 22:26 09/06/21 22:30 Temperature Pulse Rate 125 H 126 H 126 H Respiratory Rate 25 H 21 23 Blood Pressure 135/80 O2 Sat by Pulse Oximetry 94 L 97 97 09/06/21 22:45 09/06/21 22:59 09/06/21 23:00 Temperature Pulse Rate 126 H 125 H 125 H Respiratory Rate 17 22 17 Blood Pressure 116/86 O2 Sat by Pulse Oximetry 95 93 L 96 09/06/21 23:15 09/06/21 23:30 09/06/21 23:45 Temperature Pulse Rate 125 H 126 H 126 H Respiratory Rate 6 L 13 15 Blood Pressure O2 Sat by Pulse Oximetry 98 98 98 09/07/21 00:00 09/07/21 00:17 09/07/21 00:18 Temperature 97.8 F Pulse Rate 126 H 126 H Respiratory Rate 22 21 Blood Pressure 121/78 O2 Sat by Pulse Oximetry 97 09/07/21 00:30 09/07/21 00:45 09/07/21 01:00 Temperature Pulse Rate 127 H 128 H 126 H Respiratory Rate 23 15 12 Blood Pressure 128/66 O2 Sat by Pulse Oximetry 98 97 100 09/07/21 01:15 09/07/21 01:30 09/07/21 01:45 Temperature Pulse Rate 127 H 126 H 126 H Respiratory Rate 22 18 28 H Blood Pressure O2 Sat by Pulse Oximetry 99 100 99 09/07/21 02:00 09/07/21 02:15 09/07/21 02:30 Temperature Pulse Rate 126 H 125 H 124 H Respiratory Rate 21 22 23 Blood Pressure 127/57 O2 Sat by Pulse Oximetry 98 90 L 98 09/07/21 02:45 09/07/21 03:00 09/07/21 03:01 Temperature Pulse Rate 124 H 126 H 126 H Respiratory Rate 19 19 15 Blood Pressure 113/63 O2 Sat by Pulse Oximetry 99 98 100 09/07/21 03:15 09/07/21 03:30 09/07/21 03:45 Temperature Pulse Rate 126 H 125 H 125 H Respiratory Rate 8 L 20 17 Blood Pressure O2 Sat by Pulse Oximetry 95 97 94 L 09/07/21 04:00 09/07/21 04:15 09/07/21 04:30 Temperature Pulse Rate 124 H 126 H 125 H Respiratory Rate 17 10 L 17 Blood Pressure 134/90 O2 Sat by Pulse Oximetry 83 L 93 L 91 L 09/07/21 04:42 09/07/21 04:45 09/07/21 05:00 Temperature Pulse Rate 125 H 125 H 125 H Respiratory Rate 15 15 14 Blood Pressure 114/56 O2 Sat by Pulse Oximetry 87 L 90 L 91 L 09/07/21 05:01 09/07/21 05:15 09/07/21 05:30 Temperature Pulse Rate 125 H 126 H 126 H Respiratory Rate 13 29 H 25 H Blood Pressure 119/58 O2 Sat by Pulse Oximetry 90 L 90 L 87 L 09/07/21 05:51 09/07/21 06:00 09/07/21 06:15 Temperature Pulse Rate 129 H 128 H 128 H Respiratory Rate 11 L 15 14 Blood Pressure 102/55 O2 Sat by Pulse Oximetry 94 L 91 L 09/07/21 06:30 09/07/21 06:45 09/07/21 07:00 Temperature 98.7 F Pulse Rate 127 H 127 H 128 H Respiratory Rate 7 L 8 L 7 L Blood Pressure 88/56 O2 Sat by Pulse Oximetry 95 96 94 L 09/07/21 07:15 09/07/21 07:30 09/07/21 07:45 Temperature Pulse Rate 127 H 128 H 129 H Respiratory Rate 18 22 14 Blood Pressure O2 Sat by Pulse Oximetry 95 95 95 09/07/21 08:00 09/07/21 08:15 09/07/21 08:30 Temperature Pulse Rate 128 H 128 H Respiratory Rate 12 6 L Blood Pressure 139/87 O2 Sat by Pulse Oximetry 95 97 09/07/21 08:45 09/07/21 09:00 09/07/21 09:01 Temperature Pulse Rate 128 H 127 H 127 H Respiratory Rate 25 H 10 L 10 L Blood Pressure 125/79 O2 Sat by Pulse Oximetry 96 95 98 09/07/21 09:15 09/07/21 09:30 09/07/21 09:45 Temperature Pulse Rate 129 H 129 H 129 H Respiratory Rate 24 14 12 Blood Pressure O2 Sat by Pulse Oximetry 64 L 09/07/21 10:00 09/07/21 10:15 09/07/21 10:30 Temperature Pulse Rate 129 H 129 H 129 H Respiratory Rate 14 11 L 8 L Blood Pressure 124/79 O2 Sat by Pulse Oximetry 09/07/21 10:45 09/07/21 11:00 09/07/21 11:15 Temperature Pulse Rate 130 H 129 H 129 H Respiratory Rate 10 L 8 L 15 Blood Pressure 117/85 O2 Sat by Pulse Oximetry 96 97 09/07/21 11:30 09/07/21 11:45 09/07/21 12:00 Temperature 98.7 F Pulse Rate 129 H 130 H 130 H Respiratory Rate 7 L 17 19 Blood Pressure O2 Sat by Pulse Oximetry 97 97 94 L 09/07/21 12:01 09/07/21 12:15 09/07/21 12:30 Temperature 97.7 F Pulse Rate 130 H 128 H 128 H Respiratory Rate 18 22 0 L Blood Pressure 129/59 O2 Sat by Pulse Oximetry 99 84 L 99 09/07/21 12:45 09/07/21 13:00 09/07/21 13:15 Temperature Pulse Rate 129 H 128 H 128 H Respiratory Rate 8 L 13 19 Blood Pressure 118/78 O2 Sat by Pulse Oximetry 95 98 98 09/07/21 13:30 09/07/21 13:45 09/07/21 14:00 Temperature Pulse Rate 126 H 127 H 126 H Respiratory Rate 13 13 13 Blood Pressure O2 Sat by Pulse Oximetry 95 95 94 L 09/07/21 14:01 09/07/21 14:13 09/07/21 14:15 Temperature 98.7 F Pulse Rate 127 H 126 H 126 H Respiratory Rate 13 20 14 Blood Pressure 80/51 124/83 O2 Sat by Pulse Oximetry 95 100 89 L 09/07/21 14:16 09/07/21 14:30 09/07/21 14:45 Temperature Pulse Rate 126 H 126 H 126 H Respiratory Rate 15 15 14 Blood Pressure 124/83 O2 Sat by Pulse Oximetry 97 97 96 09/07/21 15:00 09/07/21 15:15 09/07/21 15:30 Temperature Pulse Rate 126 H 126 H 127 H Respiratory Rate 14 24 20 Blood Pressure 122/86 O2 Sat by Pulse Oximetry 96 98 97 09/07/21 15:45 09/07/21 16:00 09/07/21 16:04 Temperature 97.9 F Pulse Rate 127 H 126 H 125 H Respiratory Rate 22 20 28 H Blood Pressure 121/60 O2 Sat by Pulse Oximetry 96 88 L 96 09/07/21 16:15 09/07/21 16:30 09/07/21 16:45 Temperature Pulse Rate 126 H 125 H 129 H Respiratory Rate 19 18 15 Blood Pressure O2 Sat by Pulse Oximetry 96 95 96 09/07/21 17:00 09/07/21 17:15 09/07/21 17:30 Temperature 97.6 F Pulse Rate 128 H 128 H 128 H Respiratory Rate 13 17 17 Blood Pressure 131/82 O2 Sat by Pulse Oximetry 96 94 L 95 09/07/21 17:45 09/07/21 18:00 09/07/21 18:07 Temperature Pulse Rate 126 H 126 H 127 H Respiratory Rate 12 13 8 L Blood Pressure 178/112 144/78 O2 Sat by Pulse Oximetry 96 89 L 96 09/07/21 18:15 09/07/21 19:00 09/07/21 20:00 Temperature 98.3 F Pulse Rate 127 H 127 H 126 H Respiratory Rate 18 17 10 L Blood Pressure 127/68 122/77 O2 Sat by Pulse Oximetry 96 94 L 96 09/07/21 21:00 09/07/21 22:00 09/07/21 22:30 Temperature Pulse Rate 130 H 128 H 132 H Respiratory Rate 18 21 13 Blood Pressure 112/75 119/72 O2 Sat by Pulse Oximetry 95 92 L 95 09/07/21 22:45 09/07/21 23:00 09/07/21 23:15 Temperature Pulse Rate 128 H 128 H 129 H Respiratory Rate 19 8 L 19 Blood Pressure 121/75 O2 Sat by Pulse Oximetry 94 L 91 L 93 L 09/07/21 23:30 09/07/21 23:45 09/08/21 00:00 Temperature 98.3 F Pulse Rate 129 H 128 H 128 H Respiratory Rate 20 21 19 Blood Pressure 110/70 O2 Sat by Pulse Oximetry 95 94 L 94 L 09/08/21 00:15 09/08/21 00:30 09/08/21 00:45 Temperature Pulse Rate 128 H 128 H 128 H Respiratory Rate 21 21 19 Blood Pressure O2 Sat by Pulse Oximetry 94 L 92 L 94 L 09/08/21 01:00 09/08/21 01:15 09/08/21 01:30 Temperature Pulse Rate 130 H 133 H 128 H Respiratory Rate 17 21 18 Blood Pressure 122/60 O2 Sat by Pulse Oximetry 95 94 L 95 09/08/21 01:42 09/08/21 01:45 09/08/21 02:00 Temperature Pulse Rate 128 H 128 H 129 H Respiratory Rate 16 21 25 H Blood Pressure 122/60 117/73 O2 Sat by Pulse Oximetry 93 L 94 L 94 L 09/08/21 02:15 09/08/21 02:30 09/08/21 02:45 Temperature Pulse Rate 128 H 127 H 127 H Respiratory Rate 15 14 12 Blood Pressure O2 Sat by Pulse Oximetry 93 L 93 L 94 L 09/08/21 03:00 09/08/21 03:12 09/08/21 03:13 Temperature Pulse Rate 128 H 130 H 130 H Respiratory Rate 27 H 15 18 Blood Pressure 135/80 182/92 135/80 O2 Sat by Pulse Oximetry 95 93 L 89 L 09/08/21 03:15 09/08/21 03:30 09/08/21 03:45 Temperature Pulse Rate 132 H 130 H 130 H Respiratory Rate 17 6 L 14 Blood Pressure O2 Sat by Pulse Oximetry 95 93 L 94 L 09/08/21 04:00 09/08/21 04:15 09/08/21 04:30 Temperature 98.9 F Pulse Rate 132 H 132 H 131 H Respiratory Rate 11 L 11 L 12 Blood Pressure 121/72 O2 Sat by Pulse Oximetry 91 L 95 95 09/08/21 04:45 09/08/21 05:00 09/08/21 05:15 Temperature Pulse Rate 132 H 130 H 130 H Respiratory Rate 17 11 L 25 H Blood Pressure 141/82 O2 Sat by Pulse Oximetry 94 L 94 L 94 L 09/08/21 05:30 09/08/21 05:45 09/08/21 06:00 Temperature Pulse Rate 129 H 128 H 128 H Respiratory Rate 18 13 15 Blood Pressure 138/90 O2 Sat by Pulse Oximetry 97 93 L 94 L 09/08/21 06:15 09/08/21 06:30 09/08/21 06:45 Temperature Pulse Rate 126 H 126 H 126 H Respiratory Rate 16 17 18 Blood Pressure O2 Sat by Pulse Oximetry 94 L 96 95 09/08/21 07:00 09/08/21 07:05 09/08/21 07:15 Temperature Pulse Rate 130 H 133 H 133 H Respiratory Rate 30 H 20 10 L Blood Pressure 114/83 O2 Sat by Pulse Oximetry 93 L 90 L 95 09/08/21 07:30 09/08/21 07:45 09/08/21 08:00 Temperature Pulse Rate 132 H 133 H 133 H Respiratory Rate 12 18 19 Blood Pressure 137/65 O2 Sat by Pulse Oximetry 95 96 94 L 09/08/21 08:15 09/08/21 08:30 09/08/21 08:45 Temperature 98.1 F Pulse Rate 133 H 128 H 129 H Respiratory Rate 20 21 18 Blood Pressure O2 Sat by Pulse Oximetry 94 L 93 L 94 L 09/08/21 09:00 09/08/21 09:47 Temperature Pulse Rate 128 H 125 H Respiratory Rate 23 Blood Pressure O2 Sat by Pulse Oximetry 89 L 95 Labs: Laboratory Last Values WBC 7.9 X10^3/uL (3.6-10.0) 09/08/21 04:47 RBC 4.70 X10^6/uL (3.5-5.4) 09/08/21 04:47 Hgb 13.4 g/dL (12.0-16.0) 09/08/21 04:47 Hct 39.8 % (36.0-47.0) 09/08/21 04:47 MCV 84.8 fL (80.0-100.0) 09/08/21 04:47 MCH 28.4 pg (27.0-34.0) 09/08/21 04:47 MCHC 33.5 g/dL (33.0-35.0) 09/08/21 04:47 RDW 17.0 % (11.6-16.5) H 09/08/21 04:47 Plt Count 198 X10^3/uL (150.0-450.0) 09/08/21 04:47 MPV 9.1 fL (7.4-11.0) 09/08/21 04:47 Neut % (Auto) 72.5 % (42.0-75.0) 09/08/21 04:47 Lymph % (Auto) 17.5 % (21.0-51.0) L 09/08/21 04:47 [place] % (Auto) 7.5 % (0.0-13.0) 09/08/21 04:47 Eos % (Auto) 1.8 % (0.9-2.9) 09/08/21 04:47 Baso % (Auto) 0.7 % (0.2-1.0) 09/08/21 04:47 Neut # (Auto) 5.7 x10^3/uL (2.2-4.8) H 09/08/21 04:47 Lymph # (Auto) 1.4 X10^3/uL (1.3-2.9) 09/08/21 04:47 [place] # (Auto) 0.6 x10^3/uL (0.3-0.8) 09/08/21 04:47 Eos # (Auto) 0.1 x10^3/uL (0.0-0.2) 09/08/21 04:47 Baso # (Auto) 0.1 X10^3/uL (0.0-0.1) 09/08/21 04:47 Absolute Nucleated RBC 0.1 /100WBC 09/08/21 04:47 D-Dimer 0.52 ug/ml (0.0-0.57) 09/05/21 13:00 Sodium 139 mmol/L (136-145) 09/08/21 04:47 Corrected Sodium 139 mmol/L (136-145) 09/08/21 04:47 Potassium 3.9 mmol/L (3.5-5.1) 09/08/21 04:47 Chloride 106 mmol/L (98-107) 09/08/21 04:47 Carbon Dioxide 24.5 mmol/L (21-32) 09/08/21 04:47 BUN 11 mg/dL (7-18) 09/08/21 04:47 Creatinine 0.75 mg/dL (0.55-1.02) 09/08/21 04:47 Est GFR (MDRD) Af Amer > 60 (>60) 09/08/21 04:47 Est GFR (MDRD) Non-Af > 60 (>60) 09/08/21 04:47 Glucose 117 mg/dL (65-99) H 09/08/21 04:47 POC Glucose (mg/dL) 104 mg/dL (65-99) H 09/07/21 19:38 Calcium 8.9 mg/dL (8.5-10.1) 09/08/21 04:47 Corrected Calcium 9.7 mg/dL (8.5-10.1) 09/08/21 04:47 Total Bilirubin 0.30 mg/dL (0.2-1.0) 09/08/21 04:47 AST 37 Units/L (15-37) 09/08/21 04:47 ALT 34 Units/L (12-78) 09/08/21 04:47 Alkaline Phosphatase 139 Units/L (46-116) H 09/08/21 04:47 Creatine Kinase 233 Units/L (26-192) H 09/05/21 11:55 CK-MB (CK-2) 9.6 ng/mL (0-4.0) H* 09/05/21 11:55 CK/CKMB % Calc 4.1 % (<4) 09/05/21 11:55 Troponin I < 0.02 ng/mL (0-1.5) 09/05/21 11:55 Total Protein 7.4 g/dL (6.4-8.2) 09/08/21 04:47 Albumin 3.0 g/dL (3.4-5.0) L 09/08/21 04:47 Globulin 4.4 g/dL (2.5-4.5) 09/08/21 04:47 Albumin/Globulin Ratio 0.7 Ratio (1.1-2.1) L 09/08/21 04:47 Specimen Type Random urine 09/04/21 21:45 Urine Color Yellow (YELLOW) 09/04/21 21:45 Urine Appearance Cloudy (CLEAR) 09/04/21 21:45 Urine pH 5.0 (5.0 - 8.0) 09/04/21 21:45 Ur Specific [place] 1.030 (1.000-1.030) 09/04/21 21:45 Urine Protein 2+ (NEGATIVE) 09/04/21 21:45 Urine Glucose (UA) Negative (NEGATIVE) 09/04/21 21:45 Urine Ketones 1+ (NEGATIVE) 09/04/21 21:45 Urine Occult Blood 2+ (NEGATIVE) 09/04/21 21:45 Urine Nitrite Negative (NEGATIVE) 09/04/21 21:45 Urine Bilirubin 1+ (NEGATIVE) 09/04/21 21:45 Urine Urobilinogen 1+ (NORMAL) 09/04/21 21:45 Ur Leukocyte Esterase 3+ (NEGATIVE) 09/04/21 21:45 Urine RBC 3-5 /HPF (0-3) A 09/04/21 21:45 Urine WBC Tntc /HPF (0-5) A 09/04/21 21:45 Ur Squamous Epith Cells Numerous /HPF (NEGATIVE) 09/04/21 21:45 Urine Bacteria 3+ /HPF (NEGATIVE) 09/04/21 21:45 Ur Culture Indicated? No/not indicated 09/04/21 21:45 SARS CoV-2 RNA Rapid YAIMA Negative (NEGATIVE) 09/04/21 13:52 Reason For Visit: HYPOTENSION, PULMONARY EDEMA, DEHYDRATION, Discharge Date Discharge Date: 09/08/21 Discharge Diagnosis All Active Problems (Updated 09/06/21 @ 07:25 by Checo Patton) Acute hypotension (Acute) Acute bronchitis (Acute) Muscle strain of left thigh (Acute) Hypotension (Acute) Pulmonary edema (Acute) Dehydration (Acute) Acute cystitis (Acute) Infarction of right basal ganglia (Acute) COVID-19 virus infection (Acute) Diarrhea (Acute) Generalized weakness (Acute) Transient ischemic attack (TIA) (Acute) UTI (urinary tract infection) (Acute) Acute CVA (cerebrovascular accident) (Acute) Brain TIA (Acute) COVID-19 (Acute) Type 2 diabetes mellitus (Chronic) Hypertension (Chronic) Fall (Acute) Headache (Acute) 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 Pt is to keep follow up appointment as instructed and take medications as ordered. Discharge Medications Discharge Medications: No Known Drug Allergies Allergy (Verified 09/04/21 12:27) CONTINUE taking the following medications glipizide 10 mg PO BID 09/04/21 [History] guaifenesin 400 mg PO DAILY 09/04/21 [History] levothyroxine [Euthyrox] 150 mcg PO DAILY 09/04/21 [History] tramadol 50 mg PO DAILY PRN 09/04/21 [History] Follow up and Referral Follow Up: 1 Week Discharge Disposition Discharge Disposition: Home Discharge Condition: Stable Discharge Plan Discharge Plan Hospital Course: Pt is a 71 year old female past medical history of CVA, HTN, DMT2 admitted for Acute UTI and hypotension. Her hospital/treatment course included IVF and needing dopamine gtt. Pt was able to be successfully weaned off dopamine gtt and BP stabilized. BP medications were held and patient was instructed to continue metoprolol and stop taking losartan. Urine culture positive for Klebsiella pneu, blood culture NGTD. Pt received Rocephin for urinary tract infection and rx cefdinir was sent. 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 Pt responded well to treatments. She was discharged in stable condition, instructed to follow up with pcp in 3-5 days. Patient Disposition: HOME, SELF-CARE Condition: Stable Health Concerns: Post Hospitalization: new medications and changes needed to prevent readmission or further decline. Pt educated and given instructions on all concerns. Care Plan Goals: Problem: Fluid Volume Deficit Goal: Maintain/Improved Adequate hydration. Instructions: Follow provided instructions. Follow up with primary physician as directed. Contact primary care physician or report to the closest Emergency Room if condition worsens. Plan of Treatment: Continue with present treatment and follow up plan. Pt is to keep follow up appointment as instructed and take medications as ordered. Prescriptions: New carvedilol 25 mg Tablet 25 mg PO BID 30 Days Qty: 60 RF: 0 cefdinir 300 mg capsule 300 mg PO BID 5 Days Qty: 10 RF: 0 glipizide 10 mg tablet extended release 24hr 10 mg PO DAILY 30 Days Qty: 30 RF: 0 Continued atorvastatin 80 mg tablet 80 mg PO HS 30 Days Qty: 30 RF: 3 meloxicam 15 mg Tablet 15 mg PO DAILY 30 Days Qty: 30 RF: 3 clopidogrel [Plavix] 75 mg tablet 75 mg PO DAILY 30 Days Qty: 30 RF: 3 metformin 1,000 mg tablet 1,000 mg PO BID 30 Days Qty: 60 RF: 3 gabapentin 300 mg capsule 300 mg PO TID 30 Days Qty: 90 RF: 3 tramadol 50 mg tablet 50 mg PO DAILY PRN (Reason: Pain) RF: 0 levothyroxine [Euthyrox] 150 mcg tablet 150 mcg PO DAILY RF: 0 guaifenesin 400 mg Tablet 400 mg PO DAILY RF: 0 Discontinued metoprolol tartrate 50 mg tablet 50 mg PO BID 30 Days Qty: 60 RF: 3 lisinopril 40 mg tablet 40 mg PO DAILY 30 Days Qty: 30 RF: 3 glipizide 10 mg tablet extended release 24hr 10 mg PO BID RF: 0 Follow ups/Referrals Follow ups/Referrals: Checo Patton [Primary Care Provider] - 3 days Instructions Stand Alone Forms: Excuse From Work or School, Precautions for COVID19, [facility], Patient Portal, Social Distancing
== END 2021-09-08 11:35 | disposition home or self-care (01) | DRG 689 ==
LOC: ER 12:17 → ICU 16:30
PROVIDERS: ADMIT Family Medicine; ATTEND Family Medicine

== ENCOUNTER 2022-01-25 12:53 | Observation (INO) ==
--- NOTE | 2022-01-25 13:17 | DR.NAUSEAF ---
HPI Time Seen Time Seen by Provider: 01/25/22 13:14 Primary Care Physician Primary Care Physician: Abdi HPI Comment HPI Comment: PATIENT IS 71YRR OLD FEMALE WITH HISTORY OF DM, HTN AND ASTHMA IN ER WITH DIZZINESS, NAUSEA, VOMITING AND GENERALIZED WEANESS NOTED TODAY. NO FEVER, DIARRHEA OR DYSURIA. SHE IS NOTTED TO BEE IN POOR STATE OF HYGIENE, SEE NURSING NOTES. RAPID IRREGULAR HEART RATE. Complaints Chief Complaint Doctors Comments: DIZZINESS, NAUSEA, VOMITING AND WEAKNESS THAT STARTED TODAY. Chief Complaint:: Pt c/o nausea, vomiting, weakness and dizziness. She states " The girl that takes care of me is so she is not cooking because it makes her sick." Pt has feces on both feet, embedded around toenails and all over shoes. She denies having diarrhea and states this is dog feces. Pt has fleas on her. COVID-19 Coronavirus risk:travel/contact w/high risk person: No Has patient experienced Coronavirus symptoms: No Reviewed Nurses Notes Reviewed: Yes Source History Provided: Patient Mode of Arrival Mode of Arrival: Stretcher Timing Onset of Chief Complaint: 01/25/22 Context Onset: Spontaneous Possible medication related (specify):: NO Recent: None : No Associated Signs and Symptoms Abdominal Pain Quality: Sharp Abdominal Pain Location: Diffuse Symptoms: Abdominal Pain PMH PMH Past Medical History: Yes Past Medical History: Asthma, Diabetes and Hypertension Past Surgical History: Yes Surgical History: Thyroidectomy Family History History of Family Medical Conditions: Yes Family Medical History: Diabetes Mellitus and Hypertension Social History Does any household member use tobacco: No Alcohol Use: None Do you use any recreational Drugs:: No Lives With: Family Lives Where: Home Travel Risk Coronavirus risk:travel/contact w/high risk person: No Has patient experienced Coronavirus symptoms: No Infectious screening In the last 2 months have you had wt loss of >10#?: NO Have you had fever, night sweats or hemotysis?: No Have you traveled outside the country in the last 6 months?: No Isolation: Standard ROS Review of Systems Constitutional: See HPI, Weakness and Fatigue; negative Fever Eyes: No Symptoms Reported and See HPI ENTM: No Symptoms Reported and See HPI; negative Nose Discharge or Nose Congestion Respiratoy: No Symptoms Reported and See HPI; negative Short of Breath or Wheezing Cardiovascular: See HPI and Palpitations; negative Chest Pain Gastrointestinal/Abdominal: See HPI, Abdominal Pain, Nausea and Vomiting; negative Diarrhea Genitourinary: No Symptoms Reported and See HPI; negative Dysuria Neurological: See HPI, Weakness and Dizziness; negative Headache Musculoskeletal: No Symptoms Reported and See HPI; negative Back Pain Integumentary: No Symptoms Reported and See HPI; negative Dryness Hematologic/Lymphatic: No Symptoms Reported and See HPI; negative Easy Bruising Endocrine: No Symptoms Reported and See HPI; negative Increased Thirst or Increased Urine Psychiatric: No Symptoms Reported and See HPI All Other Systems: Reviewed and Negative PE Vital Signs Vitals: Temperature 97.8 F Pulse Rate [Right] 117 Pulse Rate 117 Respiratory Rate 20 Blood Pressure [Left Calf] 129/73 Blood Pressure [Left Arm] 137/83 Blood Pressure 137/83 O2 Sat by Pulse Oximetry 94 General Limitations: No Limitations General Appearance: Alert and In No Apparent Distress Head Head Exam: Normal Inspection and Atraumatic Eyes Eye exam: Normal Appearance; negative Scleral Icterus or Conjunctival Injection ENT ENT Exam: Normal Exam, Normal Oropharynx, Normal External Ear Exam and TM's Normal Bilaterally Neck Neck Exam: Normal Inspection and Trachea Midline; negative Tenderness Chest Chest Inspection: Normal Inspection and Symmetric Chest Wall Rise; negative Tenderness Respiratory Respiratory Exam: Normal Lung Sounds Bilat; negative Accessory Muscle Use, Chest Wall Tenderness or Respiratory Distress Respiratory Exam: Bilateral: Clear to Auscultation Cardiovascular Cardiovascular Exam: Tachycardia and Irregular Rhythm; negative Systolic Murmur or Diastolic Murmur Abdominal Exam Abdominal Exam: Normal Inspection, Normal Bowel Sounds, Soft and Tenderness Abdominal Tenderness: Diffuse Rectal Rectal Exam: Deferred External Exam: Female: Deferred : Speculum Exam (Female): Deferred : Bimanual Exam (female): Deferred Extremities Extremities Exam: Normal Inspection and Normal Capillary Refill Back Back Exam: Normal Inspection; negative (R) CVA Tenderness or (L) CVA Tenderness Neurologic Neurological Exam: Alert and Oriented X3; negative Motor Sensory Deficit Psychiatric Psychiatric Exam: Normal Affect and Normal Mood Skin Skin Exam: Warm, Dry, Intact and Normal Color MDM Differential Diagnosis Differential Diagnosis: Considerations may Include:: Gastritis, PUD and Other (DIZZINESS, AFIB, GENERALIZEDD WEAKNESS, NAUSEA/VOMITING.) COURSE Treatment Treatment: SEE ORDERS DONE WHILE PATIENT WAS IN ER. Consultation Consultation Comments: DISCUSSED PATIENT WITH DR. DONIS. SHE WILL ADMIT RON COOPER Education/Counseling Education/Counseling: Patient Educated On: Diagnosis ROR Labs Reviewed Laboratory Results Reviewed?: Yes Result Diagrams: 01/31/22 04:18 01/31/22 04:18 Laboratory: WBC 6.5 X10^3/uL (3.6-10.0) 01/25/22 14:55 RBC 5.69 X10^6/uL (3.5-5.4) H 01/25/22 14:55 Hgb 15.5 g/dL (12.0-16.0) 01/25/22 14:55 Hct 45.3 % (36.0-47.0) 01/25/22 14:55 MCV 79.7 fL (80.0-100.0) L 01/25/22 14:55 MCH 27.3 pg (27.0-34.0) 01/25/22 14:55 MCHC 34.2 g/dL (33.0-35.0) 01/25/22 14:55 RDW 17.8 % (11.6-16.5) H 01/25/22 14:55 Plt Count 163 X10^3/uL (150.0-450.0) 01/25/22 14:55 MPV 8.4 fL (7.4-11.0) 01/25/22 14:55 Neut % (Auto) 67.1 % (42.0-75.0) 01/25/22 14:55 Lymph % (Auto) 21.2 % (21.0-51.0) 01/25/22 14:55 [place] % (Auto) 9.5 % (0.0-13.0) 01/25/22 14:55 Eos % (Auto) 1.3 % (0.9-2.9) 01/25/22 14:55 Baso % (Auto) 0.9 % (0.2-1.0) 01/25/22 14:55 Neut # (Auto) 4.4 x10^3/uL (2.2-4.8) 01/25/22 14:55 Lymph # (Auto) 1.4 X10^3/uL (1.3-2.9) 01/25/22 14:55 [place] # (Auto) 0.6 x10^3/uL (0.3-0.8) 01/25/22 14:55 Eos # (Auto) 0.1 x10^3/uL (0.0-0.2) 01/25/22 14:55 Baso # (Auto) 0.1 X10^3/uL (0.0-0.1) 01/25/22 14:55 Absolute Nucleated RBC 0.2 /100WBC 01/25/22 14:55 Sodium 143 mmol/L (136-145) 01/25/22 14:55 Corrected Sodium 144 mmol/L (136-145) 01/25/22 14:55 Potassium 3.2 mmol/L (3.5-5.1) L 01/25/22 14:55 Chloride 105 mmol/L (98-107) 01/25/22 14:55 Carbon Dioxide 29.0 mmol/L (21-32) 01/25/22 14:55 BUN 12 mg/dL (7-18) 01/25/22 14:55 Creatinine 0.85 mg/dL (0.55-1.02) 01/25/22 14:55 Est GFR (MDRD) Af Amer > 60 (>60) 01/25/22 14:55 Est GFR (MDRD) Non-Af > 60 (>60) 01/25/22 14:55 Glucose 129 mg/dL (65-99) H 01/25/22 14:55 Calcium 8.9 mg/dL (8.5-10.1) 01/25/22 14:55 Corrected Calcium 9.6 mg/dL (8.5-10.1) 01/25/22 14:55 Total Bilirubin 1.00 mg/dL (0.2-1.0) 01/25/22 14:55 AST 13 Units/L (15-37) L 01/25/22 14:55 ALT 6 Units/L (12-78) L 01/25/22 14:55 Alkaline Phosphatase 72 Units/L (46-116) 01/25/22 14:55 Creatine Kinase 48 Units/L (26-192) 01/25/22 14:55 CK-MB (CK-2) 1.8 ng/mL (0-4.0) 01/25/22 14:55 CK/CKMB % Calc 3.8 % (<4) 01/25/22 14:55 Troponin I High Sens 21.3 ng/L (4.0-60.0) 01/25/22 14:55 Total Protein 7.0 g/dL (6.4-8.2) 01/25/22 14:55 Albumin 3.1 g/dL (3.4-5.0) L 01/25/22 14:55 Globulin 3.9 g/dL (2.5-4.5) 01/25/22 14:55 Albumin/Globulin Ratio 0.8 Ratio (1.1-2.1) L 01/25/22 14:55 SARS-CoV-2 (PCR) Negative (NEGATIVE) 01/25/22 16:50 XRAY XRAY Interpreted by: Radiologist (REPORT NOTED.) and Self EKG Rate: 117 [place]: Normal Rhythm: Afib and Aflutter ST: Nonsp Opioid Opioid Risk Tool Age (Vinicius box if 16-45): No History of Preadolescent Sexual Abuse: No Total: 0 Total Score Risk Category: Low Risk Copyright: Senthil OBRIEN predicting aberrant behaviors Diagnosis Discharge Problem: Atrial fibrillation and flutter, Dizzinesses, Generalized weakness, Nausea & vomiting
[2022-01-25 15:11] LABS: HEMOGLOBIN 15.5 g/dL (12.0-16.0); MEAN CORPUSCULAR VOLUME 79.7 fL (80.0-100.0); MEAN PLATELET VOLUME 8.4 fL (7.4-11.0)
[2022-01-25 15:14] LABS: BASOPHILS # (AUTO) 0.1 X10^3/uL (0.0-0.1); BASOPHILS % (AUTO) 0.9 % (0.2-1.0); EOSINOPHILS # (AUTO) 0.1 x10^3/uL (0.0-0.2); EOSINOPHILS % (AUTO) 1.3 % (0.9-2.9); HEMATOCRIT 45.3 % (36.0-47.0); LYMPHOCYTES # (AUTO) 1.4 X10^3/uL (1.3-2.9); LYMPHOCYTES % (AUTO) 21.2 % (21.0-51.0); MEAN CORPUSCULAR HEMOGLOBIN 27.3 pg (27.0-34.0); MEAN CORPUSCULAR HGB CONC 34.2 g/dL (33.0-35.0); MONOCYTES # (AUTO) 0.6 x10^3/uL (0.3-0.8); MONOCYTES % (AUTO) 9.5 % (0.0-13.0); NEUTROPHILS # (AUTO) 4.4 x10^3/uL (2.2-4.8); NEUTROPHILS % (AUTO) 67.1 % (42.0-75.0); RED BLOOD COUNT 5.69 X10^6/uL (3.5-5.4); RED CELL DISTRIBUTION WIDTH 17.8 % (11.6-16.5); WHITE BLOOD COUNT 6.5 X10^3/uL (3.6-10.0)
[2022-01-25 15:26] LABS: ALANINE AMINOTRANSFERASE 6 Units/L (12-78); ALBUMIN 3.1 g/dL (3.4-5.0); ALKALINE PHOSPHATASE 72 Units/L (46-116); ASPARTATE AMINO TRANSFERASE 13 Units/L (15-37); BLOOD UREA NITROGEN 12 mg/dL (7-18); CALCIUM 8.9 mg/dL (8.5-10.1); CHLORIDE 105 mmol/L (98-107); CKMB % 3.8 % (<4); COR CA(FOR HYPOALB) 9.6 mg/dL (8.5-10.1); COR NA(FOR HYPERGLY) 144 mmol/L (136-145); CREATINE KINASE 48 Units/L (26-192); CREATINE KINASE MB 1.8 ng/mL (0-4.0); CREATININE 0.85 mg/dL (0.55-1.02); SODIUM 143 mmol/L (136-145); eGFR NON BLACK RACES > 60 (>60)
--- NOTE | 2022-01-25 15:28 | RAD ---
HISTORYPT HAS SOB ON EXERTIONSTUDYCHEST, 1 VIEWCOMPARISONJanuary 2021TECHNIQUEChest x-ray portableFINDINGSThere is evidence of cardiomegaly. No pulmonary edema, infiltrates or pleural fluid collections. There is no free air or pneumothorax. Postsurgical changes of the right breast and axilla are observed. No acute osseous abnormalities of the chest are demonstrated.IMPRESSIONCardiomegaly without pulmonary edema or acute infiltrateElectronically signed by: GÓMEZ YORK (January 25, 2022 15:28:24)
--- NOTE | 2022-01-25 15:33 | CT ---
HISTORYPt c/o nausea, vomiting, weakness and dizziness.STUDYBRAIN W/O ZINHUICNOSYBS37/18/2021.TECHNIQUE br techniques including Automated Exposure Control (AEC) and adjustment of mA and kV were utilized.Contrast: NoneFINDINGSBRAIN PARENCHYMA: No acute hemorrhage, infarct, mass, or mass effect.Shah-white differentiation is maintained.Scattered white matter chronic small vessel ischemic changes. Small old lacunar infarct in the right basal ganglia.VENTRICLES/EXTRA-AXIAL SPACES: Normal size and configuration. No hydrocephalus or extra-axial fluid collections.EXTRACRANIAL STRUCTURES:Normal bones and soft tissues. Visualized paranasal sinuses and mastoids are clear.IMPRESSION1. Nothing acute. 2. Generalized atrophy and small vessel ischemic disease.Electronically signed by: Cisco Mello (January 25, 2022 15:32:19)
[2022-01-25] MEDS ORDERED: LOPRESSOR INJ 5 MG AMP ONE (16:56)
[2022-01-25] MEDS ORDERED: LOPRESSOR INJ 5 MG AMP IVP ONE (17:10)
[2022-01-25] MEDS ORDERED: LOPRESSOR TAB 25 MG PO ONE (17:28)
[2022-01-25] MEDS ORDERED: LOPRESSOR TAB 25 MG ONE (17:32)
[2022-01-25 19:24] VITALS: BMI 35.9
[2022-01-25] MEDS: NS 1,000 ML IV 1,000 ML IV SCH (20:59)
[2022-01-25 23:27] LABS: CKMB % 3.4 % (<4); CREATINE KINASE MB 1.7 ng/mL (0-4.0)
[2022-01-26 05:30] LABS: ALANINE AMINOTRANSFERASE 7 Units/L (12-78); ALBUMIN 2.9 g/dL (3.4-5.0); ALKALINE PHOSPHATASE 66 Units/L (46-116); ASPARTATE AMINO TRANSFERASE 13 Units/L (15-37); BASOPHILS # (AUTO) 0.1 X10^3/uL (0.0-0.1); BASOPHILS % (AUTO) 0.9 % (0.2-1.0); BLOOD UREA NITROGEN 12 mg/dL (7-18); CALCIUM 8.5 mg/dL (8.5-10.1); CARBON DIOXIDE 29.3 mmol/L (21-32); CHLORIDE 105 mmol/L (98-107); CKMB % 3.3 % (<4); COR CA(FOR HYPOALB) 9.4 mg/dL (8.5-10.1); COR NA(FOR HYPERGLY) 142 mmol/L (136-145); CREATINE KINASE 52 Units/L (26-192); CREATINE KINASE MB 1.7 ng/mL (0-4.0); CREATININE 0.78 mg/dL (0.55-1.02); EOSINOPHILS # (AUTO) 0.1 x10^3/uL (0.0-0.2); EOSINOPHILS % (AUTO) 1.2 % (0.9-2.9); HEMATOCRIT 44.4 % (36.0-47.0); HEMOGLOBIN 14.9 g/dL (12.0-16.0); LYMPHOCYTES # (AUTO) 2.1 X10^3/uL (1.3-2.9); LYMPHOCYTES % (AUTO) 29.8 % (21.0-51.0); MAGNESIUM 1.4 mg/dL (1.7-2.9); MEAN CORPUSCULAR HEMOGLOBIN 27.1 pg (27.0-34.0); MEAN CORPUSCULAR HGB CONC 33.7 g/dL (33.0-35.0); MEAN CORPUSCULAR VOLUME 80.5 fL (80.0-100.0); MEAN PLATELET VOLUME 8.6 fL (7.4-11.0); MONOCYTES # (AUTO) 0.7 x10^3/uL (0.3-0.8); MONOCYTES % (AUTO) 10.2 % (0.0-13.0); NEUTROPHILS # (AUTO) 4.1 x10^3/uL (2.2-4.8); NEUTROPHILS % (AUTO) 57.9 % (42.0-75.0); RED BLOOD COUNT 5.51 X10^6/uL (3.5-5.4); RED CELL DISTRIBUTION WIDTH 17.8 % (11.6-16.5); SODIUM 141 mmol/L (136-145); TOTAL PROTEIN 6.5 g/dL (6.4-8.2); eGFR NON BLACK RACES > 60 (>60)
[2022-01-26] MEDS ORDERED: KLOR-CON PO PRN (06:01)
[2022-01-26] MEDS ORDERED: K-RIDER 10 MEQ/NS 100 ML 10 MEQ/100 ML BAG IV PRN (06:01)
[2022-01-26] MEDS ORDERED: MICRO K EXTEN CAP 10 MEQ PO PRN (06:01)
[2022-01-26] MEDS ORDERED: POTASSIUM CHL 60 MEQ/NS 0.45% 500 ML IV PRN (06:01)
[2022-01-26] MEDS ORDERED: POTASSIUM CHL 40 MEQ/NS 0.45% 500 ML IV PRN (06:01)
[2022-01-26] MEDS ORDERED: POTASSIUM CHLORIDE LIQ 20 MEQ UDC PO PRN (06:01)
[2022-01-26] MEDS: K-DUR TAB 20 MEQ PO PRN (08:43)
[2022-01-26] MEDS: NS 1,000 ML IV 1,000 ML IV SCH (08:45)
[2022-01-26] MEDS: MAGNESIUM SULFATE 1 GRAM/100 mL PREMIX 1 G/100 ML BAG IV PRN ×4 (08:45→13:20)
--- NOTE | 2022-01-26 11:35 | DR.H&P ---
H&P History & Physical for Day of: H&P Date: 01/26/22 Chief Complaint Chief Complaint: palpitations generalized weakness Allergies Allergies Allergy/AdvReac Type Severity Reaction Status Date / Time No Known Drug Allergies Allergy Verified 09/04/21 12:27 History of Present Illness History of Present Illness: Pt is a 71 year old female past medical history of C VA, HTN, DMT2, presenting with palpitations and generalized weakness. In the ED, she was noted to have atrial flutter. She was given IV metoprolol in the ED that changed her to sinus tachycardia. She was admitted for further evaluation and monitoring. Labs/imaging: Wbc 7.0, Hgb 14.9, Plt 161, Na 141, K 3.2, Creatinine 0.78, Glucose 127, Troponin negative, CT head: no acute intracranial abnormaliti es, CXR: no acute cardiopulmonary findings. Place patient on telemetry, Ekg revealed sinus tachycardia. Restart home medications including Metoprolol tart 50mg BID. Hypokalemia on labs, replete per protocol. Check magnesium level. Continue to closely monitor and follow up labs. Past Medical History Past Medical History: Asthma, Diabetes and Hypertension Additional Medical History: HX BREAST CANCER Past Surgical History Surgical History: Thyroidectomy Family History Family Medical History: Diabetes Mellitus and Hypertension Social History Does any household member use tobacco: No Alcohol Use: None Medications Home Medications: No Known Drug Allergies Allergy (Verified 09/04/21 12:27) Labs Result Diagrams: 01/26/22 05:00 01/26/22 05:00 Labs: Laboratory WBC 7.0 X10^3/uL (3.6-10.0) 01/26/22 05:00 RBC 5.51 X10^6/uL (3.5-5.4) H 01/26/22 05:00 Hgb 14.9 g/dL (12.0-16.0) 01/26/22 05:00 Hct 44.4 % (36.0-47.0) 01/26/22 05:00 MCV 80.5 fL (80.0-100.0) 01/26/22 05:00 MCH 27.1 pg (27.0-34.0) 01/26/22 05:00 MCHC 33.7 g/dL (33.0-35.0) 01/26/22 05:00 RDW 17.8 % (11.6-16.5) H 01/26/22 05:00 Plt Count 161 X10^3/uL (150.0-450.0) 01/26/22 05:00 MPV 8.6 fL (7.4-11.0) 01/26/22 05:00 Neut % (Auto) 57.9 % (42.0-75.0) 01/26/22 05:00 Lymph % (Auto) 29.8 % (21.0-51.0) 01/26/22 05:00 [place] % (Auto) 10.2 % (0.0-13.0) 01/26/22 05:00 Eos % (Auto) 1.2 % (0.9-2.9) 01/26/22 05:00 Baso % (Auto) 0.9 % (0.2-1.0) 01/26/22 05:00 Neut # (Auto) 4.1 x10^3/uL (2.2-4.8) 01/26/22 05:00 Lymph # (Auto) 2.1 X10^3/uL (1.3-2.9) 01/26/22 05:00 [place] # (Auto) 0.7 x10^3/uL (0.3-0.8) 01/26/22 05:00 Eos # (Auto) 0.1 x10^3/uL (0.0-0.2) 01/26/22 05:00 Baso # (Auto) 0.1 X10^3/uL (0.0-0.1) 01/26/22 05:00 Absolute Nucleated RBC 0.1 /100WBC 01/26/22 05:00 PT 14.7 SECONDS (11.8-14.3) 01/26/22 05:00 INR Target Range - 01/26/22 05:00 INR 1.18 (0.8-1.3) 01/26/22 05:00 APTT 26.6 SECONDS (22.9-36.5) 01/26/22 05:00 PTT Comment - 01/26/22 05:00 Sodium 141 mmol/L (136-145) 01/26/22 05:00 Corrected Sodium 142 mmol/L (136-145) 01/26/22 05:00 Potassium 3.2 mmol/L (3.5-5.1) L 01/26/22 05:00 Chloride 105 mmol/L (98-107) 01/26/22 05:00 Carbon Dioxide 29.3 mmol/L (21-32) 01/26/22 05:00 BUN 12 mg/dL (7-18) 01/26/22 05:00 Creatinine 0.78 mg/dL (0.55-1.02) 01/26/22 05:00 Est GFR (MDRD) Af Amer > 60 (>60) 01/26/22 05:00 Est GFR (MDRD) Non-Af > 60 (>60) 01/26/22 05:00 Glucose 127 mg/dL (65-99) H 01/26/22 05:00 POC Glucose (mg/dL) 140 mg/dL (65-99) H 01/25/22 20:17 Calcium 8.5 mg/dL (8.5-10.1) 01/26/22 05:00 Corrected Calcium 9.4 mg/dL (8.5-10.1) 01/26/22 05:00 Magnesium 1.4 mg/dL (1.7-2.9) L 01/26/22 05:00 Total Bilirubin 0.80 mg/dL (0.2-1.0) 01/26/22 05:00 AST 13 Units/L (15-37) L 01/26/22 05:00 ALT 7 Units/L (12-78) L 01/26/22 05:00 Alkaline Phosphatase 66 Units/L (46-116) 01/26/22 05:00 Creatine Kinase 52 Units/L (26-192) 01/26/22 05:00 CK-MB (CK-2) 1.7 ng/mL (0-4.0) 01/26/22 05:00 CK/CKMB % Calc 3.3 % (<4) 01/26/22 05:00 Troponin I High Sens 19.8 ng/L (4.0-60.0) 01/26/22 05:00 Total Protein 6.5 g/dL (6.4-8.2) 01/26/22 05:00 Albumin 2.9 g/dL (3.4-5.0) L 01/26/22 05:00 Globulin 3.6 g/dL (2.5-4.5) 01/26/22 05:00 Albumin/Globulin Ratio 0.8 Ratio (1.1-2.1) L 01/26/22 05:00 SARS-CoV-2 (PCR) Negative (NEGATIVE) 01/25/22 16:50 Review of Systems Constitutional: Weakness; denies Fever and Chills Eyes: No Symptoms Reported ENT: No Symptoms Reported Respiratory: No Symptoms Reported Cardiovascular: Palpitations Gastrointestinal: No Symptoms Reported Genitourinary: No Symptoms Reported Musculoskeletal: No Symptoms Reported Skin: No Symptoms Reported Neurological: No Symptoms Reported Physical Exam Vital Signs: Temperature 97.9 F Pulse Rate [Brachial] 121 Pulse Rate [Right] 117 Pulse Rate 117 Respiratory Rate 18 Blood Pressure [Left Calf] 129/73 Blood Pressure [Left Arm] 108/64 Blood Pressure 137/83 O2 Sat by Pulse Oximetry 96 Oriented: Normal Eyes: Normal Ear: Normal Nose: Normal Throat: Normal Respiratory: Clear Throughout Cardiovascular: Tachycardia : Normal Auscultation: Bowel Sounds: Normal Palpation: Normal Tenderness: Normal Skin: Normal Musculoskeletal: Normal Psychiatric: Normal Mood Description: Calm and Appropriate Affect: Normal Speech Pattern: Clear and Appropriate Assessment/Plan (1) Atrial flutter: Status: Acute (2) Hypokalemia: Status: Acute Review H&P Reviewed: Yes Patient was examined?: Yes
[2022-01-26] MEDS: LOPRESSOR TAB 50 MG PO SCH ×2 (12:43→21:36)
[2022-01-26 13:09] LABS: BILIRUBIN,URINE NEGATIVE (NEGATIVE); BLOOD/HEMOGLOBIN,URINE NEGATIVE (NEGATIVE); GLUCOSE, URINE NEGATIVE (NEGATIVE); KETONES,URINE NEGATIVE (NEGATIVE); LEUKOCYTE ESTERASE ,URINE 1+ (NEGATIVE); NITRITES,URINE NEGATIVE (NEGATIVE); PROTEIN,URINE NEGATIVE (NEGATIVE); UROBILINOGEN,URINE 2+ (NORMAL)
[2022-01-26 14:19] LABS: COLOR,URINE DARK YELLOW (YELLOW)
[2022-01-26 14:20] LABS: APPEARANCE,URINE CLEAR (CLEAR)
[2022-01-26 14:21] LABS: BACTERIA,URINE 1+ /HPF (NEGATIVE); RBC,URINE 0-2 /HPF (0-3); SQUAMOUS EPITHELIAL CELL,UR MANY /HPF (NEGATIVE)
[2022-01-26 14:22] LABS: CALCIUM OXALATE CRYSTALS,UR MANY /HPF (NEGATIVE)
[2022-01-26] MEDS: NEURONTIN CAP 300 MG PO SCH ×2 (14:30→21:37)
[2022-01-26] MEDS ORDERED: GLUCOPHAGE ONE (21:17)
[2022-01-26] MEDS: GLUCOPHAGE PO SCH (21:35)
[2022-01-26] MEDS: LIPITOR TAB 80 MG PO SCH (21:36)
[2022-01-27 05:00] LABS: BASOPHILS # (AUTO) 0.1 X10^3/uL (0.0-0.1); BASOPHILS % (AUTO) 1.3 % (0.2-1.0); EOSINOPHILS # (AUTO) 0.1 x10^3/uL (0.0-0.2); EOSINOPHILS % (AUTO) 1.6 % (0.9-2.9); HEMATOCRIT 45.2 % (36.0-47.0); HEMOGLOBIN 15.2 g/dL (12.0-16.0); LYMPHOCYTES # (AUTO) 2.4 X10^3/uL (1.3-2.9); MEAN CORPUSCULAR HGB CONC 33.7 g/dL (33.0-35.0); MEAN CORPUSCULAR VOLUME 80.3 fL (80.0-100.0); MEAN PLATELET VOLUME 8.8 fL (7.4-11.0); MONOCYTES # (AUTO) 0.7 x10^3/uL (0.3-0.8); MONOCYTES % (AUTO) 9.5 % (0.0-13.0); NEUTROPHILS # (AUTO) 4.1 x10^3/uL (2.2-4.8); NEUTROPHILS % (AUTO) 55.6 % (42.0-75.0); RED BLOOD COUNT 5.63 X10^6/uL (3.5-5.4); RED CELL DISTRIBUTION WIDTH 17.8 % (11.6-16.5); WHITE BLOOD COUNT 7.4 X10^3/uL (3.6-10.0)
[2022-01-27 05:11] LABS: ALANINE AMINOTRANSFERASE 7 Units/L (12-78); ALKALINE PHOSPHATASE 71 Units/L (46-116); ASPARTATE AMINO TRANSFERASE 19 Units/L (15-37); BLOOD UREA NITROGEN 11 mg/dL (7-18); CALCIUM 8.7 mg/dL (8.5-10.1); CARBON DIOXIDE 25.2 mmol/L (21-32); CHLORIDE 104 mmol/L (98-107); COR CA(FOR HYPOALB) 9.5 mg/dL (8.5-10.1); COR NA(FOR HYPERGLY) 139 mmol/L (136-145); CREATININE 0.89 mg/dL (0.55-1.02); SODIUM 138 mmol/L (136-145); TOTAL PROTEIN 6.9 g/dL (6.4-8.2); eGFR NON BLACK RACES > 60 (>60)
[2022-01-27] MEDS: NEURONTIN CAP 300 MG PO SCH ×3 (05:25→20:59)
[2022-01-27] MEDS: K-DUR TAB 20 MEQ PO PRN ×2 (05:40→09:38)
[2022-01-27] MEDS: NS 1,000 ML IV 1,000 ML IV SCH ×2 (06:59→09:32)
[2022-01-27] MEDS ORDERED: GLUCOPHAGE ONE ×2 (08:08→19:43)
[2022-01-27] MEDS: GLUCOPHAGE PO SCH ×2 (09:31→20:11)
[2022-01-27] MEDS: LOPRESSOR TAB 50 MG PO SCH ×2 (09:31→20:11)
[2022-01-27] MEDS: GLUCOTROL XL 24-HR PO SCH (09:32)
[2022-01-27] MEDS: SYNTHROID 150 mcg TAB PO SCH (09:32)
[2022-01-27] MEDS: ZESTRIL TAB 40 MG PO SCH (09:32)
[2022-01-27] MEDS: PLAVIX PO SCH (09:32)
[2022-01-27] MEDS: LOVENOX INJ 40 MG SYR SC SCH (09:37)
--- NOTE | 2022-01-27 12:29 | PCM.PROG ---
Progress Note Progress Note for Day of Date of Exam: 01/27/22 Subjective Subjective: Pt is a 71 year old female past medical history of CVA, HTN, DMT2, admitted for atrial flutter. This morning patient resting in bed. No acute concerns overnight. Heart rate has improved, still having some sinus tachycardia, asymptomatic. Labs/imaging: Wbc 7.4, Hgb 15.2, Plt 171, Na 138, K 3.6, Creatinine 0.89, Glucose 129, Home medications were resumed that includes Metoprolol tart 50mg BID. Hypokalemia resolved. Will order TSH and Free T4 for further evaluation. Otherwise, will continue with current treatment plan. Continue to closely monitor and follow up labs. Past Medical Family Social History Past Med/Fam/Surg Hx: No changes since H&P Allergies: Allergies No Known Drug Allergies Allergy (Verified 09/04/21 12:27) Review of Systems ROS: No change since H&P Vital Signs and I&O's Vital Signs: Temperature 97.5 F Pulse Rate [Brachial] 114 Pulse Rate [Right] 117 Pulse Rate 117 Respiratory Rate 20 Blood Pressure [Left Calf] 129/73 Blood Pressure [Left Arm] 93/64 Blood Pressure 137/83 O2 Sat by Pulse Oximetry 98 Intake and Output: Intake & Output 01/24/22 01/25/22 01/26/22 01/27/22 23:59 23:59 23:59 23:59 Intake Total 720 / 720 1740 / 1740 1122 / 1122 Balance 720 / 720 1740 / 1740 1122 / 1122 Physical Exam Oriented: Normal Eyes: Normal Ear: Normal Nose: Normal Throat: Normal Cardiovascular: Tachycardia : Normal Auscultation: Bowel Sounds: Normal Tenderness: Normal Skin: Normal Musculoskeletal: Normal Psychiatric: Normal Mood Description: Calm and Appropriate Affect: Normal Speech Pattern: Clear and Appropriate Laboratory and Diagnostics Result Diagrams: 01/27/22 04:20 01/27/22 09:02 Labs: 01/26/22 12:51 Urine,Clean Catch Urine Culture - Final Laboratory WBC 7.4 X10^3/uL (3.6-10.0) 01/27/22 04:20 RBC 5.63 X10^6/uL (3.5-5.4) H 01/27/22 04:20 Hgb 15.2 g/dL (12.0-16.0) 01/27/22 04:20 Hct 45.2 % (36.0-47.0) 01/27/22 04:20 MCV 80.3 fL (80.0-100.0) 01/27/22 04:20 MCH 27.0 pg (27.0-34.0) 01/27/22 04:20 MCHC 33.7 g/dL (33.0-35.0) 01/27/22 04:20 RDW 17.8 % (11.6-16.5) H 01/27/22 04:20 Plt Count 171 X10^3/uL (150.0-450.0) 01/27/22 04:20 MPV 8.8 fL (7.4-11.0) 01/27/22 04:20 Neut % (Auto) 55.6 % (42.0-75.0) 01/27/22 04:20 Lymph % (Auto) 32.0 % (21.0-51.0) 01/27/22 04:20 [place] % (Auto) 9.5 % (0.0-13.0) 01/27/22 04:20 Eos % (Auto) 1.6 % (0.9-2.9) 01/27/22 04:20 Baso % (Auto) 1.3 % (0.2-1.0) H 01/27/22 04:20 Neut # (Auto) 4.1 x10^3/uL (2.2-4.8) 01/27/22 04:20 Lymph # (Auto) 2.4 X10^3/uL (1.3-2.9) 01/27/22 04:20 [place] # (Auto) 0.7 x10^3/uL (0.3-0.8) 01/27/22 04:20 Eos # (Auto) 0.1 x10^3/uL (0.0-0.2) 01/27/22 04:20 Baso # (Auto) 0.1 X10^3/uL (0.0-0.1) 01/27/22 04:20 Absolute Nucleated RBC 0.1 /100WBC 01/27/22 04:20 PT 14.7 SECONDS (11.8-14.3) 01/26/22 05:00 INR Target Range - 01/26/22 05:00 INR 1.18 (0.8-1.3) 01/26/22 05:00 APTT 26.6 SECONDS (22.9-36.5) 01/26/22 05:00 PTT Comment - 01/26/22 05:00 Sodium 138 mmol/L (136-145) 01/27/22 04:20 Corrected Sodium 139 mmol/L (136-145) 01/27/22 04:20 Potassium 3.5 mmol/L (3.5-5.1) 01/27/22 09:02 Chloride 104 mmol/L (98-107) 01/27/22 04:20 Carbon Dioxide 25.2 mmol/L (21-32) 01/27/22 04:20 BUN 11 mg/dL (7-18) 01/27/22 04:20 Creatinine 0.89 mg/dL (0.55-1.02) 01/27/22 04:20 Est GFR (MDRD) Af Amer > 60 (>60) 01/27/22 04:20 Est GFR (MDRD) Non-Af > 60 (>60) 01/27/22 04:20 Glucose 129 mg/dL (65-99) H 01/27/22 04:20 POC Glucose (mg/dL) 143 mg/dL (65-99) H 01/27/22 10:51 Calcium 8.7 mg/dL (8.5-10.1) 01/27/22 04:20 Corrected Calcium 9.5 mg/dL (8.5-10.1) 01/27/22 04:20 Magnesium 2.0 mg/dL (1.7-2.9) 01/27/22 04:20 Total Bilirubin 0.70 mg/dL (0.2-1.0) 01/27/22 04:20 AST 19 Units/L (15-37) 01/27/22 04:20 ALT 7 Units/L (12-78) L 01/27/22 04:20 Alkaline Phosphatase 71 Units/L (46-116) 01/27/22 04:20 Creatine Kinase 52 Units/L (26-192) 01/26/22 05:00 CK-MB (CK-2) 1.7 ng/mL (0-4.0) 01/26/22 05:00 CK/CKMB % Calc 3.3 % (<4) 01/26/22 05:00 Troponin I High Sens 19.8 ng/L (4.0-60.0) 01/26/22 05:00 Total Protein 6.9 g/dL (6.4-8.2) 01/27/22 04:20 Albumin 3.0 g/dL (3.4-5.0) L 01/27/22 04:20 Globulin 3.9 g/dL (2.5-4.5) 01/27/22 04:20 Albumin/Globulin Ratio 0.8 Ratio (1.1-2.1) L 01/27/22 04:20 Specimen Type Clean catch urine 01/26/22 12:51 Urine Color Dark yellow (YELLOW) 01/26/22 12:51 Urine Appearance Clear (CLEAR) 01/26/22 12:51 Urine pH 5.0 (5.0 - 8.0) 01/26/22 12:51 Ur Specific [place] 1.025 (1.000-1.030) 01/26/22 12:51 Urine Protein Negative (NEGATIVE) 01/26/22 12:51 Urine Glucose (UA) Negative (NEGATIVE) 01/26/22 12:51 Urine Ketones Negative (NEGATIVE) 01/26/22 12:51 Urine Blood Negative (NEGATIVE) 01/26/22 12:51 Urine Nitrite Negative (NEGATIVE) 01/26/22 12:51 Urine Bilirubin Negative (NEGATIVE) 01/26/22 12:51 Urine Urobilinogen 2+ (NORMAL) 01/26/22 12:51 Ur Leukocyte Esterase 1+ (NEGATIVE) 01/26/22 12:51 Urine RBC 0-2 /HPF (0-3) 01/26/22 12:51 Urine WBC 0-2 /HPF (0-5) 01/26/22 12:51 Ur Squamous Epith Cells Many /HPF (NEGATIVE) 01/26/22 12:51 Calcium Oxalate Crystal Many /HPF (NEGATIVE) 01/26/22 12:51 Urine Bacteria 1+ /HPF (NEGATIVE) 01/26/22 12:51 Ur Culture Indicated? No/not indicated 01/26/22 12:51 SARS-CoV-2 (PCR) Negative (NEGATIVE) 01/25/22 16:50 Plan (1) Atrial flutter: Status: Acute (2) Hypokalemia: Status: Acute
[2022-01-27 13:54] LABS: FREE T4 (FREE THYROXINE) 0.93 ng/dL (0.76-1.46); TSH (3RD GENERATION) 18.424 uIU/mL (0.358-3.74)
[2022-01-27] MEDS: LIPITOR TAB 80 MG PO SCH (20:11)
[2022-01-28] MEDS ORDERED: TYLENOL 325 MG TAB PO PRN (03:35)
[2022-01-28] MEDS ORDERED: TYLENOL 325 MG TAB PO ONE (03:43)
[2022-01-28 04:56] LABS: BASOPHILS # (AUTO) 0.1 X10^3/uL (0.0-0.1); BASOPHILS % (AUTO) 0.7 % (0.2-1.0); EOSINOPHILS # (AUTO) 0.1 x10^3/uL (0.0-0.2); EOSINOPHILS % (AUTO) 1.7 % (0.9-2.9); HEMATOCRIT 42.2 % (36.0-47.0); HEMOGLOBIN 14.4 g/dL (12.0-16.0); LYMPHOCYTES # (AUTO) 1.6 X10^3/uL (1.3-2.9); LYMPHOCYTES % (AUTO) 22.1 % (21.0-51.0); MEAN CORPUSCULAR HEMOGLOBIN 27.4 pg (27.0-34.0); MEAN CORPUSCULAR HGB CONC 34.2 g/dL (33.0-35.0); MEAN CORPUSCULAR VOLUME 80.3 fL (80.0-100.0); MEAN PLATELET VOLUME 8.8 fL (7.4-11.0); MONOCYTES # (AUTO) 0.7 x10^3/uL (0.3-0.8); MONOCYTES % (AUTO) 10.1 % (0.0-13.0); NEUTROPHILS # (AUTO) 4.8 x10^3/uL (2.2-4.8); NEUTROPHILS % (AUTO) 65.4 % (42.0-75.0); RED BLOOD COUNT 5.26 X10^6/uL (3.5-5.4); RED CELL DISTRIBUTION WIDTH 18.2 % (11.6-16.5); WHITE BLOOD COUNT 7.3 X10^3/uL (3.6-10.0)
[2022-01-28 05:08] LABS: ALANINE AMINOTRANSFERASE 6 Units/L (12-78); ALBUMIN 2.8 g/dL (3.4-5.0); ALKALINE PHOSPHATASE 72 Units/L (46-116); ASPARTATE AMINO TRANSFERASE 10 Units/L (15-37); BLOOD UREA NITROGEN 11 mg/dL (7-18); CALCIUM 8.8 mg/dL (8.5-10.1); CARBON DIOXIDE 27.2 mmol/L (21-32); CHLORIDE 106 mmol/L (98-107); COR CA(FOR HYPOALB) 9.8 mg/dL (8.5-10.1); CREATININE 0.85 mg/dL (0.55-1.02); SODIUM 140 mmol/L (136-145); TOTAL PROTEIN 6.4 g/dL (6.4-8.2); eGFR NON BLACK RACES > 60 (>60)
[2022-01-28] MEDS: NEURONTIN CAP 300 MG PO SCH ×3 (05:27→22:05)
[2022-01-28] MEDS ORDERED: GLUCOPHAGE ONE ×2 (08:18→20:01)
[2022-01-28] MEDS: NS 1,000 ML IV 1,000 ML IV SCH ×3 (08:37→11:28)
[2022-01-28] MEDS: LOVENOX INJ 40 MG SYR SC SCH (08:40)
[2022-01-28] MEDS: GLUCOPHAGE PO SCH ×2 (08:41→20:23)
[2022-01-28] MEDS: SYNTHROID 150 mcg TAB PO SCH (08:41)
[2022-01-28] MEDS: PLAVIX PO SCH (08:41)
[2022-01-28] MEDS: GLUCOTROL XL 24-HR PO SCH (08:41)
[2022-01-28] MEDS: LOPRESSOR TAB 50 MG PO SCH ×2 (08:41→20:23)
[2022-01-28] MEDS: ZESTRIL TAB 40 MG PO SCH (08:41)
[2022-01-28] MEDS: K-DUR TAB 20 MEQ PO PRN (08:43)
--- NOTE | 2022-01-28 16:30 | PCM.PROG ---
Progress Note Progress Note for Day of Date of Exam: 01/28/22 Subjective Subjective: Pt is a 71 year old female past medical history of CVA, HTN, DMT2, admitted for atrial flutter. This morning patient is in bed. No acute concerns overnight. Heart rate has improved, still having some sinus tachycardia but is asymptomatic. Labs/imaging: Wbc 7.3, Hgb 14.4, Plt 161, Na 140, K 3.8, Creatinine 0.85, Glucose 79, Home medications were resumed. Hypokalemia resolved. TSH elevated, but Free T4 within normal range. Otherwise, will continue with current treatment plan. Will have PT evaluate patient today. Continue to closely monitor and follow up labs. Past Medical Family Social History Past Med/Fam/Surg Hx: No changes since H&P Allergies: Allergies No Known Drug Allergies Allergy (Verified 09/04/21 12:27) Review of Systems ROS: No change since H&P Vital Signs and I&O's Vital Signs: Temperature 97.6 F Pulse Rate [Brachial] 110 Pulse Rate [Right] 117 Pulse Rate 117 Respiratory Rate 20 Blood Pressure [Left Calf] 129/73 Blood Pressure [Left Arm] 123/73 Blood Pressure 137/83 O2 Sat by Pulse Oximetry 97 Intake and Output: Intake & Output 01/25/22 01/26/22 01/27/22 01/28/22 23:59 23:59 23:59 23:59 Intake Total 720 / 720 1740 / 1740 2782 / 2782 1048 / 1048 Balance 720 / 720 1740 / 1740 2782 / 2782 1048 / 1048 Physical Exam Oriented: Normal Eyes: Normal Ear: Normal Nose: Normal Throat: Normal Cardiovascular: Tachycardia : Normal Auscultation: Bowel Sounds: Normal Tenderness: Normal Skin: Normal Musculoskeletal: Normal Psychiatric: Normal Mood Description: Calm and Appropriate Affect: Normal Speech Pattern: Clear and Appropriate Laboratory and Diagnostics Result Diagrams: 01/28/22 04:21 01/28/22 04:21 Labs: 01/26/22 12:51 Urine,Clean Catch Urine Culture - Final Laboratory WBC 7.3 X10^3/uL (3.6-10.0) 01/28/22 04:21 RBC 5.26 X10^6/uL (3.5-5.4) 01/28/22 04:21 Hgb 14.4 g/dL (12.0-16.0) 01/28/22 04:21 Hct 42.2 % (36.0-47.0) 01/28/22 04:21 MCV 80.3 fL (80.0-100.0) 01/28/22 04:21 MCH 27.4 pg (27.0-34.0) 01/28/22 04:21 MCHC 34.2 g/dL (33.0-35.0) 01/28/22 04:21 RDW 18.2 % (11.6-16.5) H 01/28/22 04:21 Plt Count 161 X10^3/uL (150.0-450.0) 01/28/22 04:21 MPV 8.8 fL (7.4-11.0) 01/28/22 04:21 Neut % (Auto) 65.4 % (42.0-75.0) 01/28/22 04:21 Lymph % (Auto) 22.1 % (21.0-51.0) 01/28/22 04:21 [place] % (Auto) 10.1 % (0.0-13.0) 01/28/22 04:21 Eos % (Auto) 1.7 % (0.9-2.9) 01/28/22 04:21 Baso % (Auto) 0.7 % (0.2-1.0) 01/28/22 04:21 Neut # (Auto) 4.8 x10^3/uL (2.2-4.8) 01/28/22 04:21 Lymph # (Auto) 1.6 X10^3/uL (1.3-2.9) 01/28/22 04:21 [place] # (Auto) 0.7 x10^3/uL (0.3-0.8) 01/28/22 04:21 Eos # (Auto) 0.1 x10^3/uL (0.0-0.2) 01/28/22 04:21 Baso # (Auto) 0.1 X10^3/uL (0.0-0.1) 01/28/22 04:21 Absolute Nucleated RBC 0.1 /100WBC 01/28/22 04:21 PT 14.7 SECONDS (11.8-14.3) 01/26/22 05:00 INR Target Range - 01/26/22 05:00 INR 1.18 (0.8-1.3) 01/26/22 05:00 APTT 26.6 SECONDS (22.9-36.5) 01/26/22 05:00 PTT Comment - 01/26/22 05:00 Sodium 140 mmol/L (136-145) 01/28/22 04:21 Corrected Sodium TNP 01/28/22 04:21 Potassium 3.8 mmol/L (3.5-5.1) 01/28/22 04:21 Chloride 106 mmol/L (98-107) 01/28/22 04:21 Carbon Dioxide 27.2 mmol/L (21-32) 01/28/22 04:21 BUN 11 mg/dL (7-18) 01/28/22 04:21 Creatinine 0.85 mg/dL (0.55-1.02) 01/28/22 04:21 Est GFR (MDRD) Af Amer > 60 (>60) 01/28/22 04:21 Est GFR (MDRD) Non-Af > 60 (>60) 01/28/22 04:21 Glucose 79 mg/dL (65-99) 01/28/22 04:21 POC Glucose (mg/dL) 73 mg/dL (65-99) 01/28/22 16:22 Calcium 8.8 mg/dL (8.5-10.1) 01/28/22 04:21 Corrected Calcium 9.8 mg/dL (8.5-10.1) 01/28/22 04:21 Magnesium 2.0 mg/dL (1.7-2.9) 01/27/22 04:20 Total Bilirubin 0.40 mg/dL (0.2-1.0) 01/28/22 04:21 AST 10 Units/L (15-37) L 01/28/22 04:21 ALT 6 Units/L (12-78) L 01/28/22 04:21 Alkaline Phosphatase 72 Units/L (46-116) 01/28/22 04:21 Creatine Kinase 52 Units/L (26-192) 01/26/22 05:00 CK-MB (CK-2) 1.7 ng/mL (0-4.0) 01/26/22 05:00 CK/CKMB % Calc 3.3 % (<4) 01/26/22 05:00 Troponin I High Sens 19.8 ng/L (4.0-60.0) 01/26/22 05:00 Total Protein 6.4 g/dL (6.4-8.2) 01/28/22 04:21 Albumin 2.8 g/dL (3.4-5.0) L 01/28/22 04:21 Globulin 3.6 g/dL (2.5-4.5) 01/28/22 04:21 Albumin/Globulin Ratio 0.8 Ratio (1.1-2.1) L 01/28/22 04:21 Free T4 0.93 ng/dL (0.76-1.46) 01/27/22 13:20 TSH 3rd Generation 18.424 uIU/mL (0.358-3.74) H 01/27/22 13:20 Specimen Type Clean catch urine 01/26/22 12:51 Urine Color Dark yellow (YELLOW) 01/26/22 12:51 Urine Appearance Clear (CLEAR) 01/26/22 12:51 Urine pH 5.0 (5.0 - 8.0) 01/26/22 12:51 Ur Specific [place] 1.025 (1.000-1.030) 01/26/22 12:51 Urine Protein Negative (NEGATIVE) 01/26/22 12:51 Urine Glucose (UA) Negative (NEGATIVE) 01/26/22 12:51 Urine Ketones Negative (NEGATIVE) 01/26/22 12:51 Urine Blood Negative (NEGATIVE) 01/26/22 12:51 Urine Nitrite Negative (NEGATIVE) 01/26/22 12:51 Urine Bilirubin Negative (NEGATIVE) 01/26/22 12:51 Urine Urobilinogen 2+ (NORMAL) 01/26/22 12:51 Ur Leukocyte Esterase 1+ (NEGATIVE) 01/26/22 12:51 Urine RBC 0-2 /HPF (0-3) 01/26/22 12:51 Urine WBC 0-2 /HPF (0-5) 01/26/22 12:51 Ur Squamous Epith Cells Many /HPF (NEGATIVE) 01/26/22 12:51 Calcium Oxalate Crystal Many /HPF (NEGATIVE) 01/26/22 12:51 Urine Bacteria 1+ /HPF (NEGATIVE) 01/26/22 12:51 Ur Culture Indicated? No/not indicated 01/26/22 12:51 SARS-CoV-2 (PCR) Negative (NEGATIVE) 01/25/22 16:50 Plan (1) Atrial flutter: Status: Acute (2) Hypokalemia: Status: Acute
[2022-01-28] MEDS ORDERED: ZOFRAN TAB 4 MG SL PRN (17:52)
[2022-01-28] MEDS: LIPITOR TAB 80 MG PO SCH (20:23)
[2022-01-28] MEDS: ZOFRAN INJ 4 MG VIAL IVP PRN (20:55)
[2022-01-29 04:46] LABS: BASOPHILS # (AUTO) 0.1 X10^3/uL (0.0-0.1); BASOPHILS % (AUTO) 0.9 % (0.2-1.0); EOSINOPHILS # (AUTO) 0.1 x10^3/uL (0.0-0.2); EOSINOPHILS % (AUTO) 1.3 % (0.9-2.9); HEMATOCRIT 44.3 % (36.0-47.0); HEMOGLOBIN 14.9 g/dL (12.0-16.0); LYMPHOCYTES # (AUTO) 1.9 X10^3/uL (1.3-2.9); LYMPHOCYTES % (AUTO) 20.1 % (21.0-51.0); MEAN CORPUSCULAR HEMOGLOBIN 27.3 pg (27.0-34.0); MEAN CORPUSCULAR HGB CONC 33.5 g/dL (33.0-35.0); MEAN CORPUSCULAR VOLUME 81.3 fL (80.0-100.0); MEAN PLATELET VOLUME 9.1 fL (7.4-11.0); MONOCYTES # (AUTO) 0.9 x10^3/uL (0.3-0.8); MONOCYTES % (AUTO) 9.3 % (0.0-13.0); NEUTROPHILS # (AUTO) 6.3 x10^3/uL (2.2-4.8); NEUTROPHILS % (AUTO) 68.4 % (42.0-75.0); RED BLOOD COUNT 5.45 X10^6/uL (3.5-5.4); RED CELL DISTRIBUTION WIDTH 18.6 % (11.6-16.5); WHITE BLOOD COUNT 9.2 X10^3/uL (3.6-10.0)
[2022-01-29 05:07] LABS: ALANINE AMINOTRANSFERASE 8 Units/L (12-78); ALBUMIN 2.9 g/dL (3.4-5.0); ALKALINE PHOSPHATASE 70 Units/L (46-116); ASPARTATE AMINO TRANSFERASE 15 Units/L (15-37); BLOOD UREA NITROGEN 10 mg/dL (7-18); CARBON DIOXIDE 25.9 mmol/L (21-32); CHLORIDE 106 mmol/L (98-107); COR CA(FOR HYPOALB) 9.9 mg/dL (8.5-10.1); CREATININE 0.88 mg/dL (0.55-1.02); SODIUM 139 mmol/L (136-145); TOTAL PROTEIN 6.9 g/dL (6.4-8.2); eGFR NON BLACK RACES > 60 (>60)
[2022-01-29] MEDS: NEURONTIN CAP 300 MG PO SCH ×3 (05:11→21:40)
[2022-01-29] MEDS: NS 1,000 ML IV 1,000 ML IV SCH ×2 (05:11→13:57)
[2022-01-29] MEDS: GLUCOTROL XL 24-HR PO SCH (08:05)
[2022-01-29] MEDS: LOPRESSOR TAB 50 MG PO SCH ×2 (08:05→21:39)
[2022-01-29] MEDS: LOVENOX INJ 40 MG SYR SC SCH (08:05)
[2022-01-29] MEDS: GLUCOPHAGE PO SCH ×2 (08:05→21:39)
[2022-01-29] MEDS: PLAVIX PO SCH (08:06)
[2022-01-29] MEDS: SYNTHROID 150 mcg TAB PO SCH (08:06)
[2022-01-29] MEDS: ZESTRIL TAB 40 MG PO SCH (08:06)
[2022-01-29] MEDS: IMODIUM CAP 2 MG PO PRN ×2 (10:30→21:40)
[2022-01-29] MEDS ORDERED: IMODIUM CAP 2 MG PO ONE (10:39)
[2022-01-29] MEDS: LIPITOR TAB 80 MG PO SCH (21:39)
[2022-01-29] MEDS: ZOFRAN INJ 4 MG VIAL IVP PRN (21:40)
[2022-01-30 04:41] LABS: BASOPHILS # (AUTO) 0.1 X10^3/uL (0.0-0.1); BASOPHILS % (AUTO) 0.8 % (0.2-1.0); EOSINOPHILS # (AUTO) 0.1 x10^3/uL (0.0-0.2); EOSINOPHILS % (AUTO) 1.3 % (0.9-2.9); HEMATOCRIT 42.3 % (36.0-47.0); HEMOGLOBIN 14.3 g/dL (12.0-16.0); LYMPHOCYTES # (AUTO) 1.5 X10^3/uL (1.3-2.9); MEAN CORPUSCULAR HEMOGLOBIN 27.3 pg (27.0-34.0); MEAN CORPUSCULAR HGB CONC 33.8 g/dL (33.0-35.0); MEAN CORPUSCULAR VOLUME 80.8 fL (80.0-100.0); MEAN PLATELET VOLUME 9.1 fL (7.4-11.0); MONOCYTES # (AUTO) 0.8 x10^3/uL (0.3-0.8); MONOCYTES % (AUTO) 9.6 % (0.0-13.0); NEUTROPHILS # (AUTO) 5.9 x10^3/uL (2.2-4.8); NEUTROPHILS % (AUTO) 70.3 % (42.0-75.0); RED BLOOD COUNT 5.23 X10^6/uL (3.5-5.4); WHITE BLOOD COUNT 8.4 X10^3/uL (3.6-10.0)
[2022-01-30 04:57] LABS: ALANINE AMINOTRANSFERASE 18 Units/L (12-78); ALBUMIN 2.7 g/dL (3.4-5.0); ALKALINE PHOSPHATASE 69 Units/L (46-116); ASPARTATE AMINO TRANSFERASE 22 Units/L (15-37); BLOOD UREA NITROGEN 10 mg/dL (7-18); CALCIUM 8.8 mg/dL (8.5-10.1); CARBON DIOXIDE 25.1 mmol/L (21-32); CHLORIDE 106 mmol/L (98-107); COR CA(FOR HYPOALB) 9.8 mg/dL (8.5-10.1); CREATININE 0.86 mg/dL (0.55-1.02); SODIUM 137 mmol/L (136-145); TOTAL PROTEIN 6.3 g/dL (6.4-8.2); eGFR NON BLACK RACES > 60 (>60)
[2022-01-30] MEDS: NS 1,000 ML IV 1,000 ML IV SCH ×2 (05:07→14:45)
[2022-01-30] MEDS: NEURONTIN CAP 300 MG PO SCH ×3 (05:11→22:10)
[2022-01-30] MEDS ORDERED: D50W ABBOJECT SYR IV ONE (06:10)
[2022-01-30] MEDS: GLUCOPHAGE PO SCH (08:14)
[2022-01-30] MEDS: LOPRESSOR TAB 50 MG PO SCH ×2 (08:16→22:10)
[2022-01-30] MEDS: ZESTRIL TAB 40 MG PO SCH (08:17)
[2022-01-30] MEDS: GLUCOTROL XL 24-HR PO SCH (08:21)
[2022-01-30] MEDS: PLAVIX PO SCH (10:17)
[2022-01-30] MEDS: LOVENOX INJ 40 MG SYR SC SCH (10:18)
[2022-01-30] MEDS: SYNTHROID 150 mcg TAB PO SCH (10:18)
--- NOTE | 2022-01-30 11:55 | PCM.PROG ---
Progress Note Progress Note for Day of Date of Exam: 01/29/22 Subjective Subjective: Pt is a 71 year old female past medical history of CVA, HTN, DMT2, admitted for atrial flutter. This morning patient is in bed. No acute concerns overnight. Heart rate is back to normal limits. She is having some diarrhea today. Labs/imaging: Wbc 9.2, Hgb 14.9, Plt 181, Na 139, K 4.2, Creatinine 0.88, Glucose 77, Home medications were resumed. Hypokalemia resolved. Physical therapy evaluated patient, recommend rehab, will discuss with case management today. Order immodium for diarrhea. Otherwise, will continue with current treatment plan. Continue to closely monitor and follow up labs. Past Medical Family Social History Past Med/Fam/Surg Hx: No changes since H&P Allergies: Allergies No Known Drug Allergies Allergy (Verified 09/04/21 12:27) Review of Systems ROS: No change since H&P Vital Signs and I&O's Vital Signs: Temperature 98.8 F Pulse Rate [Brachial] 78 Pulse Rate [Right] 117 Pulse Rate 117 Respiratory Rate 20 Blood Pressure [Left Calf] 129/73 Blood Pressure [Left Arm] 89/50 Blood Pressure 137/83 O2 Sat by Pulse Oximetry 95 Intake and Output: Intake & Output 01/27/22 01/28/22 01/29/22 01/30/22 23:59 23:59 23:59 23:59 Intake Total 2782 / 2782 2230 / 2230 2244 / 2244 383 / 383 Balance 2782 / 2782 2230 / 2230 2244 / 2244 383 / 383 Physical Exam Oriented: Normal Eyes: Normal Ear: Normal Nose: Normal Throat: Normal Respiratory: Normal Cardiovascular: Normal : Normal Auscultation: Bowel Sounds: Normal Tenderness: Normal Skin: Normal Musculoskeletal: Normal Psychiatric: Normal Mood Description: Calm and Appropriate Affect: Normal Speech Pattern: Clear and Appropriate Laboratory and Diagnostics Result Diagrams: 01/30/22 04:11 01/30/22 04:11 Labs: 01/26/22 12:51 Urine,Clean Catch Urine Culture - Final Laboratory WBC 8.4 X10^3/uL (3.6-10.0) 01/30/22 04:11 RBC 5.23 X10^6/uL (3.5-5.4) 01/30/22 04:11 Hgb 14.3 g/dL (12.0-16.0) 01/30/22 04:11 Hct 42.3 % (36.0-47.0) 01/30/22 04:11 MCV 80.8 fL (80.0-100.0) 01/30/22 04:11 MCH 27.3 pg (27.0-34.0) 01/30/22 04:11 MCHC 33.8 g/dL (33.0-35.0) 01/30/22 04:11 RDW 18.0 % (11.6-16.5) H 01/30/22 04:11 Plt Count 163 X10^3/uL (150.0-450.0) 01/30/22 04:11 MPV 9.1 fL (7.4-11.0) 01/30/22 04:11 Neut % (Auto) 70.3 % (42.0-75.0) 01/30/22 04:11 Lymph % (Auto) 18.0 % (21.0-51.0) L 01/30/22 04:11 [place] % (Auto) 9.6 % (0.0-13.0) 01/30/22 04:11 Eos % (Auto) 1.3 % (0.9-2.9) 01/30/22 04:11 Baso % (Auto) 0.8 % (0.2-1.0) 01/30/22 04:11 Neut # (Auto) 5.9 x10^3/uL (2.2-4.8) H 01/30/22 04:11 Lymph # (Auto) 1.5 X10^3/uL (1.3-2.9) 01/30/22 04:11 [place] # (Auto) 0.8 x10^3/uL (0.3-0.8) 01/30/22 04:11 Eos # (Auto) 0.1 x10^3/uL (0.0-0.2) 01/30/22 04:11 Baso # (Auto) 0.1 X10^3/uL (0.0-0.1) 01/30/22 04:11 Absolute Nucleated RBC 0.0 /100WBC 01/30/22 04:11 PT 14.7 SECONDS (11.8-14.3) 01/26/22 05:00 INR Target Range - 01/26/22 05:00 INR 1.18 (0.8-1.3) 01/26/22 05:00 APTT 26.6 SECONDS (22.9-36.5) 01/26/22 05:00 PTT Comment - 01/26/22 05:00 Sodium 137 mmol/L (136-145) 01/30/22 04:11 Corrected Sodium TNP 01/30/22 04:11 Potassium 3.6 mmol/L (3.5-5.1) 01/30/22 04:11 Chloride 106 mmol/L (98-107) 01/30/22 04:11 Carbon Dioxide 25.1 mmol/L (21-32) 01/30/22 04:11 BUN 10 mg/dL (7-18) 01/30/22 04:11 Creatinine 0.86 mg/dL (0.55-1.02) 01/30/22 04:11 Est GFR (MDRD) Af Amer > 60 (>60) 01/30/22 04:11 Est GFR (MDRD) Non-Af > 60 (>60) 01/30/22 04:11 Glucose 66 mg/dL (65-99) 01/30/22 04:11 POC Glucose (mg/dL) 80 mg/dL (65-99) 01/30/22 10:57 Calcium 8.8 mg/dL (8.5-10.1) 01/30/22 04:11 Corrected Calcium 9.8 mg/dL (8.5-10.1) 01/30/22 04:11 Magnesium 2.0 mg/dL (1.7-2.9) 01/27/22 04:20 Total Bilirubin 0.50 mg/dL (0.2-1.0) 01/30/22 04:11 AST 22 Units/L (15-37) 01/30/22 04:11 ALT 18 Units/L (12-78) 01/30/22 04:11 Alkaline Phosphatase 69 Units/L (46-116) 01/30/22 04:11 Creatine Kinase 52 Units/L (26-192) 01/26/22 05:00 CK-MB (CK-2) 1.7 ng/mL (0-4.0) 01/26/22 05:00 CK/CKMB % Calc 3.3 % (<4) 01/26/22 05:00 Troponin I High Sens 19.8 ng/L (4.0-60.0) 01/26/22 05:00 Total Protein 6.3 g/dL (6.4-8.2) L 01/30/22 04:11 Albumin 2.7 g/dL (3.4-5.0) L 01/30/22 04:11 Globulin 3.6 g/dL (2.5-4.5) 01/30/22 04:11 Albumin/Globulin Ratio 0.8 Ratio (1.1-2.1) L 01/30/22 04:11 Free T4 0.93 ng/dL (0.76-1.46) 01/27/22 13:20 TSH 3rd Generation 18.424 uIU/mL (0.358-3.74) H 01/27/22 13:20 Specimen Type Clean catch urine 01/26/22 12:51 Urine Color Dark yellow (YELLOW) 01/26/22 12:51 Urine Appearance Clear (CLEAR) 01/26/22 12:51 Urine pH 5.0 (5.0 - 8.0) 01/26/22 12:51 Ur Specific [place] 1.025 (1.000-1.030) 01/26/22 12:51 Urine Protein Negative (NEGATIVE) 01/26/22 12:51 Urine Glucose (UA) Negative (NEGATIVE) 01/26/22 12:51 Urine Ketones Negative (NEGATIVE) 01/26/22 12:51 Urine Blood Negative (NEGATIVE) 01/26/22 12:51 Urine Nitrite Negative (NEGATIVE) 01/26/22 12:51 Urine Bilirubin Negative (NEGATIVE) 01/26/22 12:51 Urine Urobilinogen 2+ (NORMAL) 01/26/22 12:51 Ur Leukocyte Esterase 1+ (NEGATIVE) 01/26/22 12:51 Urine RBC 0-2 /HPF (0-3) 01/26/22 12:51 Urine WBC 0-2 /HPF (0-5) 01/26/22 12:51 Ur Squamous Epith Cells Many /HPF (NEGATIVE) 01/26/22 12:51 Calcium Oxalate Crystal Many /HPF (NEGATIVE) 01/26/22 12:51 Urine Bacteria 1+ /HPF (NEGATIVE) 01/26/22 12:51 Ur Culture Indicated? No/not indicated 01/26/22 12:51 SARS-CoV-2 (PCR) Negative (NEGATIVE) 01/25/22 16:50 Plan (1) Atrial flutter: Status: Acute (2) Hypokalemia: Status: Acute
[2022-01-30] MEDS: K-DUR TAB 20 MEQ PO PRN (16:57)
[2022-01-30] MEDS: LIPITOR TAB 80 MG PO SCH (22:10)
[2022-01-31 04:48] LABS: BASOPHILS # (AUTO) 0.1 X10^3/uL (0.0-0.1); BASOPHILS % (AUTO) 0.8 % (0.2-1.0); EOSINOPHILS # (AUTO) 0.1 x10^3/uL (0.0-0.2); EOSINOPHILS % (AUTO) 1.6 % (0.9-2.9); HEMATOCRIT 42.4 % (36.0-47.0); HEMOGLOBIN 14.1 g/dL (12.0-16.0); LYMPHOCYTES # (AUTO) 1.7 X10^3/uL (1.3-2.9); LYMPHOCYTES % (AUTO) 22.8 % (21.0-51.0); MEAN CORPUSCULAR HEMOGLOBIN 26.9 pg (27.0-34.0); MEAN CORPUSCULAR HGB CONC 33.2 g/dL (33.0-35.0); MEAN CORPUSCULAR VOLUME 81.1 fL (80.0-100.0); MEAN PLATELET VOLUME 9.3 fL (7.4-11.0); MONOCYTES # (AUTO) 0.8 x10^3/uL (0.3-0.8); MONOCYTES % (AUTO) 10.6 % (0.0-13.0); NEUTROPHILS # (AUTO) 4.9 x10^3/uL (2.2-4.8); NEUTROPHILS % (AUTO) 64.2 % (42.0-75.0); RED BLOOD COUNT 5.23 X10^6/uL (3.5-5.4); RED CELL DISTRIBUTION WIDTH 17.9 % (11.6-16.5); WHITE BLOOD COUNT 7.6 X10^3/uL (3.6-10.0)
[2022-01-31 05:08] LABS: ALANINE AMINOTRANSFERASE 18 Units/L (12-78); ALBUMIN 2.8 g/dL (3.4-5.0); ALKALINE PHOSPHATASE 66 Units/L (46-116); ASPARTATE AMINO TRANSFERASE 19 Units/L (15-37); BLOOD UREA NITROGEN 8 mg/dL (7-18); CALCIUM 8.7 mg/dL (8.5-10.1); CARBON DIOXIDE 25.4 mmol/L (21-32); CHLORIDE 106 mmol/L (98-107); COR CA(FOR HYPOALB) 9.7 mg/dL (8.5-10.1); CREATININE 0.85 mg/dL (0.55-1.02); SODIUM 138 mmol/L (136-145); TOTAL PROTEIN 6.4 g/dL (6.4-8.2); eGFR NON BLACK RACES > 60 (>60)
[2022-01-31] MEDS: GLUCOPHAGE PO SCH (05:12)
[2022-01-31] MEDS: NEURONTIN CAP 300 MG PO SCH (05:57)
[2022-01-31] MEDS: NS 1,000 ML IV 1,000 ML IV SCH (07:09)
[2022-01-31] MEDS: LOVENOX INJ 40 MG SYR SC SCH (08:35)
[2022-01-31] MEDS: PLAVIX PO SCH (08:36)
[2022-01-31] MEDS: LOPRESSOR TAB 50 MG PO SCH (08:36)
[2022-01-31] MEDS: SYNTHROID 150 mcg TAB PO SCH (08:36)
--- NOTE | 2022-01-31 08:46 | PCM.PROG ---
Progress Note Progress Note for Day of Date of Exam: 01/30/22 Subjective Subjective: Pt is a 71 year old female past medical history of CVA, HTN, DMT2, admitted for atrial flutter. Pt is resting in bed comfortably. No acute concerns overnight. No longer having loose stools. Labs/imaging: Wbc 8.4, Hgb 14.3, Plt 163, Na 137, K 3.6, Creatinine 0.86, Glucose 66. Pt is working with physical therapy, has recommended rehab. case management arranging placement. Continue home medications and current treatment plan. Continue to closely monitor and follow up labs. Past Medical Family Social History Past Med/Fam/Surg Hx: No changes since H&P Allergies: Allergies No Known Drug Allergies Allergy (Verified 09/04/21 12:27) Review of Systems ROS: No change since H&P Vital Signs and I&O's Vital Signs: Temperature 99.3 F Pulse Rate [Brachial] 118 Pulse Rate [Right] 117 Pulse Rate 117 Respiratory Rate 20 Blood Pressure [Left Calf] 129/73 Blood Pressure [Left Arm] 103/81 Blood Pressure 137/83 O2 Sat by Pulse Oximetry 96 Intake and Output: Intake & Output 01/28/22 01/29/22 01/30/22 01/31/22 23:59 23:59 23:59 23:59 Intake Total 2230 / 2230 2244 / 2244 1905 / 1905 560 / 560 Balance 2230 / 2230 2244 / 2244 1905 / 1905 560 / 560 Physical Exam Oriented: Normal Eyes: Normal Ear: Normal Nose: Normal Throat: Normal Respiratory: Normal Cardiovascular: Normal : Normal Auscultation: Bowel Sounds: Normal Tenderness: Normal Skin: Normal Musculoskeletal: Normal Psychiatric: Normal Mood Description: Calm and Appropriate Affect: Normal Speech Pattern: Clear and Appropriate Laboratory and Diagnostics Result Diagrams: 01/31/22 04:18 01/31/22 04:18 Labs: 01/26/22 12:51 Urine,Clean Catch Urine Culture - Final Laboratory WBC 7.6 X10^3/uL (3.6-10.0) 01/31/22 04:18 RBC 5.23 X10^6/uL (3.5-5.4) 01/31/22 04:18 Hgb 14.1 g/dL (12.0-16.0) 01/31/22 04:18 Hct 42.4 % (36.0-47.0) 01/31/22 04:18 MCV 81.1 fL (80.0-100.0) 01/31/22 04:18 MCH 26.9 pg (27.0-34.0) L 01/31/22 04:18 MCHC 33.2 g/dL (33.0-35.0) 01/31/22 04:18 RDW 17.9 % (11.6-16.5) H 01/31/22 04:18 Plt Count 149 X10^3/uL (150.0-450.0) L 01/31/22 04:18 MPV 9.3 fL (7.4-11.0) 01/31/22 04:18 Neut % (Auto) 64.2 % (42.0-75.0) 01/31/22 04:18 Lymph % (Auto) 22.8 % (21.0-51.0) 01/31/22 04:18 [place] % (Auto) 10.6 % (0.0-13.0) 01/31/22 04:18 Eos % (Auto) 1.6 % (0.9-2.9) 01/31/22 04:18 Baso % (Auto) 0.8 % (0.2-1.0) 01/31/22 04:18 Neut # (Auto) 4.9 x10^3/uL (2.2-4.8) H 01/31/22 04:18 Lymph # (Auto) 1.7 X10^3/uL (1.3-2.9) 01/31/22 04:18 [place] # (Auto) 0.8 x10^3/uL (0.3-0.8) 01/31/22 04:18 Eos # (Auto) 0.1 x10^3/uL (0.0-0.2) 01/31/22 04:18 Baso # (Auto) 0.1 X10^3/uL (0.0-0.1) 01/31/22 04:18 Absolute Nucleated RBC 0.1 /100WBC 01/31/22 04:18 PT 14.7 SECONDS (11.8-14.3) 01/26/22 05:00 INR Target Range - 01/26/22 05:00 INR 1.18 (0.8-1.3) 01/26/22 05:00 APTT 26.6 SECONDS (22.9-36.5) 01/26/22 05:00 PTT Comment - 01/26/22 05:00 Sodium 138 mmol/L (136-145) 01/31/22 04:18 Corrected Sodium TNP 01/31/22 04:18 Potassium 4.0 mmol/L (3.5-5.1) 01/31/22 04:18 Chloride 106 mmol/L (98-107) 01/31/22 04:18 Carbon Dioxide 25.4 mmol/L (21-32) 01/31/22 04:18 BUN 8 mg/dL (7-18) 01/31/22 04:18 Creatinine 0.85 mg/dL (0.55-1.02) 01/31/22 04:18 Est GFR (MDRD) Af Amer > 60 (>60) 01/31/22 04:18 Est GFR (MDRD) Non-Af > 60 (>60) 01/31/22 04:18 Glucose 92 mg/dL (65-99) 01/31/22 04:18 POC Glucose (mg/dL) 180 mg/dL (65-99) H 01/31/22 05:48 Calcium 8.7 mg/dL (8.5-10.1) 01/31/22 04:18 Corrected Calcium 9.7 mg/dL (8.5-10.1) 01/31/22 04:18 Magnesium 2.0 mg/dL (1.7-2.9) 01/27/22 04:20 Total Bilirubin 0.60 mg/dL (0.2-1.0) 01/31/22 04:18 AST 19 Units/L (15-37) 01/31/22 04:18 ALT 18 Units/L (12-78) 01/31/22 04:18 Alkaline Phosphatase 66 Units/L (46-116) 01/31/22 04:18 Creatine Kinase 52 Units/L (26-192) 01/26/22 05:00 CK-MB (CK-2) 1.7 ng/mL (0-4.0) 01/26/22 05:00 CK/CKMB % Calc 3.3 % (<4) 01/26/22 05:00 Troponin I High Sens 19.8 ng/L (4.0-60.0) 01/26/22 05:00 Total Protein 6.4 g/dL (6.4-8.2) 01/31/22 04:18 Albumin 2.8 g/dL (3.4-5.0) L 01/31/22 04:18 Globulin 3.6 g/dL (2.5-4.5) 01/31/22 04:18 Albumin/Globulin Ratio 0.8 Ratio (1.1-2.1) L 01/31/22 04:18 Free T4 0.93 ng/dL (0.76-1.46) 01/27/22 13:20 TSH 3rd Generation 18.424 uIU/mL (0.358-3.74) H 01/27/22 13:20 Specimen Type Clean catch urine 01/26/22 12:51 Urine Color Dark yellow (YELLOW) 01/26/22 12:51 Urine Appearance Clear (CLEAR) 01/26/22 12:51 Urine pH 5.0 (5.0 - 8.0) 01/26/22 12:51 Ur Specific [place] 1.025 (1.000-1.030) 01/26/22 12:51 Urine Protein Negative (NEGATIVE) 01/26/22 12:51 Urine Glucose (UA) Negative (NEGATIVE) 01/26/22 12:51 Urine Ketones Negative (NEGATIVE) 01/26/22 12:51 Urine Blood Negative (NEGATIVE) 01/26/22 12:51 Urine Nitrite Negative (NEGATIVE) 01/26/22 12:51 Urine Bilirubin Negative (NEGATIVE) 01/26/22 12:51 Urine Urobilinogen 2+ (NORMAL) 01/26/22 12:51 Ur Leukocyte Esterase 1+ (NEGATIVE) 01/26/22 12:51 Urine RBC 0-2 /HPF (0-3) 01/26/22 12:51 Urine WBC 0-2 /HPF (0-5) 01/26/22 12:51 Ur Squamous Epith Cells Many /HPF (NEGATIVE) 01/26/22 12:51 Calcium Oxalate Crystal Many /HPF (NEGATIVE) 01/26/22 12:51 Urine Bacteria 1+ /HPF (NEGATIVE) 01/26/22 12:51 Ur Culture Indicated? No/not indicated 01/26/22 12:51 SARS-CoV-2 (PCR) Negative (NEGATIVE) 01/25/22 16:50 Plan (1) Atrial flutter: Status: Acute (2) Hypokalemia: Status: Acute
[2022-01-31] MEDS ORDERED: GLUCOPHAGE PO SCH (09:00)
[2022-01-31] MEDS ORDERED: ZESTRIL TAB 10 MG PO SCH (09:00)
[2022-01-31] MEDS ORDERED: NEURONTIN CAP 100 MG PO SCH (09:00)
[2022-01-31] MEDS ORDERED: GLUCOPHAGE ONE (09:10)
[2022-01-31 12:15] VITALS: BP 131/84
--- NOTE | 2022-02-03 09:36 | W.DIS.FURT ---
Summary of Discharge Discharge Summary of Date Date of Exam: 01/31/22 Admission Date Date of Admission: 01/25/22 Admission Diagnosis Patient Problems (Updated 01/26/22 @ 11:50 by Checo Patton) Dizziness (Acute) R42 Generalized weakness (Acute) R53.1 Nausea & vomiting (Acute) R11.2 Atrial fibrillation and flutter (Acute) I48.91, I48.92 Hospital Course: Pt is a 71 year old female past medical history of CVA, HTN, DMT2, admitted for atrial flutter. Pt was restarted on her home medications. Adjustment made to blood pressure and diabetes medications. Pt appeared to not be taking medications at home as prescribed. Pt atrial flutter resolved with metoprolol tart. Labs/imaging: Wbc 7.6, Hgb 14.1, Plt 149, Na 138, K 4.0, Creatinine 0.85, Glucose 92. Pt was evaluated by physical therapy, has recommended rehab. Pt was discharged in stable condition to [facility]. Vital Signs: Vital Signs (72 hours) 01/31/22 12:00 Temperature 98 F Pulse Rate [Brachial] 76 Respiratory Rate 18 Blood Pressure [Left Arm] 131/84 O2 Sat by Pulse Oximetry 96 Labs: Laboratory Last Values WBC 7.6 X10^3/uL (3.6-10.0) 01/31/22 04:18 RBC 5.23 X10^6/uL (3.5-5.4) 01/31/22 04:18 Hgb 14.1 g/dL (12.0-16.0) 01/31/22 04:18 Hct 42.4 % (36.0-47.0) 01/31/22 04:18 MCV 81.1 fL (80.0-100.0) 01/31/22 04:18 MCH 26.9 pg (27.0-34.0) L 01/31/22 04:18 MCHC 33.2 g/dL (33.0-35.0) 01/31/22 04:18 RDW 17.9 % (11.6-16.5) H 01/31/22 04:18 Plt Count 149 X10^3/uL (150.0-450.0) L 01/31/22 04:18 MPV 9.3 fL (7.4-11.0) 01/31/22 04:18 Neut % (Auto) 64.2 % (42.0-75.0) 01/31/22 04:18 Lymph % (Auto) 22.8 % (21.0-51.0) 01/31/22 04:18 [place] % (Auto) 10.6 % (0.0-13.0) 01/31/22 04:18 Eos % (Auto) 1.6 % (0.9-2.9) 01/31/22 04:18 Baso % (Auto) 0.8 % (0.2-1.0) 01/31/22 04:18 Neut # (Auto) 4.9 x10^3/uL (2.2-4.8) H 01/31/22 04:18 Lymph # (Auto) 1.7 X10^3/uL (1.3-2.9) 01/31/22 04:18 [place] # (Auto) 0.8 x10^3/uL (0.3-0.8) 01/31/22 04:18 Eos # (Auto) 0.1 x10^3/uL (0.0-0.2) 01/31/22 04:18 Baso # (Auto) 0.1 X10^3/uL (0.0-0.1) 01/31/22 04:18 Absolute Nucleated RBC 0.1 /100WBC 01/31/22 04:18 PT 14.7 SECONDS (11.8-14.3) 01/26/22 05:00 INR Target Range - 01/26/22 05:00 INR 1.18 (0.8-1.3) 01/26/22 05:00 APTT 26.6 SECONDS (22.9-36.5) 01/26/22 05:00 PTT Comment - 01/26/22 05:00 Sodium 138 mmol/L (136-145) 01/31/22 04:18 Corrected Sodium TNP 01/31/22 04:18 Potassium 4.0 mmol/L (3.5-5.1) 01/31/22 04:18 Chloride 106 mmol/L (98-107) 01/31/22 04:18 Carbon Dioxide 25.4 mmol/L (21-32) 01/31/22 04:18 BUN 8 mg/dL (7-18) 01/31/22 04:18 Creatinine 0.85 mg/dL (0.55-1.02) 01/31/22 04:18 Est GFR (MDRD) Af Amer > 60 (>60) 01/31/22 04:18 Est GFR (MDRD) Non-Af > 60 (>60) 01/31/22 04:18 Glucose 92 mg/dL (65-99) 01/31/22 04:18 POC Glucose (mg/dL) 129 mg/dL (65-99) H 01/31/22 11:13 Calcium 8.7 mg/dL (8.5-10.1) 01/31/22 04:18 Corrected Calcium 9.7 mg/dL (8.5-10.1) 01/31/22 04:18 Magnesium 2.0 mg/dL (1.7-2.9) 01/27/22 04:20 Total Bilirubin 0.60 mg/dL (0.2-1.0) 01/31/22 04:18 AST 19 Units/L (15-37) 01/31/22 04:18 ALT 18 Units/L (12-78) 01/31/22 04:18 Alkaline Phosphatase 66 Units/L (46-116) 01/31/22 04:18 Creatine Kinase 52 Units/L (26-192) 01/26/22 05:00 CK-MB (CK-2) 1.7 ng/mL (0-4.0) 01/26/22 05:00 CK/CKMB % Calc 3.3 % (<4) 01/26/22 05:00 Troponin I High Sens 19.8 ng/L (4.0-60.0) 01/26/22 05:00 Total Protein 6.4 g/dL (6.4-8.2) 01/31/22 04:18 Albumin 2.8 g/dL (3.4-5.0) L 01/31/22 04:18 Globulin 3.6 g/dL (2.5-4.5) 01/31/22 04:18 Albumin/Globulin Ratio 0.8 Ratio (1.1-2.1) L 01/31/22 04:18 Free T4 0.93 ng/dL (0.76-1.46) 01/27/22 13:20 TSH 3rd Generation 18.424 uIU/mL (0.358-3.74) H 01/27/22 13:20 Specimen Type Clean catch urine 01/26/22 12:51 Urine Color Dark yellow (YELLOW) 01/26/22 12:51 Urine Appearance Clear (CLEAR) 01/26/22 12:51 Urine pH 5.0 (5.0 - 8.0) 01/26/22 12:51 Ur Specific [place] 1.025 (1.000-1.030) 01/26/22 12:51 Urine Protein Negative (NEGATIVE) 01/26/22 12:51 Urine Glucose (UA) Negative (NEGATIVE) 01/26/22 12:51 Urine Ketones Negative (NEGATIVE) 01/26/22 12:51 Urine Blood Negative (NEGATIVE) 01/26/22 12:51 Urine Nitrite Negative (NEGATIVE) 01/26/22 12:51 Urine Bilirubin Negative (NEGATIVE) 01/26/22 12:51 Urine Urobilinogen 2+ (NORMAL) 01/26/22 12:51 Ur Leukocyte Esterase 1+ (NEGATIVE) 01/26/22 12:51 Urine RBC 0-2 /HPF (0-3) 01/26/22 12:51 Urine WBC 0-2 /HPF (0-5) 01/26/22 12:51 Ur Squamous Epith Cells Many /HPF (NEGATIVE) 01/26/22 12:51 Calcium Oxalate Crystal Many /HPF (NEGATIVE) 01/26/22 12:51 Urine Bacteria 1+ /HPF (NEGATIVE) 01/26/22 12:51 Ur Culture Indicated? No/not indicated 01/26/22 12:51 SARS-CoV-2 (PCR) Negative (NEGATIVE) 01/25/22 16:50 Reason For Visit: A FIB/FLUTTER, DIZZINESS, NAUSEA AND VOMITTING, Discharge Date Discharge Date: 01/31/22 Discharge Diagnosis All Active Problems (Updated 01/26/22 @ 11:50 by Checo Patton) Hypokalemia (Acute) Atrial flutter (Acute) Dizziness (Acute) Generalized weakness (Acute) Nausea & vomiting (Acute) Atrial fibrillation and flutter (Acute) Acute hypotension (Acute) Acute bronchitis (Acute) Muscle strain of left thigh (Acute) Hypotension (Acute) Pulmonary edema (Acute) Dehydration (Acute) Acute cystitis (Acute) Infarction of right basal ganglia (Acute) COVID-19 virus infection (Acute) Diarrhea (Acute) Generalized weakness (Acute) Transient ischemic attack (TIA) (Acute) UTI (urinary tract infection) (Acute) Acute CVA (cerebrovascular accident) (Acute) Brain TIA (Acute) COVID-19 (Acute) Type 2 diabetes mellitus (Chronic) Hypertension (Chronic) Fall (Acute) Headache (Acute) 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 Pt is to keep follow up appointment as instructed and take medications as ordered. Discharge Medications Discharge Medications: No Known Drug Allergies Allergy (Verified 09/04/21 12:27) CONTINUE taking the following medications metoprolol tartrate 50 mg PO BID 01/26/22 [History] New Prescriptions Blood Glucose Check [Otbs (One-Touch Blood Sugar)] 1 ea XX ACHS 01/31/22 [Rx] acetaminophen [Tylenol] 650 mg PO Q6H PRN tab 01/31/22 [Rx] gabapentin 100 mg PO BID cap 01/31/22 [Rx] metformin 500 mg PO BID tab 01/31/22 [Rx] metoprolol tartrate 50 mg PO BID tab 01/31/22 [Rx] ondansetron HCl 4 mg SUBLINGUAL Q6H PRN tab 01/31/22 [Rx] Discharge Disposition Discharge Disposition: [facility] Discharge Condition: Stable Discharge Plan Discharge Plan Hospital Course: Pt is a 71 year old female past medical history of CVA, HTN, DMT2, admitted for atrial flutter. Pt was restarted on her home medications. Adjustment made to blood pressure and diabetes medications. Pt appeared to not be taking medications at home as prescribed. Pt atrial flutter resolved with metoprolol tart. Labs/imaging: Wbc 7.6, Hgb 14.1, Plt 149, Na 138, K 4.0, Creatinine 0.85, Glucose 92. Pt was evaluated by physical therapy, has recommended rehab. Pt was discharged in stable condition to [facility]. Patient Disposition: [facility] Condition: Stable Health Concerns: Post Hospitalization: new medications and changes needed to prevent readmission or further decline. Pt educated and given instructions on all concerns. Plan of Treatment: Continue with present treatment and follow up plan. Pt is to keep follow up appointment as instructed and take medications as ordered. Prescriptions: New metformin 500 mg Tablet 500 mg PO BID RF: 0 acetaminophen [Tylenol] 325 mg Tablet 650 mg PO Q6H PRNRF: 0 ondansetron HCl 4 mg Tablet 4 mg sublingual Q6H PRNRF: 0 metoprolol tartrate 50 mg Tablet 50 mg PO BID RF: 0 gabapentin 100 mg Capsule 100 mg PO BID RF: 0 Blood Glucose Check [Otbs (One-Touch Blood Sugar)] 1 ea XX ACHS RF: 0 Continued atorvastatin 80 mg tablet 80 mg PO HS 30 Days Qty: 30 RF: 3 meloxicam 15 mg Tablet 15 mg PO DAILY 30 Days Qty: 30 RF: 3 clopidogrel [Plavix] 75 mg tablet 75 mg PO DAILY 30 Days Qty: 30 RF: 3 levothyroxine [Euthyrox] 150 mcg tablet 150 mcg PO DAILY RF: 0 Discontinued metformin 1,000 mg tablet 1,000 mg PO BID 30 Days Qty: 60 RF: 3 gabapentin 300 mg capsule 300 mg PO TID 30 Days Qty: 90 RF: 3 lisinopril 40 mg Tablet 40 mg DAILY RF: 0 glipizide 10 mg Tablet Extended Release 24hr 10 mg PO DAILY RF: 0 No Action metoprolol tartrate 50 mg Tablet 50 mg PO BID RF: 0 Orders to Discharge Patient Discharge Orders: Discharge (Routine); Ordered 01/31/22 Ordered By: Checo Patton Follow ups/Referrals Follow ups/Referrals: Checo Patton [Primary Care Provider] - 02/04/22 9:40 am Instructions Stand Alone Forms: Excuse From Work or School, Precautions for COVID19, [facility], Patient Portal, Social Distancing
== END 2022-01-31 13:32 ==
LOC: ER 12:53 → MED/SURG 12:53
PROVIDERS: ADMIT Internal Medicine; ATTEND Family Medicine

== ENCOUNTER 2023-11-02 18:04 | Observation (INO) ==
--- NOTE | 2023-11-02 18:20 | ED.ABDFE ---
HPI Time Seen Time Seen by Provider: 11/02/23 18:18 PMH PMH Past Medical History: Asthma, Diabetes and Hypertension Past Surgical History: Yes Surgical History: Thyroidectomy Family History Family Medical History: Diabetes Mellitus and Hypertension Social History Do you use any recreational Drugs:: No PE Vital Signs Vitals: Vital Signs Temperature 97.9 F Pulse Rate 65 Respiratory Rate 20 Blood Pressure 137/99 O2 Sat by Pulse Oximetry 100 ROR Labs Reviewed 11/02/23 18:52 11/02/23 18:52 Laboratory: WBC 8.9 X10^3/uL (3.6-10.0) 11/02/23 18:52 RBC 4.68 X10^6/uL (3.5-5.4) 11/02/23 18:52 Hgb 12.2 g/dL (12.0-16.0) 11/02/23 18:52 Hct 39.1 % (36.0-47.0) 11/02/23 18:52 MCV 83.5 fL (80.0-100.0) 11/02/23 18:52 MCH 26.2 pg (27.0-34.0) L 11/02/23 18:52 MCHC 31.3 g/dL (33.0-35.0) L 11/02/23 18:52 RDW 18.9 % (11.6-16.5) H 11/02/23 18:52 Plt Count 164 X10^3/uL (150.0-450.0) 11/02/23 18:52 MPV 8.6 fL (7.4-11.0) 11/02/23 18:52 Neut % (Auto) 70.1 % (42.0-75.0) 11/02/23 18:52 Lymph % (Auto) 13.2 % (21.0-51.0) L 11/02/23 18:52 [place] % (Auto) 14.0 % (0.0-13.0) H 11/02/23 18:52 Eos % (Auto) 1.8 % (0.9-2.9) 11/02/23 18:52 Baso % (Auto) 0.9 % (0.2-1.0) 11/02/23 18:52 Neut # (Auto) 6.3 x10^3/uL (2.2-4.8) H 11/02/23 18:52 Lymph # (Auto) 1.2 X10^3/uL (1.3-2.9) L 11/02/23 18:52 [place] # (Auto) 1.2 x10^3/uL (0.3-0.8) H 11/02/23 18:52 Eos # (Auto) 0.2 x10^3/uL (0.0-0.2) 11/02/23 18:52 Baso # (Auto) 0.1 X10^3/uL (0.0-0.1) 11/02/23 18:52 Absolute Nucleated RBC 0.1 /100WBC 11/02/23 18:52 Sample Site Krad 11/02/23 22:47 ABG pH 7.440 (7.35-7.45) 11/02/23 22:47 ABG pCO2 51.0 mmHg (35.0-45.0) H* 11/02/23 22:47 ABG pO2 70.0 mmHg (80.0-100.0) L 11/02/23 22:47 ABG HCO3 34.6 mmol/L (22-26) H* 11/02/23 22:47 ABG O2 Saturation 94.0 % (90-100) 11/02/23 22:47 ABG Base Excess 8.9 mmol/L (-2.0-2.0) H 11/02/23 22:47 Michael Test Pos 11/02/23 22:47 A-a Gradient 66.0 mmHg 11/02/23 22:47 FiO2 28.0 11/02/23 22:47 Blood Gas Comments Yunior abg well-mtf 11/02/23 22:47 Sodium 142 mmol/L (136-145) 11/02/23 18:52 Corrected Sodium 142 mmol/L (136-145) 11/02/23 18:52 Potassium 4.5 mmol/L (3.5-5.1) 11/02/23 18:52 Chloride 102 mmol/L (98-107) 11/02/23 18:52 Carbon Dioxide 33.9 mmol/L (21-32) H 11/02/23 18:52 BUN 19 mg/dL (7-18) H 11/02/23 18:52 Creatinine 1.02 mg/dL (0.55-1.02) 11/02/23 18:52 Est GFR (MDRD) Af Amer > 60 (>60) 11/02/23 18:52 Est GFR (MDRD) Non-Af 56 (>60) L 11/02/23 18:52 Glucose 112 mg/dL (65-99) H 11/02/23 18:52 Calcium 8.7 mg/dL (8.5-10.1) 11/02/23 18:52 Corrected Calcium 9.6 mg/dL (8.5-10.1) 11/02/23 18:52 Total Bilirubin 0.90 mg/dL (0.2-1.0) 11/02/23 18:52 AST 35 Units/L (15-37) 11/02/23 18:52 ALT 15 Units/L (12-78) 11/02/23 18:52 Alkaline Phosphatase 93 Units/L (46-116) 11/02/23 18:52 Total Protein 6.8 g/dL (6.4-8.2) 11/02/23 18:52 Albumin 2.9 g/dL (3.4-5.0) L 11/02/23 18:52 Globulin 3.9 g/dL (2.5-4.5) 11/02/23 18:52 Albumin/Globulin Ratio 0.7 Ratio (1.1-2.1) L 11/02/23 18:52 Amylase 36 Units/L (25-115) 11/02/23 18:52 Lipase 46 Units/L (16-77) 11/02/23 18:52 Opioid Opioid Risk Tool Age (Vinicius box if 16-45): No History of Preadolescent Sexual Abuse: No Total: 0 Total Score Risk Category: Low Risk Copyright: Senthil OBRIEN predicting aberrant behaviors Discharge Plan Discharge Plan Patient Disposition: 01 HOME, SELF-CARE Condition: Stable Orders to Discharge Patient Discharge Orders: Transfer (Routine); Ordered 11/02/23 Ordered By: KAILA HERNANDEZ
[2023-11-02 19:01] LABS: BASOPHILS # (AUTO) 0.1 X10^3/uL (0.0-0.1); BASOPHILS % (AUTO) 0.9 % (0.2-1.0); EOSINOPHILS # (AUTO) 0.2 x10^3/uL (0.0-0.2); EOSINOPHILS % (AUTO) 1.8 % (0.9-2.9); HEMATOCRIT 39.1 % (36.0-47.0); HEMOGLOBIN 12.2 g/dL (12.0-16.0); LYMPHOCYTES # (AUTO) 1.2 X10^3/uL (1.3-2.9); LYMPHOCYTES % (AUTO) 13.2 % (21.0-51.0); MEAN CORPUSCULAR HEMOGLOBIN 26.2 pg (27.0-34.0); MEAN CORPUSCULAR HGB CONC 31.3 g/dL (33.0-35.0); MEAN CORPUSCULAR VOLUME 83.5 fL (80.0-100.0); MEAN PLATELET VOLUME 8.6 fL (7.4-11.0); MONOCYTES # (AUTO) 1.2 x10^3/uL (0.3-0.8); NEUTROPHILS # (AUTO) 6.3 x10^3/uL (2.2-4.8); NEUTROPHILS % (AUTO) 70.1 % (42.0-75.0); PLATELET COUNT 164 X10^3/uL (150.0-450.0); RED BLOOD COUNT 4.68 X10^6/uL (3.5-5.4); RED CELL DISTRIBUTION WIDTH 18.9 % (11.6-16.5); WHITE BLOOD COUNT 8.9 X10^3/uL (3.6-10.0)
[2023-11-02 19:13] LABS: ALANINE AMINOTRANSFERASE 15 Units/L (12-78); ALBUMIN 2.9 g/dL (3.4-5.0); ALKALINE PHOSPHATASE 93 Units/L (46-116); AMYLASE 36 Units/L (25-115); ASPARTATE AMINO TRANSFERASE 35 Units/L (15-37); BLOOD UREA NITROGEN 19 mg/dL (7-18); CALCIUM 8.7 mg/dL (8.5-10.1); CARBON DIOXIDE 33.9 mmol/L (21-32); CHLORIDE 102 mmol/L (98-107); COR CA(FOR HYPOALB) 9.6 mg/dL (8.5-10.1); COR NA(FOR HYPERGLY) 142 mmol/L (136-145); CREATININE 1.02 mg/dL (0.55-1.02); GLUCOSE 112 mg/dL (65-99); LIPASE 46 Units/L (16-77); POTASSIUM 4.5 mmol/L (3.5-5.1); SODIUM 142 mmol/L (136-145); TOTAL PROTEIN 6.8 g/dL (6.4-8.2); eGFR NON BLACK RACES 56 (>60)
--- NOTE | 2023-11-02 21:03 | CT ---
EXAM:ABDOMEN/PELVIS W/O CONHISTORY:ABDOMINAL DISTENSION;COMPARISON:CT examination October 25, 2023TECHNIQUE:CT of the abdomen and pelvis without contrastFINDINGS:There is dense airspace consolidation in the left lower lobe consistent with pneumonia and atelectasis. There is mild airspace consolidation in the right lower lobe consistent with pneumonia and atelectasis.The abdominal aorta tapers normally with advanced multifocal atherosclerotic plaque. No liver mass identified. Small stones are noted within the gallbladder. The gallbladder is not distended.Normal adrenal glands. The kidneys are not obstructed. Ureters taper normally. Unremarkable spleen. The pancreas is atrophic. The stomach is decompressed.No sign of appendicitis. The bowel is not obstructed. Scattered colon diverticulosis. No pelvic free fluid. No free air.Extensive soft tissue anasarca. Morbid obesity.IMPRESSION:Bibasilar pneumonia and atelectasis.Cholelithiasis.No acute intra-abdominal process.Dose reduction techniques including automated exposure control (AEC) and adjustment of mA and kv were utilized.THIS IS AN ELECTRONICALLY VERIFIED FINAL REPORT11/02/2023 9:00 PM - Electronically signed by Matt Soler MD
[2023-11-02] MEDS ORDERED: ROCEPHIN VIAL 1 GRAM ONE (22:37)
[2023-11-02] MEDS: ROCEPHIN VIAL 1 GRAM IVP ONE (22:40)
[2023-11-02 22:48] LABS: ABG BASE EXCESS 8.9 mmol/L (-2.0-2.0)
[2023-11-02 22:49] LABS: ABG ALLEN TEST POS; ABG HCO3 34.6 mmol/L (22-26)
[2023-11-03 00:36] VITALS: BMI 50.2
[2023-11-03] MEDS ORDERED: ROBITUSSIN DM PO PRN (02:04)
[2023-11-03 05:46] LABS: BASOPHILS # (AUTO) 0.1 X10^3/uL (0.0-0.1); BASOPHILS % (AUTO) 0.8 % (0.2-1.0); EOSINOPHILS # (AUTO) 0.2 x10^3/uL (0.0-0.2); HEMATOCRIT 37.9 % (36.0-47.0); LYMPHOCYTES # (AUTO) 1.1 X10^3/uL (1.3-2.9); LYMPHOCYTES % (AUTO) 11.4 % (21.0-51.0); MEAN CORPUSCULAR HEMOGLOBIN 26.4 pg (27.0-34.0); MEAN CORPUSCULAR HGB CONC 31.7 g/dL (33.0-35.0); MEAN CORPUSCULAR VOLUME 83.2 fL (80.0-100.0); MEAN PLATELET VOLUME 8.6 fL (7.4-11.0); MONOCYTES # (AUTO) 1.5 x10^3/uL (0.3-0.8); MONOCYTES % (AUTO) 15.8 % (0.0-13.0); NEUTROPHILS # (AUTO) 6.5 x10^3/uL (2.2-4.8); PLATELET COUNT 168 X10^3/uL (150.0-450.0); RED BLOOD COUNT 4.56 X10^6/uL (3.5-5.4); RED CELL DISTRIBUTION WIDTH 18.5 % (11.6-16.5); WHITE BLOOD COUNT 9.3 X10^3/uL (3.6-10.0)
[2023-11-03 06:10] LABS: ALANINE AMINOTRANSFERASE 21 Units/L (12-78); ALBUMIN 2.9 g/dL (3.4-5.0); ALKALINE PHOSPHATASE 90 Units/L (46-116); ASPARTATE AMINO TRANSFERASE 38 Units/L (15-37); BLOOD UREA NITROGEN 17 mg/dL (7-18); CALCIUM 8.7 mg/dL (8.5-10.1); CARBON DIOXIDE 32.4 mmol/L (21-32); CHLORIDE 102 mmol/L (98-107); COR CA(FOR HYPOALB) 9.6 mg/dL (8.5-10.1); CREATININE 0.89 mg/dL (0.55-1.02); GLUCOSE 107 mg/dL (65-99); POTASSIUM 4.2 mmol/L (3.5-5.1); SODIUM 142 mmol/L (136-145); TOTAL PROTEIN 6.8 g/dL (6.4-8.2); eGFR NON BLACK RACES > 60 (>60)
[2023-11-03] MEDS: DUONEB 0.5 MG/3 MG (3 mL) NEB SCH (06:22)
[2023-11-03] MEDS ORDERED: LEXAPRO ONE (09:52)
--- NOTE | 2023-11-03 10:05 | DR.H&P ---
H&P History & Physical for Day of: H&P Date: 11/03/23 Chief Complaint Chief Complaint: abdominal distension Allergies Allergies Allergy/AdvReac Type Severity Reaction Status Date / Time No Known Drug Allergies Allergy Unknown Verified 10/25/23 15:12 History of Present Illness History of Present Illness: Ms Bruno is a 73y/o female with a PMH of DM, HTN, Asthma, O2 dependent who is currently a resident of [facility] was sent to the ER due to abdominal distension. Patient has had multiple CTAP and US done which did not show any acute process. She does have chronic cholelithiasis. In the ER, CTAP was done which showed bibasilar pneumonia. She was started on IV Rocephin. Patient was admitted for further management. She uses continuous O2, currently on 2L. She reports having some cough. Denies N/V/D or abdominal pain. Labs/imaging reviewed Plan: Continue IV Rocephin, add azithromycin. Continue bronchodilators. Patient remains on baseline O2 use. Resume home medications. Replace electrolytes prn. Monitor AM labs/imaging. Past Medical History Past Medical History: Asthma, Diabetes and Hypertension Additional Medical History: HX BREAST CANCER Past Surgical History Surgical History: Hysterectomy and Mastectomy Family History Family Medical History: Diabetes Mellitus, Cancer, NH and Hypertension Social History Does patient currently use any type of tobacco product: No Have you used tobacco products in the last 12 months: No Type of Tobacco Use: None Does any household member use tobacco: No Alcohol Use: None Drug Use: None Medications Home Medications: Home Medications Medication Instructions Recorded Confirmed Type levothyroxine 150 mcg tablet 150 mcg PO DAILY 09/04/21 11/03/23 History (Euthyrox) atorvastatin 80 mg tablet (Lipitor) 80 mg PO HS 10/25/23 11/03/23 History carbidopa ER 50 mg-levodopa 200 mg 1 tab PO TID 10/25/23 11/03/23 History tablet,extended release escitalopram oxalate 20 mg tablet 20 mg PO DAILY 10/25/23 11/03/23 History (Lexapro) linagliptin 5 mg tablet (Tradjenta) 5 mg PO DAILY 10/25/23 11/03/23 History melatonin 10 mg tablet 10 mg PO HS 10/25/23 11/03/23 History metoprolol tartrate 50 mg tablet 50 mg PO BID 10/25/23 11/03/23 History (Lopressor) simethicone 125 mg capsule 80 mg PO TID 10/25/23 11/03/23 History Labs 11/03/23 05:25 11/03/23 05:25 Labs: Laboratory WBC 9.3 X10^3/uL (3.6-10.0) 11/03/23 05:25 RBC 4.56 X10^6/uL (3.5-5.4) 11/03/23 05:25 Hgb 12.0 g/dL (12.0-16.0) 11/03/23 05:25 Hct 37.9 % (36.0-47.0) 11/03/23 05:25 MCV 83.2 fL (80.0-100.0) 11/03/23 05:25 MCH 26.4 pg (27.0-34.0) L 11/03/23 05:25 MCHC 31.7 g/dL (33.0-35.0) L 11/03/23 05:25 RDW 18.5 % (11.6-16.5) H 11/03/23 05:25 Plt Count 168 X10^3/uL (150.0-450.0) 11/03/23 05:25 MPV 8.6 fL (7.4-11.0) 11/03/23 05:25 Neut % (Auto) 70.0 % (42.0-75.0) 11/03/23 05:25 Lymph % (Auto) 11.4 % (21.0-51.0) L 11/03/23 05:25 [place] % (Auto) 15.8 % (0.0-13.0) H 11/03/23 05:25 Eos % (Auto) 2.0 % (0.9-2.9) 11/03/23 05:25 Baso % (Auto) 0.8 % (0.2-1.0) 11/03/23 05:25 Neut # (Auto) 6.5 x10^3/uL (2.2-4.8) H 11/03/23 05:25 Lymph # (Auto) 1.1 X10^3/uL (1.3-2.9) L 11/03/23 05:25 [place] # (Auto) 1.5 x10^3/uL (0.3-0.8) H 11/03/23 05:25 Eos # (Auto) 0.2 x10^3/uL (0.0-0.2) 11/03/23 05:25 Baso # (Auto) 0.1 X10^3/uL (0.0-0.1) 11/03/23 05:25 Absolute Nucleated RBC 0.1 /100WBC 11/03/23 05:25 Sample Site Krad 11/02/23 22:47 ABG pH 7.440 (7.35-7.45) 11/02/23 22:47 ABG pCO2 51.0 mmHg (35.0-45.0) H* 11/02/23 22:47 ABG pO2 70.0 mmHg (80.0-100.0) L 11/02/23 22:47 ABG HCO3 34.6 mmol/L (22-26) H* 11/02/23 22:47 ABG O2 Saturation 94.0 % (90-100) 11/02/23 22:47 ABG Base Excess 8.9 mmol/L (-2.0-2.0) H 11/02/23 22:47 Michael Test Pos 11/02/23 22:47 A-a Gradient 66.0 mmHg 11/02/23 22:47 FiO2 28.0 11/02/23 22:47 Blood Gas Comments Yunior abg well-mtf 11/02/23 22:47 Sodium 142 mmol/L (136-145) 11/03/23 05:25 Corrected Sodium TNP 11/03/23 05:25 Potassium 4.2 mmol/L (3.5-5.1) 11/03/23 05:25 Chloride 102 mmol/L (98-107) 11/03/23 05:25 Carbon Dioxide 32.4 mmol/L (21-32) H 11/03/23 05:25 BUN 17 mg/dL (7-18) 11/03/23 05:25 Creatinine 0.89 mg/dL (0.55-1.02) 11/03/23 05:25 Est GFR (MDRD) Af Amer > 60 (>60) 11/03/23 05:25 Est GFR (MDRD) Non-Af > 60 (>60) 11/03/23 05:25 Glucose 107 mg/dL (65-99) H 11/03/23 05:25 Calcium 8.7 mg/dL (8.5-10.1) 11/03/23 05:25 Corrected Calcium 9.6 mg/dL (8.5-10.1) 11/03/23 05:25 Total Bilirubin 1.30 mg/dL (0.2-1.0) H 11/03/23 05:25 AST 38 Units/L (15-37) H 11/03/23 05:25 ALT 21 Units/L (12-78) 11/03/23 05:25 Alkaline Phosphatase 90 Units/L (46-116) 11/03/23 05:25 Total Protein 6.8 g/dL (6.4-8.2) 11/03/23 05:25 Albumin 2.9 g/dL (3.4-5.0) L 11/03/23 05:25 Globulin 3.9 g/dL (2.5-4.5) 11/03/23 05:25 Albumin/Globulin Ratio 0.7 Ratio (1.1-2.1) L 11/03/23 05:25 Amylase 36 Units/L (25-115) 11/02/23 18:52 Lipase 46 Units/L (16-77) 11/02/23 18:52 Review of Systems Constitutional: No Symptoms Reported Eyes: No Symptoms Reported ENT: No Symptoms Reported Respiratory: Cough and Shortness of Breath Cardiovascular: No Symptoms Reported Gastrointestinal: No Symptoms Reported Musculoskeletal: No Symptoms Reported Skin: No Symptoms Reported Neurological: No Symptoms Reported Physical Exam Vital Signs: Vital Signs Temperature 97.6 F Temperature 97.7 F Temperature 97.9 F Pulse Rate [Brachial] 102 Pulse Rate [Brachial] 78 Pulse Rate 74 Pulse Rate 70 Respiratory Rate 24 Respiratory Rate 19 Respiratory Rate 19 Blood Pressure [Left Calf] 139/84 Blood Pressure [Left Calf] 118/60 Blood Pressure 137/99 O2 Sat by Pulse Oximetry 97 O2 Sat by Pulse Oximetry 97 O2 Sat by Pulse Oximetry 94 O2 Sat by Pulse Oximetry 95 Oriented: Normal Eyes: Normal Throat: Normal Respiratory: Diminished Throughout Cardiovascular: Normal Auscultation: Bowel Sounds: Normal Palpation: Normal Tenderness: Normal Musculoskeletal: Normal Psychiatric: Normal Mood Description: Calm Affect: Normal Speech Pattern: Clear and Appropriate Assessment/Plan (1) Pneumonia: Qualifiers: Laterality: bilateral Lung location: lower lobe of lung Pneumonia type: due to unspecified organism Qualified Code(s): J18.9 - Pneumonia, unspecified organism Status: Acute (2) Cholelithiasis: Qualifiers: Biliary obstruction: without biliary obstruction Cholecystitis presence: without cholecystitis Cholelithiasis location: gallbladder Qualified Code(s): K80.20 - Calculus of gallbladder without cholecystitis without obstruction Status: Acute (3) Type 2 diabetes mellitus: Qualifiers: Diabetes mellitus complication status: with hyperglycemia Diabetes mellitus chcf insulin use: without termite control representative use Qualified Code(s): E11.65 - Type 2 diabetes mellitus with hyperglycemia Status: None (4) Restless legs syndrome: Status: None (5) Chronic osteoarthritis: Status: None (6) Hypothyroidism: Qualifiers: Hypothyroidism type: acquired Qualified Code(s): E03.9 - Hypothyroidism, unspecified Status: None (7) Decreased mobility: Status: None (8) Oxygen dependent: Status: Acute Review H&P Reviewed: Yes Patient was examined?: Yes
[2023-11-03] MEDS ORDERED: ZITHROMAX INJ 500 MG VIAL IV ONE (10:19)
[2023-11-03] MEDS ORDERED: NS 250 ML IV 250 ML IV ONE (10:22)
[2023-11-03] MEDS: MYLICON TAB 80 MG CHEW PO SCH (10:29)
[2023-11-03] MEDS: GLUCOPHAGE PO SCH (10:29)
[2023-11-03] MEDS: SINEMET CR 50/200 MG PO SCH (10:29)
[2023-11-03] MEDS: LOPRESSOR TAB 50 MG PO SCH (10:30)
[2023-11-03] MEDS: NEURONTIN CAP 100 MG PO SCH (10:30)
[2023-11-03] MEDS: LEXAPRO PO SCH (10:30)
[2023-11-03] MEDS: PLAVIX PO SCH (10:31)
[2023-11-03] MEDS: LOVENOX INJ 40 MG SYR SC SCH (10:31)
[2023-11-03] MEDS: SYNTHROID 150 mcg TAB PO SCH (10:31)
[2023-11-03] MEDS: ZITHROMAX INJ 500 MG VIAL 500 MG in NS 250 ML IV 250 ML IV SCH (10:32)
[2023-11-03] MEDS: BUTT CREAM (COMPOUND) ONE (10:33)
[2023-11-03] MEDS: NS 500 ML IV 500 ML IV ONE (10:33)
[2023-11-03] MEDS: TRADJENTA PO SCH (10:41)
[2023-11-03] MEDS: GLUCOPHAGE ONE (10:52)
[2023-11-03] MEDS ORDERED: GLUCOPHAGE ONE (20:26)
[2023-11-03] MEDS: ROCEPHIN VIAL 1 GRAM 1 G in NS 100 ML IV 100 ML IV SCH (21:00)
[2023-11-03] MEDS: LIPITOR TAB 80 MG PO SCH (21:41)
[2023-11-04 06:19] LABS: BASOPHILS # (AUTO) 0.1 X10^3/uL (0.0-0.1); BASOPHILS % (AUTO) 1.8 % (0.2-1.0); EOSINOPHILS # (AUTO) 0.2 x10^3/uL (0.0-0.2); EOSINOPHILS % (AUTO) 2.9 % (0.9-2.9); HEMATOCRIT 35.6 % (36.0-47.0); HEMOGLOBIN 11.1 g/dL (12.0-16.0); LYMPHOCYTES # (AUTO) 0.7 X10^3/uL (1.3-2.9); LYMPHOCYTES % (AUTO) 8.4 % (21.0-51.0); MEAN CORPUSCULAR HEMOGLOBIN 26.1 pg (27.0-34.0); MEAN CORPUSCULAR HGB CONC 31.1 g/dL (33.0-35.0); MEAN CORPUSCULAR VOLUME 83.7 fL (80.0-100.0); MEAN PLATELET VOLUME 8.7 fL (7.4-11.0); MONOCYTES # (AUTO) 1.1 x10^3/uL (0.3-0.8); MONOCYTES % (AUTO) 14.7 % (0.0-13.0); NEUTROPHILS # (AUTO) 5.6 x10^3/uL (2.2-4.8); NEUTROPHILS % (AUTO) 72.2 % (42.0-75.0); PLATELET COUNT 170 X10^3/uL (150.0-450.0); RED BLOOD COUNT 4.25 X10^6/uL (3.5-5.4); WHITE BLOOD COUNT 7.8 X10^3/uL (3.6-10.0)
[2023-11-04 06:34] LABS: ALANINE AMINOTRANSFERASE 8 Units/L (12-78); ALBUMIN 2.6 g/dL (3.4-5.0); ALKALINE PHOSPHATASE 83 Units/L (46-116); ASPARTATE AMINO TRANSFERASE 29 Units/L (15-37); BLOOD UREA NITROGEN 16 mg/dL (7-18); CALCIUM 8.5 mg/dL (8.5-10.1); CARBON DIOXIDE 30.2 mmol/L (21-32); CHLORIDE 102 mmol/L (98-107); COR CA(FOR HYPOALB) 9.6 mg/dL (8.5-10.1); COR NA(FOR HYPERGLY) 138 mmol/L (136-145); CREATININE 0.78 mg/dL (0.55-1.02); GLUCOSE 113 mg/dL (65-99); MAGNESIUM 1.4 mg/dL (2.0-2.9); POTASSIUM 4.4 mmol/L (3.5-5.1); SODIUM 138 mmol/L (136-145); TOTAL PROTEIN 6.4 g/dL (6.4-8.2); eGFR NON BLACK RACES > 60 (>60)
[2023-11-04 08:19] VITALS: RESP 20
[2023-11-04] MEDS: LEXAPRO ONE (08:36)
[2023-11-04] MEDS: GLUCOPHAGE ONE (08:36)
[2023-11-04 12:51] VITALS: BP 126/73; TEMP 97.8
--- NOTE | 2023-11-04 13:02 | VAS ---
EXAM: LOWER EXT VENOUS, BILATERAL HISTORY: LE swelling and redness; LOBITO LE SWELLING/REDNESS COMPARISON: None available. TECHNIQUE: Multiple em scale and color flow Doppler images of the deep venous system were obtained of the righ t and left lower extremity. FINDINGS: The deep venous system of the right and left lower extremities were evaluated from the level of the c ommon femoral vein through the popliteal vein. Normal color flow and augmentation can be observed on the right. In addition, normal compression is seen throughout the deep venous system on the right. However there is incomplete compression in the mid to distal superficial femoral vein compatible with a partial thrombus.. IMPRESSION: Positive for nonocclusive thrombus in the mid to distal left SFV. THIS IS AN ELECTRONICALLY VERIFIED FINAL REPORT 11/04/2023 12:59 PM - Electronically signed by Lenard Javier MD
[2023-11-04 13:42] VITALS: PULSE 86; O2SAT 99
[2023-11-04] MEDS: ELIQUIS PO SCH (13:52)
== END 2023-11-04 16:00 ==
LOC: MED/SURG 18:04 → ER 18:04 → MED/SURG 11-03 00:03
PROVIDERS: ADMIT Internal Medicine; ATTEND Family Medicine
DX: I82.812 Embolism and thrombosis of superficial veins of left lower extremity; R60.0 Localized edema; K80.20 Calculus of gallbladder without cholecystitis without obstruction; J18.8 Other pneumonia, unspecified organism; Z99.81 Dependence on supplemental oxygen; E11.65 Type 2 diabetes mellitus with hyperglycemia; R14.0 Abdominal distension (gaseous); I10 Essential (primary) hypertension; R26.89 Other abnormalities of gait and mobility

== ENCOUNTER 2023-11-10 14:42 | Observation (INO) ==
[2023-11-10 15:47] VITALS: BMI 51.4
[2023-11-10 16:44] LABS: BILIRUBIN,URINE NEGATIVE (NEGATIVE); BLOOD/HEMOGLOBIN,URINE 2+ (NEGATIVE); GLUCOSE, URINE NEGATIVE (NEGATIVE); KETONES,URINE 1+ (NEGATIVE); LEUKOCYTE ESTERASE ,URINE NEGATIVE (NEGATIVE); NITRITES,URINE NEGATIVE (NEGATIVE); PROTEIN,URINE 2+ (NEGATIVE); UROBILINOGEN,URINE 2+ (NORMAL)
[2023-11-10 16:45] LABS: APPEARANCE,URINE HAZY (CLEAR); COLOR,URINE DARK YELLOW (YELLOW)
[2023-11-10 16:56] LABS: BACTERIA,URINE TRACE /HPF (NEGATIVE); SQUAMOUS EPITHELIAL CELL,UR NUMEROUS /HPF (NEGATIVE)
[2023-11-10 16:57] LABS: COARSE GRANULAR CASTS,URINE FEW /HPF (NEGATIVE); HYALINE CASTS, URINE RARE /LPF (NEGATIVE)
[2023-11-10] MEDS: LASIX IVP SCH (17:36)
[2023-11-11 06:15] LABS: ALANINE AMINOTRANSFERASE 11 Units/L (12-78); ALBUMIN 2.8 g/dL (3.4-5.0); ALKALINE PHOSPHATASE 75 Units/L (46-116); ASPARTATE AMINO TRANSFERASE 29 Units/L (15-37); BLOOD UREA NITROGEN 18 mg/dL (7-18); CALCIUM 8.6 mg/dL (8.5-10.1); CARBON DIOXIDE 38.2 mmol/L (21-32); CHLORIDE 101 mmol/L (98-107); COR CA(FOR HYPOALB) 9.6 mg/dL (8.5-10.1); CREATININE 0.89 mg/dL (0.55-1.02); GLUCOSE 89 mg/dL (65-99); MAGNESIUM 1.3 mg/dL (2.0-2.9); POTASSIUM 4.3 mmol/L (3.5-5.1); SODIUM 143 mmol/L (136-145); TOTAL PROTEIN 6.7 g/dL (6.4-8.2); eGFR NON BLACK RACES > 60 (>60)
[2023-11-11 06:55] LABS: BASOPHILS % (AUTO) 0.6 % (0.2-1.0); EOSINOPHILS # (AUTO) 0.1 x10^3/uL (0.0-0.2); EOSINOPHILS % (AUTO) 2.5 % (0.9-2.9); HEMATOCRIT 38.5 % (36.0-47.0); HEMOGLOBIN 12.2 g/dL (12.0-16.0); LYMPHOCYTES # (AUTO) 0.8 X10^3/uL (1.3-2.9); LYMPHOCYTES % (AUTO) 13.3 % (21.0-51.0); MEAN CORPUSCULAR HEMOGLOBIN 26.8 pg (27.0-34.0); MEAN CORPUSCULAR HGB CONC 31.7 g/dL (33.0-35.0); MEAN CORPUSCULAR VOLUME 84.5 fL (80.0-100.0); MEAN PLATELET VOLUME 8.7 fL (7.4-11.0); MONOCYTES % (AUTO) 17.1 % (0.0-13.0); NEUTROPHILS % (AUTO) 66.5 % (42.0-75.0); PLATELET COUNT 135 X10^3/uL (150.0-450.0); RED BLOOD COUNT 4.56 X10^6/uL (3.5-5.4); RED CELL DISTRIBUTION WIDTH 19.2 % (11.6-16.5)
[2023-11-11] MEDS ORDERED: CONSULT PHARMACY - POTASSIUM & MAGNESIUM XX SCH (07:00)
[2023-11-11] MEDS ORDERED: GLUCOPHAGE ONE (08:54)
[2023-11-11] MEDS: SYNTHROID 150 mcg TAB PO SCH (08:58)
[2023-11-11] MEDS: LOPRESSOR TAB 50 MG PO SCH (08:59)
[2023-11-11] MEDS: GLUCOPHAGE PO SCH (08:59)
[2023-11-11] MEDS: PLAVIX PO SCH (09:00)
[2023-11-11] MEDS: ELIQUIS PO SCH (09:00)
[2023-11-11] MEDS: MAG-OX TAB PO SCH (09:00)
[2023-11-11] MEDS: COREG TAB 6.25 MG PO SCH (09:46)
--- NOTE | 2023-11-11 10:09 | DR.H&P ---
H&P History & Physical for Day of: H&P Date: 11/11/23 Chief Complaint Chief Complaint: LE edema, dyspnea Allergies Allergies Allergy/AdvReac Type Severity Reaction Status Date / Time No Known Drug Allergies Allergy Unknown Verified 11/10/23 14:20 History of Present Illness History of Present Illness: Ms Bruno is a 73y/o female who is a [place] resident with multiple comorbidities was sent for admission after cardiology evaluation. Dr Lieberman [facility] in [facility] and advised admission for CHF exacerbation and diuresis. Patient has been getting IV lasix BID and reports improvement in lower ext edema. She remains on 2L NC which she was also using at the [facility]. Patient was recently admitted for pneumonia. Patient has had good UOP with IV lasix. Labs/imaging reviewed - Hgb 12.2 K:4.3 Mag 1.3 BNP 274 - ECHO: 35-40% Grade 3 diastolic dysfunction Plan: Continue diuresis with IV lasix. Follow cardiology recommendations. Follow CXR.Resume home medications. Replace electrolytes as needed. PT as tolerated. Wean O2 as tolerated. Monitor AM labs/imaging. Monitor UOP and daily weights. Past Medical History Past Medical History: Asthma, Diabetes and Hypertension Additional Medical History: HX BREAST CANCER Past Surgical History Surgical History: Hysterectomy and Mastectomy Family History Family Medical History: Diabetes Mellitus, Cancer, [place] and Hypertension Social History Alcohol Use: None Drug Use: None Medications Home Medications: Home Medications Medication Instructions Recorded Confirmed Type levothyroxine 150 mcg tablet 150 mcg PO DAILY 09/04/21 11/10/23 History (Euthyrox) atorvastatin 80 mg tablet (Lipitor) 80 mg PO HS 10/25/23 11/10/23 History carbidopa ER 50 mg-levodopa 200 mg 1 tab PO TID 10/25/23 11/10/23 History tablet,extended release escitalopram oxalate 20 mg tablet 20 mg PO DAILY 10/25/23 11/10/23 History (Lexapro) linagliptin 5 mg tablet (Tradjenta) 5 mg PO DAILY 10/25/23 11/10/23 History melatonin 10 mg tablet 10 mg PO HS 10/25/23 11/10/23 History metoprolol tartrate 50 mg tablet 50 mg PO BID 10/25/23 11/10/23 History (Lopressor) simethicone 125 mg capsule 80 mg PO TID 10/25/23 11/10/23 History acetaminophen 325 mg tablet 650 mg PO Q6H PRN 11/06/23 11/10/23 History (Tylenol) albuterol sulfate 90 mcg/actuation 2 puff inhalation Q4H PRN 11/06/23 11/10/23 History aerosol inhaler diclofenac sodium 1 % topical gel 1 ea topical QID 11/06/23 11/10/23 History diphenoxylate-atropine 2.5 1 tab PO BID PRN 11/06/23 11/10/23 History mg-0.025 mg tablet (Lomotil) ergocalciferol (vitamin D2) 1,250 1,250 mcg PO QDAY 11/06/23 11/10/23 History mcg (50,000 unit) capsule loperamide 1 mg/7.5 mL oral liquid 1 mg PO PRN PRN 11/06/23 11/10/23 History (Imodium A-D) ondansetron 4 mg disintegrating 4 mg PO Q6H PRN 11/06/23 11/10/23 History tablet tramadol 50 mg tablet 50 mg PO Q8H PRN 11/06/23 11/10/23 History apixaban 5 mg tablet (Eliquis) 5 mg PO BID 11/10/23 11/10/23 History Labs 11/11/23 05:10 11/11/23 05:10 Labs: Laboratory WBC 6.0 X10^3/uL (3.6-10.0) 11/11/23 05:10 RBC 4.56 X10^6/uL (3.5-5.4) 11/11/23 05:10 Hgb 12.2 g/dL (12.0-16.0) 11/11/23 05:10 Hct 38.5 % (36.0-47.0) 11/11/23 05:10 MCV 84.5 fL (80.0-100.0) 11/11/23 05:10 MCH 26.8 pg (27.0-34.0) L 11/11/23 05:10 MCHC 31.7 g/dL (33.0-35.0) L 11/11/23 05:10 RDW 19.2 % (11.6-16.5) H 11/11/23 05:10 Plt Count 135 X10^3/uL (150.0-450.0) L 11/11/23 05:10 MPV 8.7 fL (7.4-11.0) 11/11/23 05:10 Neut % (Auto) 66.5 % (42.0-75.0) 11/11/23 05:10 Lymph % (Auto) 13.3 % (21.0-51.0) L 11/11/23 05:10 [place] % (Auto) 17.1 % (0.0-13.0) H 11/11/23 05:10 Eos % (Auto) 2.5 % (0.9-2.9) 11/11/23 05:10 Baso % (Auto) 0.6 % (0.2-1.0) 11/11/23 05:10 Neut # (Auto) 4.0 x10^3/uL (2.2-4.8) 11/11/23 05:10 Lymph # (Auto) 0.8 X10^3/uL (1.3-2.9) L 11/11/23 05:10 [place] # (Auto) 1.0 x10^3/uL (0.3-0.8) H 11/11/23 05:10 Eos # (Auto) 0.1 x10^3/uL (0.0-0.2) 11/11/23 05:10 Baso # (Auto) 0.0 X10^3/uL (0.0-0.1) 11/11/23 05:10 Absolute Nucleated RBC 0.2 /100WBC 11/11/23 05:10 Sodium 143 mmol/L (136-145) 11/11/23 05:10 Corrected Sodium TNP 11/11/23 05:10 Potassium 4.3 mmol/L (3.5-5.1) 11/11/23 05:10 Chloride 101 mmol/L (98-107) 11/11/23 05:10 Carbon Dioxide 38.2 mmol/L (21-32) H 11/11/23 05:10 BUN 18 mg/dL (7-18) 11/11/23 05:10 Creatinine 0.89 mg/dL (0.55-1.02) 11/11/23 05:10 Est GFR (MDRD) Af Amer > 60 (>60) 11/11/23 05:10 Est GFR (MDRD) Non-Af > 60 (>60) 11/11/23 05:10 Glucose 89 mg/dL (65-99) 11/11/23 05:10 Calcium 8.6 mg/dL (8.5-10.1) 11/11/23 05:10 Corrected Calcium 9.6 mg/dL (8.5-10.1) 11/11/23 05:10 Magnesium 1.3 mg/dL (2.0-2.9) L 11/11/23 05:10 Total Bilirubin 0.90 mg/dL (0.2-1.0) 11/11/23 05:10 AST 29 Units/L (15-37) 11/11/23 05:10 ALT 11 Units/L (12-78) L 11/11/23 05:10 Alkaline Phosphatase 75 Units/L (46-116) 11/11/23 05:10 B-Natriuretic Peptide 274 pg/mL (0-79) H 11/10/23 10:42 Total Protein 6.7 g/dL (6.4-8.2) 11/11/23 05:10 Albumin 2.8 g/dL (3.4-5.0) L 11/11/23 05:10 Globulin 3.9 g/dL (2.5-4.5) 11/11/23 05:10 Albumin/Globulin Ratio 0.7 Ratio (1.1-2.1) L 11/11/23 05:10 Specimen Type Catherized urine 11/10/23 16:28 Urine Color Dark yellow (YELLOW) 11/10/23 16:28 Urine Appearance Hazy (CLEAR) 11/10/23 16:28 Urine pH 6.0 (5.0 - 8.0) 11/10/23 16:28 Ur Specific [place] 1.025 (1.000-1.030) 11/10/23 16:28 Urine Protein 2+ (NEGATIVE) 11/10/23 16:28 Urine Glucose (UA) Negative (NEGATIVE) 11/10/23 16:28 Urine Ketones 1+ (NEGATIVE) 11/10/23 16:28 Urine Blood 2+ (NEGATIVE) 11/10/23 16:28 Urine Nitrite Negative (NEGATIVE) 11/10/23 16:28 Urine Bilirubin Negative (NEGATIVE) 11/10/23 16:28 Urine Urobilinogen 2+ (NORMAL) 11/10/23 16:28 Ur Leukocyte Esterase Negative (NEGATIVE) 11/10/23 16:28 Urine RBC 3-5 /HPF (0-3) A 11/10/23 16:28 Urine WBC 5-10 /HPF (0-5) A 11/10/23 16:28 Ur Squamous Epith Cells Numerous /HPF (NEGATIVE) 11/10/23 16:28 Amorphous Sediment 1+ /HPF (NEGATIVE) 11/10/23 16:28 Urine Bacteria Trace /HPF (NEGATIVE) 11/10/23 16:28 Hyaline Casts Rare /LPF (NEGATIVE) 11/10/23 16:28 Coarse Granular Casts Few /HPF (NEGATIVE) 11/10/23 16:28 Urine Mucus Few /HPF (NEGATIVE) 11/10/23 16:28 Ur Culture Indicated? No/not indicated 11/10/23 16:28 Review of Systems Constitutional: Weakness Eyes: No Symptoms Reported ENT: No Symptoms Reported Respiratory: Shortness of Breath Cardiovascular: Edema Gastrointestinal: No Symptoms Reported Musculoskeletal: Leg Pain Skin: No Symptoms Reported Neurological: No Symptoms Reported Physical Exam Vital Signs: Vital Signs Temperature 97.7 F Pulse Rate [Left Radial] 100 Respiratory Rate 20 Blood Pressure [Left Arm] 114/67 O2 Sat by Pulse Oximetry 92 Oriented: Normal Eyes: Normal Nose: Normal Respiratory: Diminished Throughout Cardiovascular: Edema (b/l LE 1+ pitting edema ) Auscultation: Bowel Sounds: Normal Palpation: Normal Tenderness: Other (abdominal distension ) Skin: Decreased [place] Psychiatric: Normal Mood Description: Calm Affect: Normal Speech Pattern: Clear and Appropriate Assessment/Plan (1) Hypoxia: Status: Acute (2) Pleural effusion: Status: Acute (3) Oxygen dependent: Status: Acute (4) Hypomagnesemia: Status: Acute (5) CHF exacerbation: Qualifiers: Heart failure type: diastolic Qualified Code(s): I50.33 - Acute on chronic diastolic (congestive) heart failure Status: Acute (6) Type 2 diabetes mellitus: Qualifiers: Diabetes mellitus complication status: with hyperglycemia Diabetes mellitus intermediate accountant insulin use: with prison use Qualified Code(s): E11.65 - Type 2 diabetes mellitus with hyperglycemia; Z79.4 - prison (current) use of insulin Status: Chronic (7) Hypertension: Qualifiers: Hypertension type: primary hypertension Qualified Code(s): I10 - Essential (primary) hypertension Status: Chronic (8) Frequent falls: Status: Acute (9) Hypothyroidism: Qualifiers: Hypothyroidism type: acquired Qualified Code(s): E03.9 - Hyp othyroidism, unspecified Status: Chronic Review H&P Reviewed: Yes Patient was examined?: Yes
--- NOTE | 2023-11-11 11:31 | RAD ---
EXAM:CHEST, 1 VIEWHISTORY:shortness of breath;COMPARISON:Prior study or studies were utilized for comparison during interpretation with the most relevant dated 11/06/2023TECHNIQUE:CHEST, 1 VIEWFINDINGS:Chest:Lines and tubes: NoneMediastinum: Cardiomegaly.Pulmonary vessels: There is pulmonary vascular congestion.Lung medrano: Dense consolidation seen in the retrocardiac region. Right lung base consolidation also notedPleura: No effusion. No pneumothorax.Bones and soft tissues: No acute osseous or soft tissue abnormality.IMPRESSION:1. Bibasilar consolidations likely represent pneumonia.2. Concomitant heart failure is likelyTHIS IS AN ELECTRONICALLY VERIFIED FINAL REPORT11/11/2023 11:28 AM - Electronically signed by Julito May MD
--- NOTE | 2023-11-11 13:27 | DR.CONSULT ---
CONSULT Consultation for Day of: Date: 11/11/23 Chief Complaint Chief Complaint: sob/edema/incresed abd girth Allergies Allergies Allergy/AdvReac Type Severity Reaction Status Date / Time No Known Drug Allergies Allergy Unknown Verified 11/10/23 14:20 History of Present Illness History of Present Illness: i admitted her from my office for chf- echo: ef 35% ( new)-given lasix and down 4 liters- sob/edema improved- have liters to go- needs standard chf meds Past Medical History Past Medical History: Asthma, Diabetes and Hypertension Additional Medical History: HX BREAST CANCER Past Surgical History Surgical History: Hysterectomy and Mastectomy Family History Family Medical History: Diabetes Mellitus, Cancer, [place] and Hypertension Social History Alcohol Use: None Drug Use: None Medications Home Medications: No Known Drug Allergies Allergy (Unknown, Verified 11/10/23 14:20) Physical Exam Vital Signs: Vital Signs Temperature 98.5 F Pulse Rate [Left Radial] 104 Respiratory Rate 20 Blood Pressure [Left Arm] 145/73 O2 Sat by Pulse Oximetry 94 alert ox3 l hand edema so much better, lungs decraeded at bases/crackles too leg edema still present but better- abd girth still large cxr: b consolidation labs: bnp 270 hct 38 bun/cr 18/0.89 k 4.3 alb 3.2 few days ago- dont see any ekg Plan (1) Hypoxia: Status: Acute (2) Pleural effusion: Status: Acute (3) Oxygen dependent: Status: Acute (4) Hypomagnesemia: Status: Acute (5) CHF exacerbation: Status: Acute Qualifiers: Heart failure type: diastolic Qualified Code(s): I50.33 - Acute on chronic diastolic (congestive) heart failure Narrative Support Text: echo ef 35% Plan: diuresis/change to carvedilol- add black/arb /entresto pending bp in next day/so (6) Type 2 diabetes mellitus: Status: Chronic Qualifiers: Diabetes mellitus rat exterminator insulin use: with rat exterminator use Diabetes mellitus complication status: with hyperglycemia Qualified Code(s): E11.65 - Type 2 diabetes mellitus with hyperglycemia; Z79.4 - senior living (current) use of insulin (7) Hypertension: Status: Chronic Qualifiers: Hypertension type: primary hypertension Qualified Code(s): I10 - Essential (primary) hypertension (8) Frequent falls: Status: Acute (9) Hypothyroidism: Status: Chronic Qualifiers: Hypothyroidism type: acquired Qualified Code(s): E03.9 - Hypothyroidism, unspecified
[2023-11-11] MEDS: COZAAR PO SCH (14:16)
[2023-11-11] MEDS: LIPITOR TAB 80 MG PO SCH (20:59)
[2023-11-11] MEDS: GLUCOPHAGE ONE (21:00)
[2023-11-12 06:07] LABS: BASOPHILS % (AUTO) 0.5 % (0.2-1.0); EOSINOPHILS # (AUTO) 0.2 x10^3/uL (0.0-0.2); EOSINOPHILS % (AUTO) 2.7 % (0.9-2.9); HEMATOCRIT 37.6 % (36.0-47.0); LYMPHOCYTES # (AUTO) 0.7 X10^3/uL (1.3-2.9); MEAN CORPUSCULAR HEMOGLOBIN 26.4 pg (27.0-34.0); MEAN CORPUSCULAR VOLUME 82.5 fL (80.0-100.0); MEAN PLATELET VOLUME 8.3 fL (7.4-11.0); MONOCYTES # (AUTO) 1.2 x10^3/uL (0.3-0.8); MONOCYTES % (AUTO) 16.9 % (0.0-13.0); NEUTROPHILS # (AUTO) 4.9 x10^3/uL (2.2-4.8); NEUTROPHILS % (AUTO) 69.9 % (42.0-75.0); PLATELET COUNT 143 X10^3/uL (150.0-450.0); RED BLOOD COUNT 4.56 X10^6/uL (3.5-5.4); RED CELL DISTRIBUTION WIDTH 19.1 % (11.6-16.5)
[2023-11-12 06:30] LABS: ALANINE AMINOTRANSFERASE 19 Units/L (12-78); ALBUMIN 2.7 g/dL (3.4-5.0); ALKALINE PHOSPHATASE 72 Units/L (46-116); ASPARTATE AMINO TRANSFERASE 23 Units/L (15-37); BLOOD UREA NITROGEN 14 mg/dL (7-18); CALCIUM 8.6 mg/dL (8.5-10.1); CARBON DIOXIDE 39.3 mmol/L (21-32); CHLORIDE 98 mmol/L (98-107); COR CA(FOR HYPOALB) 9.6 mg/dL (8.5-10.1); CREATININE 0.85 mg/dL (0.55-1.02); GLUCOSE 83 mg/dL (65-99); MAGNESIUM 1.2 mg/dL (2.0-2.9); POTASSIUM 3.8 mmol/L (3.5-5.1); SODIUM 142 mmol/L (136-145); TOTAL PROTEIN 6.3 g/dL (6.4-8.2); eGFR NON BLACK RACES > 60 (>60)
[2023-11-12] MEDS ORDERED: CONSULT PHARMACY - POTASSIUM & MAGNESIUM XX SCH (07:00)
--- NOTE | 2023-11-12 08:24 | EKG ---
Test Reason : chf Blood Pressure : */* mmHG Vent. Rate : 94 BPM Atrial Rate : 141 BPM P-R Int : * ms QRS Dur : 96 ms QT Int : 384 ms P-R-T Axes : * 88 220 degrees QTc Int : 480 ms probable atrial fib Low voltage QRS Prolonged QT Abnormal ECG No previous ECGs available Confirmed by Haroldo Lieberman MD ([id number]) on 11/12/2023 9:15:35 AM Referred By: Confirmed By: Haroldo Lieberman MD
[2023-11-12] MEDS ORDERED: MAGNESIUM SULFATE 1 GRAM/100 mL PREMIX 1 G/100 ML BAG IV SCH (09:00)
[2023-11-12] MEDS ORDERED: GLUCOPHAGE ONE (09:13)
[2023-11-12] MEDS: MAG-OX TAB PO SCH (09:26)
--- NOTE | 2023-11-12 09:26 | PCM.PROG ---
Progress Note Progress Note for Day of Date of Exam: 11/12/23 Subjective Subjective: Pt is a 73y/o female who is a [place] resident with multiple comorbidities admitted for CHF exacerbation. She was started on IV lasix 40mg BID. Patient has had good UOP with IV lasix. She is resting in bed this morning. No acute events overnight. Cardiology-Dr Lieberman was consulted and is following patient. Labs/imaging reviewed - Wbc 7, Hgb 12, Plt 143, Na 142, K:3.8, Creatinine 0.8, Glucose 83, Mag 1.2, - ECHO: 35-40% Grade 3 diastolic dysfunction Plan: Continue diuresis with IV lasix. Follow cardiology recommendations. Pt was started on Cozaar and Coreg. Home medications have been restarted. Replace electrolytes as needed. PT as tolerated. Wean O2 as tolerated. Monitor AM labs/imaging. Monitor UOP and daily weights. Past Medical Family Social History Allergies: Allergies No Known Drug Allergies Allergy (Unknown, Verified 11/10/23 14:20) Onset Date: 11/04/2019 Review of Systems ROS changes noted: see HPI Vital Signs and I&O's Vital Signs: Vital Signs Temperature 98.2 F Pulse Rate [Left Radial] 89 Respiratory Rate 20 Blood Pressure [Left Arm] 108/66 O2 Sat by Pulse Oximetry 93 Intake and Output: Intake & Output 11/09/23 11/10/23 11/11/23 11/12/23 23:59 23:59 23:59 23:59 Intake Total 0 / 0 920 / 920 20 / 20 Output Total 3100 / 3100 7000 / 7000 600 / 600 Balance -3100 / -3100 -6080 / -6080 -580 / -580 Physical Exam Oriented: Normal Eyes: Normal Nose: Normal Respiratory: Normal Cardiovascular: Normal and Edema (b/l LE 1+ pitting edema ) Auscultation: Bowel Sounds: Normal Tenderness: Other (abdominal distension ) Skin: Normal Psychiatric: Normal Mood Description: Calm Affect: Normal Speech Pattern: Clear and Appropriate Laboratory and Diagnostics 11/12/23 05:45 11/12/23 05:45 Labs: Laboratory WBC 7.0 X10^3/uL (3.6-10.0) 11/12/23 05:45 RBC 4.56 X10^6/uL (3.5-5.4) 11/12/23 05:45 Hgb 12.0 g/dL (12.0-16.0) 11/12/23 05:45 Hct 37.6 % (36.0-47.0) 11/12/23 05:45 MCV 82.5 fL (80.0-100.0) 11/12/23 05:45 MCH 26.4 pg (27.0-34.0) L 11/12/23 05:45 MCHC 32.0 g/dL (33.0-35.0) L 11/12/23 05:45 RDW 19.1 % (11.6-16.5) H 11/12/23 05:45 Plt Count 143 X10^3/uL (150.0-450.0) L 11/12/23 05:45 MPV 8.3 fL (7.4-11.0) 11/12/23 05:45 Neut % (Auto) 69.9 % (42.0-75.0) 11/12/23 05:45 Lymph % (Auto) 10.0 % (21.0-51.0) L 11/12/23 05:45 [place] % (Auto) 16.9 % (0.0-13.0) H 11/12/23 05:45 Eos % (Auto) 2.7 % (0.9-2.9) 11/12/23 05:45 Baso % (Auto) 0.5 % (0.2-1.0) 11/12/23 05:45 Neut # (Auto) 4.9 x10^3/uL (2.2-4.8) H 11/12/23 05:45 Lymph # (Auto) 0.7 X10^3/uL (1.3-2.9) L 11/12/23 05:45 [place] # (Auto) 1.2 x10^3/uL (0.3-0.8) H 11/12/23 05:45 Eos # (Auto) 0.2 x10^3/uL (0.0-0.2) 11/12/23 05:45 Baso # (Auto) 0.0 X10^3/uL (0.0-0.1) 11/12/23 05:45 Absolute Nucleated RBC 0.2 /100WBC 11/12/23 05:45 Sodium 142 mmol/L (136-145) 11/12/23 05:45 Corrected Sodium TNP 11/12/23 05:45 Potassium 3.8 mmol/L (3.5-5.1) 11/12/23 05:45 Chloride 98 mmol/L (98-107) 11/12/23 05:45 Carbon Dioxide 39.3 mmol/L (21-32) H 11/12/23 05:45 BUN 14 mg/dL (7-18) 11/12/23 05:45 Creatinine 0.85 mg/dL (0.55-1.02) 11/12/23 05:45 Est GFR (MDRD) Af Amer > 60 (>60) 11/12/23 05:45 Est GFR (MDRD) Non-Af > 60 (>60) 11/12/23 05:45 Glucose 83 mg/dL (65-99) 11/12/23 05:45 POC Glucose (mg/dL) 92 mg/dL (65-99) 11/12/23 05:22 Calcium 8.6 mg/dL (8.5-10.1) 11/12/23 05:45 Corrected Calcium 9.6 mg/dL (8.5-10.1) 11/12/23 05:45 Magnesium 1.2 mg/dL (2.0-2.9) L 11/12/23 05:45 Total Bilirubin 1.20 mg/dL (0.2-1.0) H 11/12/23 05:45 AST 23 Units/L (15-37) 11/12/23 05:45 ALT 19 Units/L (12-78) 11/12/23 05:45 Alkaline Phosphatase 72 Units/L (46-116) 11/12/23 05:45 B-Natriuretic Peptide 274 pg/mL (0-79) H 11/10/23 10:42 Total Protein 6.3 g/dL (6.4-8.2) L 11/12/23 05:45 Albumin 2.7 g/dL (3.4-5.0) L 11/12/23 05:45 Globulin 3.6 g/dL (2.5-4.5) 11/12/23 05:45 Albumin/Globulin Ratio 0.8 Ratio (1.1-2.1) L 11/12/23 05:45 Specimen Type Catherized urine 11/10/23 16:28 Urine Color Dark yellow (YELLOW) 11/10/23 16: Urine Appearance Hazy (CLEAR) 11/10/23 16:28 Urine pH 6.0 (5.0 - 8.0) 11/10/23 16:28 Ur Specific [place] 1.025 (1.000-1.030) 11/10/23 16:28 Urine Protein 2+ (NEGATIVE) 11/10/23 16:28 Urine Glucose (UA) Negative (NEGATIVE) 11/10/23 16: Urine Ketones 1+ (NEGATIVE) 11/10/23 16: Urine Blood 2+ (NEGATIVE) 11/10/23 16: Urine Nitrite Negative (NEGATIVE) 11/10/23 16: Urine Bilirubin Negative (NEGATIVE) 11/10/23 16: Urine Urobilinogen 2+ (NORMAL) 11/10/23 16:28 Ur Leukocyte Esterase Negative (NEGATIVE) 11/10/23 16:28 Urine RBC 3-5 /HPF (0-3) A 11/10/23 16:28 Urine WBC 5-10 /HPF (0-5) A 11/10/23 16:28 Ur Squamous Epith Cells Numerous /HPF (NEGATIVE) 11/10/23 16:28 Amorphous Sediment 1+ /HPF (NEGATIVE) 11/10/23 16:28 Urine Bacteria Trace /HPF (NEGATIVE) 11/10/23 16:28 Hyaline Casts Rare /LPF (NEGATIVE) 11/10/23 16:28 Coarse Granular Casts Few /HPF (NEGATIVE) 11/10/23 16:28 Urine Mucus Few /HPF (NEGATIVE) 11/10/23 16:28 Ur Culture Indicated? No/not indicated 11/10/23 16:28 Plan (1) Hypoxia: Status: Acute (2) Pleural effusion: Status: Acute (3) Oxygen dependent: Status: Acute (4) Hypomagnesemia: Status: Acute (5) CHF exacerbation: Status: Acute Qualifiers: Heart failure type: diastolic Qualified Code(s): I50.33 - Acute on chronic diastolic (congestive) heart failure (6) Type 2 diabetes mellitus: Status: Chronic Qualifiers: Diabetes mellitus stencil inspector insulin use: with fdc use Diabetes mellitus complication status: with hyperglycemia Qualified Code(s): E11.65 - Type 2 diabetes mellitus with hyperglycemia; Z79.4 - [facility] (current) use of insulin (7) Hypertension: Status: Chronic Qualifiers: Hypertension type: primary hypertension Qualified Code(s): I10 - Essential (primary) hypertension (8) Frequent falls: Status: Acute (9) Hypothyroidism: Status: Chronic Qualifiers: Hypothyroidism type: acquired Qualified Code(s): E03.9 - Hypothyroidism, unspecified
[2023-11-12] MEDS: K-DUR TAB 20 MEQ PO SCH (09:27)
--- NOTE | 2023-11-12 13:28 | NOTE.SOAP ---
Soap Note Note for Day of Date of Exam: 11/12/23 Subjective Data Subjective Data: great diuresis- down 9 liters since admission and 10 lbs- edema better/sob better/abdomen : hard to say Objective Data Objective Data: bp 108/66 hr 80-90- ekg showed afib ( suspect chronic but no old ekg i can find) i/o - 9 liters- lungs: decreased bs bases, few crackles but better l hand: much improved, legs much improved labs: alb 2.7 hct 37 k 3.8 Assessment Assessment: chf/afib/low albumin/cardiomyopathy Plan Plan: push bb for better rate control- will cut back arb as bp low- cont diuresis- start K supplementation with all this diuresis- on doac
[2023-11-12] MEDS: COLACE CAP 100 MG PO SCH (20:45)
[2023-11-12] MEDS: COREG TAB 6.25 MG PO SCH (20:45)
[2023-11-12] MEDS: MILK OF MAGNESIA PO SCH (20:46)
[2023-11-12] MEDS: GLUCOPHAGE ONE (20:46)
[2023-11-12] MEDS: ULTRAM PO PRN (22:01)
[2023-11-13 01:07] VITALS: RESP 20
[2023-11-13 04:00] VITALS: O2SAT 96
--- NOTE | 2023-11-13 05:10 | RAD ---
PROCEDURE: Chest X-ray 1 View.HISTORY: Congestive heart failure.TECHNIQUE: AP portable semi upright done at 10:40 a.m..COMPARISON: 11/11/2023.TECHNICAL QUALITY: Satisfactory.FINDINGS:Unchanged moderate cardiomegaly.Mediastinum and hilar regions show no masses or lymphadenopathy. Tortuous aorta is unchanged.Normal central vascularity.Small bilateral pleural effusions. No definite consolidation.No acute bony abnormality.IMPRESSION:1. Unchanged cardiomegaly.2. Small bilateral pleural effusions.3. No other abnormality identified.THIS IS AN ELECTRONICALLY VERIFIED FINAL REPORT11/13/2023 5:07 AM - Electronically signed by Wellington Reddy MD
[2023-11-13 08:10] VITALS: BP 135/74; PULSE 102; TEMP 97.6
--- NOTE | 2023-11-13 08:34 | NOTE.SOAP ---
Soap Note Note for Day of Date of Exam: 11/13/23 Subjective Data Subjective Data: sob improved/edema so much better- Objective Data Objective Data: 130/70 p 90-100 lungs : decreased bs bases no crackles irreg irreg edema way down in feet/hand labs: bun/cr 14/0.85 even after 12 liters of fluid removed Assessment Assessment: chf/afib/great response to iv lasix ( 12 liters down in 3 days) Plan Plan: needs better hr control- will push bb/add dig- ? change to po lasix soon to get back to [facility] home-
[2023-11-13] MEDS ORDERED: GLUCOPHAGE ONE (09:02)
[2023-11-13] MEDS: LANOXIN or DIGITEK PO SCH (09:38)
[2023-11-13] MEDS: MICRO K EXTEN CAP 10 MEQ PO SCH (09:38)
[2023-11-13] MEDS: COZAAR PO SCH (09:45)
[2023-11-13] MEDS ORDERED: LASIX PO SCH (17:00)
--- NOTE | 2023-11-14 09:53 | W.DIS.FURT ---
Summary of Discharge Discharge Summary of Date Date of Exam: 11/13/23 Admission Date Date of Admission: 11/10/23 Admission Diagnosis Hospital Course: Pt is a 73y/o female who is a [facility] resident with multiple comorbidities admitted for CHF exacerbation. Her hospital/treatment course included IV lasix 40mg BID. Patient responded well and had good urine output. Cardiology-Dr Romero was consulted and followed patient. ECHO: 35-40% Grade 3 diastolic dysfunction. Cardiology recommendations; Cozaar, Coreg, Digoxin, and PO lasix. Pt's symptoms and edema significantly improved. Pt was discharged back to [facility]. Instructed to follow up with pcp and cardiology in 1 week. Vital Signs: Vital Signs (72 hours) 11/11/23 12:00 11/11/23 16:00 11/11/23 19:00 Temperature 98.0 F 97.8 F Pulse Rate [Left Radial] 92 H 85 Respiratory Rate 20 20 Blood Pressure [Left Arm] 130/60 112/59 Blood Pressure [Right Arm] O2 Sat by Pulse Oximetry 90 L 96 Oxygen Delivery Method Nasal Cannula Nasal Cannula Room Air Oxygen Flow Rate 2 2 FIO2% 11/11/23 20:00 11/12/23 00:00 11/11/23 21:30 Temperature 97.6 F 98.2 F Pulse Rate [Left Radial] 93 H 99 H Respiratory Rate 20 18 Blood Pressure [Left Arm] Blood Pressure [Right Arm] 160/84 113/56 O2 Sat by Pulse Oximetry 95 92 L Oxygen Delivery Method Nasal Cannula Nasal Cannula Nasal Cannula Oxygen Flow Rate 2 2 2 FIO2% 28 11/12/23 04:00 11/12/23 08:34 11/12/23 09:31 Temperature 98.2 F Pulse Rate [Left Radial] 89 Respiratory Rate 20 Blood Pressure [Left Arm] 108/66 Blood Pressure [Right Arm] O2 Sat by Pulse Oximetry 93 L Oxygen Delivery Method Nasal Cannula Room Air Oxygen Flow Rate 2 2 FIO2% 28 11/12/23 08:00 11/12/23 12:00 11/12/23 16:00 Temperature 98 F 97.3 F L 98.1 F Pulse Rate [Left Radial] 105 H 98 H 104 H Respiratory Rate 20 16 22 Blood Pressure [Left Arm] 106/74 Blood Pressure [Right Arm] 110/86 116/64 O2 Sat by Pulse Oximetry 93 L 94 L 93 L Oxygen Delivery Method Nasal Cannula Nasal Cannula Nasal Cannula Oxygen Flow Rate 2 2 2 FIO2% 11/12/23 19:00 11/12/23 19:52 11/12/23 22:01 Temperature 97.6 F Pulse Rate [Left Radial] 106 H Respiratory Rate 20 20 Blood Pressure [Left Arm] Blood Pressure [Right Arm] 110/60 O2 Sat by Pulse Oximetry 96 Oxygen Delivery Method Nasal Cannula Nasal Cannula Oxygen Flow Rate 2 2 FIO2% 11/12/23 23:01 11/12/23 20:40 11/13/23 00:00 Temperature 98.1 F Pulse Rate [Left Radial] 94 H Respiratory Rate 19 20 Blood Pressure [Left Arm] Blood Pressure [Right Arm] 88/53 O2 Sat by Pulse Oximetry 95 Oxygen Delivery Method Nasal Cannula Nasal Cannula Oxygen Flow Rate 2 2 FIO2% 28 11/13/23 03:59 11/13/23 06:15 11/13/23 08:00 Temperature 97.8 F 97.6 F Pulse Rate [Left Radial] 94 H 102 H Respiratory Rate 20 20 20 Blood Pressure [Left Arm] Blood Pressure [Right Arm] 106/62 135/74 O2 Sat by Pulse Oximetry 96 96 Oxygen Delivery Method Nasal Cannula Nasal Cannula Oxygen Flow Rate 2 2 FIO2% 11/13/23 07:00 11/13/23 07:15 Temperature Pulse Rate [Left Radial] Respiratory Rate 19 Blood Pressure [Left Arm] Blood Pressure [Right Arm] O2 Sat by Pulse Oximetry Oxygen Delivery Method Nasal Cannula Oxygen Flow Rate 2 FIO2% Labs: Laboratory Last Values WBC 7.0 X10^3/uL (3.6-10.0) 11/12/23 05:45 RBC 4.56 X10^6/uL (3.5-5.4) 11/12/23 05:45 Hgb 12.0 g/dL (12.0-16.0) 11/12/23 05:45 Hct 37.6 % (36.0-47.0) 11/12/23 05:45 MCV 82.5 fL (80.0-100.0) 11/12/23 05:45 MCH 26.4 pg (27.0-34.0) L 11/12/23 05:45 MCHC 32.0 g/dL (33.0-35.0) L 11/12/23 05:45 RDW 19.1 % (11.6-16.5) H 11/12/23 05:45 Plt Count 143 X10^3/uL (150.0-450.0) L 11/12/23 05:45 MPV 8.3 fL (7.4-11.0) 11/12/23 05:45 Neut % (Auto) 69.9 % (42.0-75.0) 11/12/23 05:45 Lymph % (Auto) 10.0 % (21.0-51.0) L 11/12/23 05:45 [place] % (Auto) 16.9 % (0.0-13.0) H 11/12/23 05:45 Eos % (Auto) 2.7 % (0.9-2.9) 11/12/23 05:45 Baso % (Auto) 0.5 % (0.2-1.0) 11/12/23 05:45 Neut # (Auto) 4.9 x10^3/uL (2.2-4.8) H 11/12/23 05:45 Lymph # (Auto) 0.7 X10^3/uL (1.3-2.9) L 11/12/23 05:45 [place] # (Auto) 1.2 x10^3/uL (0.3-0.8) H 11/12/23 05:45 Eos # (Auto) 0.2 x10^3/uL (0.0-0.2) 11/12/23 05:45 Baso # (Auto) 0.0 X10^3/uL (0.0-0.1) 11/12/23 05:45 Absolute Nucleated RBC 0.2 /100WBC 11/12/23 05:45 Sodium 142 mmol/L (136-145) 11/12/23 05:45 Corrected Sodium TNP 11/12/23 05:45 Potassium 3.8 mmol/L (3.5-5.1) 11/12/23 05:45 Chloride 98 mmol/L (98-107) 11/12/23 05:45 Carbon Dioxide 39.3 mmol/L (21-32) H 11/12/23 05:45 BUN 14 mg/dL (7-18) 11/12/23 05:45 Creatinine 0.85 mg/dL (0.55-1.02) 11/12/23 05:45 Est GFR (MDRD) Af Amer > 60 (>60) 11/12/23 05:45 Est GFR (MDRD) Non-Af > 60 (>60) 11/12/23 05:45 Glucose 83 mg/dL (65-99) 11/12/23 05:45 POC Glucose (mg/dL) 86 mg/dL (65-99) 11/13/23 05:25 Calcium 8.6 mg/dL (8.5-10.1) 11/12/23 05:45 Corrected Calcium 9.6 mg/dL (8.5-10.1) 11/12/23 05:45 Magnesium 1.2 mg/dL (2.0-2.9) L 11/12/23 05:45 Total Bilirubin 1.20 mg/dL (0.2-1.0) H 11/12/23 05:45 AST 23 Units/L (15-37) 11/12/23 05:45 ALT 19 Units/L (12-78) 11/12/23 05:45 Alkaline Phosphatase 72 Units/L (46-116) 11/12/23 05:45 B-Natriuretic Peptide 274 pg/mL (0-79) H 11/10/23 10:42 Total Protein 6.3 g/dL (6.4-8.2) L 11/12/23 05:45 Albumin 2.7 g/dL (3.4-5.0) L 11/12/23 05:45 Globulin 3.6 g/dL (2.5-4.5) 11/12/23 05:45 Albumin/Globulin Ratio 0.8 Ratio (1.1-2.1) L 11/12/23 05:45 Specimen Type Catherized urine 11/10/23 16:28 Urine Color Dark yellow (YELLOW) 11/10/23 16:28 Urine Appearance Hazy (CLEAR) 11/10/23 16:28 Urine pH 6.0 (5.0 - 8.0) 11/10/23 16:28 Ur Specific Magnet 1.025 (1.000-1.030) 11/10/23 16:28 Urine Protein 2+ (NEGATIVE) 11/10/23 16:28 Urine Glucose (UA) Negative (NEGATIVE) 11/10/23 16:28 Urine Ketones 1+ (NEGATIVE) 11/10/23 16:28 Urine Blood 2+ (NEGATIVE) 11/10/23 16:28 Urine Nitrite Negative (NEGATIVE) 11/10/23 16:28 Urine Bilirubin Negative (NEGATIVE) 11/10/23 16:28 Urine Urobilinogen 2+ (NORMAL) 11/10/23 16:28 Ur Leukocyte Esterase Negative (NEGATIVE) 11/10/23 16:28 Urine RBC 3-5 /HPF (0-3) A 11/10/23 16:28 Urine WBC 5-10 /HPF (0-5) A 11/10/23 16:28 Ur Squamous Epith Cells Numerous /HPF (NEGATIVE) 11/10/23 16:28 Amorphous Sediment 1+ /HPF (NEGATIVE) 11/10/23 16:28 Urine Bacteria Trace /HPF (NEGATIVE) 11/10/23 16:28 Hyaline Casts Rare /LPF (NEGATIVE) 11/10/23 16:28 Coarse Granular Casts Few /HPF (NEGATIVE) 11/10/23 16:28 Urine Mucus Few /HPF (NEGATIVE) 11/10/23 16:28 Ur Culture Indicated? 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 Pt is to keep follow up ap pointment as instructed and take medications as ordered. Discharge Medications Discharge Medications: No Known Drug Allergies Allergy (Unknown, Verified 11/10/23 14:20) New Prescriptions carvedilol 12.5 mg tablet 12.5 mg PO BID #60 tabs 11/13/23 [Rx] digoxin 125 mcg (0.125 mg) tablet 125 mcg PO QDAY 30 days #30 tabs 11/13/23 [Rx] furosemide 40 mg tablet 40 mg PO BID 30 days #60 tabs 11/13/23 [Rx] losartan 25 mg tablet 12.5 mg PO QDAY 30 days #15 tabs 11/13/23 [Rx] potassium chloride 10 mEq capsule,extended release 10 meq PO QDAY #30 caps 11/13/23 [Rx] Discharge Plan Discharge Plan Hospital Course: Pt is a 73y/o female who is a [facility] resident with multiple comorbidities admitted for CHF exacerbation. Her hospital/treatment course included IV lasix 40mg BID. Patient responded well and had good urine output. Cardiology-Dr Romero was consulted and followed patient. ECHO: 35-40% Grade 3 diastolic dysfunction. Cardiology recommendations; Cozaar, Coreg, Digoxin, and PO lasix. Pt's symptoms and edema significantly improved. Pt was discharged back to [facility]. Instructed to follow up with pcp and cardiology in 1 week. Patient Disposition: 01 HOME, SELF-CARE Condition: Stable Health Concerns: Post Hospitalization: new medications and changes needed to prevent readmission or further decline. Pt educated and given instructions on all concerns. Plan of Treatment: Continue with present treatment and follow up plan. Pt is to keep follow up appointment as instructed and take medications as ordered. Prescriptions: New furosemide 40 mg Tablet 40 mg PO BID 30 Days Qty: 60 0RF potassium chloride 10 mEq Capsule, Extended Release 10 meq PO QDAY Qty: 30 0RF carvedilol 12.5 mg Tablet 12.5 mg PO BID Qty: 60 0RF Rx Instructions: must administer with a meal/food losartan 25 mg Tablet 12.5 mg PO QDAY 30 Days Qty: 15 0RF digoxin 125 mcg (0.125 mg) Tablet 125 mcg PO QDAY 30 Days Qty: 30 0RF Continued Eliquis 5 mg tablet 5 mg PO BID meloxicam 15 mg Tablet 15 mg PO DAILY 30 Days Qty: 30 3RF clopidogrel [Plavix] 75 mg tablet 75 mg PO DAILY 30 Days Qty: 30 3RF metformin 500 mg Tablet 500 mg PO BID 0RF gabapentin 100 mg Capsule 100 mg PO BID 0RF atorvastatin [Lipitor] 80 mg Tablet 80 mg PO HS carbidopa-levodopa 50-200 mg Tablet Extended Release 1 tab PO TID simethicone 125 mg Capsule 80 mg PO TID escitalopram oxalate [Lexapro] 20 mg Tablet 20 mg PO DAILY Tradjenta 5 mg Tablet 5 mg PO DAILY melatonin 10 mg Tablet 10 mg PO HS acetaminophen [Tylenol] 325 mg Tablet 650 mg PO Q6H PRN diphenoxylate-atropine [Lomotil] 2.5-0.025 mg Tablet 1 tab PO BID PRN tramadol 50 mg Tablet 50 mg PO Q8H PRN ergocalciferol (vitamin D2) 1,250 mcg (50,000 unit) capsule 1,250 mcg PO QDAY albuterol sulfate 90 mcg/actuation HFA aerosol inhaler 2 puff inhalation Q4H PRN ondansetron 4 mg tablet,disintegrating 4 mg PO Q6H PRN loperamide [Imodium A-D] 1 mg/7.5 mL Liquid 1 mg PO PRN PRN diclofenac sodium 1 % gel 1 ea TOPICAL QID levothyroxine [Euthyrox] 150 mcg tablet 150 mcg PO DAILY Patient Comments: TAKE 1 TABLET BY MOUTH ONCE DAILY Discontinued metoprolol tartrate [Lopressor] 50 mg Tablet 50 mg PO BID Orders to Discharge Patient Discharge Orders: Discharge (Routine); Ordered 11/13/23 Ordered By: Checo Patton Follow ups/Referrals Follow ups/Referrals: Checo Patton [Primary Care Provider] - (Dr. Patton to follow up at residential.) DEREJE ROMERO [STAFF PHYSICIAN] - 11/20/23 11:20 am Instructions Stand Alone Forms: Post Hospital Follow Up Care
== END 2023-11-13 11:00 | disposition home or self-care (01) ==
LOC: MED/SURG
PROVIDERS: ADMIT Family Medicine; ATTEND Family Medicine
DX: R26.9 Unspecified abnormalities of gait and mobility; E11.65 Type 2 diabetes mellitus with hyperglycemia; R26.89 Other abnormalities of gait and mobility; J90 Pleural effusion, not elsewhere classified; I48.91 Unspecified atrial fibrillation; Z99.81 Dependence on supplemental oxygen; I50.33 Acute on chronic diastolic (congestive) heart failure; R06.02 Shortness of breath; R79.89 Other specified abnormal findings of blood chemistry; Z90.11 Acquired absence of right breast and nipple; I11.0 Hypertensive heart disease with heart failure; Z79.4 Long term (current) use of insulin; Z79.899 Other long term (current) drug therapy; E83.42 Hypomagnesemia; E03.8 Other specified hypothyroidism; R09.02 Hypoxemia; R60.0 Localized edema

== ENCOUNTER 2024-07-08 09:43 | Inpatient (IN) ==
--- NOTE | 2024-07-08 09:56 | DR.GENAD ---
HPI Time Seen Time Seen by Provider: 07/08/24 09:54 Complaint/Symptoms Chief Complaint Doctors Comments: [facility] with complaint of headache and nausea. She was sent over from the [facility] because she not taking her medications and was refusing to take her medications she was being treated for hypokalemia and hypomagnesemia but she would not take the medication to replace them at the [facility]. PMH PMH Past Medical History: Anxiety, Asthma, CHF, Coronary Artery Disease, CVA, Depression, Diabetes, Dyslipidemia and GERD Past Surgical History: Yes Surgical History: Hysterectomy and Mastectomy Family History Family Medical History: Diabetes Mellitus, Cancer, [place] and Hypertension Social History Do you use any recreational Drugs:: No ROS Review of Systems Constitutional: Other (nausea and headache) Eyes: No Symptoms Reported ENTM: No Symptoms Reported Respiratoy: No Symptoms Reported Cardiovascular: No Symptoms Reported Gastrointestinal/Abdominal: Nausea Genitourinary: No Symptoms Reported Neurological: Headache Musculoskeletal: No Symptoms Reported Integumentary: No Symptoms Reported Hematologic/Lymphatic: No Symptoms Reported Endocrine: No Symptoms Reported Psychiatric: No Symptoms Reported PE Vital Signs Vitals: Vital Signs Temperature 97.9 F Pulse Rate 66 Pulse Rate 74 Pulse Rate 97 Pulse Rate 85 Pulse Rate 97 Pulse Rate 99 Pulse Rate 100 Pulse Rate 99 Pulse Rate 97 Pulse Rate 94 Respiratory Rate 25 Respiratory Rate 20 Respiratory Rate 24 Respiratory Rate 25 Respiratory Rate 15 Respiratory Rate 18 Respiratory Rate 30 Respiratory Rate 27 Respiratory Rate 28 Respiratory Rate 20 Respiratory Rate 16 Blood Pressure 97/64 Blood Pressure 124/67 O2 Sat by Pulse Oximetry 100 O2 Sat by Pulse Oximetry 97 O2 Sat by Pulse Oximetry 97 O2 Sat by Pulse Oximetry 98 O2 Sat by Pulse Oximetry 97 O2 Sat by Pulse Oximetry 88 O2 Sat by Pulse Oximetry 90 General Limitations: Physical Limitation (Nonambulatory) General Appearance: Alert and In No Apparent Distress Head Head Exam: Normal Inspection, Atraumatic and Normocephalic Eyes Eye exam: Normal Appearance, PERRL and EOMI ENT ENT Exam: Normal Exam External Ear Exam: Normal External Inspection TM/Canal Exam: Bilateral: Normal Nose Exam: Normal Nose Exam Mouth Exam: Normal Inspection Throat Exam: Normal Inspection Neck Neck Exam: Normal Inspection Chest Chest Inspection: Normal Inspection and Symmetric Chest Wall Rise Respiratory Respiratory Exam: Normal Lung Sounds Bilat Respiratory Exam: Bilateral: Clear to Auscultation Cardiovascular Cardiovascular Exam: Regular Rate and Normal Rhythm Abdominal Exam Abdominal Exam: Normal Inspection and Normal Bowel Sounds Extremities Extremities Exam: Normal Inspection and Full ROM Back Back Exam: Normal Inspection Neurologic Neurological Exam: Alert and Oriented X3 Psychiatric Psychiatric Exam: Depressed Skin Skin Exam: Warm, Dry and Intact MDM Differential Diagnosis Differential Diagnosis: Hypokalemia, hypomagnesemia and medical noncompliance COURSE Treatment Treatment: This patient remained very stable during the ER visit. She did the clinic complaining of nausea she was given Zofran 4 mg IV seemingly symptoms are got better. Patient also had labs drawn which her magnesium level was 1.3 and a potassium level was 2.4. I spoke to her primary care provider Dr. Patton at 1110 and he states just put the patient in the hospital for replacement of her potassium and her magnesium and they will have a conversation about her medical noncompliance. Patient was told of the intent to admit to the hospital on observation to further correct her electrolytes and she will have a conference with her primary care provider for continuity of care. This patient was given started on a gram of magnesium IV in the ER and the rest of replacement of potassium will be done on the floor. ROR Labs Reviewed Laboratory Results Reviewed?: Yes 07/08/24 10:00 07/08/24 10:00 Laboratory: WBC 8.9 X10^3/uL (3.6-10.0) 07/08/24 10:00 RBC 4.59 X10^6/uL (3.5-5.4) 07/08/24 10:00 Hgb 13.8 g/dL (12.0-16.0) 07/08/24 10:00 Hct 39.6 % (36.0-47.0) 07/08/24 10:00 MCV 86.3 fL (80.0-100.0) 07/08/24 10:00 MCH 30.0 pg (27.0-34.0) 07/08/24 10:00 MCHC 34.7 g/dL (33.0-35.0) 07/08/24 10:00 RDW 18.5 % (11.6-16.5) H 07/08/24 10:00 Plt Count 137 X10^3/uL (150.0-450.0) L 07/08/24 10:00 MPV 8.8 fL (7.4-11.0) 07/08/24 10:00 Neut % (Auto) 75.8 % (42.0-75.0) H 07/08/24 10:00 Lymph % (Auto) 11.0 % (21.0-51.0) L 07/08/24 10:00 [place] % (Auto) 12.0 % (0.0-13.0) 07/08/24 10:00 Eos % (Auto) 0.9 % (0.9-2.9) 07/08/24 10:00 Baso % (Auto) 0.3 % (0.2-1.0) 07/08/24 10:00 Neut # (Auto) 6.7 x10^3/uL (2.2-4.8) H 07/08/24 10:00 Lymph # (Auto) 1.0 X10^3/uL (1.3-2.9) L 07/08/24 10:00 [place] # (Auto) 1.1 x10^3/uL (0.3-0.8) H 07/08/24 10:00 Eos # (Auto) 0.1 x10^3/uL (0.0-0.2) 07/08/24 10:00 Baso # (Auto) 0.0 X10^3/uL (0.0-0.1) 07/08/24 10:00 Absolute Nucleated RBC 0.0 /100WBC 07/08/24 10:00 Sodium 137 mmol/L (136-145) 07/08/24 10:00 Corrected Sodium 141 mmol/L (136-145) 07/08/24 10:00 Potassium 2.4 mmol/L (3.5-5.1) L* 07/08/24 10:00 Chloride 93 mmol/L (98-107) L 07/08/24 10:00 Carbon Dioxide 41.2 mmol/L (21-32) H 07/08/24 10:00 BUN 35 mg/dL (7-18) H 07/08/24 10:00 Creatinine 2.00 mg/dL (0.55-1.02) H 07/08/24 10:00 Est GFR (MDRD) Af Amer 31 (>60) L 07/08/24 10:00 Est GFR (MDRD) Non-Af 26 (>60) L 07/08/24 10:00 Glucose 268 mg/dL (65-99) H 07/08/24 10:00 Calcium 9.4 mg/dL (8.5-10.1) 07/08/24 10:00 Corrected Calcium 10.2 mg/dL (8.5-10.1) H 07/08/24 10:00 Magnesium 1.3 mg/dL (2.0-2.9) L 07/08/24 10:00 Total Bilirubin 1.10 mg/dL (0.2-1.0) H 07/08/24 10:00 AST 26 Units/L (15-37) 07/08/24 10:00 ALT 12 Units/L (12-78) 07/08/24 10:00 Alkaline Phosphatase 94 Units/L (46-116) 07/08/24 10:00 Total Protein 7.8 g/dL (6.4-8.2) 07/08/24 10:00 Albumin 3.0 g/dL (3.4-5.0) L 07/08/24 10:00 Globulin 4.8 g/dL (2.5-4.5) H 07/08/24 10:00 Albumin/Globulin Ratio 0.6 Ratio (1.1-2.1) L 07/08/24 10:00 Opioid Opioid Risk Tool Age (Vinicuis box if 16-45): No History of Preadolescent Sexual Abuse: No Total: 0 Total Score Risk Category: Low Risk Copyright: Senthil OBRIEN predicting aberrant behaviors Discharge Plan Diagnosis Discharge Problem: Hypokalemia, Hypomagnesemia Discharge Plan Patient Disposition: ADMITTED INPATIENT Condition: Stable Orders to Discharge Patient Discharge Orders: Transfer (Routine); Ordered 07/08/24 Ordered By: Wali Calderon
[2024-07-08] MEDS: ZOFRAN INJ 4 MG VIAL IVP ONE (10:05)
[2024-07-08 10:24] LABS: BASOPHILS % (AUTO) 0.3 % (0.2-1.0); EOSINOPHILS # (AUTO) 0.1 x10^3/uL (0.0-0.2); EOSINOPHILS % (AUTO) 0.9 % (0.9-2.9); HEMATOCRIT 39.6 % (36.0-47.0); HEMOGLOBIN 13.8 g/dL (12.0-16.0); MEAN CORPUSCULAR HGB CONC 34.7 g/dL (33.0-35.0); MEAN CORPUSCULAR VOLUME 86.3 fL (80.0-100.0); MEAN PLATELET VOLUME 8.8 fL (7.4-11.0); MONOCYTES # (AUTO) 1.1 x10^3/uL (0.3-0.8); NEUTROPHILS # (AUTO) 6.7 x10^3/uL (2.2-4.8); NEUTROPHILS % (AUTO) 75.8 % (42.0-75.0); PLATELET COUNT 137 X10^3/uL (150.0-450.0); RED BLOOD COUNT 4.59 X10^6/uL (3.5-5.4); RED CELL DISTRIBUTION WIDTH 18.5 % (11.6-16.5); WHITE BLOOD COUNT 8.9 X10^3/uL (3.6-10.0)
[2024-07-08 10:34] LABS: CALCIUM 9.4 mg/dL (8.5-10.1); CARBON DIOXIDE 41.2 mmol/L (21-32); COR CA(FOR HYPOALB) 10.2 mg/dL (8.5-10.1); MAGNESIUM 1.3 mg/dL (2.0-2.9); TOTAL PROTEIN 7.8 g/dL (6.4-8.2)
[2024-07-08 10:36] LABS: POTASSIUM 2.4 mmol/L (3.5-5.1)
[2024-07-08] MEDS: MAGNESIUM SULFATE 1 GRAM/100 mL PREMIX 1 G/100 ML BAG IV ONE ×2 (11:30→12:36)
[2024-07-08] MEDS: ZOFRAN INJ 4 MG VIAL ONE (12:36)
[2024-07-08] MEDS ORDERED: VENTOLIN or PROAIR HFA IN PRN (12:56)
[2024-07-08] MEDS ORDERED: TYLENOL 325 MG TAB PO PRN (12:56)
[2024-07-08] MEDS ORDERED: CONSULT PHARMACY - POTASSIUM & MAGNESIUM XX SCH (12:56)
[2024-07-08] MEDS ORDERED: ZOFRAN ODT PO PRN (12:56)
[2024-07-08] MEDS: SINEMET CR 50/200 MG PO SCH (13:07)
[2024-07-08] MEDS ORDERED: PROVENTIL NEB TX 0.083% 2.5MG/ 3ML NEB PRN (13:14)
[2024-07-08] MEDS: VOLTAREN 1 % GEL MULTI DOSE TUBE TOP SCH (14:04)
[2024-07-08] MEDS: MAGNESIUM SULFATE 1 GRAM/100 mL PREMIX 1 G/100 ML BAG IV SCH (14:52)
[2024-07-08] MEDS: VITAMIN D (1.25MG) PO SCH (14:59)
[2024-07-08] MEDS: K-RIDER 10 MEQ/100 ML WATER 10 MEQ/100 ML BAG IV SCH (17:13)
[2024-07-08] MEDS: NS 250 ML IV 25 ML IV PRN (19:38)
[2024-07-08] MEDS: COREG TAB 12.5 MG PO SCH (20:34)
[2024-07-08] MEDS: LIPITOR TAB 80 MG PO SCH (20:34)
[2024-07-08] MEDS: ELIQUIS PO SCH (20:34)
[2024-07-08] MEDS: NEURONTIN CAP 100 MG PO SCH (21:14)
[2024-07-09 06:27] LABS: BASOPHILS % (AUTO) 0.5 % (0.2-1.0); EOSINOPHILS # (AUTO) 0.1 x10^3/uL (0.0-0.2); EOSINOPHILS % (AUTO) 1.2 % (0.9-2.9); HEMATOCRIT 38.9 % (36.0-47.0); HEMOGLOBIN 13.3 g/dL (12.0-16.0); LYMPHOCYTES # (AUTO) 1.2 X10^3/uL (1.3-2.9); LYMPHOCYTES % (AUTO) 15.7 % (21.0-51.0); MEAN CORPUSCULAR HEMOGLOBIN 29.3 pg (27.0-34.0); MEAN CORPUSCULAR HGB CONC 34.1 g/dL (33.0-35.0); MEAN CORPUSCULAR VOLUME 85.9 fL (80.0-100.0); MEAN PLATELET VOLUME 8.5 fL (7.4-11.0); MONOCYTES # (AUTO) 1.1 x10^3/uL (0.3-0.8); MONOCYTES % (AUTO) 13.5 % (0.0-13.0); NEUTROPHILS # (AUTO) 5.4 x10^3/uL (2.2-4.8); NEUTROPHILS % (AUTO) 69.1 % (42.0-75.0); PLATELET COUNT 122 X10^3/uL (150.0-450.0); RED BLOOD COUNT 4.53 X10^6/uL (3.5-5.4); RED CELL DISTRIBUTION WIDTH 18.5 % (11.6-16.5); WHITE BLOOD COUNT 7.9 X10^3/uL (3.6-10.0)
[2024-07-09 06:45] LABS: ALANINE AMINOTRANSFERASE < 6 Units/L (12-78); ALBUMIN 2.8 g/dL (3.4-5.0); ALKALINE PHOSPHATASE 82 Units/L (46-116); ASPARTATE AMINO TRANSFERASE 23 Units/L (15-37); BLOOD UREA NITROGEN 29 mg/dL (7-18); CALCIUM 9.4 mg/dL (8.5-10.1); CARBON DIOXIDE 44.5 mmol/L (21-32); CHLORIDE 93 mmol/L (98-107); COR CA(FOR HYPOALB) 10.4 mg/dL (8.5-10.1); COR NA(FOR HYPERGLY) 144 mmol/L (136-145); CREATININE 1.45 mg/dL (0.55-1.02); GLUCOSE 177 mg/dL (65-99); MAGNESIUM 1.7 mg/dL (2.0-2.9); SODIUM 142 mmol/L (136-145); TOTAL PROTEIN 7.2 g/dL (6.4-8.2); eGFR NON BLACK RACES 38 (>60)
--- NOTE | 2024-07-09 07:48 | DR.H&P ---
H&P History & Physical for Day of: H&P Date: 07/08/24 Chief Complaint Chief Complaint: weakness History of Present Illness History of Present Illness: Patient is a 74-year-old female presenting from [facility] due to weakness. Per staff, patient has refused to be take her medications including her supplements of potassium and magnesium. In the ED she was noted to be hypokalemic and hypomagnesemia. Labs/imaging: WBC 8.9, hemoglobin 13.8, platelets 137, sodium 137, potassium 2.4, creatinine 2.0, glucose 268, Mag 1.3. Patient was admitted for hypokalemia and hypomagnesemia. As well as acute kidney injury. Discussed with patient and appears that she got frustrated at the residential but will start taking her supplements and medications when she is transferred back. Will at this time give her IV supple mentation of magnesium the potassium. Restart home medications. Monitor renal function. Otherwise continue current treatment plan. Continue closely monitor and follow-up labs in the morning. Past Medical History Past Medical History: Anxiety, Asthma, CHF, Coronary Artery Disease, CVA, Depression, Diabetes, Dyslipidemia and GERD Additional Medical History: HX BREAST CANCER Past Surgical History Surgical History: Hysterectomy and Mastectomy Family History Family Medical History: Diabetes Mellitus, Cancer, [place] and Hypertension Social History Does patient currently use any type of tobacco product: No Have you used tobacco products in the last 12 months: No Type of Tobacco Use: None Does any household member use tobacco: No Alcohol Use: None Drug Use: None Medications Home Medications: Home Medications Medication Instructions Recorded Confirmed Type atorvastatin 80 mg tablet (Lipitor) 80 mg PO HS 10/25/23 07/08/24 History acetaminophen 325 mg tablet 650 mg PO Q6H PRN 11/06/23 07/08/24 History (Tylenol) albuterol sulfate 90 mcg/actuation 2 puff inhalation Q4H PRN 11/06/23 07/08/24 History aerosol inhaler diclofenac sodium 1 % topical gel 1 ea topical QID 11/06/23 07/08/24 History diphenoxylate-atropine 2.5 1 tab PO BID PRN 11/06/23 07/08/24 History mg-0.025 mg tablet (Lomotil) ergocalciferol (vitamin D2) 1,250 1,250 mcg PO QDAY 11/06/23 07/08/24 History mcg (50,000 unit) capsule ondansetron 4 mg disintegrating 4 mg PO Q6H PRN 11/06/23 07/08/24 History tablet tramadol 50 mg tablet 50 mg PO Q8H PRN 11/06/23 07/08/24 History apixaban 5 mg tablet (Eliquis) 5 mg PO BID 11/10/23 07/08/24 History levothyroxine 125 mcg tablet 125 mcg PO QDAY 12/28/23 07/08/24 History insulin regular human 100 unit/mL 1 sliding scale dose subcut 01/11/24 07/08/24 History injection solution (Novolin R USEASDIRECTD Regular U-100 Insulin) B [id number] 106 mg 1 tab PO DAILY 06/07/24 07/08/24 History iron-1 mg tablet (Ferrocite Plus) carbidopa ER 50 mg-levodopa 200 mg 1 tab PO TID 06/07/24 07/08/24 History tablet,extended release furosemide 80 mg tablet 80 mg PO BID 06/07/24 07/08/24 History metolazone 2.5 mg tablet 2.5 mg PO DAILY 06/07/24 07/08/24 History simethicone 80 mg chewable tablet 80 mg PO TID PRN 06/07/24 07/08/24 History sitagliptin phosphate 100 mg 100 mg PO DAILY 06/07/24 07/08/24 History tablet (Januvia) potassium chloride 20 mEq 20 meq PO BID 06/28/24 07/08/24 History tablet,extended release(part/cryst) Allergies Allergies Allergy/AdvReac Type Severity Reaction Status Date / Time No Known Drug Allergies Allergy Unknown Verified 06/28/24 15:32 Labs 07/09/24 06:00 07/09/24 06:00 Labs: Laboratory WBC 7.9 X10^3/uL (3.6-10.0) 07/09/24 06:00 RBC 4.53 X10^6/uL (3.5-5.4) 07/09/24 06:00 Hgb 13.3 g/dL (12.0-16.0) 07/09/24 06:00 Hct 38.9 % (36.0-47.0) 07/09/24 06:00 MCV 85.9 fL (80.0-100.0) 07/09/24 06:00 MCH 29.3 pg (27.0-34.0) 07/09/24 06:00 MCHC 34.1 g/dL (33.0-35.0) 07/09/24 06:00 RDW 18.5 % (11.6-16.5) H 07/09/24 06:00 Plt Count 122 X10^3/uL (150.0-450.0) L 07/09/24 06:00 MPV 8.5 fL (7.4-11.0) 07/09/24 06:00 Neut % (Auto) 69.1 % (42.0-75.0) 07/09/24 06:00 Lymph % (Auto) 15.7 % (21.0-51.0) L 07/09/24 06:00 [place] % (Auto) 13.5 % (0.0-13.0) H 07/09/24 06:00 Eos % (Auto) 1.2 % (0.9-2.9) 07/09/24 06:00 Baso % (Auto) 0.5 % (0.2-1.0) 07/09/24 06:00 Neut # (Auto) 5.4 x10^3/uL (2.2-4.8) H 07/09/24 06:00 Lymph # (Auto) 1.2 X10^3/uL (1.3-2.9) L 07/09/24 06:00 [place] # (Auto) 1.1 x10^3/uL (0.3-0.8) H 07/09/24 06:00 Eos # (Auto) 0.1 x10^3/uL (0.0-0.2) 07/09/24 06:00 Baso # (Auto) 0.0 X10^3/uL (0.0-0.1) 07/09/24 06:00 Absolute Nucleated RBC 0.3 /100WBC 07/09/24 06:00 Sodium 142 mmol/L (136-145) 07/09/24 06:00 Corrected Sodium 144 mmol/L (136-145) 07/09/24 06:00 Potassium 2.0 mmol/L (3.5-5.1) L* 07/09/24 06:00 Chloride 93 mmol/L (98-107) L 07/09/24 06:00 Carbon Dioxide 44.5 mmol/L (21-32) H 07/09/24 06:00 BUN 29 mg/dL (7-18) H 07/09/24 06:00 Creatinine 1.45 mg/dL (0.55-1.02) H 07/09/24 06:00 Est GFR (MDRD) Af Amer 45 (>60) L 07/09/24 06:00 Est GFR (MDRD) Non-Af 38 (>60) L 07/09/24 06:00 Glucose 177 mg/dL (65-99) H 07/09/24 06:00 Calcium 9.4 mg/dL (8.5-10.1) 07/09/24 06:00 Corrected Calcium 10.4 mg/dL (8.5-10.1) H 07/09/24 06:00 Magnesium 1.7 mg/dL (2.0-2.9) L 07/09/24 06:00 Total Bilirubin 1.20 mg/dL (0.2-1.0) H 07/09/24 06:00 AST 23 Units/L (15-37) 07/09/24 06:00 ALT < 6 Units/L (12-78) L 07/09/24 06:00 Alkaline Phosphatase 82 Units/L (46-116) 07/09/24 06:00 Total Protein 7.2 g/dL (6.4-8.2) 07/09/24 06:00 Albumin 2.8 g/dL (3.4-5.0) L 07/09/24 06:00 Globulin 4.4 g/dL (2.5-4.5) 07/09/24 06:00 Albumin/Globulin Ratio 0.6 Ratio (1.1-2.1) L 07/09/24 06:00 Review of Systems Constitutional: Weakness Eyes: No Symptoms Reported ENT: No Symptoms Reported Respiratory: No Symptoms Reported Cardiovascular: No Symptoms Reported Gastrointestinal: No Symptoms Reported Genitourinary: No Symptoms Reported Musculoskeletal: No Symptoms Reported Skin: No Symptoms Reported Neurological: No Symptoms Reported Physical Exam Vital Signs: Vital Signs Temperature 98.6 F Temperature 98.0 F Pulse Rate [Brachial] 61 Pulse Rate [Brachial] 81 Respiratory Rate 20 Respiratory Rate 20 Blood Pressure [Left Arm] 89/51 Blood Pressure [Left Arm] 98/51 O2 Sat by Pulse Oximetry 92 O2 Sat by Pulse Oximetry 95 Oriented: Normal Eyes: Normal Ear: Normal Nose: Normal Throat: Normal Respiratory: Clear Throughout Cardiovascular: Normal : Normal Auscultation: Bowel Sounds: Normal Palpation: Normal Tenderness: Normal Skin: Normal Musculoskeletal: Normal Psychiatric: Normal Mood Description: Calm and Appropriate Affect: Normal Speech Pattern: Clear and Appropriate Assessment/Plan (1) Hypokalemia: Status: Acute Plan: Replete per protocol. (2) Hypomagnesemia: Status: Acute (3) MARQUISE (acute kidney injury): Status: Acute Review H&P Reviewed: Yes Patient was examined?: Yes
[2024-07-09] MEDS: SYNTHROID 125 mcg TAB PO SCH (08:58)
[2024-07-09] MEDS: NYSTATIN POWDER TOP SCH (08:58)
[2024-07-09] MEDS: PLAVIX PO SCH (08:58)
[2024-07-09] MEDS: HEMOCYTE-PLUS PO SCH (08:58)
[2024-07-09] MEDS: K-DUR TAB 20 MEQ PO ONE (09:03)
[2024-07-09] MEDS: NS + KCL 20 MEQ/L 1,000 ML IV SCH (10:02)
--- NOTE | 2024-07-09 10:56 | EKG ---
Test Reason : hypokalemia Blood Pressure : */* mmHG Vent. Rate : 70 BPM Atrial Rate : 192 BPM P-R Int : * ms QRS Dur : 102 ms QT Int : 422 ms P-R-T Axes : -9 24 213 degrees QTc Int : 455 ms Normal sinus rhythm with 1st degree AV block Low voltage QRS Cannot rule out Anterior infarct , age undetermined Abnormal ECG When compared with ECG of 08-JUN-2024 17:21, Current undetermined rhythm precludes rhythm comparison, needs review Questionable change in QRS axis T wave inversion less evident in Anterolateral leads QT has shortened Confirmed by Kirill Porras ([id number]) on 07/11/2024 9:27:26 AM Referred By: Confirmed By: Kirill Porras
--- NOTE | 2024-07-09 11:13 | RAD ---
EXAM:CHEST, 1 VIEWHISTORY:Congestive heart failureCOMPARISON:December 13, 2023TECHNIQUE:1 frontal view of the chestFINDINGS:The heart silhouette is enlarged. There is pulmonary vascular congestion and cephalization. There is interstitial edema present.IMPRESSION:Decompensated congestive heart failure. Superimposed pneumonia is difficult to exclude radiographically.THIS IS AN ELECTRONICALLY VERIFIED FINAL [id number]/09/2024 11:10 AM - Electronically signed by Matt Soler MD
[2024-07-10 06:02] LABS: BASOPHILS % (AUTO) 0.5 % (0.2-1.0); EOSINOPHILS # (AUTO) 0.1 x10^3/uL (0.0-0.2); EOSINOPHILS % (AUTO) 1.8 % (0.9-2.9); HEMATOCRIT 35.8 % (36.0-47.0); HEMOGLOBIN 12.3 g/dL (12.0-16.0); LYMPHOCYTES # (AUTO) 1.3 X10^3/uL (1.3-2.9); MEAN CORPUSCULAR HEMOGLOBIN 29.7 pg (27.0-34.0); MEAN CORPUSCULAR HGB CONC 34.3 g/dL (33.0-35.0); MEAN CORPUSCULAR VOLUME 86.6 fL (80.0-100.0); MEAN PLATELET VOLUME 8.6 fL (7.4-11.0); MONOCYTES % (AUTO) 13.8 % (0.0-13.0); NEUTROPHILS # (AUTO) 4.8 x10^3/uL (2.2-4.8); NEUTROPHILS % (AUTO) 65.9 % (42.0-75.0); PLATELET COUNT 115 X10^3/uL (150.0-450.0); RED BLOOD COUNT 4.13 X10^6/uL (3.5-5.4); RED CELL DISTRIBUTION WIDTH 18.9 % (11.6-16.5); WHITE BLOOD COUNT 7.3 X10^3/uL (3.6-10.0)
[2024-07-10 06:12] LABS: ALANINE AMINOTRANSFERASE < 6 Units/L (12-78); ALBUMIN 2.5 g/dL (3.4-5.0); ALKALINE PHOSPHATASE 80 Units/L (46-116); ASPARTATE AMINO TRANSFERASE 20 Units/L (15-37); BLOOD UREA NITROGEN 26 mg/dL (7-18); CALCIUM 8.7 mg/dL (8.5-10.1); CARBON DIOXIDE 41.9 mmol/L (21-32); CHLORIDE 98 mmol/L (98-107); COR CA(FOR HYPOALB) 9.9 mg/dL (8.5-10.1); COR NA(FOR HYPERGLY) 146 mmol/L (136-145); CREATININE 1.18 mg/dL (0.55-1.02); GLUCOSE 216 mg/dL (65-99); MAGNESIUM 1.4 mg/dL (2.0-2.9); SODIUM 143 mmol/L (136-145); TOTAL PROTEIN 6.7 g/dL (6.4-8.2); eGFR NON BLACK RACES 48 (>60)
[2024-07-10 06:15] LABS: POTASSIUM 2.1 mmol/L (3.5-5.1)
[2024-07-10 07:07] VITALS: BMI 38.9
[2024-07-10] MEDS: MAG-OX TAB PO SCH (10:01)
[2024-07-10] MEDS ORDERED: CONSULT PHARMACY - POTASSIUM & MAGNESIUM XX SCH (11:00)
[2024-07-10] MEDS: K-DUR TAB 20 MEQ PO SCH ×2 (11:15)
[2024-07-10] MEDS: ULTRAM PO PRN (21:02)
[2024-07-11 05:57] LABS: BLOOD UREA NITROGEN 19 mg/dL (7-18); CALCIUM 8.7 mg/dL (8.5-10.1); CARBON DIOXIDE 39.1 mmol/L (21-32); CHLORIDE 101 mmol/L (98-107); COR NA(FOR HYPERGLY) 147 mmol/L (136-145); CREATININE 1.02 mg/dL (0.55-1.02); GLUCOSE 165 mg/dL (65-99); SODIUM 145 mmol/L (136-145); eGFR NON BLACK RACES 56 (>60)
[2024-07-11 06:06] LABS: POTASSIUM 2.8 mmol/L (3.5-5.1)
[2024-07-11 06:11] LABS: MAGNESIUM 1.5 mg/dL (2.0-2.9)
[2024-07-11 06:12] LABS: BASOPHILS % (AUTO) 0.5 % (0.2-1.0); EOSINOPHILS # (AUTO) 0.1 x10^3/uL (0.0-0.2); EOSINOPHILS % (AUTO) 1.9 % (0.9-2.9); HEMATOCRIT 36.8 % (36.0-47.0); HEMOGLOBIN 12.5 g/dL (12.0-16.0); LYMPHOCYTES # (AUTO) 1.4 X10^3/uL (1.3-2.9); LYMPHOCYTES % (AUTO) 20.9 % (21.0-51.0); MEAN CORPUSCULAR HEMOGLOBIN 29.9 pg (27.0-34.0); MEAN CORPUSCULAR HGB CONC 33.9 g/dL (33.0-35.0); MEAN CORPUSCULAR VOLUME 88.3 fL (80.0-100.0); MEAN PLATELET VOLUME 8.7 fL (7.4-11.0); MONOCYTES # (AUTO) 0.8 x10^3/uL (0.3-0.8); MONOCYTES % (AUTO) 12.9 % (0.0-13.0); NEUTROPHILS # (AUTO) 4.1 x10^3/uL (2.2-4.8); NEUTROPHILS % (AUTO) 63.8 % (42.0-75.0); PLATELET COUNT 116 X10^3/uL (150.0-450.0); RED BLOOD COUNT 4.17 X10^6/uL (3.5-5.4); RED CELL DISTRIBUTION WIDTH 18.9 % (11.6-16.5); WHITE BLOOD COUNT 6.5 X10^3/uL (3.6-10.0)
[2024-07-11] MEDS ORDERED: CONSULT PHARMACY - POTASSIUM & MAGNESIUM XX SCH (07:00)
[2024-07-11] MEDS ORDERED: MAG-OX TAB PO SCH (09:00)
[2024-07-11] MEDS ORDERED: K-DUR TAB 20 MEQ PO SCH (09:00)
--- NOTE | 2024-07-11 09:10 | PCM.PROG ---
Progress Note Progress Note for Day of Date of Exam: 07/11/24 Subjective Subjective: Patient seen at bedside, no acute events overnight. She is currently admitted for electrolyte imbalance. Her K level is up slightly but still remains below 3, mag is also low. She has been getting IV and PO replacement. Error on prev note, patient does not have a UTI during this admission. Labs/imaging reviewed: -WBC 6.5 Hgb 12.5 Plt 116 K 2.8 Mag 1.5 Plan: adjust fluids as per pharmacy to replace K and Mag. Monitor for signs of fluid overload. Continue home medications. Fall precautions. PT/OT as tolerated. Monitor AM labs/imaging. Past Medical Family Social History Allergies: Allergies No Known Drug Allergies Allergy (Unknown, Verified 06/28/24 15:32) Onset Date: 11/04/2019 Vital Signs and I&O's Vital Signs: Vital Signs Temperature 97.9 F Pulse Rate [Brachial] 98 Respiratory Rate 18 Blood Pressure [Left Arm] 115/65 O2 Sat by Pulse Oximetry 92 O2 Sat by Pulse Oximetry 94 Intake and Output: Intake & Output 07/08/24 07/09/24 07/10/24 07/11/24 23:59 23:59 23:59 23:59 Intake Total 1199 / 1199 3090 / 3090 4314 / 4314 1952 Balance 1199 / 1199 3090 / 3090 4 / 4314 1952 Physical Exam Oriented: Normal Eyes: Normal Ear: Normal Nose: Normal Throat: Normal Respiratory: Generalized and Diminished Cardiovascular: Normal Auscultation: Bowel Sounds: Normal Palpation: Normal Tenderness: Normal Skin: Normal Musculoskeletal: Normal Psychiatric: Normal Mood Description: Calm and Appropriate Affect: Normal Speech Pattern: Clear and Appropriate Laboratory and Diagnostics 07/11/24 05:28 07/11/24 05:28 Labs: Laboratory WBC 6.5 X10^3/uL (3.6-10.0) 07/11/24 05:28 RBC 4.17 X10^6/uL (3.5-5.4) 07/11/24 05:28 Hgb 12.5 g/dL (12.0-16.0) 07/11/24 05:28 Hct 36.8 % (36.0-47.0) 07/11/24 05:28 MCV 88.3 fL (80.0-100.0) 07/11/24 05:28 MCH 29.9 pg (27.0-34.0) 07/11/24 05:28 MCHC 33.9 g/dL (33.0-35.0) 07/11/24 05:28 RDW 18.9 % (11.6-16.5) H 07/11/24 05:28 Plt Count 116 X10^3/uL (150.0-450.0) L 07/11/24 05:28 MPV 8.7 fL (7.4-11.0) 07/11/24 05:28 Neut % (Auto) 63.8 % (42.0-75.0) 07/11/24 05:28 Lymph % (Auto) 20.9 % (21.0-51.0) L 07/11/24 05:28 [place] % (Auto) 12.9 % (0.0-13.0) 07/11/24 05:28 Eos % (Auto) 1.9 % (0.9-2.9) 07/11/24 05:28 Baso % (Auto) 0.5 % (0.2-1.0) 07/11/24 05:28 Neut # (Auto) 4.1 x10^3/uL (2.2-4.8) 07/11/24 05:28 Lymph # (Auto) 1.4 X10^3/uL (1.3-2.9) 07/11/24 05:28 [place] # (Auto) 0.8 x10^3/uL (0.3-0.8) 07/11/24 05:28 Eos # (Auto) 0.1 x10^3/uL (0.0-0.2) 07/11/24 05:28 Baso # (Auto) 0.0 X10^3/uL (0.0-0.1) 07/11/24 05:28 Absolute Nucleated RBC 0.1 /100WBC 07/11/24 05:28 Sodium 145 mmol/L (136-145) 07/11/24 05:28 Corrected Sodium 147 mmol/L (136-145) H 07/11/24 05:28 Potassium 2.8 mmol/L (3.5-5.1) L* 07/11/24 05:28 Chloride 101 mmol/L (98-107) 07/11/24 05:28 Carbon Dioxide 39.1 mmol/L (21-32) H 07/11/24 05:28 BUN 19 mg/dL (7-18) H 07/11/24 05:28 Creatinine 1.02 mg/dL (0.55-1.02) 07/11/24 05:28 Est GFR (MDRD) Af Amer > 60 (>60) 07/11/24 05:28 Est GFR (MDRD) Non-Af 56 (>60) L 07/11/24 05:28 Glucose 165 mg/dL (65-99) H 07/11/24 05:28 Calcium 8.7 mg/dL (8.5-10.1) 07/11/24 05:28 Corrected Calcium 9.9 mg/dL (8.5-10.1) 07/10/24 05:18 Magnesium 1.5 mg/dL (2.0-2.9) L 07/11/24 05:28 Total Bilirubin 0.80 mg/dL (0.2-1.0) 07/10/24 05:18 AST 20 Units/L (15-37) 07/10/24 05:18 ALT < 6 Units/L (12-78) L 07/10/24 05:18 Alkaline Phosphatase 80 Units/L (46-116) 07/10/24 05:18 Total Protein 6.7 g/dL (6.4-8.2) 07/10/24 05:18 Albumin 2.5 g/dL (3.4-5.0) L 07/10/24 05:18 Globulin 4.2 g/dL (2.5-4.5) 07/10/24 05:18 Albumin/Globulin Ratio 0.6 Ratio (1.1-2.1) L 07/10/24 05:18 Plan (1) Hypokalemia: Status: Acute Plan: Replete per protocol. (2) Hypomagnesemia: Status: Acute (3) MARQUISE (acute kidney injury): Status: Acute (4) CAD (coronary artery disease): Status: Chronic Qualifiers: Coronary Disease-Associated Artery/Lesion type: unspecified vessel or lesion type [place] vs. transplanted heart: [place] heart Associated angina: without angina Qualified Code(s): I25.10 - Atherosclerotic heart disease of [place] coronary artery without angina pectoris (5) Mild congestive heart failure: Status: Chronic (6) Thrombocytopenia: Status: Chronic (7) Atrial fibrillation: Status: Chronic Qualifiers: Atrial fibrillation type: unspecified Qualified Code(s): I48.91 - Unspecified atrial fibrillation (8) Type 2 diabetes mellitus: Status: Chronic Qualifiers: Diabetes mellitus terminal manager insulin use: without terminal manager use Diabetes mellitus complication status: with hyperglycemia Qualified Code(s): E11.65 - Type 2 diabetes mellitus with hyperglycemia
[2024-07-11] MEDS: MAGNESIUM SULFATE IV SCH (10:00)
[2024-07-11] MEDS: KCL IV SCH (10:00)
[2024-07-11] MEDS: NS IV SCH (10:00)
[2024-07-11 11:06] LABS: ALANINE AMINOTRANSFERASE < 6 Units/L (12-78); ALBUMIN 2.6 g/dL (3.4-5.0); ALKALINE PHOSPHATASE 80 Units/L (46-116); ASPARTATE AMINO TRANSFERASE 26 Units/L (15-37); COR CA(FOR HYPOALB) 9.8 mg/dL (8.5-10.1); TOTAL PROTEIN 6.7 g/dL (6.4-8.2)
[2024-07-11] MEDS: NovoLIN R (or HumuLIN R) SUBCUT PRN (11:17)
[2024-07-11] MEDS: NS + KCL 20 MEQ/L 1,000 ML with MAGNESIUM SULFATE 50% INJ VIAL 1 G IV SCH (19:09)
[2024-07-11] MEDS: CONSULT PHARMACY - POTASSIUM & MAGNESIUM XX SCH (19:10)
[2024-07-11] MEDS: SNACK - Diabetic Appropriate PO SCH (19:15)
[2024-07-12 05:56] LABS: BASOPHILS # (AUTO) 0.1 X10^3/uL (0.0-0.1); BASOPHILS % (AUTO) 0.8 % (0.2-1.0); EOSINOPHILS # (AUTO) 0.1 x10^3/uL (0.0-0.2); EOSINOPHILS % (AUTO) 1.8 % (0.9-2.9); HEMATOCRIT 37.8 % (36.0-47.0); HEMOGLOBIN 12.7 g/dL (12.0-16.0); LYMPHOCYTES # (AUTO) 1.3 X10^3/uL (1.3-2.9); LYMPHOCYTES % (AUTO) 19.2 % (21.0-51.0); MEAN CORPUSCULAR HEMOGLOBIN 29.4 pg (27.0-34.0); MEAN CORPUSCULAR HGB CONC 33.7 g/dL (33.0-35.0); MEAN CORPUSCULAR VOLUME 87.4 fL (80.0-100.0); MEAN PLATELET VOLUME 8.3 fL (7.4-11.0); MONOCYTES # (AUTO) 0.6 x10^3/uL (0.3-0.8); MONOCYTES % (AUTO) 8.5 % (0.0-13.0); NEUTROPHILS # (AUTO) 4.6 x10^3/uL (2.2-4.8); NEUTROPHILS % (AUTO) 69.7 % (42.0-75.0); PLATELET COUNT 115 X10^3/uL (150.0-450.0); RED BLOOD COUNT 4.33 X10^6/uL (3.5-5.4); RED CELL DISTRIBUTION WIDTH 18.8 % (11.6-16.5); WHITE BLOOD COUNT 6.6 X10^3/uL (3.6-10.0)
[2024-07-12 06:13] LABS: ALANINE AMINOTRANSFERASE < 6 Units/L (12-78); ALBUMIN 2.7 g/dL (3.4-5.0); ALKALINE PHOSPHATASE 87 Units/L (46-116); ASPARTATE AMINO TRANSFERASE 23 Units/L (15-37); BLOOD UREA NITROGEN 16 mg/dL (7-18); CALCIUM 9.2 mg/dL (8.5-10.1); CARBON DIOXIDE 37.4 mmol/L (21-32); CHLORIDE 102 mmol/L (98-107); COR CA(FOR HYPOALB) 10.2 mg/dL (8.5-10.1); COR NA(FOR HYPERGLY) 144 mmol/L (136-145); CREATININE 1.08 mg/dL (0.55-1.02); GLUCOSE 134 mg/dL (65-99); MAGNESIUM 1.9 mg/dL (2.0-2.9); POTASSIUM 3.2 mmol/L (3.5-5.1); SODIUM 143 mmol/L (136-145); TOTAL PROTEIN 7.1 g/dL (6.4-8.2); eGFR NON BLACK RACES 53 (>60)
[2024-07-12 07:49] VITALS: BP 124/73; PULSE 98; RESP 20; TEMP 97.6; O2SAT 96
[2024-07-12] MEDS ORDERED: CONSULT PHARMACY - POTASSIUM & MAGNESIUM XX SCH (08:09)
== END 2024-07-12 11:40 | DRG 684 ==
LOC: MED/SURG 09:43 → ER 09:43 → MED/SURG 12:07
PROVIDERS: ADMIT Family Medicine; ATTEND Family Medicine
DX: E87.6 Hypokalemia; I48.91 Unspecified atrial fibrillation; Z79.899 Other long term (current) drug therapy; E11.65 Type 2 diabetes mellitus with hyperglycemia; E83.42 Hypomagnesemia; R51.9 Headache, unspecified; R53.1 Weakness; I10 Essential (primary) hypertension; I25.10 Atherosclerotic heart disease of native coronary artery without angina pectoris; E03.8 Other specified hypothyroidism; I50.9 Heart failure, unspecified; N17.8 Other acute kidney failure; R26.89 Other abnormalities of gait and mobility; R94.31 Abnormal electrocardiogram [ECG] [EKG]

== ENCOUNTER 2025-06-23 11:24 | Inpatient (IN) ==
--- NOTE | 2025-06-23 11:50 | DR.CP ---
HPI Time Seen Time Seen by Provider: 06/23/25 11:47 Complaint Chief Complaint Doctor Comments: [facility] for complaint of chest pain and abdominal pain. The patient did not give a specific time as to when the chest pain or abdominal pain started. PMH PMH Past Medical History: Anxiety, Asthma, CHF, Coronary Artery Disease, CVA, Depression, Diabetes, Dyslipidemia and GERD Past Surgical History: Yes Surgical History: Hysterectomy and Mastectomy Family History Family Medical History: Diabetes Mellitus, Cancer, CT and Hypertension Social History Do you use any recreational Drugs:: No ROS Review of Systems Constitutional: Other (Abdominal pain with some chest pain shortness of breath) Eyes: No Symptoms Reported ENTM: No Symptoms Reported Respiratoy: Short of Breath Cardiovascular: No Symptoms Reported Gastrointestinal/Abdominal: Abdominal Pain and Nausea Genitourinary: No Symptoms Reported Neurological: No Symptoms Reported Musculoskeletal: No Symptoms Reported Integumentary: No Symptoms Reported Hematologic/Lymphatic: No Symptoms Reported Endocrine: No Symptoms Reported Psychiatric: No Symptoms Reported All Other Systems: Reviewed and Negative PE Vitals Vitals: Vital Signs Pulse Rate 93 Pulse Rate 87 Pulse Rate 86 Pulse Rate 87 Pulse Rate 88 Pulse Rate 88 Pulse Rate 90 Pulse Rate 90 Pulse Rate 90 Pulse Rate 88 Pulse Rate 90 Pulse Rate 87 Pulse Rate 87 Pulse Rate 87 Pulse Rate 87 Pulse Rate 88 Pulse Rate 88 Pulse Rate 87 Pulse Rate 87 Pulse Rate 87 Pulse Rate 87 Pulse Rate 87 Pulse Rate 88 Pulse Rate 90 Pulse Rate 97 Pulse Rate 87 Pulse Rate 87 Pulse Rate 87 Pulse Rate 87 Pulse Rate 88 Pulse Rate 88 Pulse Rate 88 Pulse Rate 87 Pulse Rate 87 Pulse Rate 88 Pulse Rate 88 Pulse Rate 88 Pulse Rate 89 Pulse Rate 90 Pulse Rate 89 Pulse Rate 90 Pulse Rate 87 Respiratory Rate 27 Respiratory Rate 15 Respiratory Rate 12 Respiratory Rate 11 Respiratory Rate 24 Respiratory Rate 18 Respiratory Rate 13 Respiratory Rate 16 Respiratory Rate 23 Respiratory Rate 15 Respiratory Rate 15 Respiratory Rate 15 Respiratory Rate 14 Respiratory Rate 15 Respiratory Rate 15 Respiratory Rate 14 Respiratory Rate 15 Respiratory Rate 14 Respiratory Rate 14 Respiratory Rate 14 Respiratory Rate 15 Respiratory Rate 15 Respiratory Rate 18 Respiratory Rate 34 Respiratory Rate 26 Respiratory Rate 20 Respiratory Rate 21 Respiratory Rate 18 Respiratory Rate 18 Respiratory Rate 18 Respiratory Rate 20 Respiratory Rate 18 Respiratory Rate 17 Respiratory Rate 18 Respiratory Rate 16 Respiratory Rate 15 Respiratory Rate 17 Respiratory Rate 18 Respiratory Rate 21 Respiratory Rate 15 Respiratory Rate 16 Blood Pressure 141/73 Blood Pressure 131/85 Blood Pressure 152/86 Blood Pressure 159/110 Blood Pressure 107/74 Blood Pressure 86/50 Blood Pressure 136/86 Blood Pressure 138/75 Blood Pressure 133/73 Blood Pressure 137/77 Blood Pressure 123/70 Blood Pressure 101/68 Blood Pressure 115/74 Blood Pressure 125/69 Blood Pressure 141/69 Blood Pressure 128/69 Blood Pressure 125/75 Blood Pressure 128/71 Blood Pressure 97/50 Blood Pressure 105/57 Blood Pressure 92/41 Blood Pressure 115/44 Blood Pressure 133/55 Blood Pressure 101/56 Blood Pressure 106/59 Blood Pressure 96/54 Blood Pressure 98/61 O2 Sat by Pulse Oximetry 95 O2 Sat by Pulse Oximetry 94 O2 Sat by Pulse Oximetry 94 O2 Sat by Pulse Oximetry 93 O2 Sat by Pulse Oximetry 96 O2 Sat by Pulse Oximetry 95 O2 Sat by Pulse Oximetry 96 O2 Sat by Pulse Oximetry 95 O2 Sat by Pulse Oximetry 98 O2 Sat by Pulse Oximetry 96 O2 Sat by Pulse Oximetry 98 O2 Sat by Pulse Oximetry 97 O2 Sat by Pulse Oximetry 97 O2 Sat by Pulse Oximetry 97 O2 Sat by Pulse Oximetry 97 O2 Sat by Pulse Oximetry 98 O2 Sat by Pulse Oximetry 98 O2 Sat by Pulse Oximetry 96 O2 Sat by Pulse Oximetry 99 O2 Sat by Pulse Oximetry 96 O2 Sat by Pulse Oximetry 96 O2 Sat by Pulse Oximetry 95 O2 Sat by Pulse Oximetry 95 O2 Sat by Pulse Oximetry 95 O2 Sat by Pulse Oximetry 95 O2 Sat by Pulse Oximetry 95 O2 Sat by Pulse Oximetry 95 O2 Sat by Pulse Oximetry 96 O2 Sat by Pulse Oximetry 94 O2 Sat by Pulse Oximetry 95 O2 Sat by Pulse Oximetry 95 O2 Sat by Pulse Oximetry 95 O2 Sat by Pulse Oximetry 96 O2 Sat by Pulse Oximetry 97 O2 Sat by Pulse Oximetry 97 O2 Sat by Pulse Oximetry 100 General Limitations: No Limitations General Appearance: In Distress (mild distress) Head Head Exam: Normal Inspection, Atraumatic and Normocephalic Eyes Eye exam: Normal Appearance, PERRL and EOMI ENT ENT Exam: Normal Exam and Normal Oropharynx Chest Chest Inspection: Normal Inspection and Symmetric Chest Wall Rise Respiratory Respiratory Exam: Normal Lung Sounds Bilat Respiratory Exam: Bilateral: Clear to Auscultation Cardiovascular Cardiovascular Exam: Regular Rate Pulse: Normal Abdominal Exam Abdominal Exam: Normal Inspection, Normal Bowel Sounds and Soft Extremities Extremities Exam: Normal Inspection Back Back Exam: Normal Inspection Neurologic Neurological Exam: Alert and Oriented X3 Psychiatric Psychiatric Exam: Normal Affect Skin Skin Exam: Warm, Dry and Intact MDM Differential Diagnosis Differential Diagnosis: Angina, Cholelithasis (cholecystitis), CHF, Esophageal Reflux/Spasm and Pneumonia COURSE Treatment Treatment: Patient remained relatively stable during ER evaluation. We did give her 1 g of magnesium sulfate IV for magnesium level 1.5 andShe did do the chest pain evaluation which was normal she outA CT scan abdomen pelvis and it showed a gallbladder was distended with pericolic fluid and wall thickening she also had gallstones there the findings was consistent with acute cholecystitis. They suggested we do get ultrasound of the gallbladder and it did show that the same finding that the stones and sludge are noted within the gallbladder. Gallbladder wall is considerably thickened and edematous with the Bob Elsa cystic fluid which or ultrasound finding consistent with cholecystitis.Patient also had positive sonographic Jones sign that was noted.He suggested surgical consultation. We did talk to Dr. Ritter920 and he stated to put the patient upstairs for him and give the patient Cipro IV and he will come and see the patient later. I did go and discussed these findings with the patient and she was agreeable to the admission. [facility] Labs Reviewed 06/23/25 12:00 06/23/25 12:00 Laboratory: WBC 6.9 X10^3/uL (3.6-10.0) 06/23/25 12:00 RBC 4.31 X10^6/uL (3.5-5.4) 06/23/25 12:00 Hgb 12.8 g/dL (12.0-16.0) 06/23/25 12:00 Hct 38.1 % (36.0-47.0) 06/23/25 12:00 MCV 88.4 fL (80.0-100.0) 06/23/25 12:00 MCH 29.8 pg (27.0-34.0) 06/23/25 12:00 MCHC 33.7 g/dL (33.0-35.0) 06/23/25 12:00 RDW 17.8 % (11.6-16.5) H 06/23/25 12:00 Plt Count 192 X10^3/uL (150.0-450.0) 06/23/25 12:00 MPV 8.2 fL (7.4-11.0) 06/23/25 12:00 Neut % (Auto) 72.1 % (42.0-75.0) 06/23/25 12:00 Lymph % (Auto) 13.7 % (21.0-51.0) L 06/23/25 12:00 [place] % (Auto) 10.4 % (0.0-13.0) 06/23/25 12:00 Eos % (Auto) 1.0 % (0.9-2.9) 06/23/25 12:00 Baso % (Auto) 2.8 % (0.2-1.0) H 06/23/25 12:00 Neut # (Auto) 4.9 x10^3/uL (2.2-4.8) H 06/23/25 12:00 Lymph # (Auto) 0.9 X10^3/uL (1.3-2.9) L 06/23/25 12:00 [place] # (Auto) 0.7 x10^3/uL (0.3-0.8) 06/23/25 12:00 Eos # (Auto) 0.1 x10^3/uL (0.0-0.2) 06/23/25 12:00 Baso # (Auto) 0.2 X10^3/uL (0.0-0.1) H 06/23/25 12:00 Absolute Nucleated RBC 0.4 /100WBC 06/23/25 12:00 PT 18.5 SECONDS (11.8-14.3) 06/23/25 12:00 INR Target Range - 06/23/25 12:00 INR 1.53 (0.8-1.3) H 06/23/25 12:00 APTT 32.8 SECONDS (22.9-36.5) 06/23/25 12:00 PTT Comment - 06/23/25 12:00 Sodium 137 mmol/L (136-145) 06/23/25 12:00 Corrected Sodium 140 mmol/L (136-145) 06/23/25 12:00 Potassium 3.9 mmol/L (3.5-5.1) 06/23/25 12:00 Chloride 98 mmol/L (98-107) 06/23/25 12:00 Carbon Dioxide 36.2 mmol/L (21-32) H 06/23/25 12:00 BUN 24 mg/dL (7-18) H 06/23/25 12:00 Creatinine 1.85 mg/dL (0.55-1.02) H 06/23/25 12:00 Est GFR (MDRD) Af Amer 34 (>60) L 06/23/25 12:00 Est GFR (MDRD) Non-Af 28 (>60) L 06/23/25 12:00 Glucose 225 mg/dL (65-99) H 06/23/25 12:00 Calcium 8.7 mg/dL (8.5-10.1) 06/23/25 12:00 Corrected Calcium 10.1 mg/dL (8.5-10.1) 06/23/25 12:00 Magnesium 1.5 mg/dL (2.0-2.9) L 06/23/25 12:00 Total Bilirubin 0.70 mg/dL (0.2-1.0) 06/23/25 12:00 AST 35 Units/L (15-37) 06/23/25 12:00 ALT 11 Units/L (12-78) L 06/23/25 12:00 Alkaline Phosphatase 193 Units/L (46-116) H 06/23/25 12:00 Creatine Kinase 66 Units/L (26-192) 06/23/25 12:00 Troponin I High Sens 30.9 ng/L (4.0-60.0) 06/23/25 14:30 Total Protein 7.7 g/dL (6.4-8.2) 06/23/25 12:00 Albumin 2.2 g/dL (3.4-5.0) L 06/23/25 12:00 Globulin 5.5 g/dL (2.5-4.5) H 06/23/25 12:00 Albumin/Globulin Ratio 0.4 Ratio (1.1-2.1) L 06/23/25 12:00 Specimen Type Catherized urine 06/23/25 12:12 Urine Color Yellow (YELLOW) 06/23/25 12:12 Urine Appearance Clear (CLEAR) 06/23/25 12:12 Urine pH Cancelled 06/23/25 12:12 Ur Specific [place] Cancelled 06/23/25 12:12 Urine Protein Cancelled 06/23/25 12:12 Urine Glucose (UA) Cancelled 06/23/25 12:12 Urine Ketones Cancelled 06/23/25 12:12 Urine Blood Cancelled 06/23/25 12:12 Urine Nitrite Cancelled 06/23/25 12:12 Urine Bilirubin Cancelled 06/23/25 12:12 Urine Urobilinogen Cancelled 06/23/25 12:12 Ur Leukocyte Esterase Cancelled 06/23/25 12:12 Urine RBC 0-2 /HPF (0-3) 06/23/25 12:12 Urine WBC 5-10 /HPF (0-5) A 06/23/25 12:12 Ur Squamous Epith Cells Few /HPF (NEGATIVE) 06/23/25 12:12 Urine Bacteria Negative /HPF (NEGATIVE) 06/23/25 12:12 Ur Culture Indicated? No/not indicated 06/23/25 12:12 Opioid Opioid Risk Tool Age (Vinicius box if 16-45): No History of Preadolescent Sexual Abuse: No Total: 0 Total Score Risk Category: Low Risk Copyright: Senthil OBRIEN predicting aberrant behaviors Discharge Plan Diagnosis Discharge Problem: Acute calculous cholecystitis Discharge Plan Patient Disposition: 09 ADMITTED INPATIENT Condition: Stable Prescriptions: No Action furosemide 80 mg tablet 80 mg PO BID Eliquis 5 mg tablet 5 mg PO BID potassium chloride 20 mEq tablet,ER particles/crystals 40 meq PO BID spironolactone 25 mg tablet 25 mg PO QDAY Novolin R Regular U100 Insulin 100 unit/mL solution 1 sliding scale dose subcut USEASDIRECTD Rx Instructions: sliding scale clopidogrel [Plavix] 75 mg tablet 75 mg PO DAILY 30 Days Qty: 30 3RF gabapentin 100 mg Capsule 100 mg PO BID 0RF atorvastatin [Lipitor] 80 mg Tablet 80 mg PO HS acetaminophen [Tylenol] 325 mg Tablet 650 mg PO Q6H PRN tramadol 50 mg Tablet 50 mg PO Q8H PRN ergocalciferol (vitamin D2) 1,250 mcg (50,000 unit) capsule 1,250 mcg PO QWEEK Rx Instructions: TAKE ON THURSDAY albuterol sulfate 90 mcg/actuation HFA aerosol inhaler 2 puff inhalation Q4H PRN diclofenac sodium 1 % gel 1 ea TOPICAL Q8H PRN insulin glargine [Lantus U-100 Insulin] 100 unit/mL solution 25 unit SUBCUT DAILY Patient Comments: [NO ORIGINAL SIG] Ferrocite Plus 106 mg iron- 1 mg Capsule 1 cap PO QAM levothyroxine 150 mcg Tablet 150 mcg PO QDAY carbidopa-levodopa 50-200 mg Tablet Extended Release 1 tab PO TID Januvia 100 mg Tablet 100 mg PO DAILY carvedilol 12.5 mg tablet 6.25 mg PO BID Rx Instructions: must administer with a meal/food Health Concerns: Post Hospitalization: new medications and changes needed to prevent readmission or further decline. Pt educated and given instructions on all concerns. Plan of Treatment: Continue with present treatment and follow up plan. Pt is to keep follow up appointment as instructed and take medications as ordered. Orders to Discharge Patient Discharge Orders: Transfer (Routine); Ordered 06/23/25 Ordered By: Wali Calderon Follow ups/Referrals Follow ups/Referrals: [facility]DMisc [Primary Care Provider] - 3 days Instructions Stand Alone Forms: Find Help Web Site, Post Hospital Follow Up Care Print Language: POLISH
--- NOTE | 2025-06-23 11:56 | EKG ---
Test Reason : CP, SOB Blood Pressure : */* mmHG Vent. Rate : 91 BPM Atrial Rate : 91 BPM P-R Int : 210 ms QRS Dur : 82 ms QT Int : 348 ms P-R-T Axes : * 43 -80 degrees QTc Int : 428 ms baseline artifact makes interpretation tough but suspect afib Abnormal ECG When compared with ECG of 09-JUL-2024 10:39, Minimal criteria for Anterior infarct are no longer present T wave inversion more evident in Inferior leads T wave inversion more evident in Anterolateral leads Confirmed by Haroldo Lieberman MD ([id number]) on 06/23/2025 1:22:12 PM Referred By: Confirmed By: Haroldo Lieberman MD
[2025-06-23 12:13] LABS: INR 1.53 (0.8-1.3)
[2025-06-23 12:17] LABS: MEAN PLATELET VOLUME 8.2 fL (7.4-11.0); RED CELL DISTRIBUTION WIDTH 17.8 % (11.6-16.5)
[2025-06-23 12:20] LABS: COR CA(FOR HYPOALB) 10.1 mg/dL (8.5-10.1); COR NA(FOR HYPERGLY) 140.0 mmol/L (136-145); CREATININE 1.85 mg/dL (0.55-1.02); eGFR NON BLACK RACES 28.0 (>60)
[2025-06-23 12:40] LABS: APPEARANCE,URINE CLEAR (CLEAR); SQUAMOUS EPITHELIAL CELL,UR FEW /HPF (NEGATIVE)
--- NOTE | 2025-06-23 13:06 | RAD ---
EXAM: CHEST, 1 VIEW HISTORY: chest pain, SOB; COMPARISON: 06/09/2025 TECHNIQUE: AP FINDINGS: Prominent cardiac silhouette, accentuated by AP technique. Low lung volumes. No focal consolidation, large pleural effusion, or visible pneumothorax. Soft tissue attenuation over the left lung base. IMPRESSION: Low lung volumes. No focal consolidation. THIS IS AN ELECTRONICALLY VERIFIED FINAL REPORT 06/23/2025 1:03 PM - Electronically signed by Gerardo Ferraro MD
[2025-06-23] MEDS: MAGNESIUM SULFATE 1 GRAM/100 mL PREMIX 1 G/100 ML BAG IV ONE (13:26)
--- NOTE | 2025-06-23 14:59 | CT ---
EXAM: CT ABDOMEN AND PELVIS WITHOUT CONTRAST HISTORY: SOB with exertion, midabdominal pain that "feels like I have been punched". ; COMPARISON: June 03, 2025. TECHNIQUE: Axial CT images were obtained through the abdomen and pelvis without contrast. Coronal reformatted images were included. All CT scans at this facility use dose modulation, iterative reconstruction, and/or weight based dosing when appropriate to reduce radiation dose to as low as reasonably achievable. FINDINGS: Please note that without the use of intravenous contrast, evaluation of organ parenchyma is limited. LOWER THORAX: Normal ABDOMEN: LIVER: Normal GALLBLADDER: Gallbladder appears distended with gallbladder wall thickening and pericholecystic fluid. Gallstones are noted. Findings are most consistent with acute cholecystitis. SPLEEN: Normal PANCREAS: Normal KIDNEYS: Normal ADRENAL GLANDS: Normal GI TRACT: Large volume of colonic stool suggests constipation. No evidence of bowel obstruction. LYMPH NODES: No enlarged nodes VESSELS: Moderate atherosclerosis. PERITONEUM / RETROPERITONEUM: Fat containing umbilical hernia noted. Infraumbilical fat containing ventral hernias noted with transverse peritoneal defect measuring 19 mm. No herniated bowel loops. PELVIS: BLADDER: Normal GENITALS: Hysterectomy BONES: Degenerative changes noted within the lumbar spine and pelvis. IMPRESSION: Acute cholecystitis is suspected. Clinical correlation recommended. Ultrasound may be helpful. THIS IS AN ELECTRONICALLY VERIFIED FINAL REPORT 06/23/2025 2:54 PM - Electronically signed by Gerardo Pickard MD
--- NOTE | 2025-06-23 16:48 | US ---
EXAM: RIGHT UPPER QUADRANT ULTRASOUND HISTORY: ABD PAIN; COMPARISON: CT abdomen and pelvis from same date as this exam. TECHNIQUE: Ultrasound of the right upper quadrant was performed. Color and spectral doppler imaging was utilized. FINDINGS: LIVER: Parenchymal echogenicity: Increased Longitudinal measurement: 14.9cm VESSELS: Normal hepatopetal flow in the portal vein on color doppler imaging. GALLBLADDER: Gallbladder wall thickness measurement: 19mm (normal is considered 3.0 mm or less). The gallbladder wall is thickened and edematous. Stones: Cholelithiasis is noted. Sludge: Sludge was noted. Polyps: None. Pericholecystic fluid: Pericholecystic fluid is noted. Sonographic Jones's sign: Positive. COMMON BILE DUCT: Common bile duct was not able to be visualized. PANCREAS: Obscured by bowel gas and body habitus. RIGHT KIDNEY: Longitudinal measurement: 10cm. Parenchymal echogenicity: Unremarkable. Hydronephrosis: None. Stones: No evidence for shadowing stones. Solid or cystic masses: No evidence of solid or cystic masses. ASCITES: None IMPRESSION: Stones and sludge are noted within the gallbladder. Gallbladder wall is considerably thickened and edematous with pericholecystic fluid which are ultrasound findings consistent with cholecystitis, correlate clinically. Positive sonographic Jones's sign was noted as well. Surgical consultation recommended. Common bile duct was not able to be visualized. Increased echogenicity of the liver suggesting fatty infiltration or hepatocellular disease. Pancreas was obscured by bowel gas. THIS IS AN ELECTRONICALLY VERIFIED FINAL REPORT 06/23/2025 4:45 PM - Electronically signed by Julito Espinoza DO
[2025-06-23] MEDS ORDERED: XYLOCAINE 2 % (PLAIN) ONE (19:32)
[2025-06-23] MEDS ORDERED: KETAMINE HCL ONE (19:32)
[2025-06-23] MEDS ORDERED: ULTANE GAS IN ONE (19:32)
[2025-06-23] MEDS: CIPRO IV 400 MG PREMIX* 400 MG/200 ML IV.SOLN. IV ONE (19:38)
[2025-06-23] MEDS ORDERED: PROVENTIL NEB TX 0.083% 2.5MG/ 3ML NEB PRN (21:24)
[2025-06-23 21:40] VITALS: BMI 42.4
[2025-06-23] MEDS ORDERED: NovoLIN R (or HumuLIN R) SUBCUT PRN (23:59)
[2025-06-24] MEDS ORDERED: ULTRAM PO PRN (04:21)
[2025-06-24] MEDS: TYLENOL 325 MG TAB PO PRN (04:48)
[2025-06-24] MEDS: SINEMET (PLAIN) 25/100 MG PO SCH ×2 (05:02→15:21)
[2025-06-24] MEDS: VOLTAREN 1 % GEL MULTI DOSE TUBE TOP SCH (05:03)
[2025-06-24] MEDS ORDERED: NS 250 ML IV 25 ML IV PRN (06:00)
[2025-06-24] MEDS ORDERED: BUTT CREAM (COMPOUND) ONE (06:02)
[2025-06-24] MEDS: BUTT CREAM (COMPOUND) TOP PRN (06:11)
--- NOTE | 2025-06-24 09:50 | EKG ---
Test Reason : pre-op for cholecystectomy Blood Pressure : */* mmHG Vent. Rate : 94 BPM Atrial Rate : 94 BPM P-R Int : 146 ms QRS Dur : 82 ms QT Int : 378 ms P-R-T Axes : 21 42 -86 degrees QTc Int : 472 ms Atrial flutter Low voltage QRS Prolonged QT Abnormal ECG When compared with ECG of 23-JUN-2025 11:55, T wave inversion less evident in Anterior leads Confirmed by Haroldo Lieberman MD ([id number]) on 06/25/2025 7:40:53 AM Referred By: Confirmed By: Haroldo Lieberman MD
[2025-06-24] MEDS: VERSED ONE (10:42)
[2025-06-24] MEDS: FENTANYL VIAL INJ 100 mcg ONE (10:42)
[2025-06-24] MEDS: ZEMURON 100 MG VIAL ONE (10:45)
[2025-06-24] MEDS: ZOFRAN INJ 4 MG VIAL ONE (10:45)
[2025-06-24] MEDS: DECADRON INJ ONE (10:45)
[2025-06-24] MEDS: REGLAN INJ 10 MG VIAL ONE (10:45)
[2025-06-24] MEDS: BRIDION ONE (10:46)
[2025-06-24] MEDS: OFIRMEV IV 1000 MG VIAL 1,000 MG/100 ML VIAL IV ONE (10:46)
[2025-06-24] MEDS: DIPRIVAN VIAL 20 ML ONE (10:46)
[2025-06-24] MEDS: PEPCID 20 MG VIAL ONE (10:56)
[2025-06-24] MEDS: NS 1,000 ML IV 600 ML IV PRN (11:00)
--- NOTE | 2025-06-24 11:05 | DR.H&P ---
H&P History & Physical for Day of: H&P Date: 06/23/25 Chief Complaint Chief Complaint: Right upper quadrant pain and chest pain History of Present Illness History of Present Illness: This is a 75-year-old female [facility] who presented to emergency room complaining of right upper quadrant pain, abdominal pain and chest pain. She was evaluated in ther emergency room. Cardiac enzymes were negative. Patient CT scan showing a markedly distended and thick-walled gallbladder which was confirmed by ultrasound. There is significant norma-cholecystic fluid. She does have history of coronary stents approximately -1 year ago. History of cerebrovascular accident with no known neurological deficits. History of atrial fibrillation on Eliquis, diabetes hypertension, arthritis, hypothyroidism, hyperlipidemia and gastrosphageal reflux disease. She has had history hysterectomy and mastectomy. CT scan done 06/03/2025 showed distended gallbladder with gallstones but no obvious gallbladder wall thickening like now. It has been over 24 hours since her last dose of Eliquis. She is currently in sinus rhythm. Past Medical History Past Medical History: Anxiety, Asthma, CHF, Coronary Artery Disease, CVA, Depression, Diabetes, Dyslipidemia and GERD Additional Medical History: HX BREAST CANCER , atrial fibrillation Past Surgical History Surgical History: Hysterectomy and Mastectomy Family History Family Medical History: Diabetes Mellitus, Cancer, PA and Hypertension Social History Does patient currently use any type of tobacco product: No Type of Tobacco Use: None Does any household member use tobacco: No Alcohol Use: None Drug Use: None Medications Home Medications: Home Medications Medication Instructions Recorded Confirmed Type atorvastatin 80 mg tablet (Lipitor) 80 mg PO HS 06/23/25 History acetaminophen 325 mg tablet 650 mg PO Q6H PRN 11/06/23 06/23/25 History (Tylenol) albuterol sulfate 90 mcg/actuation 2 puff inhalation Q 4H PRN 11/06/23 06/23/25 History aerosol inhaler diclofenac sodium 1 % topical gel 1 ea topical Q8H PRN 11/06/23 06/23/25 History ergocalciferol (vitamin D2) 1,250 1,250 mcg PO QWEEK 0 11/06/23 06/23/25 History mcg (50,000 unit) capsule tramadol 50 mg tablet 50 mg PO Q8H PRN 11/06/23 History apixaban 5 mg tablet (Eliquis) 5 mg PO BID 11/10/23 History insulin regular human 100 unit/mL 1 sliding scale dose subcut 01/11/24 06/23/25 History injection solution (Novolin R USEASDIRECTD Regular U-100 Insulin) carbidopa ER 50 mg-levodopa 200 mg 1 tab PO TID 06/23/25 History tablet,extended release sitagliptin phosphate 100 mg 100 mg PO DAILY 06/07/24 06/23/25 History tablet (Januvia) potassium chloride 20 mEq 40 meq PO BID 06/28/2406/23 History tablet,extended release(part/cryst) spironolactone 25 mg tablet 25 mg PO QDAY 08/22/24 History furosemide 80 mg tablet 80 mg PO BID 03/02/25 History insulin glargine 100 unit/mL 25 unit subcut DAILY 12/2306/23/25 History subcutaneous solution (Lantus U-100 Insulin) levothyroxine 150 mcg tablet 150 mcg PO QDAY 06/09/25 06/23/25 History multivit-minerals no.73-iron 1 cap PO QAM 06/09/25 History fumarate 106 mg-folic acid 1 mg capsule carvedilol 12.5 mg tablet 6.25 mg PO BID 06/23/2506/01 History Allergies Allergies Allergy/AdvReac Type Severity Reaction Status Date / Time No Known Drug Allergies Allergy Unknown Verified 06/12/25 14:34 Labs 06/23/25 12:00 06/23/25 12:00 Labs: Laboratory WBC 6.9 X10^3/uL (3.6-10.0) 06/23/25 12:00 RBC 4.31 X10^6/uL (3.5-5.4) 06/23/25 12:00 Hgb 12.8 g/dL (12.0-16.0) 06/23/25 12:00 Hct 38.1 % (36.0-47.0) 06/23/25 12:00 MCV 88.4 fL (80.0-100.0) 06/23/25 12:00 MCH 29.8 pg (27.0-34.0) 06/23/25 12:00 MCHC 33.7 g/dL (33.0-35.0) 06/23/25 12:00 RDW 17.8 % (11.6-16.5) H 06/23/25 12:00 Plt Count 192 X10^3/uL (150.0-450.0) 06/23/25 12:00 MPV 8.2 fL (7.4-11.0) 06/23/25 12:00 Neut % (Auto) 72.1 % (42.0-75.0) 06/23/25 12:00 Lymph % (Auto) 13.7 % (21.0-51.0) L 06/23/25 12:00 [place] % (Auto) 10.4 % (0.0-13.0) 06/23/25 12:00 Eos % (Auto) 1.0 % (0.9-2.9) 06/23/25 12:00 Baso % (Auto) 2.8 % (0.2-1.0) H 06/23/25 12:00 Neut # (Auto) 4.9 x10^3/uL (2.2-4.8) H 06/23/25 12:00 Lymph # (Auto) 0.9 X10^3/uL (1.3-2.9) L 06/23/25 12:00 [place] # (Auto) 0.7 x10^3/uL (0.3-0.8) 06/23/25 12:00 Eos # (Auto) 0.1 x10^3/uL (0.0-0.2) 06/23/25 12:00 Baso # (Auto) 0.2 X10^3/uL (0.0-0.1) H 06/23/25 12:00 Absolute Nucleated RBC 0.4 /100WBC 06/23/25 12:00 PT 18.5 SECONDS (11.8-14.3) 06/23/25 12:00 INR Target Range - 06/23/25 12:00 INR 1.53 (0.8-1.3) H 06/23/25 12:00 APTT 32.8 SECONDS (22.9-36.5) 06/23/25 12:00 PTT Comment - 06/23/25 12:00 Sodium 137 mmol/L (136-145) 06/23/25 12:00 Corrected Sodium 140 mmol/L (136-145) 06/23/25 12:00 Potassium 3.9 mmol/L (3.5-5.1) 06/23/25 12:00 Chloride 98 mmol/L (98-107) 06/23/25 12:00 Carbon Dioxide 36.2 mmol/L (21-32) H 06/23/25 12:00 BUN 24 mg/dL (7-18) H 06/23/25 12:00 Creatinine 1.85 mg/dL (0.55-1.02) H 06/23/25 12:00 Est GFR (MDRD) Af Amer 34 (>60) L 06/23/25 12:00 Est GFR (MDRD) Non-Af 28 (>60) L 06/23/25 12:00 Glucose 225 mg/dL (65-99) H 06/23/25 12:00 POC Glucose (mg/dL) 104 mg/dL (65-99) H 06/24/25 05:23 Calcium 8.7 mg/dL (8.5-10.1) 06/23/25 12:00 Corrected Calcium 10.1 mg/dL (8.5-10.1) 06/23/25 12:00 Magnesium 1.5 mg/dL (2.0-2.9) L 06/23/25 12:00 Total Bilirubin 0.70 mg/dL (0.2-1.0) 06/23/25 12:00 AST 35 Units/L (15-37) 06/23/25 12:00 ALT 11 Units/L (12-78) L 06/23/25 12:00 Alkaline Phosphatase 193 Units/L (46-116) H 06/23/25 12:00 Creatine Kinase 66 Units/L (26-192) 06/23/25 12:00 Troponin I High Sens 30.9 ng/L (4.0-60.0) 06/23/25 14:30 Total Protein 7.7 g/dL (6.4-8.2) 06/23/25 12:00 Albumin 2.2 g/dL (3.4-5.0) L 06/23/25 12:00 Globulin 5.5 g/dL (2.5-4.5) H 06/23/25 12:00 Albumin/Globulin Ratio 0.4 Ratio (1.1-2.1) L 06/23/25 12:00 Specimen Type Catherized urine 06/23/25 12:12 Urine Color Yellow (YELLOW) 06/23/25 12:12 Urine Appearance Clear (CLEAR) 06/23/25 12:12 Urine pH Cancelled 06/23/25 12:12 Ur Specific [place] Cancelled 06/23/25 12:12 Urine Protein Cancelled 06/23/25 12:12 Urine Glucose (UA) Cancelled 06/23/25 12:12 Urine Ketones Cancelled 06/23/25 12:12 Urine Blood Cancelled 06/23/25 12:12 Urine Nitrite Cancelled 06/23/25 12:12 Urine Bilirubin Cancelled 06/23/25 12:12 Urine Urobilinogen Cancelled 06/23/25 12:12 Ur Leukocyte Esterase Cancelled 06/23/25 12:12 Urine RBC 0-2 /HPF (0-3) 06/23/25 12:12 Urine WBC 5-10 /HPF (0-5) A 06/23/25 12:12 Ur Squamous Epith Cells Few /HPF (NEGATIVE) 06/23/25 12:12 Urine Bacteria Negative /HPF (NEGATIVE) 06/23/25 12:12 Ur Culture Indicated? No/not indicated 06/23/25 12:12 Review of Systems Constitutional: See HPI Eyes: No Symptoms Reported ENT: No Symptoms Reported Respiratory: No Symptoms Reported Cardiovascular: No Symptoms Reported Gastrointestinal: See HPI Genitourinary: No Symptoms Reported Musculoskeletal: See HPI Skin: No Symptoms Reported Neurological: See HPI Physical Exam Vital Signs: Vital Signs Temperature 97.9 F Temperature 98.0 F Pulse Rate [Left Radial] 87 Pulse Rate [Left Radial] 90 Respiratory Rate 20 Respiratory Rate 18 Respiratory Rate 18 Respiratory Rate 17 Blood Pressure [Left Arm] 135/63 Blood Pressure [Left Arm] 108/74 O2 Sat by Pulse Oximetry 100 O2 Sat by Pulse Oximetry 99 Oriented: Normal, Time, Person and Place Eyes: Normal Ear: Normal Nose: Normal Throat: Normal Respiratory: Clear Throughout : Normal Auscultation: Bowel Sounds: Normal Palpation: Other (Patient is obese. No masses noted.) Tenderness: RUQ (Right upper quadrant tenderness with mild rebound ) Skin: Normal Musculoskeletal: Normal Psychiatric: Normal Mood Description: Calm (Patient awake and alert and very conversant with regards to her health) Affect: Normal Speech Pattern: Clear Assessment/Plan (1) Acute calculous cholecystitis: Status: Acute Plan: Acute cholecystitis and evidence of thick-walled gallbladder with Norma-cholecystic fluid. She is morbidly obese and has significant medical problems as above. She is been off Eliquis over 24 hours. I explained to her and her family that she is at high risk for complications including bleeding, infection, conversion to open operation and . I explained the low risk of bile duct injury. She and her daughter understood this and agreed to proceed .she understands as does her family, i.e. daughter and they agree to proceed. She has been off Eliquis over 24 hours. We have type and screen performed. We have fresh frozen plasma available and we have reversal of her Eliquis if needed. (2) Hyperlipidemia: Status: Acute Plan: home medications (3) CAD (coronary artery disease): Qualifiers: Coronary Disease-Associated Artery/Lesion type: unspecified vessel or lesion type [place] vs. transplanted heart: [place] heart Associated angina: [facility] Qualified Code(s): I25.10 - Atherosclerotic heart disease of [place] coronary artery without angina pectoris Status: Chronic Plan: Home medications will have internal medicine service see her postoperatively and help with management (4) CHF (congestive heart failure): Qualifiers: Heart failure type: unspecified Heart failure chronicity: chronic Q ualified Code(s): I50.9 - Heart failure, unspecified Status: Chronic Plan: Home medications (5) Atrial fibrillation: Qualifiers: Atrial fibrillation type: unspecified Qualified Code(s): I48.91 - Unspecified atrial fibrillation Status: Chronic Plan: Post procedure will start back on Eliquis, may require subcutaneous Lovenox (6) Hypothyroidism: Qualifiers: Hypothyroidism type: acquired Qualified Code(s): E03.9 - Hypothyroidism, unspecified Status: Chronic Plan: Home medication (7) History of cerebrovascular accident: Status: None Plan: [place] (8) Essential hypertension: Status: None Plan: Home medications (9) History of malignant neoplasm of breast: Status: None Plan: Stable (10) Asthma: Status: None Plan: Home medication (11) Type 2 diabetes mellitus without complications: Status: Acute Plan: Will monitor blood sugars and treat with sliding scale insulin for now. Review H&P Reviewed: Yes Patient was examined?: Yes
[2025-06-24] MEDS: ZOFRAN INJ 4 MG VIAL IVP PRN (11:12)
[2025-06-24] MEDS: PEPCID 20 MG VIAL IVP PRN (11:13)
[2025-06-24] MEDS: ANCEF VIAL 1 GRAM IV PRN (11:14)
[2025-06-24] MEDS: NS 1,000 ML IV 1,000 ML ONE ×2 (11:14→15:08)
[2025-06-24] MEDS: NS 100 ML IV 100 ML ONE (11:14)
[2025-06-24] MEDS: ANCEF VIAL 1 GRAM ONE (11:14)
[2025-06-24] MEDS: REGLAN INJ 10 MG VIAL IVP PRN (11:16)
[2025-06-24] MEDS: VERSED IVP PRN (11:18)
[2025-06-24] MEDS: FENTANYL VIAL INJ 100 mcg IVP PRN (11:24)
[2025-06-24] MEDS ORDERED: XYLOCAINE 2 % (PLAIN) PRN ×2 (11:24→12:50)
[2025-06-24] MEDS: ZEMURON 100 MG VIAL IVP PRN (11:25)
[2025-06-24] MEDS: DIPRIVAN VIAL 90 ML IVP PRN (11:25)
[2025-06-24] MEDS: BREVIBLOC ONE (11:27)
[2025-06-24] MEDS: EPHEDRINE SULFATE INJ IVP PRN (11:28)
[2025-06-24] MEDS: NEO-SYNEPHRINE INJ ONE (11:29)
[2025-06-24] MEDS: NEO-SYNEPHRINE INJ IVP PRN ×2 (11:33→13:21)
[2025-06-24] MEDS: BREVIBLOC IVP PRN ×2 (11:36→12:58)
[2025-06-24] MEDS: MARCAINE 0.5% ONE (11:36)
[2025-06-24] MEDS: DECADRON INJ IVP PRN (11:40)
[2025-06-24] MEDS: EPHEDRINE SULFATE INJ ONE (11:53)
[2025-06-24] MEDS: HESPAN IV IN NS 500 ML IV ONE (12:06)
[2025-06-24] MEDS: KETAMINE HCL IVP PRN (12:19)
[2025-06-24] MEDS ORDERED: ZOFRAN INJ 4 MG VIAL IVP PRN (12:37)
[2025-06-24] MEDS ORDERED: BENADRYL INJ 50 MG VIAL IVP PRN (12:37)
[2025-06-24] MEDS ORDERED: DILAUDID INJ IVP PRN ×2 (12:37→13:31)
[2025-06-24] MEDS: OFIRMEV IV 1000 MG VIAL 1,000 MG/100 ML VIAL IV PRN (12:41)
[2025-06-24] MEDS: BRIDION IVP PRN (12:51)
[2025-06-24] MEDS: MORPHINE SULFATE INJ 10 MG IVP PRN (13:07)
--- NOTE | 2025-06-24 13:31 | OR.IMMED ---
IMMEDIATE POST-OP NOTE Immediate Post-Op Note Date of surgery/procedure: 06/24/25 Pre-Op Diagnosis: Acute cholecystitis Post-Op Diagnosis: Gangrenous cholecystitis Procedure: Laparoscopic cholecystectomy converted to open cholecystectomy Description of Procedure: dictated Surgeon/Lens Coating Technician: Edyta Findings: gangrenous cholecystitis with inflammed adherent omentum Specimens Removed: gallbladder Estimated Blood Loss: 400cc Drains: Hollis Jasso (#10) Progress Notes: to PACU, intermittent hypotension and atrial fibrillation, rate controlled at liseth time . discussed with her daughter by phone
[2025-06-24] MEDS: COLACE CAP 100 MG PO SCH (13:41)
[2025-06-24] MEDS: LIPITOR TAB 80 MG PO SCH (13:41)
[2025-06-24] MEDS: ALDACTONE TAB 25 MG PO SCH (13:42)
[2025-06-24] MEDS: K-DUR TAB 20 MEQ PO SCH (13:42)
[2025-06-24] MEDS ORDERED: LEVOPHED 8 MG/250 ML IV *PREMIX 8 MG/250 ML PLAST..BAG IV ONE (13:49)
[2025-06-24] MEDS: LEVOPHED 8 MG/250 ML IV *PREMIX 8 MG/250 ML PLAST..BAG IV PRN (14:00)
[2025-06-24] MEDS: LR 1,000 ML IV 1,000 ML IV SCH (14:15)
[2025-06-24] MEDS ORDERED: NEXTERONE IV 150 MG PREMIX* 150 MG/100 ML BAG IV ONE (14:49)
[2025-06-24] MEDS: NEXTERONE IV 150 MG PREMIX* 150 MG/100 ML BAG IV ONE (14:50)
[2025-06-24] MEDS ORDERED: NEXTERONE IV 360 MG PREMIX* 360 MG/200 ML BAG IV ONE (14:54)
[2025-06-24] MEDS: NS 250 ML IV 0 ML IV ONE (15:08)
[2025-06-24] MEDS: MORPHINE SULFATE INJ 10 MG ONE (15:08)
[2025-06-24] MEDS: LR 1,000 ML IV 1,000 ML IV ONE (15:10)
[2025-06-24] MEDS: NEXTERONE IV 360 MG PREMIX* 360 MG/200 ML BAG IV PRN (15:15)
[2025-06-24 16:02] LABS: MEAN PLATELET VOLUME 8.5 fL (7.4-11.0); RED CELL DISTRIBUTION WIDTH 18.0 % (11.6-16.5)
[2025-06-24 16:06] LABS: INR 1.39 (0.8-1.3)
[2025-06-24] MEDS: NS 1,000 ML IV 1,000 ML IV ONE ×3 (16:15→20:39)
[2025-06-24] MEDS ORDERED: NS 1,000 ML IV 1,000 ML ONE (16:15)
[2025-06-24 16:33] LABS: PLATELET MORPHOLOGY COMMENT NORMAL (NORMAL)
[2025-06-24] MEDS ORDERED: VENTOLIN or PROAIR HFA IN SCH (17:00)
[2025-06-24] MEDS: NS 1,000 ML IV 1,000 ML IV SCH (17:35)
[2025-06-24] MEDS: NS 250 ML IV 25 ML IV PRN (17:36)
[2025-06-24] MEDS: ZOSYN VIAL 3.375 GRAMS 3.375 G in NS 100 ML IV 100 ML IV SCH (17:36)
[2025-06-24] MEDS: CORDARONE TAB 200 MG PO ONE (19:02)
[2025-06-24] MEDS ORDERED: SNACK - Diabetic Appropriate PO SCH (20:00)
[2025-06-24] MEDS: SNACK - Diabetic Appropriate PO SCH (20:10)
[2025-06-24] MEDS: COREG TAB 6.25 MG PO SCH (20:53)
[2025-06-24] MEDS: LOVENOX INJ 60 MG SYR SC SCH (20:54)
[2025-06-24] MEDS: NovoLIN R (or HumuLIN R) SUBCUT PRN (20:55)
[2025-06-24] MEDS: FLAGYL IV PREMIX 500 MG BAG 500 MG/100 ML BAG IV ONE (20:58)
[2025-06-24] MEDS ORDERED: K-DUR TAB 20 MEQ PO SCH (21:00)
[2025-06-24] MEDS ORDERED: FLAGYL IV PREMIX 500 MG BAG 500 MG/100 ML BAG IV SCH (21:00)
[2025-06-24] MEDS ORDERED: LIPITOR TAB 80 MG PO SCH (21:00)
[2025-06-24] MEDS ORDERED: DOPAMINE IV PREMIX 400 MG/250 ML 400 MG/250 ML BAG IV ONE (22:01)
[2025-06-24] MEDS: DOPAMINE IV PREMIX 400 MG/250 ML 400 MG/250 ML BAG IV PRN (22:07)
[2025-06-24] MEDS ORDERED: NS 100 ML IV 100 ML ONE (22:59)
[2025-06-24 23:05] LABS: ABG BASE EXCESS -18.3 mmol/L (-2.0-2.0); ABG OXYGEN SATURATION 100.0 % (90-100); ABG PCO2 40.0 mmHg (35.0-45.0)
[2025-06-24 23:06] LABS: ABG PH 7.060 (7.35-7.45)
[2025-06-24 23:07] LABS: ABG ALLEN TEST POS; ABG HCO3 11.3 mmol/L (22-26); ABG PO2 391.0 mmHg (80.0-100.0)
[2025-06-24] MEDS ORDERED: VASOSTRICT INJ 20 UNITS VIAL ONE ×2 (23:08→23:14)
[2025-06-24] MEDS ORDERED: LASIX ONE (23:29)
[2025-06-24] MEDS: LASIX IVP ONE (23:36)
[2025-06-24] MEDS: SODIUM BICARBONATE 8.4% INJ ADULT IVP ONE ×2 (23:37→23:38)
[2025-06-24] MEDS: VASOSTRICT INJ 20 UNITS VIAL 40 UNITS in NS 100 ML IV 100 ML IV PRN (23:39)
[2025-06-24] MEDS: ALBUMIN HUMAN 25%- 100 ML 100 ML IV ONE (23:47)
[2025-06-24 23:54] LABS: ABG BASE EXCESS -14.6 mmol/L (-2.0-2.0); ABG OXYGEN SATURATION 99.0 % (90-100); ABG PCO2 44.0 mmHg (35.0-45.0)
[2025-06-24 23:55] LABS: ABG PH 7.120 (7.35-7.45); ABG PO2 207.0 mmHg (80.0-100.0)
[2025-06-24 23:56] LABS: ABG ALLEN TEST POS; ABG HCO3 14.3 mmol/L (22-26)
[2025-06-24] MEDS ORDERED: NS 500 ML IV 500 ML IV ONE (23:57)
[2025-06-25] MEDS ORDERED: NS 1,000 ML IV 1,000 ML IV SCH
--- NOTE | 2025-06-25 00:17 | RAD ---
EXAM: CHEST, 1 VIEW HISTORY: central line placement; COMPARISON: 06/23/2025 FINDINGS: The trachea is midline. The cardiac silhouette is mildly enlarged. There is left Port-A-Cath with tip in the SVC.. The lungs are clear without focal infiltrate or effusion. No pneumothorax. The bony thorax is unremarkable. IMPRESSION: Left Port-A-Cath with tip in the SVC. Mild cardiomegaly. THIS IS AN ELECTRONICALLY VERIFIED FINAL REPORT 06/25/2025 12:14 AM - Electronically signed by Ritesh Byers MD
[2025-06-25] MEDS: SODIUM BICARBONATE 8.4% INJ ADULT IVP ONE ×2 (00:20→01:21)
[2025-06-25] MEDS ORDERED: NS 250 ML IV 250 ML IV ONE (00:23)
[2025-06-25 00:30] VITALS: BP 67/48
[2025-06-25 00:36] LABS: MEAN PLATELET VOLUME 9.3 fL (7.4-11.0); RED CELL DISTRIBUTION WIDTH 18.1 % (11.6-16.5)
[2025-06-25 00:44] VITALS: TEMP 97.5
[2025-06-25 00:49] LABS: BAND NEUTROPHILS % 6 % (0-10)
[2025-06-25 00:50] LABS: COR CA(FOR HYPOALB) 9.4 mg/dL (8.5-10.1); COR NA(FOR HYPERGLY) 144.0 mmol/L (136-145); CREATININE 2.7 mg/dL (0.55-1.02); PLATELET MORPHOLOGY COMMENT NORMAL (NORMAL); eGFR NON BLACK RACES 18.0 (>60)
[2025-06-25] MEDS ORDERED: SODIUM BICARBONATE 8.4% INJ ADULT ONE (00:53)
[2025-06-25] MEDS: ATROPINE SULFATE ABBOJECT IVP ONE ×2 (00:58→01:02)
[2025-06-25 01:43] VITALS: PULSE 60; RESP 21; O2SAT 78
[2025-06-25] MEDS ORDERED: ZOSYN VIAL 3.375 GRAMS 3.375 G in NS 100 ML IV 100 ML IV SCH (03:00)
--- NOTE | 2025-06-25 03:31 | RAD ---
EXAM: CHEST, 1 VIEW HISTORY: ET TUBE PLACEMENT; COMPARISON: 06/24/2025 FINDINGS: The trachea is midline. Endotracheal tube tip proximally 1.5 cm above the alexi. Left Port-A-Cath present with tip in the SVC. The cardiac silhouette is mildly enlarged.. The lungs are clear without focal infiltrate or effusion. The bony thorax is unremarkable. IMPRESSION: Endotracheal tube tip above the alexi. Mild cardiomegaly. THIS IS AN ELECTRONICALLY VERIFIED FINAL REPORT 06/25/2025 3:28 AM - Electronically signed by Ritesh Byers MD
[2025-06-25] MEDS ORDERED: CORDARONE TAB 200 MG PO SCH ×2 (09:00→19:00)
--- NOTE | 2025-06-25 15:06 | NOTE.SOAP ---
Soap Note Note for Day of Date of Exam: 06/25/25 Assessment Assessment: Earlier today this patient with atrial fibrillation, cngestive heart failure, morbid obesity, and history of coronary artery disease had undergone laparoscopic cholecystectomy converted to open cholecystectomy for acute cholecystitis with a marked thickened gallbladder wall. Patient had a gangrenous gallbladder. The surgery went well. Patient has had no further significant bleeding but I was called back to see the patient approximately 11 PM for persistent hypotension despite Levophed, dopamine and vasopressin regimen started by the medical case manager. Patient at that time had a central line pl aced by me and attempted to place a arterial line which was unsuccessful due to her persistent hypotension. I had discussions with the family at that time and her power of finance attorney wanted at that time everything to be done for her that could be with the [facility] that if they decided to withdraw care that they could. She continued to have hypotension and eventually had apnea where previously the oxygen level was 200 300 by arterial blood gas. Patient was intubated but continued to have further deterioration. Patient remained hypotensive but did have a pulse identified by ultrasonography of the femoral artery. I discussed these findings with the family and they elected to withdraw care and allow her to at this point. Patient is high risk from the beginning. I think this represented sepsis due to the gangrenous gallbladder which continued despite surgical removal of the gangrenous gallbladder. I think there is a superimposed upon her congestive heart failure. She has very showed a very large heart but at that time no obvious pulmonary edema . I was present for her entire events from approximately 11 PM until 3 AM. Time of was 1:49 AM.
--- NOTE | 2025-06-25 15:18 | W.DIS.FURT ---
Summary of Discharge Discharge Summary of Date Date of Exam: 06/25/25 Admission Date Date of Admission: 06/23/25 Admission Diagnosis Patient Problems (Updated 06/24/25 @ 11:01 by Darrian Lan) Acute calculous cholecystitis (Acute) K80.00 Hospital Course: This patient is a 75-year-old female currently resident [facility] local [facility] who presented to the emergency room with chest pain and abdominal pain. She is evaluated and CT scan showed a markedly thickened gallbladder which was confirmed by ultrasound consistent with acute cholecystitis. CT scan done earlier in the month did not show significant thickening but noted to have gallstones. Patient admitted and placed on IV antibiotics late that night. Was taken the operating suite the next morning where laparoscopic cholecy stectomy was converted open cholecystectomy for a markedly inflamed gallbladder. She underwent uncomplicated open cholecystectomy and had a gangrenous gallbladder. Postprocedure she had persistent hypotension. document management consultant was engaged. Patient had persistent hypotension ultimately requiring 3 pressors, i.e. Levophed, dopamine and vasopressin which were all maxed out with persistent hypotension. Patient seen personally by me and had placement of central line and attempt to place a arterial line. Patient continued to deteriorate and the family at that time decided to continue full resuscitation with the choice to the withdraw care if they so decided. Patient had persistent hypotension and eventually had hypoventilation requiring intubation. Shortly after patient intubated family sided to withdraw care. She was extubated and allowed to . See my note dated earlier this day in regards to the resuscitation efforts. This persistent hypotension, gangrenous gallbladder and elevated white blood cell count I believe this represented a picture of sepsis superimposed upon this patient with significant chronic medical problems. Vital Signs: Vital Signs (72 hours) 06/23/25 11:26 06/23/25 11:28 06/23/25 11:28 Temperature 97.9 F Pulse Rate 89 89 Pulse Rate [Left Radial] Respiratory Rate 14 Blood Pressure 121/77 121/77 Blood Pressure [Left Arm] O2 Sat by Pulse Oximetry 98 97 Oxygen Delivery Method Room Air Oxygen Flow Rate FIO2% 06/23/25 11:30 06/23/25 11:30 06/23/25 11:45 Temperature Pulse Rate 92 H Pulse Rate [Left Radial] Respiratory Rate 13 Blood Pressure 98/64 98/61 Blood Pressure [Left Arm] O2 Sat by Pulse Oximetry 97 Oxygen Delivery Method Oxygen Flow Rate FIO2% 06/23/25 11:45 06/23/25 12:00 06/23/25 12:00 Temperature Pulse Rate 87 90 Pulse Rate [Left Radial] Respiratory Rate 16 15 Blood Pressure 96/54 Blood Pressure [Left Arm] O2 Sat by Pulse Oximetry 100 97 Oxygen Delivery Method Oxygen Flow Rate FIO2% 06/23/25 12:15 06/23/25 12:15 06/23/25 12:30 Temperature Pulse Rate 89 Pulse Rate [Left Radial] Respiratory Rate 21 Blood Pressure 106/59 101/56 Blood Pressure [Left Arm] O2 Sat by Pulse Oximetry 97 Oxygen Delivery Method Oxygen Flow Rate FIO2% 06/23/25 12:30 06/23/25 12:45 06/23/25 12:46 Temperature Pulse Rate 90 89 Pulse Rate [Left Radial] Respiratory Rate 18 17 Blood Pressure 133/55 Blood Pressure [Left Arm] O2 Sat by Pulse Oximetry 96 95 Oxygen Delivery Method Oxygen Flow Rate FIO2% 06/23/25 12:46 06/23/25 13:00 06/23/25 13:01 Temperature Pulse Rate 88 88 88 Pulse Rate [Left Radial] Respiratory Rate 15 16 18 Blood Pressure Blood Pressure [Left Arm] O2 Sat by Pulse Oximetry 95 95 94 L Oxygen Delivery Method Oxygen Flow Rate FIO2% 06/23/25 13:01 06/23/25 13:15 06/23/25 13:17 Temperature Pulse Rate 87 87 Pulse Rate [Left Radial] Respiratory Rate 17 18 Blood Pressure 115/44 Blood Pressure [Left Arm] O2 Sat by Pulse Oximetry 96 95 Oxygen Delivery Method Oxygen Flow Rate FIO2% 06/23/25 13:27 06/23/25 13:30 06/23/25 13:31 Temperature Pulse Rate 88 88 Pulse Rate [Left Radial] Respiratory Rate 20 18 Blood Pressure 92/41 Blood Pressure [Left Arm] O2 Sat by Pulse Oximetry 95 95 Oxygen Delivery Method Oxygen Flow Rate FIO2% 06/23/25 13:31 06/23/25 13:45 06/23/25 13:46 Temperature Pulse Rate 88 87 87 Pulse Rate [Left Radial] Respiratory Rate 18 18 21 Blood Pressure Blood Pressure [Left Arm] O2 Sat by Pulse Oximetry 95 95 95 Oxygen Delivery Method Oxygen Flow Rate FIO2% 06/23/25 13:51 06/23/25 13:51 06/23/25 14:00 Temperature Pulse Rate 87 Pulse Rate [Left Radial] Respiratory Rate 20 Blood Pressure 105/57 97/50 Blood Pressure [Left Arm] O2 Sat by Pulse Oximetry 96 Oxygen Delivery Method Oxygen Flow Rate FIO2% 06/23/25 14:00 06/23/25 14:19 06/23/25 14:30 Temperature Pulse Rate 87 97 H 90 Pulse Rate [Left Radial] Respiratory Rate 26 H 34 H 18 Blood Pressure Blood Pressure [Left Arm] O2 Sat by Pulse Oximetry 96 99 Oxygen Delivery Method Oxygen Flow Rate FIO2% 06/23/25 14:45 06/23/25 14:58 06/23/25 14:58 Temperature Pulse Rate 88 87 Pulse Rate [Left Radial] Respiratory Rate 15 15 Blood Pressure 128/71 Blood Pressure [Left Arm] O2 Sat by Pulse Oximetry 96 98 Oxygen Delivery Method Oxygen Flow Rate FIO2% 06/23/25 15:00 06/23/25 15:00 06/23/25 15:15 Temperature Pulse Rate 87 87 Pulse Rate [Left Radial] Respiratory Rate 14 14 Blood Pressure 125/75 Blood Pressure [Left Arm] O2 Sat by Pulse Oximetry 98 97 Oxygen Delivery Method Oxygen Flow Rate FIO2% 06/23/25 15:15 06/23/25 15:30 06/23/25 15:30 Temperature Pulse Rate 87 Pulse Rate [Left Radial] Respiratory Rate 14 Blood Pressure 128/69 141/69 Blood Pressure [Left Arm] O2 Sat by Pulse Oximetry 97 Oxygen Delivery Method Oxygen Flow Rate FIO2% 06/23/25 15:45 06/23/25 15:45 06/23/25 16:00 Temperature Pulse Rate 87 88 Pulse Rate [Left Radial] Respiratory Rate 15 14 Blood Pressure 125/69 Blood Pressure [Left Arm] O2 Sat by Pulse Oximetry 97 97 Oxygen Delivery Method Oxygen Flow Rate FIO2% 06/23/25 16:00 06/23/25 16:15 06/23/25 16:15 Temperature Pulse Rate 88 Pulse Rate [Left Radial] Respiratory Rate 15 Blood Pressure 115/74 101/68 Blood Pressure [Left Arm] O2 Sat by Pulse Oximetry 98 Oxygen Delivery Method Oxygen Flow Rate FIO2% 06/23/25 16:30 06/23/25 16:31 06/23/25 16:31 Temperature Pulse Rate 87 87 Pulse Rate [Left Radial] Respiratory Rate 15 14 Blood Pressure 123/70 Blood Pressure [Left Arm] O2 Sat by Pulse Oximetry 96 98 Oxygen Delivery Method Oxygen Flow Rate FIO2% 06/23/25 16:45 06/23/25 16:45 06/23/25 17:00 Temperature Pulse Rate 87 87 Pulse Rate [Left Radial] Respiratory Rate 15 Blood Pressure 137/77 Blood Pressure [Left Arm] O2 Sat by Pulse Oximetry 95 96 Oxygen Delivery Method Oxygen Flow Rate FIO2% 06/23/25 17:00 06/23/25 17:15 06/23/25 17:15 Temperature Pulse Rate 90 Pulse Rate [Left Radial] Respiratory Rate 15 Blood Pressure 133/73 138/75 Blood Pressure [Left Arm] O2 Sat by Pulse Oximetry Oxygen Delivery Method Oxygen Flow Rate FIO2% 06/23/25 17:30 06/23/25 17:30 06/23/25 17:45 Temperature Pulse Rate 88 90 Pulse Rate [Left Radial] Respiratory Rate 15 23 Blood Pressure 136/86 Blood Pressure [Left Arm] O2 Sat by Pulse Oximetry Oxygen Delivery Method Oxygen Flow Rate FIO2% 06/23/25 18:00 06/23/25 18:01 06/23/25 18:01 Temperature Pulse Rate 90 90 Pulse Rate [Left Radial] Respiratory Rate 16 13 Blood Pressure 86/50 Blood Pressure [Left Arm] O2 Sat by Pulse Oximetry Oxygen Delivery Method Oxygen Flow Rate FIO2% 06/23/25 18:15 06/23/25 18:16 06/23/25 18:16 Temperature Pulse Rate 88 88 Pulse Rate [Left Radial] Respiratory Rate 18 24 Blood Pressure 107/74 Blood Pressure [Left Arm] O2 Sat by Pulse Oximetry 95 96 Oxygen Delivery Method Oxygen Flow Rate FIO2% 06/23/25 18:30 06/23/25 18:30 06/23/25 18:45 Temperature Pulse Rate 87 Pulse Rate [Left Radial] Respiratory Rate 11 L Blood Pressure 159/110 152/86 Blood Pressure [Left Arm] O2 Sat by Pulse Oximetry 93 L Oxygen Delivery Method Oxygen Flow Rate FIO2% 06/23/25 18:45 06/23/25 19:00 06/23/25 19:00 Temperature Pulse Rate 86 87 Pulse Rate [Left Radial] Respiratory Rate 12 15 Blood Pressure 131/85 Blood Pressure [Left Arm] O2 Sat by Pulse Oximetry 94 L 94 L Oxygen Delivery Method Oxygen Flow Rate FIO2% 06/23/25 19:15 06/23/25 19:15 06/23/25 19:30 Temperature Pulse Rate 93 H 87 Pulse Rate [Left Radial] Respiratory Rate 27 H 16 Blood Pressure 141/73 Blood Pressure [Left Arm] O2 Sat by Pulse Oximetry 95 95 Oxygen Delivery Method Oxygen Flow Rate FIO2% 06/23/25 19:30 06/23/25 19:45 06/23/25 19:45 Temperature Pulse Rate 86 Pulse Rate [Left Radial] Respiratory Rate 12 Blood Pressure 139/71 Blood Pressure [Left Arm] O2 Sat by Pulse Oximetry 95 Oxygen Delivery Method Room Air Oxygen Flow Rate FIO2% 06/23/25 19:46 06/23/25 19:46 06/23/25 20:00 Temperature Pulse Rate 86 87 Pulse Rate [Left Radial] Respiratory Rate 23 19 Blood Pressure 168/98 Blood Pressure [Left Arm] O2 Sat by Pulse Oximetry 97 100 Oxygen Delivery Method Oxygen Flow Rate FIO2% 06/23/25 20:01 06/23/25 20:01 06/23/25 20:15 Temperature Pulse Rate 87 86 Pulse Rate [Left Radial] Respiratory Rate 14 15 Blood Pressure 149/79 Blood Pressure [Left Arm] O2 Sat by Pulse Oximetry 100 100 Oxygen Delivery Method Oxygen Flow Rate FIO2% 06/23/25 20:30 06/23/25 20:30 06/23/25 20:45 Temperature 97.5 F L Pulse Rate 83 Pulse Rate [Left Radial] 85 Respiratory Rate 11 L 21 Blood Pressure 153/96 Blood Pressure [Left Arm] 95/60 O2 Sat by Pulse Oximetry 94 L Oxygen Delivery Method Room Air Oxygen Flow Rate FIO2% 06/23/25 21:00 06/23/25 21:00 06/24/25 00:00 Temperature 97.5 F L Pulse Rate 84 Pulse Rate [Left Radial] 88 Respiratory Rate 17 Blood Pressure Blood Pressure [Left Arm] 114/58 O2 Sat by Pulse Oximetry 97 94 L Oxygen Delivery Method Nasal Cannula Room Air Oxygen Flow Rate 2 FIO2% 28 06/24/25 04:00 06/24/25 04:48 06/24/25 05:48 Temperature 98.0 F Pulse Rate Pulse Rate [Left Radial] 90 Respiratory Rate 17 18 18 Blood Pressure Blood Pressure [Left Arm] 108/74 O2 Sat by Pulse Oximetry 99 Oxygen Delivery Method Nasal Cannula Oxygen Flow Rate 2 FIO2% 06/24/25 07:00 06/24/25 08:00 06/24/25 09:00 Temperature 97.9 F Pulse Rate Pulse Rate [Left Radial] 87 Respiratory Rate 20 Blood Pressure Blood Pressure [Left Arm] 135/63 O2 Sat by Pulse Oximetry 100 Oxygen Delivery Method Nasal Cannula Nasal Cannula Nasal Cannula Oxygen Flow Rate 2 2 2 FIO2% 28 06/24/25 13:10 06/24/25 13:15 06/24/25 13:20 Temperature 97.7 F Pulse Rate 85 84 87 Pulse Rate [Left Radial] Respiratory Rate 20 20 20 Blood Pressure 111/69 74/42 74/36 Blood Pressure [Left Arm] O2 Sat by Pulse Oximetry 100 100 100 Oxygen Delivery Method Aerosol Face Tent Aerosol Face Tent Aerosol Face Tent Oxygen Flow Rate FIO2% 06/24/25 13:25 06/24/25 13:30 06/24/25 13:35 Temperature Pulse Rate 85 86 86 Pulse Rate [Left Radial] Respiratory Rate 18 18 18 Blood Pressure 104/54 80/52 56/40 Blood Pressure [Left Arm] O2 Sat by Pulse Oximetry 97 97 97 Oxygen Delivery Method Aerosol Face Tent Nasal Cannula Nasal Cannula Oxygen Flow Rate FIO2% 06/24/25 13:40 06/24/25 13:47 06/24/25 13:52 Temperature Pulse Rate 87 85 84 Pulse Rate [Left Radial] Respiratory Rate 18 18 18 Blood Pressure 89/53 93/49 89/44 Blood Pressure [Left Arm] O2 Sat by Pulse Oximetry 100 100 100 Oxygen Delivery Method Nasal Cannula Nasal Cannula Nasal Cannula Oxygen Flow Rate FIO2% 06/24/25 14:02 06/24/25 14:03 06/24/25 14:03 Temperature Pulse Rate 136 H 91 H Pulse Rate [Left Radial] Respiratory Rate 11 L Blood Pressure 105/54 Blood Pressure [Left Arm] O2 Sat by Pulse Oximetry 100 Oxygen Delivery Method Oxygen Flow Rate FIO2% 06/24/25 14:06 06/24/25 14:06 06/24/25 14:10 Temperature Pulse Rate 88 Pulse Rate [Left Radial] Respiratory Rate 15 Blood Pressure 84/45 110/55 Blood Pressure [Left Arm] O2 Sat by Pulse Oximetry 100 Oxygen Delivery Method Oxygen Flow Rate FIO2% 06/24/25 14:10 06/24/25 14:15 06/24/25 14:15 Temperature Pulse Rate 89 103 H Pulse Rate [Left Radial] Respiratory Rate 13 12 Blood Pressure 114/57 Blood Pressure [Left Arm] O2 Sat by Pulse Oximetry 100 100 Oxygen Delivery Method Oxygen Flow Rate FIO2% 06/24/25 14:20 06/24/25 14:20 06/24/25 14:26 Temperature 98.1 F Pulse Rate 122 H Pulse Rate [Left Radial] Respiratory Rate 13 Blood Pressure 91/55 122/54 Blood Pressure [Left Arm] O2 Sat by Pulse Oximetry 92 L Oxygen Delivery Method Oxygen Flow Rate FIO2% 06/24/25 14:26 06/24/25 14:30 06/24/25 14:31 Temperature Pulse Rate 112 H 121 H Pulse Rate [Left Radial] Respiratory Rate 14 12 Blood Pressure 74/46 Blood Pressure [Left Arm] O2 Sat by Pulse Oximetry 98 100 Oxygen Delivery Method Oxygen Flow Rate FIO2% 06/24/25 14:31 06/24/25 14:35 06/24/25 14:35 Temperature Pulse Rate 122 H 122 H Pulse Rate [Left Radial] Respiratory Rate 15 17 Blood Pressure 78/41 Blood Pressure [Left Arm] O2 Sat by Pulse Oximetry 100 100 Oxygen Delivery Method Oxygen Flow Rate FIO2% 06/24/25 14:40 06/24/25 14:40 06/24/25 14:45 Temperature Pulse Rate 155 H Pulse Rate [Left Radial] Respiratory Rate 13 Blood Pressure 85/49 83/59 Blood Pressure [Left Arm] O2 Sat by Pulse Oximetry 99 Oxygen Delivery Method Oxygen Flow Rate FIO2% 06/24/25 14:45 06/24/25 14:55 06/24/25 14:55 Temperature Pulse Rate 158 H 160 H Pulse Rate [Left Radial] Respiratory Rate 13 15 Blood Pressure 102/55 Blood Pressure [Left Arm] O2 Sat by Pulse Oximetry 100 98 Oxygen Delivery Method Oxygen Flow Rate FIO2% 06/24/25 15:00 06/24/25 15:00 06/24/25 15:10 Temperature Pulse Rate 117 H Pulse Rate [Left Radial] Respiratory Rate 13 Blood Pressure 105/57 79/61 Blood Pressure [Left Arm] O2 Sat by Pulse Oximetry 100 Oxygen Delivery Method Oxygen Flow Rate FIO2% 06/24/25 15:10 06/24/25 15:13 06/24/25 15:13 Temperature Pulse Rate 103 H 97 H Pulse Rate [Left Radial] Respiratory Rate 11 L 13 Blood Pressure 75/49 Blood Pressure [Left Arm] O2 Sat by Pulse Oximetry 100 98 Oxygen Delivery Method Oxygen Flow Rate FIO2% 06/24/25 15:15 06/24/25 15:15 06/24/25 15:21 Temperature Pulse Rate 101 H Pulse Rate [Left Radial] Respiratory Rate 14 Blood Pressure 90/43 89/50 Blood Pressure [Left Arm] O2 Sat by Pulse Oximetry 99 Oxygen Delivery Method Oxygen Flow Rate FIO2% 06/24/25 15:21 06/24/25 15:25 06/24/25 15:25 Temperature Pulse Rate 103 H 101 H Pulse Rate [Left Radial] Respiratory Rate 16 16 Blood Pressure 95/49 Blood Pressure [Left Arm] O2 Sat by Pulse Oximetry 100 100 Oxygen Delivery Method Oxygen Flow Rate FIO2% 06/24/25 15:30 06/24/25 15:30 06/24/25 15:35 Temperature Pulse Rate 102 H 106 H Pulse Rate [Left Radial] Respiratory Rate 12 15 Blood Pressure 99/47 Blood Pressure [Left Arm] O2 Sat by Pulse Oximetry 100 99 Oxygen Delivery Method Oxygen Flow Rate FIO2% 06/24/25 15:35 06/24/25 15:40 06/24/25 15:40 Temperature Pulse Rate 101 H Pulse Rate [Left Radial] Respiratory Rate 12 Blood Pressure 86/48 90/53 Blood Pressure [Left Arm] O2 Sat by Pulse Oximetry 100 Oxygen Delivery Method Oxygen Flow Rate FIO2% 06/24/25 15:45 06/24/25 15:45 06/24/25 15:50 Temperature 98.0 F Pulse Rate 109 H 101 H Pulse Rate [Left Radial] Respiratory Rate 13 12 Blood Pressure 85/65 Blood Pressure [Left Arm] O2 Sat by Pulse Oximetry 99 100 Oxygen Delivery Method Oxygen Flow Rate FIO2% 06/24/25 15:50 06/24/25 15:55 06/24/25 15:55 Temperature Pulse Rate 101 H Pulse Rate [Left Radial] Respiratory Rate 14 Blood Pressure 96/51 97/54 Blood Pressure [Left Arm] O2 Sat by Pulse Oximetry 100 Oxygen Delivery Method Oxygen Flow Rate FIO2% 06/24/25 16:00 06/24/25 16:00 06/24/25 16:00 Temperature Pulse Rate 110 H 110 H Pulse Rate [Left Radial] Respiratory Rate 15 15 Blood Pressure 106/53 Blood Pressure [Left Arm] O2 Sat by Pulse Oximetry 99 99 Oxygen Delivery Method Oxygen Flow Rate FIO2% 06/24/25 16:05 06/24/25 16:05 06/24/25 16:11 Temperature Pulse Rate 109 H Pulse Rate [Left Radial] Respiratory Rate 15 Blood Pressure 131/59 81/45 Blood Pressure [Left Arm] O2 Sat by Pulse Oximetry 99 Oxygen Delivery Method Oxygen Flow Rate FIO2% 06/24/25 16:11 06/24/25 16:15 06/24/25 16:15 Temperature Pulse Rate 113 H 112 H Pulse Rate [Left Radial] Respiratory Rate 11 L 17 Blood Pressure 83/43 Blood Pressure [Left Arm] O2 Sat by Pulse Oximetry 96 93 L Oxygen Delivery Method Oxygen Flow Rate FIO2% 06/24/25 16:20 06/24/25 16:20 06/24/25 16:23 Temperature Pulse Rate 108 H Pulse Rate [Left Radial] Respiratory Rate 14 Blood Pressure 104/39 99/52 Blood Pressure [Left Arm] O2 Sat by Pulse Oximetry 94 L Oxygen Delivery Method Oxygen Flow Rate FIO2% 06/24/25 16:23 06/24/25 16:30 06/24/25 16:30 Temperature Pulse Rate 105 H 112 H Pulse Rate [Left Radial] Respiratory Rate 17 16 Blood Pressure 82/51 Blood Pressure [Left Arm] O2 Sat by Pulse Oximetry 95 97 Oxygen Delivery Method Oxygen Flow Rate FIO2% 06/24/25 16:41 06/24/25 16:41 06/24/25 16:45 Temperature Pulse Rate 101 H 101 H Pulse Rate [Left Radial] Respiratory Rate 15 14 Blood Pressure 114/53 Blood Pressure [Left Arm] O2 Sat by Pulse Oximetry 94 L 99 Oxygen Delivery Method Oxygen Flow Rate FIO2% 06/24/25 16:50 06/24/25 16:50 06/24/25 17:00 Temperature Pulse Rate 98 H Pulse Rate [Left Radial] Respiratory Rate 16 Blood Pressure 113/61 122/75 Blood Pressure [Left Arm] O2 Sat by Pulse Oximetry 100 Oxygen Delivery Method Oxygen Flow Rate FIO2% 06/24/25 17:00 06/24/25 17:11 06/24/25 17:11 Temperature Pulse Rate 110 H 114 H Pulse Rate [Left Radial] Respiratory Rate 13 18 Blood Pressure 111/63 Blood Pressure [Left Arm] O2 Sat by Pulse Oximetry 100 100 Oxygen Delivery Method Oxygen Flow Rate FIO2% 06/24/25 17:15 06/24/25 17:21 06/24/25 17:21 Temperature Pulse Rate 111 H 104 H Pulse Rate [Left Radial] Respiratory Rate 14 15 Blood Pressure 78/41 Blood Pressure [Left Arm] O2 Sat by Pulse Oximetry 100 100 Oxygen Delivery Method Oxygen Flow Rate FIO2% 06/24/25 17:28 06/24/25 17:28 06/24/25 17:30 Temperature Pulse Rate 103 H Pulse Rate [Left Radial] Respiratory Rate 14 Blood Pressure 49/28 89/51 Blood Pressure [Left Arm] O2 Sat by Pulse Oximetry 100 Oxygen Delivery Method Oxygen Flow Rate FIO2% 06/24/25 17:30 06/24/25 17:40 06/24/25 17:40 Temperature Pulse Rate 106 H 102 H Pulse Rate [Left Radial] Respiratory Rate 18 15 Blood Pressure 96/52 Blood Pressure [Left Arm] O2 Sat by Pulse Oximetry 100 100 Oxygen Delivery Method Oxygen Flow Rate FIO2% 06/24/25 17:45 06/24/25 17:50 06/24/25 17:50 Temperature Pulse Rate 94 H 105 H Pulse Rate [Left Radial] Respiratory Rate 9 L 17 Blood Pressure 97/54 Blood Pressure [Left Arm] O2 Sat by Pulse Oximetry 100 100 Oxygen Delivery Method Oxygen Flow Rate FIO2% 06/24/25 18:00 06/24/25 18:00 06/24/25 18:10 Temperature Pulse Rate 108 H 101 H Pulse Rate [Left Radial] Respiratory Rate 17 15 Blood Pressure 88/50 Blood Pressure [Left Arm] O2 Sat by Pulse Oximetry 96 95 Oxygen Delivery Method Oxygen Flow Rate FIO2% 06/24/25 18:10 06/24/25 18:15 06/24/25 18:21 Temperature Pulse Rate 97 H Pulse Rate [Left Radial] Respiratory Rate 16 Blood Pressure 81/50 80/47 Blood Pressure [Left Arm] O2 Sat by Pulse Oximetry 96 Oxygen Delivery Method Oxygen Flow Rate FIO2% 06/24/25 18:21 06/24/25 19:00 06/24/25 19:00 Temperature Pulse Rate 108 H 102 H Pulse Rate [Left Radial] Respiratory Rate 18 11 L Blood Pressure 95/48 Blood Pressure [Left Arm] O2 Sat by Pulse Oximetry 99 100 Oxygen Delivery Method Nasal Cannula Nasal Cannula Oxygen Flow Rate 2 2 FIO2% 06/24/25 19:14 06/24/25 19:14 06/24/25 20:00 Temperature 97.3 F L Pulse Rate 100 H 95 H Pulse Rate [Left Radial] Respiratory Rate 16 Blood Pressure 99/54 Blood Pressure [Left Arm] O2 Sat by Pulse Oximetry 100 100 Oxygen Delivery Method Nasal Cannula Nasal Cannula Oxygen Flow Rate 2 2 FIO2% 28 06/24/25 21:00 06/24/25 21:30 06/24/25 21:30 Temperature Pulse Rate 92 H Pulse Rate [Left Radial] Respiratory Rate 23 Blood Pressure 83/48 Blood Pressure [Left Arm] O2 Sat by Pulse Oximetry 100 Oxygen Delivery Method Nasal Cannula Bi-pap Oxygen Flow Rate 2 FIO2% 100 100 06/24/25 22:00 06/24/25 23:00 06/25/25 00:00 Temperature 97.5 F L Pulse Rate 136 H 123 H 114 H Pulse Rate [Left Radial] Respiratory Rate 21 23 25 H Blood Pressure 64/37 67/48 Blood Pressure [Left Arm] O2 Sat by Pulse Oximetry 90 L 100 100 Oxygen Delivery Method Bi-pap Bi-pap Bi-pap Oxygen Flow Rate FIO2% 06/25/25 01:00 06/25/25 01:10 Temperature Pulse Rate 60 Pulse Rate [Left Radial] Respiratory Rate 21 Blood Pressure Blood Pressure [Left Arm] O2 Sat by Pulse Oximetry 78 L Oxygen Delivery Method Room Air Mechanical Ventilator Oxygen Flow Rate FIO2% 100 Labs: Laboratory Last Values WBC 21.5 X10^3/uL (3.6-10.0) H 06/25/25 00:05 RBC 2.57 X10^6/uL (3.5-5.4) L 06/25/25 00:05 Hgb 7.6 g/dL (12.0-16.0) L D 06/25/25 00:05 Hct 24.3 % (36.0-47.0) L 06/25/25 00:05 MCV 94.4 fL (80.0-100.0) 06/25/25 00:05 MCH 29.6 pg (27.0-34.0) 06/25/25 00:05 MCHC 31.3 g/dL (33.0-35.0) L 06/25/25 00:05 RDW 18.1 % (11.6-16.5) H 06/25/25 00:05 Plt Count 219 X10^3/uL (150.0-450.0) 06/25/25 00:05 Plt Count Comment Adequate (ADEQUATE) 06/25/25 00:05 MPV 9.3 fL (7.4-11.0) 06/25/25 00:05 Neut % (Auto) 86.0 % (42.0-75.0) H 06/25/25 00:05 Lymph % (Auto) 5.2 % (21.0-51.0) L 06/25/25 00:05 [place] % (Auto) 8.3 % (0.0-13.0) 06/25/25 00:05 Eos % (Auto) 0.1 % (0.9-2.9) L 06/25/25 00:05 Baso % (Auto) 0.4 % (0.2-1.0) 06/25/25 00:05 Neut # (Auto) 18.5 x10^3/uL (2.2-4.8) H 06/25/25 00:05 Lymph # (Auto) 1.1 X10^3/uL (1.3-2.9) L 06/25/25 00:05 [place] # (Auto) 1.8 x10^3/uL (0.3-0.8) H 06/25/25 00:05 Eos # (Auto) 0.0 x10^3/uL (0.0-0.2) 06/25/25 00:05 Baso # (Auto) 0.1 X10^3/uL (0.0-0.1) 06/25/25 00:05 Absolute Nucleated RBC 0.1 /100WBC 06/25/25 00:05 Total Counted 100 06/25/25 00:05 Neutrophils % (Manual) 82 % (39-76) H 06/25/25 00:05 Band Neutrophils % 6 % (0-10) 06/25/25 00:05 Lymphocytes % (Manual) 4 % (13-43) L 06/25/25 00:05 Monocytes % (Manual) 8 % (4-9) 06/25/25 00:05 Plt Morphology Comment Normal (NORMAL) 06/25/25 00:05 RBC Morphology Abnormal (NORMAL) A 06/25/25 00:05 Anisocytosis Slight A 06/25/25 00:05 PT 17.2 SECONDS (11.8-14.3) 06/24/25 15:45 INR Target Range - 06/24/25 15:45 INR 1.39 (0.8-1.3) H 06/24/25 15:45 APTT 32.8 SECONDS (22.9-36.5) 06/23/25 12:00 PTT Comment - 06/23/25 12:00 Sample Site Lr 06/24/25 23:49 ABG pH 7.120 (7.35-7.45) L* 06/24/25 23:49 ABG pCO2 44.0 mmHg (35.0-45.0) 06/24/25 23:49 ABG pO2 207.0 mmHg (80.0-100.0) H 06/24/25 23:49 ABG HCO3 14.3 mmol/L (22-26) L* 06/24/25 23:49 ABG O2 Saturation 99.0 % (90-100) 06/24/25 23:49 ABG Base Excess -14.6 mmol/L (-2.0-2.0) L 06/24/25 23:49 Michael Test Pos 06/24/25 23:49 A-a Gradient 451.0 mmHg 06/24/25 23:49 FiO2 100.0 06/24/25 23:49 Blood Gas Comments Yunior well ae 06/24/25 23:49 Sodium 137 mmol/L (136-145) 06/25/25 00:05 Corrected Sodium 144 mmol/L (136-145) 06/25/25 00:05 Potassium 7.8 mmol/L (3.5-5.1) H* 06/25/25 00:05 Chloride 100 mmol/L (98-107) 06/25/25 00:05 Carbon Dioxide 13.5 mmol/L (21-32) L* 06/25/25 00:05 BUN 26 mg/dL (7-18) H 06/25/25 00:05 Creatinine 2.70 mg/dL (0.55-1.02) H 06/25/25 00:05 Est GFR (MDRD) Af Amer 22 (>60) L 06/25/25 00:05 Est GFR (MDRD) Non-Af 18 (>60) L 06/25/25 00:05 Glucose 382 mg/dL (65-99) H 06/25/25 00:05 POC Glucose (mg/dL) 332 mg/dL (65-99) H 06/24/25 19:33 Calcium 7.3 mg/dL (8.5-10.1) L 06/25/25 00:05 Corrected Calcium 9.4 mg/dL (8.5-10.1) 06/25/25 00:05 Magnesium 1.5 mg/dL (2.0-2.9) L 06/23/25 12:00 Total Bilirubin 0.90 mg/dL (0.2-1.0) 06/25/25 00:05 AST 663 Units/L (15-37) H 06/25/25 00:05 ALT 206 Units/L (12-78) H 06/25/25 00:05 Alkaline Phosphatase 134 Units/L (46-116) H 06/25/25 00:05 Creatine Kinase 66 Units/L (26-192) 06/23/25 12:00 Troponin I High Sens 30.9 ng/L (4.0-60.0) 06/23/25 14:30 Total Protein 5.1 g/dL (6.4-8.2) L 06/25/25 00:05 Albumin 1.4 g/dL (3.4-5.0) L 06/25/25 00:05 Globulin 3.7 g/dL (2.5-4.5) 06/25/25 00:05 Albumin/Globulin Ratio 0.4 Ratio (1.1-2.1) L 06/25/25 00:05 Specimen Type Catherized urine 06/23/25 12:12 Urine Color Yellow (YELLOW) 06/23/25 12:12 Urine Appearance Clear (CLEAR) 06/23/25 12:12 Urine pH Cancelled 06/23/25 12:12 Ur Specific [place] Cancelled 06/23/25 12:12 Urine Protein Cancelled 06/23/25 12:12 Urine Glucose (UA) Cancelled 06/23/25 12:12 Urine Ketones Cancelled 06/23/25 12:12 Urine Blood Cancelled 06/23/25 12:12 Urine Nitrite Cancelled 06/23/25 12:12 Urine Bilirubin Cancelled 06/23/25 12:12 Urine Urobilinogen Cancelled 06/23/25 12:12 Ur Leukocyte Esterase Cancelled 06/23/25 12:12 Urine RBC 0-2 /HPF (0-3) 06/23/25 12:12 Urine WBC 5-10 /HPF (0-5) A 06/23/25 12:12 Ur Squamous Epith Cells Few /HPF (NEGATIVE) 06/23/25 12:12 Urine Bacteria Negative /HPF (NEGATIVE) 06/23/25 12:12 Ur Culture Indicated? No/not indicated 06/23/25 12:12 Blood Type A POSITIVE 06/24/25 10:50 Blood Type A POSITIVE 06/24/25 10:50 Antibody Screen Negative 06/24/25 10:50 Crossmatch See Detail 06/24/25 10:50 Reason For Visit: ACUTE CHOLECYSTITIS Discharge Date Discharge Date: 06/25/25 Discharge Diagnosis All Active Problems (Updated 06/24/25 @ 11:01 by Darrian Lan) Type 2 diabetes mellitus without complications (Acute) Acute calculous cholecystitis (Acute) Fluctuating blood pressure (Acute) UTI (urinary tract infection) (Acute) Acute UTI (Acute) Sepsis (Acute) CHF (congestive heart failure) (Chronic) Hyperlipidemia (Acute) Thrombocytopenia (Chronic) MARQUISE (acute kidney injury) (Acute) Hypokalemia (Acute) Hypomagnesemia (Acute) Edema (Acute) Contusion of forehead (Acute) Non-ST elevation myocardial infarction (NSTEMI) (Acute) AMS (altered mental status) (Acute) Urinary tract infection (Acute) CAD (coronary artery disease) (Chronic) Acute hypotension (Acute) COPD (chronic obstructive pulmonary disease) (Chronic) Tear of urethra (Acute) Atypical chest pain (Acute) Mild congestive heart failure (Chronic) A-fib (Acute) Pneumonia of both lower lobes (Acute) Abdominal distension (Acute) Non-occlusive thrombus (Acute) Cardiomyopathy (Acute) Atrial fibrillation (Chronic) Hypomagnesemia (Acute) CHF exacerbation (Acute) Hypoxia (Acute) Pleural effusion (Acute) Left leg DVT (Acute) Leg edema (Acute) Oxygen dependent (Acute) Cholelithiasis (Acute) Pneumonia (Acute) Abdominal bloating (Acute) Hypokalemia (Acute) Atrial flutter (Acute) Infarction of right basal ganglia (Acute) Type 2 diabetes mellitus (Chronic) Hypertension (Chronic) Fall (Acute) 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 Pt is to keep follow up appointment as instructed and take medications as ordered. Discharge Medications Discharge Medications: No Known Drug Allergies Allergy (Unknown, Verified 06/12/25 14:34) CONTINUE taking the following medicatio Discharge Disposition Assessment: see hospital course above Discharge Plan Discharge Plan Hospital Course: This patient is a 75-year-old female currently resident of local [facility] facility who presented to the emergency room with chest pain and abdominal pain. She is evaluated and CT scan showed a markedly thickened gallbladder which was confirmed by ultrasound consistent with acute cholecystitis. CT scan done earlier in the month did not show significant thickening but noted to have gallstones. Patient admitted and placed on IV antibiotics late that night. Was taken the operating suite the next morning where laparoscopic cholecystectomy was converted open cholecystectomy for a markedly inflamed gallbladder. She underwent uncomplicated open cholecystectomy and had a gangrenous gallbladder. Postprocedure she had persistent hypotension. document management consultant was engaged. Patient had persistent hypotension ultimately requiring 3 pressors, i.e. Levophed, dopamine and vasopressin which were all maxed out with persistent hypotension. Patient seen personally by me and had placement of central line and attempt to place a arterial line. Patient continued to deteriorate and the family at that time decided to continue full resuscitation with the choice to the withdraw care if they so decided. Patient had persistent hypotension and eventually had hypoventilation requiring intubation. Shortly after patient intubated family sided to withdraw care. She was extubated and allowed to . See my note dated earlier this day in regards to the resuscitation efforts. This persistent hypotension, gangrenous gallbladder and elevated white blood cell count I believe this represented a picture of sepsis superimposed upon this patient with significant chronic medical problems. Patient Disposition: 20 Health Concerns: Post Hospitalization: new medications and changes needed to prevent readmission or further decline. Pt educated and given instructions on all concerns. Plan of Treatment: Continue with present treatment and follow up plan. Pt is to keep follow up appointment as instructed and take medications as ordered. Assessment: see hospital course above Prescription drug monitoring program results: PDMP was not reviewed Prescriptions: Discontinued furosemide 80 mg tablet 80 mg PO BID Eliquis 5 mg tablet 5 mg PO BID potassium chloride 20 mEq tablet,ER particles/crystals 40 meq PO BID spironolactone 25 mg tablet 25 mg PO QDAY Novolin R Regular U100 Insulin 100 unit/mL solution 1 sliding scale dose subcut USEASDIRECTD Rx Instructions: sliding scale clopidogrel [Plavix] 75 mg tablet 75 mg PO DAILY 30 Days Qty: 30 3RF gabapentin 100 mg Capsule 100 mg PO BID 0RF atorvastatin [Lipitor] 80 mg Tablet 80 mg PO HS acetaminophen [Tylenol] 325 mg Tablet 650 mg PO Q6H PRN tramadol 50 mg Tablet 50 mg PO Q8H PRN ergocalciferol (vitamin D2) 1,250 mcg (50,000 unit) capsule 1,250 mcg PO QWEEK Rx Instructions: TAKE ON THURSDAY albuterol sulfate 90 mcg/actuation HFA aerosol inhaler 2 puff inhalation Q4H PRN diclofenac sodium 1 % gel 1 ea TOPICAL Q8H PRN insulin glargine [Lantus U-100 Insulin] 100 unit/mL solution 25 unit SUBCUT DAILY Patient Comments: [NO ORIGINAL SIG] Ferrocite Plus 106 mg iron- 1 mg Capsule 1 cap PO QAM levothyroxine 150 mcg Tablet 150 mcg PO QDAY carbidopa-levodopa 50-200 mg Tablet Extended Release 1 tab PO TID Januvia 100 mg Tablet 100 mg PO DAILY carvedilol 12.5 mg tablet 6.25 mg PO BID Rx Instructions: must administer with a meal/food Orders to Discharge Patient Discharge Orders: Release body (Routine); Ordered 06/25/25 Ordered By: Darrian Lan Follow ups/Referrals Follow ups/Referrals: [facility] [Primary Care Provider] - 3 days Instructions Instructions: Laparoscopic Cholecystectomy, Care After Print Language: L[place]
--- NOTE | 2025-06-25 16:43 | DR.OPNOTE ---
OP NOTE Pre-Op Diagnosis: acute cholecystitis Post-Op Diagnosis: gangrenous cholecystitis Procedure Date Date Of Procedure: 06/24/25 Procedure: PROCEDURE: Laparoscopic cholecystectomy converted to open cholecystomy NARRATIVE : The patient was taken to the operative suite and general endotracheal anesthesia induced. The entire abdomen prepped and draped in sterile fashion. Timeout for the procedure obtained .Vertical incision made above umbilicus in the midline and dissection carried down through the subcutaneous tissue with electrocautery. Holding sutures of 0 Vicryl placed on either side of the midline fascia and midline fascia opened with a #15 knife blade and Jon cannula placed and secured with the holding sutures. Abdomen insufflated to 15 mm of mercury with carbon oxide. The gallbladder was covered with caked omentum. Two 5 mm trocars placed along the right costal margin and a 5 mm trocar placed in the epigastrium. The omentum was very adherent as was the bowel and I elected at this point to convert to an open operation because it would take an excessive amount of time to do this laparoscopically in this otherwise obese patient with chronic medical problems . Alll trocars removed. We prepared for open operation. Right subcostal incision made with #10 blade knife seen and the subcutaneous tissue divided with electrocautery . Superior rectus fascia and external oblique fascia and the rectus muscle divided with electrocautery. Posterior rectus sheath divided with electrocautery and the abdomen entered and the omentum was very adherent and difficult to remove from the gallbladder. This was done with a combination of blunt and sharp dissection. Omni retractor placed. I was able to dissected down to Calot's triangle and identified the cystic artery and the cystic duct. Right angle used to separate the cystic artery and it was clipped proximally ,distally and divided. Cystic duct was clamped with a right angle clamp and divided and the gallbladder dissected from the liver bed and removed. There was no significant active bleeding . The cystic duct tied with a 2-0 silk suture ligature. The wound irrigated. No active bleeding. Through the right lateral most 5 mm trocar incision we placed a 10 mm flat Hollis-Jasso drain and placed it in Carrillo's pouch. This secured to the skin with a silk suture ligature. Posterior rectus sheath closed with running #1 PDS suture. Anterior r ectus sheath closed with interrupted 0 Vicryl sutures. Subcutaneous tissue closed with running 3-0 Vicryl suture. Skin closed with skin hemanth. The incision above the umbilicus in the midline closed by apprimating the fascia with interrupted 0 Vicryl sutures. Subcutaneous tissue closed with 3-0 Vicryl sutures and thr skin closed with and skin hemanth. Remaining trocar sites closed with skin hemanth. Patient extubated taken to PACU for continued recovery with plans to go to the CCU. Type of Anesthesia: General Anesthetic w/ETT Findings: Converted from laparoscopic cholecystectomy to open cholecystectomy for significant inflammation and subsequent findings of gangrenous cholecystitis, omentum was caked over the gallbladder Type of Fluids Used:: Normal Saline (800 cc of saline, 500 cc of Hespan) Urine output: 200cc EBL: 400cc Drains/Tubes Placed: Hollis Jasso (10. Flat Hollis-Jasso drain) Complications:: None Needle/Sponge Count:: Correct Disposition/Condition: Pt. tolerated procedure without difficulty. Extubated in the OR and taken to PACU in stable condition. Patient did have some hypotension responding to intermittent doses of Kali-Synephrine. Transferred to the CCU
--- NOTE | 2025-06-25 18:47 | NOTE.SOAP ---
Soap Note Note for Day of Date of Exam: 06/24/25 Subjective Data Subjective Data: Consulted by surgery after open cholecystectomy for gangrenous gallbladder. History of A-fib, CHF, and multiple other comorbidities. Was in A-fib with variable heart rate, hypotensive, and new leukocytosis after surgery. Started on Zosyn and Flagyl IV. Was already on Levophed when I was consulted. We started her on amlodipine IV for rate control. She responded well to it. After blood pressure started to drop again, we added on dopamine. Fluids increased with the plan to do 1 L over 5 hours and then do 150/hr for another 8 based on response. We made plans to convert Flagyl to p.o. in the morning and went ahead and did an oral dose of amiodarone with plans to stop the drip to help her access. After multiple communications with nurses and worsening blood pressure, it was decided to add on vasopressin as a third pressor. Also did stat H&H and contacted surgery to been in a central line. Objective Data Objective Data: Patient was never examined, in person or A/V, by me. Assessment Assessment: Shock, cardiogenic versus septic Acute blood loss anemia following surgery A-fib with RVR Plan Plan: Levophed already gone, dopamine added, vasopressin added. Zosyn and Flagyl started. Surgery contacted to place central line. Stat H&H ordered. Surgery initiated a transfusion. Amiodarone IV started avoided beta-winter and diltiazem due to worse concerns about BP. Converted to p.o. due to vascular access issues and urgent need to start a third pressor.
== END 2025-06-25 04:50 | disposition expired | DRG 416 ==
LOC: MED/SURG 11:24 → ER 11:24 → OBSVTOIN 19:32 → MED/SURG 20:46 → ICU 06-24 13:41
PROVIDERS: ADMIT Surgery; ATTEND Surgery
DX: I95.89 Other hypotension; E87.5 Hyperkalemia; K21.9 Gastro-esophageal reflux disease without esophagitis; I48.91 Unspecified atrial fibrillation; I50.89 Other heart failure; I46.9 Cardiac arrest, cause unspecified; E03.8 Other specified hypothyroidism; D64.89 Other specified anemias; R06.02 Shortness of breath; R10.84 Generalized abdominal pain; Z85.3 Personal history of malignant neoplasm of breast; R94.31 Abnormal electrocardiogram [ECG] [EKG]; R79.1 Abnormal coagulation profile; Z01.810 Encounter for preprocedural cardiovascular examination; Z79.4 Long term (current) use of insulin; R07.89 Other chest pain; Z86.73 Personal history of transient ischemic attack (TIA), and cerebral infarction without residual deficits; E11.65 Type 2 diabetes mellitus with hyperglycemia; K80.00 Calculus of gallbladder with acute cholecystitis without obstruction; I25.10 Atherosclerotic heart disease of native coronary artery without angina pectoris; Z66 Do not resuscitate; K82.8 Other specified diseases of gallbladder; I87.2 Venous insufficiency (chronic) (peripheral); E83.42 Hypomagnesemia; R00.0 Tachycardia, unspecified; E78.5 Hyperlipidemia, unspecified; I11.0 Hypertensive heart disease with heart failure